=== PATIENT | male | born 1940 | race Caucasian/White ===

== ENCOUNTER → 2017-03-15 | Day surgery (SDC) | payer OTHER ==
[2017-02-13 13:40] VITALS: Ht 170.2 cm; Wt 95.5 kg
[~2017-03-15] VITALS: Ht 170.2 cm; Wt 95.5 kg
[~2017-03-15] MED LIST: 500ML BSS 0.3ML EPI 1:1000PF IRRIG ONE; ACETAMINOPHEN 325 MG TAB PO PRN; AMVISC PLUS 0.8ML SYRINGE INT OCU ONE; ASPI325T45 PO; ATEN-173 PO; ATOR-24 PO; ATROPINE SULFATE 0.1 MG/ML 5ML SYR IV PRN; BSS FLUSH ONE; CHOL20009 PO; CITA20TA4 PO; EpHEDrine SULFATE INJ 50 MG/ML AMP IV PRN; EpINEphrine INJ 1MG/ML AMP 1 MG/ML AMP ONE; FELO5TAB PO; HYDR25TA4 PO; INSDGI SC; INSU100I SC; LACTATED RINGER'S 1000ML 500 ML IV SCH; LIDOCAINE 3.5% OPH GEL PER APPLICATION CHARGE ONE; LIDOCAINE HCL 1% MPF 2 ML VIAL ONE; LISI1TAB3 PO; MELO15TA10 PO; MIDAZOLAM HCL 1 MG/ML 2ML VIAL ONE; MULT-506 PO; OCUCOAT 1 ML SOLN IO ONE; OMEG10007 PO; ONDANSETRON INJ 2 MG/ML 2 ML VIAL IV PRN; POTA550T4 PO; POVIDONE-IODINE OP SOLN 30 ML BTL ONE; PRLSR20 PO; PROPARACAINE 0.5% OP SOLN PER DROP CHARGE OPL SCH; TOBRAMYCIN/DEXAMETHASONE OPH OINT PER APPLN CHARGE ONE
[2017-03-15] MEDS: PHENYLEPHRINE HCL 2.5% OP SOLN PER DROP CHARGE OPL SCH ×2 (06:44→06:49)
[2017-03-15] MEDS: TROPICAMIDE 1% OP SOLN PER DROP CHARGE OPL SCH ×2 (06:45→06:50)
[2017-03-15] MEDS: CYCLOPENTOLATE HCL 1% OP SOLN PER DROP CHARGE OPL SCH ×2 (06:46→06:51)
[2017-03-15] MEDS: KETOROLAC 0.5% OP SOLN PER DROP CHARGE OPL SCH ×2 (06:47→06:52)
[2017-03-15] MEDS: GATIFLOXACIN OP SOLN PER DROP CHARGE OPL SCH ×2 (06:48→06:58)
--- NOTE | 2017-03-15 06:54 | History & Physical Bridge - [place] ---
H&P Re-Evaluation Bridge Note: I have examined the patient, reviewed the History & Physical and in the interval since the performance of the History & Physical I have noted the following changes of clinical significance: No changes noted
--- NOTE | 2017-03-15 07:19 | Discharge Instructions-SurgCtr ---
Discharge Instructions Date of Service Mar 15, 2017. Visit Reason for Visit: Cataract Left Eye Discharge Discharge Diagnosis / Problem: cataract Discharge Goals Goal(s): Improve function Medications Stopped Medications Name(s): Stopped Chandni 5 days ago - was told not to take his fast acting insulin this a.m. and only to take half of his night insulin. Activity Recommendations Activity Limitations: per Instructions/Follow-up section Anesthesia . Post Anesthesia Instructions: If you have had General Anesthesia or IV Sedation: * Do not drive today. * Resume driving when surgeon permits. * Do not make important decisions or sign legal documents today. * Call surgeon for: 1. Temperature elevations greater than 101 degrees F. 2. Uncontrollable pain. 3. Excessive bleeding. 4. Persistent nausea and vomiting. 5. Medication intolerance (nausea, vomiting or rash). * For nausea and vomiting use only clear liquids such as: tea, soda, bouillon until nausea subsides, then gradually increase diet as tolerated. * If you have any concerns or questions, call your surgeon's office. If physician is unavailable and it is an emergency, call 911 or go to the nearest emergency room. . Instructions / Follow-Up Instructions / Follow-Up ACTIVITY RECOMMENDATIONS: * No strenuous lifting, jogging or running for 4 days * No swimming or yard work for 1 week. * Limited bending is permitted, such as putting on shoes. RETURN TO SCHOOL/WORK: No work until seen by physician in office. MEDICATIONS: Resume previous medications unless instructed otherwise by your surgeon. This includes eye drops for glaucoma. Zymaxid/Gatifloxacin (browne cap) - one drop every 2 hours until bedtime Nevanac/Ilevro/Prolensa/Ketorolac (ferguson cap) - one drop every 4 hours until bedtime Prednisolone/Durezol (white/pink cap, SHAKE WELL) - one drop every 2 hours until bedtime Starting tomorrow - all 3 drops every 4 hours until seen in the office Optive drops - as needed for discomfort SPECIAL CARE INSTRUCTIONS: * Wear eyeshield when sleeping, for four nights. * You may wear your own glasses or sunglasses while awake. * You may read or watch TV * You may shower and wash your face, but be gentle around the eye and pat dry. * Blurry vision and mild irritation are normal. * Call office if pain is more severe or vision becomes dark at . FOLLOW UP VISIT: Follow-up with Dr Sanders tomorrow. Diet Recommendations Home Diet: resume previous diet Procedures Procedures Performed: Left Cataract Phacoemulsification With Intraocular Lens Implant Pending Studies Studies pending at discharge: no Medical Emergencies . Who to Call and When: Medical Emergencies: If at any time you feel your situation is an emergency, please call 911 immediately. . Non-Emergent Contact Non-Emergency issues call your: Hospice Director . . "Provider Documentation" section prepared by Landon Sanders. .
--- NOTE | 2017-03-15 07:19 | [facility] Operative Report ---
Operative Report Date of Service Mar 15, 2017. Operative Report 1. PREOPERATIVE DIAGNOSIS: Cataract of the left eye. 2. POSTOPERATIVE DIAGNOSIS: Same. 3. PROCEDURE: Phacoemulsification with intraocular lens implantation of the left eye. SURGEON: Dr. Landon Sanders. ANESTHESIA: Topical Lidocaine gel, 1% Non- Preserved intracameral Lidocaine, and monitored intravenous sedation. INDICATIONS FOR THE PROCEDURE: The patient is a 76 - year-old male with a history of cataract of the left eye causing significant visual impairment. The details of the proposed procedure were explained to the patient who asked appropriate questions and following discussion of all risks, benefits and alternatives agreed to have the procedure done. 4. OPERATION AND FINDINGS: DESCRIPTION OF PROCEDURE: After informed consent was obtained, the patient was brought to the Operating Room at the [facility]. The patient was placed in a supine position and then the left eye was prepped and draped in the usual sterile fashion for intraocular surgery. A drop of topical Lidocaine gel was placed in the operative eye. A wire lid speculum was then placed in the fornices. A corneal paracentesis was then created temporally. The Non-Preserved Lidocaine was then instilled into the anterior chamber. The anterior chamber was then pressurized with viscoelastic. A 2.0 mm clear corneal incision was then created temporally. A cystotome was inserted into the anterior chamber and used to create a tear in the anterior lens capsule. This capsular tear was then used to create a small flap and the flap was dragged in a counterclockwise direction in order to create a continuous curvilinear capsulorrhexis. Hydrodissection was accomplished with balanced salt solution. Phacoemulsification of the lens nucleus was then performed in a standard [id number] technique. The phaco time was 18 seconds with an average power of 10 %. The remaining cortical material was removed using irrigation aspiration. The capsular bag was then filled with viscoelastic. A Bausch & Lomb MI60L +18.5 diopters lens was then loaded into the injector and injected into the capsular bag. The remaining viscoelastic was removed with the irrigation aspiration handpiece. The wound was hydrated and then checked and found to be watertight. The intraocular pressure was checked and found to be adequate. The wire lid speculum was removed and the patient's face was cleaned and dried. TobraDex ointment was placed in the inferior fornix. The patient was discharged to the Recovery Room having tolerated the procedure well. There were no complications. The patient will be seen tomorrow in the office for follow-up. I attest to the content of the Intraoperative Record and any orders documented therein. Any exceptions are noted below.
[2017-03-15 07:20] VITALS: TEMP 36.9
[2017-03-15 07:46] VITALS: BP 132/67; PULSE 52; O2SAT 98
--- NOTE | 2017-03-15 07:56 | Anesthesiology Progress Note ---
Anesthesia Post Op Note Date & Time Mar 15, 2017 at 07:55 Vital Signs Pain Intensity: 0 Vital Signs Past 12 Hours Date Time Temp Pulse Resp B/P (MAP) Pulse Ox O2 Delivery O2 Flow Rate FiO2 03/15/17 07:46 52 20 132/67 (88) 98 Room Air 03/15/17 07:20 36.9 51 16 151/80 (103) 98 Room Air 03/15/17 06:30 36.6 53 16 144/79 (100) 99 Room Air Notes Mental Status: alert / awake / arousable, participated in evaluation Pt Amnestic to Procedure: Yes Nausea / Vomiting: adequately controlled Pain: adequately controlled Airway Patency, RR, SpO2: stable & adequate BP & HR: stable & adequate Hydration State: stable & adequate Anesthetic Complications: no major complications apparent
== END | disposition home or self-care (01) ==
LOC: X.SURG 06:04
PROVIDERS: ATTEND Ophthalmology
DX: H25.13 Age-related nuclear cataract, bilateral (principal); E10.9 Type 1 diabetes mellitus without complications; I10 Essential (primary) hypertension; I25.10 Atherosclerotic heart disease of native coronary artery without angina pectoris; G47.33 Obstructive sleep apnea (adult) (pediatric); E55.9 Vitamin D deficiency, unspecified; Z79.82 Long term (current) use of aspirin

== ENCOUNTER → 2017-04-10 | Day surgery (SDC) | payer OTHER ==
[2017-03-27 10:36] VITALS: Ht 170.2 cm; Wt 95.5 kg
[~2017-04-10] VITALS: Ht 170.2 cm; Wt 95.5 kg
[~2017-04-10] MED LIST changes: -ONDANSETRON INJ 2 MG/ML 2 ML VIAL IV PRN; -PROPARACAINE 0.5% OP SOLN PER DROP CHARGE OPL SCH; +PROPARACAINE 0.5% OP SOLN PER DROP CHARGE OPR SCH
[2017-04-10] MEDS: PHENYLEPHRINE HCL 2.5% OP SOLN PER DROP CHARGE OPR SCH ×2 (10:21→10:30)
[2017-04-10] MEDS: TROPICAMIDE 1% OP SOLN PER DROP CHARGE OPR SCH ×2 (10:22→10:31)
[2017-04-10] MEDS: CYCLOPENTOLATE HCL 1% OP SOLN PER DROP CHARGE OPR SCH ×2 (10:23→10:32)
[2017-04-10] MEDS: KETOROLAC 0.5% OP SOLN PER DROP CHARGE OPR SCH ×2 (10:25→10:34)
[2017-04-10] MEDS: GATIFLOXACIN OP SOLN PER DROP CHARGE OPR SCH ×2 (10:26→10:35)
--- NOTE | 2017-04-10 11:16 | Discharge Instructions-SurgCtr ---
Discharge Instructions Date of Service Apr 10, 2017. Visit Reason for Visit: Cataract Right Eye Discharge Discharge Diagnosis / Problem: cataract Discharge Goals Goal(s): Improve function Activity Recommendations Activity Limitations: per Instructions/Follow-up section Anesthesia . Post Anesthesia Instructions: If you have had General Anesthesia or IV Sedation: * Do not drive today. * Resume driving when surgeon permits. * Do not make important decisions or sign legal documents today. * Call surgeon for: 1. Temperature elevations greater than 101 degrees F. 2. Uncontrollable pain. 3. Excessive bleeding. 4. Persistent nausea and vomiting. 5. Medication intolerance (nausea, vomiting or rash). * For nausea and vomiting use only clear liquids such as: tea, soda, bouillon until nausea subsides, then gradually increase diet as tolerated. * If you have any concerns or questions, call your surgeon's office. If physician is unavailable and it is an emergency, call 911 or go to the nearest emergency room. . Instructions / Follow-Up Instructions / Follow-Up ACTIVITY RECOMMENDATIONS: * No strenuous lifting, jogging or running for 4 days * No swimming or yard work for 1 week. * Limited bending is permitted, such as putting on shoes. RETURN TO SCHOOL/WORK: No work until seen by physician in office. MEDICATIONS: Resume previous medications unless instructed otherwise by your surgeon. This includes eye drops for glaucoma. Zymaxid/Gatifloxacin (browne cap) - one drop every 2 hours until bedtime Nevanac/Ilevro/Prolensa/Ketorolac (ferguson cap) - one drop every 4 hours until bedtime Prednisolone/Durezol (white/pink cap, SHAKE WELL) - one drop every 2 hours until bedtime Starting tomorrow - all 3 drops every 4 hours until seen in the office Optive drops - as needed for discomfort SPECIAL CARE INSTRUCTIONS: * Wear eyeshield when sleeping, for four nights. * You may wear your own glasses or sunglasses while awake. * You may read or watch TV * You may shower and wash your face, but be gentle around the eye and pat dry. * Blurry vision and mild irritation are normal. * Call office if pain is more severe or vision becomes dark at . FOLLOW UP VISIT: Follow-up with Dr Sanders tomorrow. Diet Recommendations Home Diet: resume previous diet Procedures Procedures Performed: Right Cataract Phacoemulsification With Intraocular Lens Implant Pending Studies Studies pending at discharge: no Medical Emergencies . Who to Call and When: Medical Emergencies: If at any time you feel your situation is an emergency, please call 911 immediately. . Non-Emergent Contact Non-Emergency issues call your: [employer] . . "Provider Documentation" section prepared by Landon Sanders. .
--- NOTE | 2017-04-10 11:17 | [facility] Operative Report ---
Operative Report Date of Service Apr 10, 2017. Operative Report 1. PREOPERATIVE DIAGNOSIS: Cataract of the right eye. 2. POSTOPERATIVE DIAGNOSIS: Same. 3. PROCEDURE: Phacoemulsification with intraocular lens implantation of the right eye. SURGEON: Dr. Landon Sanders. ANESTHESIA: Topical Lidocaine gel, 1% Non- Preserved intracameral Lidocaine, and monitored intravenous sedation. INDICATIONS FOR THE PROCEDURE: The patient is a 76 - year-old male with a history of cataract of the right eye causing significant visual impairment. The details of the proposed procedure were explained to the patient who asked appropriate questions and following discussion of all risks, benefits and alternatives agreed to have the procedure done. 4. OPERATION AND FINDINGS: DESCRIPTION OF PROCEDURE: After informed consent was obtained, the patient was brought to the Operating Room at the [facility]. The patient was placed in a supine position and then the right eye was prepped and draped in the usual sterile fashion for intraocular surgery. A drop of topical Lidocaine gel was placed in the operative eye. A wire lid speculum was then placed in the fornices. A corneal paracentesis was then created temporally. The Non-Preserved Lidocaine was then instilled into the anterior chamber. The anterior chamber was then pressurized with viscoelastic. A 2.0 mm clear corneal incision was then created temporally. A cystotome was inserted into the anterior chamber and used to create a tear in the anterior lens capsule. This capsular tear was then used to create a small flap and the flap was dragged in a counterclockwise direction in order to create a continuous curvilinear capsulorrhexis. Hydrodissection was accomplished with balanced salt solution. Phacoemulsification of the lens nucleus was then performed in a standard [id number] technique. The phaco time was 18 seconds with an average power of 10 %. The remaining cortical material was removed using irrigation aspiration. The capsular bag was then filled with viscoelastic. A Bausch & Lomb MI60L +17.0 diopters lens was then loaded into the injector and injected into the capsular bag. The remaining viscoelastic was removed with the irrigation aspiration handpiece. The wound was hydrated and then checked and found to be watertight. The intraocular pressure was checked and found to be adequate. The wire lid speculum was removed and the patient's face was cleaned and dried. TobraDex ointment was placed in the inferior fornix. The patient was discharged to the Recovery Room having tolerated the procedure well. There were no complications. The patient will be seen tomorrow in the office for follow-up. I attest to the content of the Intraoperative Record and any orders documented therein. Any exceptions are noted below.
[2017-04-10 11:18] VITALS: TEMP 36.7
[2017-04-10 11:43] VITALS: BP 172/70; PULSE 46; O2SAT 99
--- NOTE | 2017-04-10 11:45 | Anesthesiology Progress Note ---
Anesthesia Post Op Note Date & Time Apr 10, 2017 at 11:45 Vital Signs Pain Intensity: 0 Vital Signs Past 12 Hours Date Time Temp Pulse Resp B/P (MAP) Pulse Ox O2 Delivery O2 Flow Rate FiO2 04/10/17 11:18 36.7 41 18 184/82 (116) 98 Room Air 04/10/17 09:56 36.4 52 18 168/71 (103) 98 Room Air Notes Mental Status: alert / awake / arousable, participated in evaluation Pt Amnestic to Procedure: No Nausea / Vomiting: adequately controlled Pain: adequately controlled Airway Patency, RR, SpO2: stable & adequate BP & HR: stable & adequate Hydration State: stable & adequate Anesthetic Complications: no major complications apparent 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
== END | disposition home or self-care (01) ==
LOC: X.SURG 09:46
PROVIDERS: ATTEND Ophthalmology
DX: H25.11 Age-related nuclear cataract, right eye (principal); E10.36 Type 1 diabetes mellitus with diabetic cataract; I10 Essential (primary) hypertension; G47.33 Obstructive sleep apnea (adult) (pediatric); E78.5 Hyperlipidemia, unspecified; G47.10 Hypersomnia, unspecified; E55.9 Vitamin D deficiency, unspecified; M02.30 Reiter's disease, unspecified site; Z79.4 Long term (current) use of insulin; Z79.82 Long term (current) use of aspirin; Z79.899 Other long term (current) drug therapy

== ENCOUNTER 2019-03-25 16:18 | Observation (INO) ==
--- OUTSIDE RECORDS SUMMARY | 2019-03-25 16:22 | External Medical Summary | Continuity of Care Document ---
:1940 Author Name Ruddy Quinonez Address Unavailable Unavailable , Care Team Providers Name Role Phone Unavailable Unavailable Unavailable Sameera GUERRERO Unavailable Unavailable Problems Active medical history not documented Allergies and Adverse Reactions No Known Drug Allergies (Allergy) Medications Medications not documented Procedures Procedures not documented Immunizations Immunizations not documented Plan of Treatment Planned Observations Planned Goals not documented Results No Known Results Results not documented
--- NOTE | 2019-03-25 16:46 | XRay Report ---
XR chest 1V portable HISTORY: Atypical Chest Pain COMPARISON: None. FINDINGS: The lungs are clear. Cardiac silhouette is normal in size. No pleural effusions. No pneumot horax. IMPRESSION: No acute process. Electronically signed by: Tigre Elizabeth M.D. 03/25/2019 4:45 PM
[2019-03-25 16:56] LABS: Hematocrit (blood only) 33.1 % (42-52); Mean Corpuscular Hgb Conc 36.3 g/dL (32-36); Mean Corpuscular Volume 83.8 fL (80-100); Mean Platelet Volume 9.8 fL (7.4-10.4); Platelet Count 246 K/uL (130-400); RDW Coefficient of Variation 13.2 % (11.5-14.5); RDW Standard Deviation 40.2 fL (36.4-46.3); Red Blood Count 3.95 M/uL (4.7-6.1); White Blood Count 9.79 K/uL (4.8-10.8)
[2019-03-25 17:10] LABS: INR 1.1 (0.9-1.1); Partial Thromboplastin Ratio 1.1; Partial Thromboplastin Time 28.6 Seconds (21.0-31.0); Prothrombin Time 11.4 Seconds (9.0-12.0)
[2019-03-25 17:13] LABS: Alanine Aminotransferase 53 U/L (12-78); Albumin Level 2.7 gm/dl (3.4-5.0); Aspartate Aminotransferase 61 U/L (15-37); BUN Creatinine Ratio 30.1 (10-20); Blood Urea Nitrogen 28 mg/dl (7-18); Calcium 8.2 mg/dl (8.5-10.1); Carbon Dioxide 29 mmol/L (21-32); Chloride 101 mmol/L (98-107); Creatinine Clr Calc Pharmacy 73.1 ml/min; Est GFR (Non-African American) 79.4; Glucose 188 mg/dl (70-99); Magnesium 2.1 mg/dl (1.8-2.4); Potassium 3.2 mmol/L (3.5-5.1); Sodium 136 mmol/L (136-145)
[2019-03-25 17:24] LABS: Albumin Globulin Ratio 0.7 (0.9-2); Alkaline Phosphatase 71 U/L (45-117); Bilirubin,Total 0.5 mg/dl (0.2-1); Creatine Kinase 195 U/L (39-308); Creatine Kinase MB 4.9 ng/ml (0.5-3.6); Globulin 4.1 gm/dl (2.5-4.0); Total Protein 6.8 gm/dl (6.4-8.2); Troponin I < 0.015 ng/ml (0-0.045)
[2019-03-25 18:04] LABS: Basophils # (auto) 0.05 K/uL (0-0.2); Basophils % (auto) 0.5 %; Echinocytes 1+; Eosinophils # (auto) 0.15 K/uL (0-0.5); Eosinophils % (auto) 1.5 %; Immature Granulocytes # (auto) 0.02 K/uL (0.00-0.02); Immature Granulocytes % (auto) 0.2 %; Lymphocytes # (auto) 5.72 K/uL (1.2-3.4); Lymphocytes % (auto) 58.4 %; Monocytes # (auto) 1.13 K/uL (0.11-0.59); Monocytes % (auto) 11.5 %; Neutrophils # (auto) 2.72 K/uL (1.4-6.5); Neutrophils % (auto) 27.9 %
[2019-03-25] MEDS ORDERED: SODIUM CHLORIDE 0.9% 1000ML 500 ML IV ONE (18:37)
--- NOTE | 2019-03-25 20:23 | Emergency Department Note ---
Entered by Praveena Gan acting as a scribe for Ricky Hidalgo DO History of Present Illness General Chief complaint: Cardiac Assessment Stated complaint: CHEST PRESSURE Source: patient and EMS Mode of arrival: EMS History of Present Illness Onset (ago): hour(s) 2 Location: chest Pain Consistency: + other (episode ) Quality: + other (pressure ) Relieved By: + medication (Aspirin, Nitro) Exacerbated By: + other (standing ) Associated symptoms: no chest pain and no shortness of breath Treatments prior to arrival: aspirin and other (Nitro) The patient is a 78 year old male who presents to the ED with complaints of an episode of chest pain for 2 hours now. The patient states that he had chest pressure today but he feels some relief in the ED. The patient states that the chest pain felt tense earlier but is only intermittent now. The patient states that his light-headedness gets worse with standing but not with movement. The patient states that his light-headedness comes and goes. The patient states that he went to the doctor a week ago. The patient notes that his PCP is Dr. Valero. He notes that at the doctors his Troponin levels were elevated, but the patient wasnt admitted. He reports that he does not have chest pain or shortness of breath. The patient denies blood in his urine and stool. The patient states that he had a stress test a few years ago. The EMS states that the patient had a borderline 1st degree AV block. They report that the patient was given Aspirin and Nitro in the EMS. Home Medications Home Medications Medication Instructions Recorded Confirmed Type aspirin 325 mg PO QAM 03/25/19 03/25/19 History atorvastatin 40 mg PO QAM 03/25/19 03/25/19 History cholecalciferol (vitamin D3) 2,000 unit PO QAM 03/25/19 03/25/19 History [Vitamin D3] citalopram 10 mg PO QAM 03/25/19 03/25/19 History felodipine 5 mg PO QAM 03/25/19 03/25/19 History hydrochlorothiazide 25 mg PO QAM 03/25/19 03/25/19 History insulin glargine [Lantus U-100 25 unit SUBCUT QPM 03/25/19 03/25/19 History Insulin] insulin lispro [Humalog KwikPen See Rx Instructions .ROUTE .COMPLEX 03/25/19 03/25/19 History Insulin] lisinopril 40 mg PO QAM 03/25/19 03/25/19 History meloxicam 15 mg PO DAILY PRN 03/25/19 03/25/19 History multivitamin 1 tab PO QAM 03/25/19 03/25/19 History gxlzj-[id number]-epa-fish oil [[place]-3 2 cap PO QAM 03/25/19 03/25/19 History Fish Oil] omeprazole 10 mg PO QAM 03/25/19 03/25/19 History potassium gluconate 550 mg PO 4XWK 03/25/19 03/25/19 History Allergies Allergy/AdvReac Type Severity Reaction Status Date / Time No Known Drug Allergies Allergy Unknown . Verified 03/25/19 17:17 Neoprene Allergy Unknown Itchiness Uncoded 03/25/19 17:17 Past Med/Surg History Medical History No known health problems Family History Other No significant family history Social History Preferred Language: Belarusian Communication Ability: Effective Reception Agent Required: No Beliefs That Will Affect Care: None Current Living Situation: Spouse Other Information That Helps Us Care for You: Yes (Type 1 diabetic) Feels Safe at Home: Yes Smoking Status: Never smoker Hx Alcohol Use: No Hx Substance Use: No Review of Systems See HPI for pertinent positives & negatives. and A total of 10 systems reviewed and were otherwise negative Physical Exam Vital Signs Vital Signs - 24 hr 03/25/19 16:30 03/25/19 18:37 Temperature 36.4 C L Temperature Source Oral Sepsis Recent Fever Within 48 Hours No Sepsis New/Unexplained Change in Mental Status No Sepsis Action Taken by Nursing No Action Required Pulse Rate 68 Pulse Rate [Apical] 67 Respiratory Rate 18 18 Blood Pressure 113/66 Blood Pressure [Left Arm] 104/68 Blood Pressure Mean 81 Blood Pressure Mean [Left Arm] 80 Pulse Oximetry 97 97 Oxygen Delivery Method Room Air GENERAL: Patient is awake, alert, and in no acute distress.Patient is resting comfortably and showing no signs of anxiety EYES: The conjunctivae are clear. The pupils are round and reactive. EARS, NOSE, MOUTH AND THROAT: The nose is without any evidence of any deformity. Mucous membranes are moist.Tongue is midline NECK: The neck is nontender and supple. RESPIRATORY: Normal respiratory effort is noted. There is no evidence of wheezing rhonchi or rales to auscultation. CARDIOVASCULAR: Regular rate and rhythm noted. There no murmurs rubs or gallops normal S1 normal S2 GASTROINTESTINAL: The abdomen is soft. Bowel sounds are present in all quadran ts. Abdomen is nontender. MUSCULOSKELETAL/EXTREMITIES: There is no evidence of gross deformity. Full range of motion is noted in the hips and shoulders. SKIN: There is no obvious evidence of any rash. There are no petechiae, pallor or cyanosis noted. NEUROLOGIC: Patient is awake alert and oriented x3. [Strength is symmetric. Patellar reflexes are 2+ bilaterally.] Course 162: Past medical records reviewed. The patient was evaluated in room C10. A complete history and physical exam was performed. 0: I reevaluated the patient at this time and he is resting comfortably. I discussed the test results and treatment plan with the patient at this time. 1850: I discussed the patients case with INNA Thomason. She agreed to evaluate the patient for admittance. Consultations Consultation #1: I discussed the patients case with INNA Thomason. She agreed to evaluate the patient for admittance. Time: 18:50 Administered Medications Discontinued Medications Sodium Chloride (Nss 1000ml) 500 mls @ 999 mls/hr IV .Q31M ONE Stop: 03/25/19 19:07 Last Infusion: 03/25/19 19:39 Dose: 0 mls/hr Documented by: [id number] Admin: 03/25/19 18:54 Dose: 999 mls/hr Documented by: [id number] Medical Decision Making Differential Diagnosis Differential diagnosis: Etiologies such as shingles, musculoskeletal pain, pericarditis, myocarditis, cardiac ischemia, pericardial tamponade, pneumonia, pneumothorax, pleural effusion, hemothorax, pleurisy, aortic pathology, pulmonary embolism, intra- abdominal process, as well as others were considered. Medical Records Attestation: I reviewed the patient's medical records. Home Medications Current Medication List: was personally reviewed by me Laboratory Data Attestation: I reviewed the patient's lab results. Result diagrams: 03/25/19 16:48 07/23/19 16:48 Lab Results 03/25/19 03/25/19 03/25/19 Range/Units 16:48 16:48 16:48 WBC 9.79 (4.8-10.8) K/uL RBC 3.95 L (4.7-6.1) M/uL Hgb 12.0 L (14.0-18.0) g/dL Hct 33.1 L (42-52) % MCV 83.8 (80-100) fL MCH 30.4 (25-34) pg MCHC 36.3 H (32-36) g/dL RDW Std Deviation 40.2 (36.4-46.3) fL RDW Coeff of Toby 13.2 (11.5-14.5) % Plt Count 246 (130-400) K/uL MPV 9.8 (7.4-10.4) fL Immature Gran % (Auto) 0.2 % Neut % (Auto) 27.9 % Lymph % (Auto) 58.4 % [place] % (Auto) 11.5 % Eos % (Auto) 1.5 % Baso % (Auto) 0.5 % Immature Gran # (Auto) 0.02 (0.00-0.02) K/uL Neut # (Auto) 2.72 (1.4-6.5) K/uL Lymph # (Auto) 5.72 H (1.2-3.4) K/uL [place] # (Auto) 1.13 H (0.11-0.59) K/uL Eos # (Auto) 0.15 (0-0.5) K/uL Baso # (Auto) 0.05 (0-0.2) K/uL Echinocytes 1+ PT 11.4 (9.0-12.0) Seconds INR 1.1 (0.9-1.1) APTT 28.6 (21.0-31.0) Seconds PTT Ratio 1.1 Sodium 136 (136-145) mmol/L Potassium 3.2 L (3.5-5.1) mmol/L Chloride 101 (98-107) mmol/L Carbon Dioxide 29 (21-32) mmol/L Anion Gap 7.0 (3-11) BUN 28 H (7-18) mg/dl Creatinine 0.92 (0.6-1.4) mg/dl Est Cr Clr Drug Dosing 73.1 ml/min Est GFR ( Amer) 92.0 Est GFR (Non-Af Amer) 79.4 BUN/Creatinine Ratio 30.1 H (10-20) Glucose 188 H (70-99) mg/dl Calcium 8.2 L (8.5-10.1) mg/dl Magnesium 2.1 (1.8-2.4) mg/dl Total Bilirubin 0.5 (0.2-1) mg/dl AST 61 H (15-37) U/L ALT 53 (12-78) U/L Alkaline Phosphatase 71 (45-117) U/L Total Creatine Kinase 195 (39-308) U/L CK-MB (CK-2) 4.9 H (0.5-3.6) ng/ml CK/CKMB % Calc 2.5 (0-3.0) Troponin I < 0.015 (0-0.045) ng/ml Total Protein 6.8 (6.4-8.2) gm/dl Albumin 2.7 L (3.4-5.0) gm/dl Globulin 4.1 H (2.5-4.0) gm/dl Albumin/Globulin Ratio 0.7 L (0.9-2) Lipase 102 (73-393) U/L TSH 2.980 (0.300-4.500) uIu/ml Imaging Data Radiologist's Impression: Radiology results as stated below per my review and the radiologist's interpretation: XR chest 1V portable HISTORY: Atypical Chest Pain COMPARISON: None. FINDINGS: The lungs are clear. Cardiac silhouette is normal in size. No pleural effusions. No pneumothorax. IMPRESSION: No acute process. Electronically signed by: Tigre Elizabeth M.D. 03/25/2019 4:45 PM ECG Data Attestation: I personally reviewed and interpreted this ECG as follows: Indication: chest pain Rate (beats per minute): 60 Findings: + other (diffused t-wave abnormalities noted ) and + 1st degree AV block; no PAC, no PVC and no ectopy Comparison ECG Date: no prior available Blood Pressure Blood Pressure Findings: Low blood pressure Blood Pressure Disposition: further management by hospitalist GURMEET Narrative The patient is a 78-year-old male who presented to the emergency department for an evaluation of chest discomfort. Patient describes a squeezing in his chest is been going on intermittently over the last few days. He was seen by his primary care physician recently and had laboratory studies done as an outpatient which included a hcqzv-ac-whuh troponin which was elevated. At this time the patient has a normal troponin. His EKG does show some nonspecific ST segment ab normality's. I discussed the patient's laboratory and radiographic studies with him. I also discussed the limitations of the emergency department work-up for chest pain with him. Ultimately I did discuss his case with the on-call [facility] hospitalist group. They have agreed to evaluate the patient in the emergency department for further management and disposition. Impression & Plan Chest pain, Abnormal EKG, Frequent PVCs, Dizziness Discharge Plan Visit Data *Final* Discharge Date/Time: 03/25/19 22:18 Chief Complaint: Cardiac Assessment Stated Complaint: CHEST PRESSURE ED Provider: Ricky Hidalgo Discharge Problem: Chest pain, Abnormal EKG, Frequent PVCs, Dizziness Patient Disposition: Admitted As Inpatient Discharge Instructions Interventions: ED Discharge Assessment Last Done: 03/25/19 22:18 Discharge Problem: Chest pain Qualifiers: Chest pain type: unspecified Qualified Code(s): R07.9 - Chest pain, unspecified The scribe's documentation has been prepared under my direction and personally reviewed by me in its entirety. I confirm that the note above accurately reflects all work, treatment, procedures, and medical decision making performed by me.
[2019-03-25] MEDS ORDERED: NITROGLYCERIN SL 0.4 MG/TAB TAB SL PRN (22:39)
[2019-03-25] MEDS ORDERED: ACETAMINOPHEN 325 MG TAB PO PRN (22:39)
[2019-03-25] MEDS ORDERED: POLYETHYLENE (MIRALAX) 17 GM PACK PO PRN (22:39)
[2019-03-25] MEDS ORDERED: ONDANSETRON INJ 2 MG/ML 2 ML VIAL IV PRN (22:39)
[2019-03-25] MEDS ORDERED: GLUCAGON FOR INJ 1 MG VIAL SQ PRN (23:00)
[2019-03-25] MEDS ORDERED: GLUCOSE 10 TABS/TUBE PO PRN (23:00)
[2019-03-25] MEDS ORDERED: DEXTROSE 50% 50 ML SYRINGE IV PRN (23:00)
[2019-03-25] MEDS ORDERED: GLUCOSE 40% GEL 15 GM TUBE PO PRN (23:00)
[2019-03-25] MEDS ORDERED: CARBOHYDRATES FOR HYPOGLYCEMIA PO PRN (23:00)
--- NOTE | 2019-03-25 23:30 | History and Physical Report ---
DATE OF ADMISSION: 03/25/2019 CHIEF COMPLAINT: Chest pain. HISTORY OF PRESENT ILLNESS: This is a 78-year-old male with past medical history significant for type 1 diabetes, hyperlipidemia, sleep apnea, CAD status post stent, vitamin D deficiency, [place] arthritis, hypersomnia, who presents with chest pressure like feeling. The patient states since about a week he is not feeling well. He is feeling loss of appetite, weight loss, generalized weakness. Sugars are labile, blood pressure is running low, feeling dizzy. He thought he might have had a heart attack on 03/16/2019. He went to the family doctor on 03/20/2019 and labs were done, mostly were unremarkable except for patient's high sensitivity troponin came back as 23, which normal range is 0-22, . He had some chest pressure like feeling today, so he came to the hospital. Currently resting comfortable and hemodynamically stable. Seems to be a little anxious. Had some headaches. No blurred visions, no earache, no runny nose, no sore throat, no difficulty swallowing. sleeping okay. No shortness of breath. Has some dry cough, has some sweating on and off. No nausea, no abdominal pain. He says he is drinking enough water, but he is not urinating much. No burning micturition. No diarrhea, no constipation, no blood in the stools. No swelling in the legs, no rash. Ambulating okay. No chest pain or shortness of breath while ambulating. Climbing one flight of stairs okay. ALLERGIES: No known drug allergies. PAST MEDICAL HISTORY: As mentioned above. PAST SURGICAL HISTORY: Aortic percutaneous angioplasty, colonoscopy, cystoscopy, repair of inguinal hernia, vasectomy. MEDICATIONS: The patient is on omeprazole 20 mg p.o. daily, meloxicam 50 mg p.o. daily p.r.n., Humalog sliding scale, vitamin D 2000 units daily, Celexa 10 mg p.o. daily, multivitamins 1 tablet daily, omega-3 one capsule daily, potassium gluconate 550 mg daily, Lipitor 40 mg p.o. daily, Lantus 25 units in the evening, felodipine 5 mg p.o. daily, hydrochlorothiazide 25 mg p.o. daily, lisinopril 40 mg p.o. daily, aspirin 325 mg p.o. daily. FAMILY HISTORY: Significant for brother has diabetes, daughter has diabetes. SOCIAL HISTORY: and lives with his spouse. No smoking, no alcohol, no drug use. REVIEW OF SYMPTOMS: As per HPI. Rest of review of systems negative. PHYSICAL EXAMINATION: GENERAL: The patient is of moderate build, not in acute distress. VITAL SIGNS: Temperature 36.4, pulse 67, respiratory rate 18, blood pressure 104/68, oxygen 97% on room air. HEENT: No pallor, no icterus. Pupils equal, round, and reactive to light. NECK: No JVD, no neck masses, no carotid bruit. CARDIOVASCULAR: S1, S2 heard, regular rate and rhythm, no murmur, no gallop. RESPIRATORY SYSTEM: Normal AP diameter. No accessory muscle use. No wheezing, no crackles. ABDOMEN: Soft, bowel sounds present, nontender. No distention. CENTRAL NERVOUS SYSTEM: Cranial nerves II-XII grossly intact. Nonfocal. EXTREMITIES: No edema, no erythema. LABORATORY DATA: WBC 9.7, hemoglobin 12, hematocrit 33.1, platelets 246. PT 11.4, INR 1.1, APTT 28.6. Sodium 136, potassium 3.2, chloride 101, bicarbonate 29, BUN 28, creatinine 0.9, serum glucose 188, magnesium 2.1, total bilirubin 0.5, AST 61, ALT 53, alkaline phosphatase 71, total creatinine kinase 195. Troponin I less than 0.015. Lipase 102. TSH 2.9. IMAGING DATA: Chest x-ray, no acute process seen. EKG: Normal sinus rhythm with first-degree AV block at a rate of 60, no acute ST changes seen. ASSESSMENT AND PLAN: This is a 78-year-old male who presents with generalized weakness, not feeling well with chest discomfort. 1. Chest pressure, generalized weakness, not feeling well, poor appetite since about 1 week. Outpatient labs show high sensitivity troponin is 23, normal is 0 to 22. In the ER, his troponin is less than 0.015. EKG has no acute change. Hemodynamically stable. History of coronary artery disease status post stent. We will observe the patient in the med/surg tele, do serial cardiac enzymes, echocardiogram, n.p.o. after midnight, and consult cardiology for further recommendations. 2. Hypokalemia. We will replace. 3. History of coronary artery disease status post stent. Continue his aspirin, statins, and lisinopril. 4. Diabetes. Continue his home Lantus and insulin sliding scale. Follow hemoglobin A1c levels. 5. History of hypertension, on felodipine, hydrochlorothiazide, and lisinopril. May be we need to cut the dose as the patient's blood pressure is on the lower side, probably causing the symptoms.Will Monitor. 6. Gastroesophageal reflux disease, continue omeprazole. 7. Depression. Continue citalopram. 8. Hyperlipidemia. Continue statin. Follow lipid profile. 9. Deep vein thrombosis prophylaxis, sequential compression devices for now. 10. Disposition: Observation in med/surg tele. Expect to discharge home and follow with his family doctor. Level 1 full code. MTDD
[2019-03-25] MEDS: INSULIN ASPART 100 UNITS/ML 3 ML PEN SC SCH (23:57)
[2019-03-25] MEDS: INSULIN GLARGINE SOLOSTAR 100 UNITS/ML 3 ML PEN SQ SCH (23:59)
[2019-03-26] MEDS ORDERED: POTASSIUM CHLORIDE 20 MEQ TABCR PO STA (03:18)
[2019-03-26 05:58] LABS: Hematocrit (blood only) 33.5 % (42-52); Mean Corpuscular Hgb Conc 35.8 g/dL (32-36); Mean Corpuscular Volume 84.8 fL (80-100); Mean Platelet Volume 9.7 fL (7.4-10.4); Platelet Count 258 K/uL (130-400); RDW Coefficient of Variation 13.4 % (11.5-14.5); RDW Standard Deviation 41.2 fL (36.4-46.3); Red Blood Count 3.95 M/uL (4.7-6.1); White Blood Count 8.57 K/uL (4.8-10.8)
[2019-03-26 06:20] LABS: Chol HDL Ratio 4; Cholesterol 92 mg/dl (0-200); HDL Cholesterol 21 mg/dl; LDL Cholesterol Calculated 51 mg/dl; Triglycerides 98 mg/dl (0-150); VLDL Cholesterol 20 mg/dl
[2019-03-26 06:24] LABS: Basophils # (auto) 0.04 K/uL (0-0.2); Basophils % (auto) 0.5 %; Eosinophils # (auto) 0.18 K/uL (0-0.5); Eosinophils % (auto) 2.1 %; Immature Granulocytes # (auto) 0.02 K/uL (0.00-0.02); Immature Granulocytes % (auto) 0.2 %; Lymphocytes # (auto) 4.84 K/uL (1.2-3.4); Lymphocytes % (auto) 56.5 %; Monocytes # (auto) 0.94 K/uL (0.11-0.59); Neutrophils # (auto) 2.55 K/uL (1.4-6.5); Neutrophils % (auto) 29.7 %
[2019-03-26 06:43] LABS: BUN Creatinine Ratio 27.6 (10-20); Calcium 7.9 mg/dl (8.5-10.1); Creatinine Clr Calc Pharmacy 82.5 ml/min; Est GFR (African American) 99.2; Est GFR (Non-African American) 85.6; Magnesium 2.2 mg/dl (1.8-2.4); Potassium 3.8 mmol/L (3.5-5.1)
[2019-03-26] MEDS: ASPIRIN 325 MG ECTAB PO SCH (07:45)
[2019-03-26] MEDS: FELODIPINE 5 MG TABCR PO SCH (07:46)
[2019-03-26] MEDS: MULTIVITAMIN TAB PO SCH (07:46)
[2019-03-26] MEDS: LISINOPRIL 40 MG TAB PO SCH (07:46)
[2019-03-26] MEDS: PANTOprazole 40 MG TAB PO SCH (07:46)
[2019-03-26] MEDS: CITALOPRAM 20 MG TAB PO SCH (07:46)
[2019-03-26] MEDS: CHOLECALCIFEROL 1,000 UNITS TAB PO SCH (07:46)
[2019-03-26] MEDS: ATORVASTATIN 40 MG TAB PO SCH (07:47)
[2019-03-26] MEDS: hydroCHLOROthiazide 25 MG TAB PO SCH (07:47)
[2019-03-26 08:29] LABS: Estimated Average Glucose 217 mg/dl; Hemoglobin A1C 9.2 % (4.5-5.6)
[2019-03-26] MEDS: INSULIN ASPART 100 UNITS/ML 3 ML PEN SC SCH ×4 (09:17→20:33)
--- NOTE | 2019-03-26 11:59 | Cardiology Consultation ---
Date of Consultation March 26, 2019 Assessment & Plan (1) Dizziness: Patient is a 78-year-old male with history of moderate coronary atherosclerosis nonobstructive by remote investigation. Last stress testing 2017- for ischemia. Presents now with symptoms of dizziness and lightheadedness possible dehydration. Troponins minimally elevated on outpatient lab testing but repeats during this visit demonstrates no elevation no EKG changes and normal LV systolic function no evidence of recent myocardial infarction. Recommendations: We will arrange for stress echocardiogram in a.m. Carotid duplex will be ordered. Patient to be maintained on telemetry to assess for bradycardia arrhythmias with past borderline bradycardia arrhythmias and beta tima intolerance noted (2) Coronary artery disease: (3) Elevated troponin: History of Present Illness Reason for Consultation: Fatigue, elevated troponin Requesting Physician: Dr. Tamez Attending Physician: Carlos Manuel Tamez MD History of Present Illness Patient is a 78-year-old male with past cardiac history 1. Coronary disease status post prior coronary events in with LAD stent, 2005 2. Residual coronary disease noted at time of cardiac catheterization 2005, 20% left main 30 40% narrowing right coronary artery 3. Type 1 diabetes mellitus insulin requiring 4. Hyperlipidemia 5. Obstructive sleep apnea Patient presents now with complaints of weakness fatigue and malaise for several weeks in duration. [place] weak and washed out possible near syncope/acute lightheadedness episodes in the last 1 to 2 days. Outpatient laboratory evaluation demonstrated very minimal elevation in troponin and patient was re ferred for inpatient management. Current EKGs and enzymes negative for acute ischemia patient is aware of blood pressures being significantly lower at home systolics in the 90s. Notes no fevers chills or productive cough notes he has not been urinating as much especially with heat is been attempting to drink more fluids. Blood sugars have been variable. No specific chest pain or chest pressure. No tachypalpitations. Generally active about his home without change in exercise tolerance. No bleeding difficulties Allergies Allergy/AdvReac Type Severity Reaction Status Date / Time No Known Drug Allergies Allergy Unknown . Verified 03/25/19 17:17 Neoprene Allergy Unknown Itchiness Uncoded 03/25/19 17:17 Home Medications Home Medications Medication Instructions Recorded Confirmed Type aspirin 325 mg PO QAM 03/25/19 03/25/19 History atorvastatin 40 mg PO QAM 03/25/19 03/25/19 History cholecalciferol (vitamin D3) 2,000 unit PO QAM 03/25/19 03/25/19 History [Vitamin D3] citalopram 10 mg PO QAM 03/25/19 03/25/19 History felodipine 5 mg PO QAM 03/25/19 03/25/19 History hydrochlorothiazide 25 mg PO QAM 03/25/19 03/25/19 History insulin glargine [Lantus U-100 25 unit SUBCUT QPM 03/25/19 03/25/19 History Insulin] insulin lispro [Humalog KwikPen See Rx Instructions .ROUTE .COMPLEX 03/25/19 03/25/19 History Insulin] lisinopril 40 mg PO QAM 03/25/19 03/25/19 History meloxicam 15 mg PO DAILY PRN 03/25/19 03/25/19 History multivitamin 1 tab PO QAM 03/25/19 03/25/19 History [id number] oil [Papillion-3 2 cap PO QAM 03/25/19 03/25/19 History Fish Oil] omeprazole 10 mg PO QAM 03/25/19 03/25/19 History potassium gluconate 550 mg PO [id number] 03/25/19 03/25/19 History Patient History Medical History No known health problems Family History Other No significant family history Social History Preferred Language: [place] Islander Communication Ability: Effective Bar Pilot Required: No Beliefs That Will Affect Care: None Current Living Situation: Spouse Other Information That Helps Us Care for You: Yes (Type 1 diabetic) Feels Safe at Home: Yes Smoking Status: Never smoker Hx Alcohol Use: No Hx Substance Use: No Review of Systems Review of Systems: All systems reviewed & are unremarkable except as noted in HPI & below Physical Exam Constitutional: WD/WN, vitals as above Eyes: PERRL, conjunctivae normal, anicteric sclerae ENMT: external ear and nose normal, oropharynx normal Neck: trachea midline, no thyromegaly Respiratory: normal respiratory effort, lungs clear to auscultation Cardiovascular: Rate/Rhythm: regular rate and regular rhythm Heart Sounds: normal S1 and normal S2; no gallop and no murmur Palpation: normal PMI Vessels: normal carotid upstroke and radial pulses present; no JVD and no carotid bruit Extremities: no edema Gastrointestinal (Abdomen): normal bowel sounds, soft, nontender, no hepatosplenomegaly Musculoskeletal: no cyanosis or clubbing, extremities motor strength 5/5 Skin: no rashes, warm and dry Neurologic: PERRL, EOMI, accommodation nl, no face palsy, no dysarthria Psychiatric: A+Ox3, euthymic affect Results & Data Vital Signs (Past 12 Hours) Vital Signs Temp Pulse Pulse Resp BP Pulse Ox 03/26/19 11:08 36.5 C 64 16 129/67 95 03/26/19 07:06 36.6 C 61 20 146/75 H 98 Laboratory Results Laboratory Results - last 24 hr 03/25/19 03/25/19 03/25/19 16:48 16:48 16:48 WBC 9.79 RBC 3.95 L Hgb 12.0 L Hct 33.1 L MCV 83.8 MCH 30.4 MCHC 36.3 H RDW Std Deviation 40.2 RDW Coeff of Toby 13.2 Plt Count 246 MPV 9.8 Immature Gran % (Auto) 0.2 Neut % (Auto) 27.9 Lymph % (Auto) 58.4 Mineral % (Auto) 11.5 Eos % (Auto) 1.5 Baso % (Auto) 0.5 Immature Gran # (Auto) 0.02 Neut # (Auto) 2.72 Lymph # (Auto) 5.72 H Mineral # (Auto) 1.13 H Eos # (Auto) 0.15 Baso # (Auto) 0.05 Blood Smear Review Echinocytes 1+ PT 11.4 INR 1.1 APTT 28.6 PTT Ratio 1.1 Sodium 136 Potassium 3.2 L Chloride 101 Carbon Dioxide 29 Anion Gap 7.0 BUN 28 H Creatinine 0.92 Est Cr Clr Drug Dosing 73.1 Est GFR ( Amer) 92.0 Est GFR (Non-Af Amer) 79.4 BUN/Creatinine Ratio 30.1 H Glucose 188 H POC Glucose Estimat Average Glucose Hemoglobin A1c Calcium 8.2 L Magnesium 2.1 Total Bilirubin 0.5 AST 61 H ALT 53 Alkaline Phosphatase 71 Total Creatine Kinase 195 CK-MB (CK-2) 4.9 H CK/CKMB % Calc 2.5 Troponin I < 0.015 Total Protein 6.8 Albumin 2.7 L Globulin 4.1 H Albumin/Globulin Ratio 0.7 L Triglycerides Cholesterol LDL Cholesterol, Calc VLDL Cholesterol, Calc HDL Cholesterol Cholesterol/HDL Ratio Lipase 102 TSH 2.980 03/25/19 03/25/19 03/25/19 21:22 23:16 23:54 WBC RBC Hgb Hct MCV MCH MCHC RDW Std Deviation RDW Coeff of Toby Plt Count MPV Immature Gran % (Auto) Neut % (Auto) Lymph % (Auto) Mineral % (Auto) Eos % (Auto) Baso % (Auto) Immature Gran # (Auto) Neut # (Auto) Lymph # (Auto) Mineral # (Auto) Eos # (Auto) Baso # (Auto) Blood Smear Review Echinocytes PT INR APTT PTT Ratio Sodium Potassium Chloride Carbon Dioxide Anion Gap BUN Creatinine Est Cr Clr Drug Dosing Est GFR ( Amer) Est GFR (Non-Af Amer) BUN/Creatinine Ratio Glucose POC Glucose 174 H 159 H Estimat Average Glucose Hemoglobin A1c Calcium Magnesium Total Bilirubin AST ALT Alkaline Phosphatase Total Creatine Kinase CK-MB (CK-2) CK/CKMB % Calc Troponin I < 0.015 Total Protein Albumin Globulin Albumin/Globulin Ratio Triglycerides Cholesterol LDL Cholesterol, Calc VLDL Cholesterol, Calc HDL Cholesterol Cholesterol/HDL Ratio Lipase TSH 03/26/19 03/26/19 03/26/19 05:31 05:31 05:31 WBC 8.57 RBC 3.95 L Hgb 12.0 L Hct 33.5 L MCV 84.8 MCH 30.4 MCHC 35.8 RDW Std Deviation 41.2 RDW Coeff of Toby 13.4 Plt Count 258 MPV 9.7 Immature Gran % (Auto) 0.2 Neut % (Auto) 29.7 Lymph % (Auto) 56.5 Mineral % (Auto) 11.0 Eos % (Auto) 2.1 Baso % (Auto) 0.5 Immature Gran # (Auto) 0.02 Neut # (Auto) 2.55 Lymph # (Auto) 4.84 H Mineral # (Auto) 0.94 H Eos # (Auto) 0.18 Baso # (Auto) 0.04 Blood Smear Review Echinocytes PT INR APTT PTT Ratio Sodium 141 Potassium 3.8 D Chloride 107 Carbon Dioxide 29 Anion Gap 6.0 BUN 22 H Creatinine 0.80 Est Cr Clr Drug Dosing 82.5 Est GFR ( Amer) 99.2 Est GFR (Non-Af Amer) 85.6 BUN/Creatinine Ratio 27.6 H Glucose 183 H POC Glucose Estimat Average Glucose Hemoglobin A1c Calcium 7.9 L Magnesium 2.2 Total Bilirubin AST ALT Alkaline Phosphatase Total Creatine Kinase CK-MB (CK-2) CK/CKMB % Calc Troponin I Total Protein Albumin Globulin Albumin/Globulin Ratio Triglycerides 98 Cholesterol 92 LDL Cholesterol, Calc 51 VLDL Cholesterol, Calc 20 HDL Cholesterol 21 Cholesterol/HDL Ratio 4 Lipase TSH 03/26/19 03/26/19 03/26/19 05:31 05:31 09:15 WBC RBC Hgb Hct MCV MCH MCHC RDW Std Deviation RDW Coeff of Toby Plt Count MPV Immature Gran % (Auto) Neut % (Auto) Lymph % (Auto) Mineral % (Auto) Eos % (Auto) Baso % (Auto) Immature Gran # (Auto) Neut # (Auto) Lymph # (Auto) Mineral # (Auto) Eos # (Auto) Baso # (Auto) Blood Smear Review Echinocytes PT INR APTT PTT Ratio Sodium Potassium Chloride Carbon Dioxide Anion Gap BUN Creatinine Est Cr Clr Drug Dosing Est GFR ( Amer) Est GFR (Non-Af Amer) BUN/Creatinine Ratio Glucose POC Glucose 236 H Estimat Average Glucose 217 Hemoglobin A1c 9.2 H Calcium Magnesium Total Bilirubin AST ALT Alkaline Phosphatase Total Creatine Kinase CK-MB (CK-2) CK/CKMB % Calc Troponin I < 0.015 Total Protein Albumin Globulin Albumin/Globulin Ratio Triglycerides Cholesterol LDL Cholesterol, Calc VLDL Cholesterol, Calc HDL Cholesterol Cholesterol/HDL Ratio Lipase TSH 03/26/19 11:23 WBC RBC Hgb Hct MCV MCH MCHC RDW Std Deviation RDW Coeff of Toby Plt Count MPV Immature Gran % (Auto) Neut % (Auto) Lymph % (Auto) Mineral % (Auto) Eos % (Auto) Baso % (Auto) Immature Gran # (Auto) Neut # (Auto) Lymph # (Auto) Mineral # (Auto) Eos # (Auto) Baso # (Auto) Blood Smear Review Echinocytes PT INR APTT PTT Ratio Sodium Potassium Chloride Carbon Dioxide Anion Gap BUN Creatinine Est Cr Clr Drug Dosing Est GFR ( Amer) Est GFR (Non-Af Amer) BUN/Creatinine Ratio Glucose POC Glucose 240 H Estimat Average Glucose Hemoglobin A1c Calcium Magnesium Total Bilirubin AST ALT Alkaline Phosphatase Total Creatine Kinase CK-MB (CK-2) CK/CKMB % Calc Troponin I Total Protein Albumin Globulin Albumin/Globulin Ratio Triglycerides Cholesterol LDL Cholesterol, Calc VLDL Cholesterol, Calc HDL Cholesterol Cholesterol/HDL Ratio Lipase TSH Diagnostic Findings Echocardiogram 03/26/2019 Mild left hypertrophy with normal left systolic function EF 55 to 60%, no significant valvular disease no pericardial effusion ECG Additional Comments: 26-MAR-2019 07:52:02 [facility] ROUTINE RETRIEVAL Sinus bradycardia with 1st degree A-V block Otherwise normal ECG When compared with ECG of 25-MAR-2019 16:28, (unconfirmed) Nonspecific T wave abnormality no longer evident in Lateral leads
[2019-03-26 12:38] LABS: Appearance Urine Clear (Clear); Bilirubin Urine Negative (Negative); Blood Urine Negative (Negative); Color Urine Yellow; Glucose Urine UA 2+ (Negative); Ketones Urine Negative (Negative); Leukocyte Esterase Urine Negative (Negative); Nitrite Urine Negative (Negative); Protein Urine Negative (Negative); Specific Gravity Urine 1.018 (1.000-1.030); Urobilinogen Urine Negative (Negative)
--- NOTE | 2019-03-26 14:08 | Ultrasound Report ---
US carotid doppler BI CLINICAL HISTORY: 78 years-old Male with dizziness,near syncope, visual changes. Acute dizziness wit h near syncope COMPARISON: None available TECHNIQUE: Multiple real time sonographic images of the carotid bifurcations were obtained assessing ferguson scale, color Doppler and spectral wave form appearance FINDINGS: RIGHT CAROTID: The peak systolic velocity of the right ICA [id number] cm/sec. The end diastolic jose m ocity measured 23 cm/sec. The ICA to CCA ratio measured 1.1 which correlates with a stenosis of 0-50 %. LEFT CAROTID: The peak systolic velocity the left ICA measures 82 cm/sec. The end diastolic velocit y measured 17 cm/sec. The ICA to CCA ratio measured 0.9 which correlates with a stenosis of 0-50%. There is normal antegrade vertebral flow bilaterally. Mild mixed plaque formation about the bilateral carotid bulbs. IMPRESSION: 1. Mild mixed plaque formation of the bilateral carotid bulbs without hemodynamically significant st enosis. 2. Normal antegrade vertebral flow bilaterally. The above report was generated using voice recognition software. It may contain grammatical, syntax o r spelling errors. Electronically signed by: Jeremy Patterson M.D. 03/26/2019 2:07 PM
--- NOTE | 2019-03-26 17:07 | Hospitalist Progress Note ---
Date of Service March 26, 2019 Assessment & Plan (1) Dizziness: Admitted from outpatient clinic with the exertional shortness of breath and dizziness Part of the complaints likely secondary to dehydration Has been feeling better since admission (2) Coronary artery disease: Has remote history of moderate coronary atherosclerosis without obstruction Serial cardiac enzymes and EKG have been negative for any ACS Appreciate cardiology input and recommendation We will have a stress echo tomorrow Present on Admission?: Yes (3) Elevated troponin: Noted to have high-sensitivity cardiac troponin elevation at outpatient No increasing serial troponin in the hospital Has been complaining of exertional shortness of breath with possible chest tightness Echocardiogram showed normal LV size with mild concentric LV hypertrophy. EF 55 to 60% and no wall motion abnormality We will have stress test tomorrow (4) Diabetes mellitus, insulin dependent (IDDM), uncontrolled: We will continue current dose of insulin Blood sugar has been running more than 200 SSI (5) Hypertension: Blood pressure is controlled We will continue current medications DVT prophylaxis SCDs for now Advised ambulation Subjective 03/26 The patient was seen and examined in medical telemetry unit He was admitted with increasing troponin that was noted in the clinic Complains to have some shortness of breath on exertion but no definite chest pain Has been ruled out since admission Will have stress test tomorrow Review of Systems Review of Systems: All systems reviewed and are unremarkable except as mentioned below Respiratory: + dyspnea on exertion Cardiovascular: + chest pain (/Pressure on exertion) Physical Exam Physical Exam: No apparent distress at rest Constitutional: well developed and well nourished; no acute distress and not ill appearing Eyes: PERRL, conjunctivae normal, anicteric sclerae ENMT: external ear and nose normal, oropharynx normal Neck: trachea midline, no thyromegaly Respiratory: normal respiratory effort; no respiratory distress Auscultation: lungs clear to auscultation bilaterally Cardiovascular: Rate/Rhythm: regular rate and regular rhythm Heart Sounds: no murmur Gastrointestinal (Abdomen): Inspection/Auscultation: abdomen normal to inspection Musculoskeletal: No acute arthritis in any of the joint Neurologic: moves all extremities Lymphatic: no cervical or axillary lymphadenopathy Results & Data Vital Signs (Past 12 Hours) Vital Signs Temp Pulse Pulse Resp BP Pulse Ox 03/26/19 14:47 36.8 C 59 L 20 136/81 98 03/26/19 11:08 36.5 C 64 16 129/67 95 03/26/19 07:06 36.6 C 61 20 146/75 H 98 Laboratory Results Short CBC 03/26/19 Range/Units 05:31 WBC 8.57 (4.8-10.8) K/uL Hgb 12.0 L (14.0-18.0) g/dL Hct 33.5 L (42-52) % Plt Count 258 (130-400) K/uL BMP 03/25/19 03/26/19 16:48 05:31 Sodium 136 141 Potassium 3.2 L 3.8 D Chloride 101 107 Carbon Dioxide 29 29 BUN 28 H 22 H Creatinine 0.92 0.80 Glucose 188 H 183 H Calcium 8.2 L 7.9 L Cardiac Enzymes 03/25/19 03/25/19 03/26/19 Range/Units 16:48 23:16 05:31 Total Creatine Kinase 195 (39-308) U/L CK-MB (CK-2) 4.9 H (0.5-3.6) ng/ml Troponin I < 0.015 < 0.015 < 0.015 (0-0.045) ng/ml 03/26/19 Range/Units 12:09 Total Creatine Kinase (39-308) U/L CK-MB (CK-2) (0.5-3.6) ng/ml Troponin I < 0.015 (0-0.045) ng/ml Liver Function 03/25/19 Range/Units 16:48 Total Bilirubin 0.5 (0.2-1) mg/dl AST 61 H (15-37) U/L ALT 53 (12-78) U/L Alkaline Phosphatase 71 (45-117) U/L Albumin 2.7 L (3.4-5.0) gm/dl Urine 03/26/19 Range/Units 12:20 Urine Color Yellow Urine Appearance Clear (Clear) Urine pH 8.0 H (4.5-7.5) Ur Specific [place] 1.018 (1.000-1.030) Urine Protein Negative (Negative) Urine Glucose (UA) 2+ H (Negative) Medications Administered Current Inpatient Medications Acetaminophen (Tylenol) 650 mg PO Q4H PRN PRN Reason: Pain or Fever Stop: 04/24/19 22:38 Aspirin (Ecotrin) 325 mg PO [facility] Stop: 04/25/19 08:59 Last Admin: 03/26/19 07:45 Dose: 325 mg Documented by: Atorvastatin Calcium ([facility]) [facility] Stop: 04/25/19 08:59 Last Admin: 03/26/19 07:47 Dose: 40 mg Documented by: Citalopram Hydrobromide (Celexa) 10 mg PO QAM [facility] Stop: 04/25/19 08:59 Last Admin: 03/26/19 07:46 Dose: 10 mg Documented by: Dextrose (Dextrose 50%) 25 - 50 ml IV UD PRN; Protocol PRN Reason: Hypoglycemia Protocol Stop: 04/24/19 22:59 Felodipine (Plendil) 5 mg PO [facility] Stop: 04/25/19 08:59 Last Admin: 03/26/19 07:46 Dose: 5 mg Documented by: Glucagon (Glucagen) 1 mg SQ UD PRN; Protocol PRN Reason: Hypoglycemia Protocol Stop: 04/24/19 22:59 Glucose (Glucose 40%) 15 - 30 gm PO UD PRN; Protocol PRN Reason: Hypoglycemia Protocol Stop: 04/24/19 22:59 Glucose (Dex4 Glucose) 4 - 8 tabs PO UD PRN; Protocol PRN Reason: Hypoglycemia Protocol Stop: 04/24/19 22:59 Hydrochlorothiazide (Hctz) 25 mg PO [facility] Stop: 04/25/19 08:59 Last Admin: 03/26/19 07:47 Dose: 25 mg Documented by: Insulin Aspart (Novolog Flexpen) 0 units SC ACHS [facility] Stop: 04/24/19 22:38 Last Admin: 03/26/19 13:58 Dose: 8 units Documented by: Insulin Glargine (Lantus Solostar Pen) 25 units SQ QPM [facility] Stop: 04/24/19 22:38 Last Admin: 03/25/19 23:59 Dose: 25 units Documented by: Lisinopril (Zestril) 40 mg PO [facility] Stop: 04/25/19 08:59 Last Admin: 03/26/19 07:46 Dose: 40 mg Documented by: Miscellaneous (Order Awaiting Action) 1 ea N/A QS [facility] Stop: 04/25/19 00:00 Last Admin: 03/26/19 09:19 Dose: Not Given Documented by: Miscellaneous (Carbohydrates For Hypoglycemia) 15 - 30 gm PO UD PRN PRN Reason: Hypoglycemia Treatment Stop: 04/24/19 22:59 Multivitamins (Multivitamin Tab) 1 tab PO [facility] Stop: 04/25/19 08:59 Last Admin: 03/26/19 07:46 Dose: 1 tab Documented by: Nitroglycerin (Nitrostat) 0.4 mg SL UD PRN PRN Reason: Chest Pain Stop: 04/24/19 22:38 Ondansetron HCl (Zofran) 4 mg IV Q6H PRN PRN Reason: Nausea Stop: 04/24/19 22:38 Pantoprazole Sodium (Protonix) 40 mg PO [facility] Stop: 04/25/19 08:59 Last Admin: 03/26/19 07:46 Dose: 40 mg Documented by: Polyethylene Glycol (Miralax Powder Packet) 17 gm PO DAILY PRN PRN Reason: Constipation Stop: 04/24/19 22:38 Vitamin D (Vitamin D3) 2,000 units PO [facility] Stop: 04/25/19 08:59 Last Admin: 03/26/19 07:46 Dose: 2,000 units Documented by:
[2019-03-26] MEDS: INSULIN GLARGINE SOLOSTAR 100 UNITS/ML 3 ML PEN SQ SCH (20:34)
[2019-03-27 08:20] LABS: Hematocrit (blood only) 33.6 % (42-52); Hemoglobin 11.9 g/dL (14.0-18.0); Mean Corpuscular Hgb Conc 35.4 g/dL (32-36); Mean Corpuscular Volume 84.6 fL (80-100); Mean Platelet Volume 9.6 fL (7.4-10.4); Platelet Count 277 K/uL (130-400); RDW Coefficient of Variation 13.5 % (11.5-14.5); RDW Standard Deviation 41.3 fL (36.4-46.3); Red Blood Count 3.97 M/uL (4.7-6.1); White Blood Count 6.93 K/uL (4.8-10.8)
[2019-03-27] MEDS: INSULIN ASPART 100 UNITS/ML 3 ML PEN SC SCH ×3 (08:33→17:09)
[2019-03-27 09:07] LABS: Basophils # (auto) 0.03 K/uL (0-0.2); Basophils % (auto) 0.4 %; Eosinophils # (auto) 0.13 K/uL (0-0.5); Eosinophils % (auto) 1.9 %; Immature Granulocytes # (auto) 0.02 K/uL (0.00-0.02); Immature Granulocytes % (auto) 0.3 %; Lymphocytes # (auto) 3.09 K/uL (1.2-3.4); Lymphocytes % (auto) 44.6 %; Monocytes % (auto) 11.5 %; Neutrophils # (auto) 2.86 K/uL (1.4-6.5); Neutrophils % (auto) 41.3 %
[2019-03-27 09:08] LABS: BUN Creatinine Ratio 22.2 (10-20); Calcium 8.4 mg/dl (8.5-10.1); Creatinine Clr Calc Pharmacy 75.8 ml/min; Est GFR (African American) 96.3; Est GFR (Non-African American) 83.1; Magnesium 2.1 mg/dl (1.8-2.4); Potassium 4.6 mmol/L (3.5-5.1)
[2019-03-27 09:25] LABS: Beta-Hydroxybutyrate 6.24 mg/dl (0.2-2.81)
--- NOTE | 2019-03-27 10:45 | Cardiology Progress Note ---
Date of Service March 27, 2019 Assessment & Plan (1) Dizziness: Patient is a 78-year-old male with history of moderate coronary atherosclerosis nonobstructive by remote investigation. Last stress testing 2018- for ischemia. Presents now with symptoms of dizziness and lightheadedness possible dehydration. Troponins minimally elevated on outpatient lab testing but repeats during this visit demonstrates no elevation no EKG changes and normal LV systolic function no evidence of recent myocardial infarction. Carotid duplex has been notable for no obstructive disease Stress to cardiography today without stress-induced ischemia with good exercise capacity for age and medical issues Suspect symptoms combination of diuretic, elevated glucose and heat exposure Recommendations reduce hydrochlorothiazide to 3 days/week. Follow-up with cardiology 3 to 4 weeks time post hospital discharge (2) Coronary artery disease: (3) Elevated troponin: Initial outpatient troponin very minimally elevated with repeat troponins normal no evidence of myocardial injury by EKG or echocardiogram, stress testing negative Subjective Patient seen and examined, chart medications telemetry reviewed. Examined be fore and after stress echocardiogram No further chest pains or dizziness. No tachypalpitations. No arrhythmias on telemetry. Tolerated stress testing without symptoms. Appetite's been good Physical Exam Constitutional: WD/WN, vitals as above Eyes: PERRL, conjunctivae normal, anicteric sclerae ENMT: external ear and nose normal, oropharynx normal Neck: trachea midline, no thyromegaly Respiratory: normal respiratory effort, lungs clear to auscultation Cardiovascular: Rate/Rhythm: regular rate and regular rhythm Heart Sounds: normal S1 and normal S2; no gallop and no murmur Palpation: normal PMI Vessels: normal carotid upstroke and radial pulses present; no JVD and no carotid bruit Extremities: no edema Gastrointestinal (Abdomen): normal bowel sounds, soft, nontender, no hepatosplenomegaly Musculoskeletal: no cyanosis or clubbing, extremities motor strength 5/5 Skin: no rashes, warm and dry Neurologic: PERRL, EOMI, accommodation nl, no face palsy, no dysarthria Psychiatric: A+Ox3, euthymic affect Results & Data Vital Signs (Past 12 Hours) Vital Signs Temp Pulse Pulse Resp BP BP Pulse Ox 03/27/19 07:39 63 03/27/19 07:22 36.9 C 64 18 136/69 97 03/27/19 04:37 36.8 C 67 20 113/64 98 03/26/19 23:49 60 03/26/19 23:00 36.7 C 71 20 120/62 96 Laboratory Results Laboratory Results - last 24 hr 03/26/19 03/26/19 03/26/19 11:23 12:09 12:20 WBC RBC Hgb Hct MCV MCH MCHC RDW Std Deviation RDW Coeff of Toby Plt Count MPV Immature Gran % (Auto) Neut % (Auto) Lymph % (Auto) Rock % (Auto) Eos % (Auto) Baso % (Auto) Immature Gran # (Auto) Neut # (Auto) Lymph # (Auto) [place] # (Auto) Eos # (Auto) Baso # (Auto) Sodium Potassium Chloride Carbon Dioxide Anion Gap BUN Creatinine Est Cr Clr Drug Dosing Est GFR ( Amer) Est GFR (Non-Af Amer) BUN/Creatinine Ratio Glucose POC Glucose 240 H Calcium Magnesium Troponin I < 0.015 Beta-Hydroxybutyric Acd Urine Color Yellow Urine Appearance Clear Urine pH 8.0 H Ur Specific [place] 1.018 Urine Protein Negative Urine Glucose (UA) 2+ H Urine Ketones Negative Urine Blood Negative Urine Nitrite Negative Urine Bilirubin Negative Urine Urobilinogen Negative Ur Leukocyte Esterase Negative 03/26/19 03/26/19 03/26/19 13:56 16:33 20:03 WBC RBC Hgb Hct MCV MCH MCHC RDW Std Deviation RDW Coeff of Toby Plt Count MPV Immature Gran % (Auto) Neut % (Auto) Lymph % (Auto) Rock % (Auto) Eos % (Auto) Baso % (Auto) Immature Gran # (Auto) Neut # (Auto) Lymph # (Auto) Rock # (Auto) Eos # (Auto) Baso # (Auto) Sodium Potassium Chloride Carbon Dioxide Anion Gap BUN Creatinine Est Cr Clr Drug Dosing Est GFR ( Amer) Est GFR (Non-Af Amer) BUN/Creatinine Ratio Glucose POC Glucose 268 H 272 H 194 H Calcium Magnesium Troponin I Beta-Hydroxybutyric Acd Urine Color Urine Appearance Urine pH Ur Specific [place] Urine Protein Urine Glucose (UA) Urine Ketones Urine Blood Urine Nitrite Urine Bilirubin Urine Urobilinogen Ur Leukocyte Esterase 03/27/19 03/27/19 03/27/19 07:39 07:55 07:55 WBC 6.93 RBC 3.97 L Hgb 11.9 L Hct 33.6 L MCV 84.6 MCH 30.0 MCHC 35.4 RDW Std Deviation 41.3 RDW Coeff of Toby 13.5 Plt Count 277 MPV 9.6 Immature Gran % (Auto) 0.3 Neut % (Auto) 41.3 Lymph % (Auto) 44.6 Rock % (Auto) 11.5 Eos % (Auto) 1.9 Baso % (Auto) 0.4 Immature Gran # (Auto) 0.02 Neut # (Auto) 2.86 Lymph # (Auto) 3.09 Rock # (Auto) 0.80 H Eos # (Auto) 0.13 Baso # (Auto) 0.03 Sodium 138 Potassium 4.6 D Chloride 106 Carbon Dioxide 27 Anion Gap 5.0 BUN 19 H Creatinine 0.86 Est Cr Clr Drug Dosing 75.8 Est GFR ( Amer) 96.3 Est GFR (Non-Af Amer) 83.1 BUN/Creatinine Ratio 22.2 H Glucose 302 H* POC Glucose 283 H Calcium 8.4 L Magnesium 2.1 Troponin I Beta-Hydroxybutyric Acd 6.24 H Urine Color Urine Appearance Urine pH Ur Specific [place] Urine Protein Urine Glucose (UA) Urine Ketones Urine Blood Urine Nitrite Urine Bilirubin Urine Urobilinogen Ur Leukocyte Esterase Diagnostic Findings Stress echocardiography. Patient exercised 4 minutes and 15 seconds on a standard Froy protocol stopping short of complete fatigue having reached greater than 90% age-predicted maximum heart rate. No cardiac symptoms. Heart rate and blood pressure response normal no stress-induced ischemic changes by EKG or echocardiographic criteria with normal LV systolic function at stress
[2019-03-27] MEDS ORDERED: PERFLUTREN LIPID MICROSPHERE (DEFINITY) IV ONE (11:01)
[2019-03-27] MEDS: CHOLECALCIFEROL 1,000 UNITS TAB PO SCH (11:13)
[2019-03-27] MEDS: ATORVASTATIN 40 MG TAB PO SCH (11:13)
[2019-03-27] MEDS: CITALOPRAM 20 MG TAB PO SCH (11:13)
[2019-03-27] MEDS: hydroCHLOROthiazide 25 MG TAB PO SCH (11:14)
[2019-03-27] MEDS: PANTOprazole 40 MG TAB PO SCH (11:14)
[2019-03-27] MEDS: LISINOPRIL 40 MG TAB PO SCH (11:14)
[2019-03-27] MEDS: MULTIVITAMIN TAB PO SCH (11:14)
[2019-03-27] MEDS: FELODIPINE 5 MG TABCR PO SCH (11:15)
[2019-03-27] MEDS: ASPIRIN 325 MG ECTAB PO SCH (11:15)
--- NOTE | 2019-03-27 16:10 | Hospitalist Progress Note ---
Date of Service March 27, 2019 Assessment & Plan (1) Dizziness: Admitted from outpatient clinic with the exertional shortness of breath and dizziness Part of the complaints likely secondary to dehydration Has been feeling better since admission Denies any more dizziness since admission (2) Coronary artery disease: Has remote history of moderate coronary atherosclerosis without obstruction Serial cardiac enzymes and EKG have been negative for any ACS Appreciate cardiology input and recommendation We will have a stress echo tomorrow Negative a stress echocardiogram; no stress-induced ischemia with good exercise capacity for age and medical issues (3) Elevated troponin: Noted to have high-sensitivity cardiac troponin elevation at outpatient No increasing serial troponin in the hospital Has been complaining of exertional shortness of breath with possible chest tightness Echocardiogram showed normal LV size with mild concentric LV hypertrophy. EF 55 to 60% and no wall motion abnormality We will have stress test tomorrow-as above (4) Diabetes mellitus, insulin dependent (IDDM), uncontrolled: We will continue current dose of insulin Blood sugar has been running more than 200 SSI Better control of diabetes as an outpatient (5) Hypertension: Blood pressure is controlled We will continue current medications DVT prophylaxis SCDs for now Advised ambulation Discharge home Subjective 03/26 The patient was seen and examined in medical telemetry unit He was admitted with increasing troponin that was noted in the clinic Complains to have some shortness of breath on exertion but no definite chest pain Has been ruled out since admission Will have stress test tomorrow 03/27 The patient was seen and examined in medical telemetry unit Status post negative stress echo Denies any symptoms Will be discharged this afternoon Review of Systems Review of Systems: All systems reviewed and are unremarkable except as mentioned below Respiratory: + dyspnea on exertion Cardiovascular: + chest pain (/Pressure on exertion) Physical Exam Constitutional: well developed and well nourished; no acute distress and not ill appearing Eyes: PERRL, conjunctivae normal, anicteric sclerae ENMT: external ear and nose normal, oropharynx normal Neck: trachea midline, no thyromegaly Respiratory: normal respiratory effort; no respiratory distress Auscultation: lungs clear to auscultation bilaterally Cardiovascular: Rate/Rhythm: regular rate and regular rhythm Heart Sounds: no murmur Gastrointestinal (Abdomen): Inspection/Auscultation: abdomen normal to inspection Neurologic: moves all extremities Lymphatic: no cervical or axillary lymphadenopathy Results & Data Vital Signs (Past 12 Hours) Vital Signs Temp Pulse Pulse Pulse Resp BP BP 03/27/19 15:09 36.5 C 78 16 126/69 03/27/19 11:00 36.6 C 70 16 133/70 03/27/19 07:39 63 03/27/19 07:22 36.9 C 64 18 136/69 03/27/19 04:37 36.8 C 67 20 113/64 Pulse Ox 03/27/19 15:09 98 03/27/19 11:00 98 03/27/19 07:39 03/27/19 07:22 97 03/27/19 04:37 98 Laboratory Results Short CBC 03/27/19 Range/Units 07:55 WBC 6.93 (4.8-10.8) K/uL Hgb 11.9 L (14.0-18.0) g/dL Hct 33.6 L (42-52) % Plt Count 277 (130-400) K/uL BMP 03/27/19 07:55 Sodium 138 Potassium 4.6 D Chloride 106 Carbon Dioxide 27 BUN 19 H Creatinine 0.86 Glucose 302 H* Calcium 8.4 L Medications Administered Current Inpatient Medications Acetaminophen (Tylenol) 650 mg PO Q4H PRN PRN Reason: Pain or Fever Stop: 04/24/19 22:38 Aspirin (Ecotrin) [address] [facility] Stop: 04/25/19 08:59 Last Admin: 03/27/19 11:15 Dose: 325 mg Documented by: Atorvastatin Calcium (Lipitor) [address] [facility] Stop: 04/25/19 08:59 Last Admin: 03/27/19 11:13 Dose: 40 mg Documented by: Citalopram Hydrobromide (Celexa) [address] [facility] Stop: 04/25/19 08:59 Last Admin: 03/27/19 11:13 Dose: 10 mg Documented by: Dextrose (Dextrose 50%) 25 - 50 ml IV UD PRN; Protocol PRN Reason: Hypoglycemia Protocol Stop: 04/24/19 22:59 Felodipine (Plendil) [address] [facility] Stop: 04/25/19 08:59 Last Admin: 03/27/19 11:15 Dose: 5 mg Documented by: Glucagon (Glucagen) 1 mg SQ UD PRN; Protocol PRN Reason: Hypoglycemia Protocol Stop: 04/24/19 22:59 Glucose (Glucose 40%) 15 - 30 gm PO UD PRN; Protocol PRN Reason: Hypoglycemia Protocol Stop: 04/24/19 22:59 Glucose (Dex4 Glucose) 4 - 8 tabs PO UD PRN; Protocol PRN Reason: Hypoglycemia Protocol Stop: 04/24/19 22:59 Hydrochlorothiazide (Hctz) 25 mg PO QAM [facility] Stop: 04/25/19 08:59 Last Admin: 03/27/19 11:14 Dose: 25 mg Documented by: Insulin Aspart (Novolog Flexpen) 0 units SC ACHS [facility] Stop: 04/24/19 22:38 Last Admin: 03/27/19 17:09 Dose: 8 units Documented by: Insulin Glargine (Lantus Solostar Pen) 25 units SQ QPM [facility] Stop: 04/24/19 22:38 Last Admin: 03/26/19 20:34 Dose: 25 units Documented by: [facility]est[facility]) [facility] Stop: 04/25/19 08:59 Last Admin: 03/27/19 11:14 Dose: 40 mg Documented by: Miscellaneous (Order Awaiting Action) 1 ea N/A QS [facility] Stop: 04/25/19 00:00 Last Admin: 03/27/19 17:26 Dose: Not Given Documented by: Miscellaneous (Carbohydrates For Hypoglycemia) 15 - 30 gm PO UD PRN PRN Reason: Hypoglycemia Treatment Stop: 04/24/19 22:59 Multivitamins (Multivitamin Tab) [facility] Stop: 04/25/19 08:59 Last Admin: 03/27/19 11:14 Dose: 1 tab Documented by: Nitroglycerin (Nitrostat) 0.4 mg SL UD PRN PRN Reason: Chest Pain Stop: 04/24/19 22:38 Ondansetron HCl (Zofran) 4 mg IV Q6H PRN PRN Reason: Nausea Stop: 04/24/19 22:38 Pantoprazole Sodium (Protonix) [facility] Stop: 04/25/19 08:59 Last Admin: 03/27/19 11:14 Dose: 40 mg Documented by: Polyethylene Glycol (Miralax Powder Packet) 17 gm PO DAILY PRN PRN Reason: Constipation Stop: 04/24/19 22:38 Vitamin D (Vitamin D3) 2,[address] [facility] Stop: 04/25/19 08:59 Last Admin: 03/27/19 11:13 Dose: 2,000 units Documented by:
--- NOTE | 2019-03-28 08:33 | Discharge Summary ---
Date of Service March 28, 2019 Admission HPI Per Admitting Provider DICTATED BY: Andrew Ryan MD DATE OF ADMISSION: 03/25/2019 CHIEF COMPLAINT: Chest pain. HISTORY OF PRESENT ILLNESS: This is a 78-year-old male with past medical history significant for type 1 diabetes, hyperlipidemia, sleep apnea, CAD status post stent, vitamin D deficiency, Dinora arthritis, hypersomnia, who presents with chest pressure like feeling. The patient states since about a week he is not feeling well. He is feeling loss of appetite, weight loss, generalized weakness. Sugars are labile, blood pressure is running low, feeling dizzy. He thought he might have had a heart attack on 03/16/2019. He went to the family doctor on 03/20/2019 and labs were done, mostly were unremarkable except for patient's high sensitivity troponin came back as 23, which normal range is 0-22, . He had some chest pressure like feeling today, so he came to the hospital. Currently resting comfortable and hemodynamically stable. Seems to be a little anxious. Had some headaches. No blurred visions, no earache, no runny nose, no sore throat, no difficulty swallowing. sleeping okay. No shortness of breath. Has some dry cough, has some sweating on and off. No nausea, no abdominal pain. He says he is drinking enough water, but he is not urinating much. No burning micturition. No diarrhea, no constipation, no blood in the stools. No swelling in the legs, no rash. Ambulating okay. No chest pain or shortness of breath while ambulating. Climbing one flight of stairs okay. Admission Exam Per Admitting Provider GENERAL: The patient is of moderate build, not in acute distress. VITAL SIGNS: Temperature 36.4, pulse 67, respiratory rate 18, blood pressure 104/68, oxygen 97% on room air. HEENT: No pallor, no icterus. Pupils equal, round, and reactive to light. NECK: No JVD, no neck masses, no carotid bruit. CARDIOVASCULAR: S1, S2 heard, regular rate and rhythm, no murmur, no gallop. RESPIRATORY SYSTEM: Normal AP diameter. No accessory muscle use. No wheezing, no crackles. ABDOMEN: Soft, bowel sounds present, nontender. No distention. CENTRAL NERVOUS SYSTEM: Cranial nerves II-XII grossly intact. Nonfocal. EXTREMITIES: No edema, no erythema. Principal Diagnosis Chest pain-no ACS and negative stress echocardiogram. Dehydration Discharge Exam Constitutional well developed and well nourished; no acute distress and not ill appearing Eyes PERRL, conjunctivae normal, anicteric sclerae ENMT external ear and nose normal, oropharynx normal Neck trachea midline, no thyromegaly Respiratory normal respiratory effort; no respiratory distress Auscultation: lungs clear to auscultation bilaterally Cardiovascular Rate/Rhythm: regular rate and regular rhythm Heart Sounds: no murmur Gastrointestinal (Abdomen) Inspection/Auscultation: abdomen normal to inspection Neurologic moves all extremities Lymphatic no cervical or axillary lymphadenopathy Discharge Data Allergies Allergy/AdvReac Type Severity Reaction Status Date / Time No Known Drug Allergies Allergy Unknown . Verified 03/25/19 17:17 Neoprene Allergy Unknown Itchiness Uncoded 03/25/19 17:17 Consultations 03/25/19 18:53 ED Decision to Admit Stat 03/25/19 22:39 Consult Case Management - Discharge Planning Routine 03/26/19 08:00 Consult Cardiology Routine Ordered Studies 03/26/19 12:00 US carotid doppler BI Routine Hospital Course (1) Dizziness: Admitted from outpatient clinic with the exertional shortness of breath and dizziness Part of the complaints likely secondary to dehydration Has been feeling better since admission Denies any more dizziness since admission (2) Coronary artery disease: Has remote history of moderate coronary atherosclerosis without obstruction Serial cardiac enzymes and EKG have been negative for any ACS Appreciate cardiology input and recommendation We will have a stress echo tomorrow Negative a stress echocardiogram; no stress-induced ischemia with good exercise capacity for age and medical issues (3) Elevated troponin: Noted to have high-sensitivity cardiac troponin elevation at outpatient No increasing serial troponin in the hospital Has been complaining of exertional shortness of breath with possible chest tightness Echocardiogram showed normal LV size with mild concentric LV hypertrophy. EF 55 to 60% and no wall motion abnormality We will have stress test tomorrow-as above (4) Diabetes mellitus, insulin dependent (IDDM), uncontrolled: We will continue current dose of insulin Blood sugar has been running more than 200 SSI Better control of diabetes as an outpatient (5) Hypertension: Blood pressure is controlled We will continue current medications DVT prophylaxis SCDs for now Advised ambulation Discharge home Total Time Total Time Spent Total Time Spent (In Minutes): 35 minutes Total Time Includes: Examination of the Patient, Discharge Planning, Medication Reconciliation and Communication With Other Providers Discharge Plan Discharge Items Patient Disposition: Home - Self-Care Reason For Visit: CHEST PAIN Discharge Diagnosis: Chest pain-no ACS and negative stress echocardiogram. Dehydration Condition: Good Discharge Goals: Decrease discomfort Activity: Resume your previous activity Non-emergency contact: Primary Care Provider Call non-emergency contact if: you have any medication questions and your symptoms worsen Follow-up/Referrals: Amado Reeder MD [Primary Care Provider] - 04/02/19 3:15 am (Please make an appointment with renal medicine physician in 3 to 4 weeks) Diet: Carb Consistent or DM2 and Heart Healthy Addtl Provider Instructions: Your diabetes is uncontrolled with hemoglobin A1c 9.2. Please talk to primary care physician for referral to diabetes management group Prescriptions: Continued multivitamin Tablet 1 tab PO QAM RF: 0 atorvastatin 40 mg tablet 40 mg PO QAM RF: 0 Lantus U-100 Insulin 100 unit/mL solution 25 unit subcut QPM RF: 0 aspirin 325 mg Tablet 325 mg PO QAM RF: 0 meloxicam 15 mg tablet 15 mg PO DAILY PRN (Reason: Pain) RF: 0 felodipine 5 mg tablet extended release 24 hr 5 mg PO QAM RF: 0 citalopram 20 mg tablet 10 mg PO QAM RF: 0 omeprazole 20 mg capsule,delayed release(DR/EC) 10 mg PO QAM RF: 0 lisinopril 40 mg tablet 40 mg PO QAM RF: 0 insulin lispro [Humalog KwikPen Insulin] 100 unit/mL insulin pen See Rx Instructions .ROUTE .COMPLEX RF: 0 cholecalciferol (vitamin D3) [Vitamin D3] 2,000 unit Capsule 2,000 unit PO QAM RF: 0 potassium gluconate 550 mg (90 mg) Tablet 550 mg PO 4XWK RF: 0 [place]-3 Fish Oil 300-1,000 mg Capsule 2 cap PO QAM RF: 0 Changed hydrochlorothiazide 25 mg tablet 25 mg PO UD Qty: 0 RF: 0 Stand-Alone Forms: [facility] Discharge Orders: Discharge Order (Routine); Ordered 03/27/19 Ordered By: Carlos Manuel Tamez Admission Data Admit Date/Time: 03/25/19 19:53 Attending Provider: Carlos Manuel Tamez Admit Provider: Andrew Ryan Primary Care Provider: Amado Reeder Other Providers: Andrew Ryan ; William So Service: Telemetry Other Interventions: Discharge Summary Assessment (RN) Last Done: 03/27/19 16:41 DC Date/Time DO NOT enter until pt leaves facility: 03/27/19 18:15
== END 2019-03-27 18:15 | disposition home or self-care (01) ==
LOC: 2W 16:18 → ED 16:18 → 2W 22:18

== ENCOUNTER 2023-09-01 14:57 | Inpatient (IN) ==
--- OUTSIDE RECORDS SUMMARY | 2023-09-01 15:04 | External Medical Summary | Summary of Care ---
Author Name Unknown Organization [facility] Address [address] [facility] [place] [address] Phone [phone] Care Team Providers Care Stratigraphy Teacher Name Role Phone Robina Reeder MD Primary Care Provider Reason for Visit * Reason Onset Date Comments Medication Refill 08/10/2023 Encounter Details Date Type Department Care Team (Late st Contact Info) Description 08/10/2023 Refill [facility] [address] [place] [address] Robina Reeder MD [address] [place] [address] Allergies No known active allergiesdocumented as of this encounter (statuses as of 08/21/2023) Medications Medication Sig Dispensed Refills Start Date End Date Status ONETOUCH ULTRA BLUE STRPIndications:DM type 1, goal A1c below 7 test 4-5 times a day dx code 250.03 for onetouch mini 450 Strip 1 05/21/2012 Active Cholecalciferol (VITAMIN D) 2000 units Capsule Take by mouth 2,000 Units daily . 0 Active Multiple Vitamin (MULTI VITAMIN DAILY) TABS Take by mouth. 0 Active omega-3 1000 MG CAPS Take by mouth. Takes 2 daily 0 Active Potassium Gluconate 550 MG TABSIndications:4 tables a week Take by mouth. 0 Active Pen Delphos 31G X 6 MMIndications:DM type 1, not at goal (HCC) Use 4 times a day with Novolog and Lantus insulin pens. 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 0 Active Potassium Gluconate 595 (99 K) MG Oral Tablet Take by mouth. 0 Active Felodipine ER 5 MG Oral Tablet Extended Release 24 Hour (Plendil)Indication s:HTN, goal below 140/90 Take 2 Tablets by mouth every morning. 180 Tablet 4 01/26/2023 Active Citalopram Hydrobromide 20 MG Oral Tablet (CeleXA)Indications :Current mild episode of major depressive disorder, unspecified whether recurrent (HCC) TAKE 1/2 TABLET BY MOUTH ONCE DAILY 45 Tablet 1 03/21/2023 Active Omeprazole 20 MG Oral Capsule Delayed Release (PriLOSEC) TAKE ONE CAPSULE BY MOUTH ONCE DAILY ONE HOUR BEFORE THE first meal of THE DAY 90 Capsule 3 05/02/2023 Active Lisinopril 40 MG Oral Tablet TAKE ONE TABLET BY MOUTH ONCE DAILY 90 Tablet 3 05/30/2023 Active hydroCHLOROthiazide 25 MG Oral Tablet (Hydrodiuril)Indica tions:HTN, goal below 150/90 TAKE ONE TABLET BY MOUTH ONCE DAILY 90 Tablet 1 06/26/2023 Active Insulin Glargine Solostar 100 UNIT/ML Subcutaneous Solution Pen-injector (Basaglar KwikPen)Indications :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 60 mL 4 07/12/2023 Active Atorvastatin Calcium 40 MG Oral Tablet (Lipitor) TAKE ONE TABLET BY MOUTH ONCE DAILY 90 Tablet 3 07/13/2023 Active Clopidogrel Bisulfate 75 MG Oral Tablet (pLAVix)Indications :TIA (transient ischemic attack) TAKE ONE TABLET BY MOUTH ONCE DAILY 90 Tablet 1 07/13/2023 Active Dexcom G6 Transmitter Use as directed. 1 Each 6 08/10/2023 Active Dexcom G6 Transmitter Use as directed. 0 3 Discontinue d(Refill) documented as of this encounter (statuses as of 08/21/2023) Active Problems Problem Noted Date Diagnosed Date Foot deformity, acquired, left 12/09/2021 Overview: bony protuberance plantar aspect mid foot Obstructive uropathy 10/21/2020 Type 1 diabetes mellitus with diabetic dermatiti s 10/05/2020 HTN, goal below 150/90 10/03/2019 Current mild episode of abdirahman r depressive disorder without prior episode 10/03/2019 Current use of insulin 10/03/2019 Gastroesophageal reflux disease without esophagi tis 10/03/2019 Atherosclerosis of [place] co ronary artery of [place] heart without angina pectoris 10/03/2019 Type 1 diabetes mellitus with polyneuropathy Vitamin D deficiency 07/23/2014 Obstructive sleep apnea syndrome 03/21/2011 Hypersomnia 03/14/2010 DYSLIPIDEMIA, GOAL LDL BELOW 70 08/19/2009 Overview: Per Lipid Taxonomy. ADVANCE DIRECTIVE INFORMATION 07/03/2005 Overview: Yes, Patient instructed to provide copy of advance directive for provider to review and to be scanned into Electronic Medical Record documented as of this encounter (statuses as of 08/21/2023) Resolved Problems Problem Noted Date Diagnosed Date Resolved Date HTN, goal below 150/90 05/09/201711/15 Age-related nuclear cataract of both eyes 03/12/2017 11/15/2017 Bronchopneumonia 05/19/2016 02/05/2017 Viral URI with cough 05/19/2016 017 Chronic rhinitis 05/19/2016 02/05/2017 Type 1 diabetes mellitus wit h hemoglobin A1c goal of less than 8.0% 09/30/2013 08/05/2021 Overview: ICD-10 update of inactive term Patient has combo code in use. HTN, goal below 140/80 04/22/201205/09 Overview: Per HTN Protocol #27. Acute bronchitis, complicated 07/17/2010 03/16/2017 HTN, GOAL BELOW 130/80 09/30/200904/25 Overview: Per HTN Taxonomy. Abnormality of gait 10/22/2007 02/06/20 Dyslipidemia, goal to be determined 05/23/2006 08/19/2009 Overview: Per Lipid Taxonomy. EXAMINATION OF PARTICIPANT IN CLINICAL TRIAL 6 12/17/2009 Overview: Renamed Per Clinical Trials Billing Project. COSTAR II: COBALT CHROMIUM STENT WITH ANTIPROLIFERATIVE FOR RESTENOSIS II TRIAL OMI # [id number] PI: Jc Fermin MD SC: Hellen Morfin RN, BSN Costar II Clinical Trial*[id number] 09/06/2005 01/25/2011 Overview: Renamed Per Clinical Trials Billing Project. COSTAR II: COBALT CHROMIUM STENT WITH ANTIPROLIFERATIVE FOR RESTENOSIS II TRIAL OMI # [id number] PI: Jc Fermin MD SC: Hellen Morfin RN, BSN Edema 2004 02/05/2017 Type 1 diabetes mellitus wit h hemoglobin A1c goal of less than 7.0% 01/27/2016 Overview: ICD-10 update of inactive term HTN, goal below 140/90 09/30 Overview: Per HTN Taxonomy. 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, ORGANIC ORIGN DIVERTICULOSIS OF COLON 11/01 LIPOMA INTRA-ABDOMINAL 11/15 Overview: intragastric wall documented as of this encounter (statuses as of 08/21/2023) Immunizations Name Administration Dates Next Due COVID-19 mRNA, LNP-s, No Pre serve, 2-Dose Series (Moderna) 03/11/2021,02/08/2021 PPD 05/25/2015 Pneumococcal Conjugate Vacc, 13 Valent (Prevnar) 01/22/2015 Pneumococcal Polysaccharide PPV23 (Pneumovax) 06/27/2007,09/26/2000 Season Influenza, Quad, PF, Adjuvanted, 65+ Yrs, IM (FLUAD) 08/25/2020 Seasonal Influenza, PF, 6 M & above, IM , (FluLaval or Fluzone) 05/21/2018,05/29/2017 Seasonal Influenza, Quadriva lent Hd (Fluzone Hd) 07/11/2023,08/04/2022,07/15/2021 Seasonal Influenza, Quadriva lent, No Preserve, IM 06/16/2016 Seasonal Influenza, Split, I IV3, With Preserve, Inj 05/25/2015,07/14/2014,06/24/2013,07/09,06/02/2011,07/04/2010,06/11/2009 ,06/07/2009,07/17/2008,06/27/2007,06/03,07/03/2005,2004, 2,08/23/2001,09/26/2000,08/08/1999 Seasonal Influenza, Trivalen t, Adjuvanted, 65+ yrs 06/30/2019 TD - Tetanus/Diptheria (ADULT) 04/14/2003 TDAP (age 10 and older)(Boostrix) 05/10/2023, documented as of this encounter Social History Tobacco Use Types Packs/Day Years Used Date Smoking Tobacco: Never Smokeless Tobacco: Never Comments:not a smoker Alcohol Use Standard Drinks/Week Comments No 0 (1 standard drink = 0.6 oz pur e alcohol) PHQ-2 Answer Date Recorded PHQ-2 Score 0 03/31/2020 Hunger Vital Sign Answer Date Recorded Worried About Running Out of Food in the Last Ye ar Never true 04/28/2019 Ran Out of Food in the Last Year Never true 04/28/2019 Sex and Gender Information Value Date Recorded Sex Assigned at Male 12/24/2018 1:19 PM EDT Gender Identity Male 12/24/2018 1:19 PM EDT Sexual Orientation Not on file Job Start Date Occupation Industry Not on file Not on file Not on file documented as of this encounter Miscellaneous Notes * Telephone Encounter - Chrystal Milligan, java project manager - 08/21/2023 10:41 AM EST Pt is calling and saying felicita did not get orders for his dexacon transmitter and sensors. Pleaseresend order cristiana as pt has nothing to test sugar . Please advise Thank you for your assistance Chrystal Milligan Escalator Installer II [facility] 08/21/2023,10:42 AM * Telephone Encounter - Robina Reeder MD - 08/10/2023 2:54 PM ESTSigned Prescriptions: Disp Refills Dexcom G6 Transmitter 1 Each 6 Sig: Use as directed. Authorizing Provider: ROBINA REEDER * Telephone Encounter - Concha Porter LPN - 08/10/2023 9:33 AM EST [facility] [employer] [place] is requesting new order for Dexcom G6 reader sensors and transmitter. Do not see current order for sensors documented in this encounter Plan of Treatment Upcoming Encounters Date Type Department Care Team (Late st Contact Info) Description 10/09/2023 2:40 PM EST Pharmacy Pharmacy, [place] [address] [place] [address] [facility] [address] [place] [address] Health Maintenance Due Date Last Done Comments Zoster Vaccines (1 of 2) 1990 Depression Screening 03/31/2021 03/31/2020 COVID-19 Vaccine (2022-2 4 season) 2023 03/11/2021, 02/08/2021 Influenza Vaccine (FLU shot) Completed 04/2023, 08/04/2022, 07/15/2021, Additional history exists documented as of this encounter Medical Devices Not on filedocumented as of this encounter Care Teams Stratigraphy Teacher Relationship Specialty Start Date End Date Robina Reeder MD [address] [place] [address] PCP - General 12/08/99 documented as of this encounter
--- OUTSIDE RECORDS SUMMARY | 2023-09-01 15:04 | External Medical Summary | Summary of Care ---
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 0 Active Pen Moore 31G X 6 MMIndications:DM type 1, not at goal (HCC) Use 4 times a day with Novolog and Lantus insulin pens. 400 Each 3 02/17/2021 Active Easy Touch Safety Pen Moore 29G X 8MM (Insulin Pen Needle)Indications:Ty pe 1 diabetes mellitus with polyneuropathy (HCC) 4 times daily with Insulin 360 Each 3 01/18/2022 Active Vitamin D 125 MCG (5000 UT) Oral Capsule Take by mouth. 0 Active Potassium Gluconate 595 (99 K) MG Oral Tablet Take by mouth. 0 Active Felodipine ER 5 MG Oral Tablet Extended Release 24 Hour (Plendil)Indications: HTN, goal below 140/90 Take 2 Tablets by mouth every morning. 180 Tablet 4 01/26/2023 Active Citalopram Hydrobromide 20 MG Oral Tablet (CeleXA)Indications:C urrent mild episode of major depressive disorder, unspecified whether recurrent (HCC) TAKE 1/2 TABLET BY MOUTH ONCE DAILY 45 Tablet 1 03/21/2023 Active Omeprazole 20 MG Oral Capsule Delayed Release (PriLOSEC) TAKE ONE CAPSULE BY MOUTH ONCE DAILY ONE HOUR BEFORE THE first meal of THE DAY 90 Capsule 3 05/02/2023 Active Dexcom G6 Transmitter Use as directed. 0 Active Lisinopril 40 MG Oral Tablet TAKE ONE TABLET BY MOUTH ONCE DAILY 90 Tablet 3 05/30/2023 Active hydroCHLOROthiazide 25 MG Oral Tablet (Hydrodiuril)Indicati ons:HTN, goal below 150/90 TAKE ONE TABLET BY MOUTH ONCE DAILY 90 Tablet 1 06/26/2023 Active Insulin Glargine Solostar 100 UNIT/ML Subcutaneous Solution Pen-injector (Basaglar KwikPen)Indications:T ype 1 diabetes mellitus with polyneuropathy (HCC) Inject 24 Units under the skin daily. 30 mL 4 07/12/2023 Active Insulin Lispro (1 Unit Dial) 100 UNIT/ML Subcutaneous Solution Pen-injector (HumaLOG KwikPen)Indications:T ype 1 diabetes mellitus with polyneuropathy (HCC) Inject up to 60 units a day following correction factor 1:25 over 140. 60 mL 4 07/12/2023 Active Atorvastatin Calcium 40 MG Oral Tablet (Lipitor) TAKE ONE TABLET BY MOUTH ONCE DAILY 90 Tablet 3 07/13/2023 Active Clopidogrel Bisulfate 75 MG Oral Tablet (pLAVix)Indications:T IA (transient ischemic attack) TAKE ONE TABLET BY MOUTH ONCE DAILY 90 Tablet 1 07/13/2023 Active documented as of this encounter (statuses as of 08/07/2023) Active Problems Problem Noted Date Diagnosed Date Foot deformity, acquired, left 12/09/2021 Overview: bony protuberance plantar aspect mid foot Obstructive uropathy 10/21/2020 Type 1 diabetes mellitus with diabetic dermatiti s 10/05/2020 HTN, goal below 150/90 10/03/2019 Current mild episode of abdirahman r depressive disorder without prior episode 10/03/2019 Current use of insulin 10/03/2019 Gastroesophageal reflux disease without esophagi tis 10/03/2019 Atherosclerosis of [place] ronary artery of [place] heart without angina pectoris 10/03/2019 Type 1 [...] as of this encounter (statuses as of 08/07/2023) Resolved Problems Problem Noted Date Diagnosed Date [...] HTN Taxonomy. Abnormality of gait 10/22/2007 02/06/20 17 Dyslipidemia, goal to be determined 05/23/2006 08/19/2009 Overview: Per Lipid Taxonomy. EXAMINATION OF PARTICIPANT IN CLINICAL TRIAL 12/17/2009 Overview: Renamed Per Clinical Trials Billing Project. COSTAR II: COBALT CHROMIUM STENT WITH ANTIPROLIFERATIVE FOR RESTENOSIS II TRIAL OMI # [id number] PI: Jc Fermin MD SC: Hellen Morfin RN, BSN Costar II Clinical Trial*[id number] 09/06/2005 01/25/2011 Overview: Renamed Per Clinical Trials Billing Project. COSTAR II: COBALT CHROMIUM STENT WITH ANTIPROLIFERATIVE FOR RESTENOSIS II TRIAL OMI # [id number] PI: Jc Fermin MD SC: Hellen Morfin [...] as of this encounter (statuses as of 08/07/2023) Immunizations Name Administration Dates Next Due COVID-19 mRNA, LNP-s, No Pre serve, 2-Dose Series (Moderna) 03/11/2021,02/08/2021 PPD 05/25/2015 Pneumococcal Conjugate Vacc, 13 Valent (Prevnar) 01/22/2015 Pneumococcal Polysaccharide PPV23 (Pneumovax) 06/27/2007 SEASONAL INFLUENZA, PF, 6 M & Above, IM , (FLULAVAL or FLUZONE) 05/21/2018,05/29/2017 Season Influenza, Quad, PF, Adjuvanted, 65+ Yrs, IM (FLUAD) 08/25/2020 Seasonal Influenza, Quadriva lent Hd (Fluzone Hd) 07/11/2023,08/04/2022,07/15/2021 Seasonal Influenza, Quadriva lent, No Preserve, IM 06/16/2016 Seasonal Influenza, Split, I IV3, With Preserve, Inj 05/25/2015,07/14/2014,06/24/2013,07/09,06/02/2011,07/04/2010,06/11/2009 ,06/07/2009,07/17/2008,06/27/2007,06/03 Seasonal Influenza, Trivalen t, Adjuvanted, 65+ yrs 06/30/2019 TDAP (age 10 and older)(Boostrix) 05/10/2023, documented [...] encounter Miscellaneous Notes * Telephone Encounter - Mary Genao [facility] - 08/07/2023 12:47 PM EST Refused Prescriptions: Disp Refills Lantus SoloStar 100 UNIT/ML Subcutaneous S*15 mL 3 Sig: inject 20 units UNDER THE SKIN ONCE DAILY IN THE EVENINGRefused By: MARY GENAOReason for Refusal: Too soon documented in this encounter Plan of Treatment Upcoming Encounters Date Type Department Care Team (Late st Contact Info) Description 08/20/2023 2:30 PM EST [facility] [address] [facility] [address] [facility] [address] [facility] [address] 11/07/2023 1:30 PM EST Office Visit Cardiology, [facility] [address] [place] [address] Jane Paris CRNP [address] [place] [address] Health Maintenance Due Date Last Done Comments Zoster Vaccines (1 of 2) 1990 Depression Screening 03/31/2021 03/31/2020 COVID-19 Vaccine (2022-2 4 season) 2023 03/11/2021, 02/08/2021 Influenza Vaccine (FLU shot) Completed 04/2023, 08/04/2022, 07/15/2021, Additional history exists documented as of this encounter Medical Devices Not on filedocumented as of this encounter Visit Diagnoses Diagnosis 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
--- OUTSIDE RECORDS SUMMARY | 2023-09-01 15:04 | External Medical Summary | Summary of Care ---
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 0 Active Multiple Vitamin (MULTI VITAMIN DAILY) TABS Take by mouth. 0 Active omega-3 1000 MG CAPS Take by mouth. Takes 2 daily 0 Active Potassium Gluconate 550 MG TABSIndications:4 tables a week Take by mouth. 0 Active Pen Golden 31G X 6 MMIndications:DM type 1, not at goal (HCC) Use 4 times a day with Novolog and Lantus insulin pens. 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 0 Active Potassium Gluconate 595 (99 K) MG Oral Tablet Take by mouth. 0 Active hydroCHLOROthiazide 25 MG Oral Tablet (Hydrodiuril)Indica tions:HTN, goal below 150/90 TAKE ONE TABLET BY MOUTH ONCE DAILY 90 Tablet 1 3 Active Felodipine ER 5 MG Oral Tablet Extended Release 24 Hour (Plendil)Indication s:HTN, goal below 140/90 Take 2 Tablets by mouth every morning. 180 Tablet 4 3 Active Citalopram Hydrobromide 20 MG Oral Tablet (CeleXA)Indications :Current mild episode of major depressive disorder, unspecified whether recurrent (HCC) TAKE 1/2 TABLET BY MOUTH ONCE DAILY 45 Tablet 1 3 Active NovoLOG FlexPen 100 UNIT/ML Subcutaneous Solution Pen-injector (insulin aspart)Indications: Type 1 diabetes mellitus with hemoglobin A1c goal of less than 8.0% (HCC) INJECT 14 UNITS UNDER THE SKIN WITH BREAKFAST, 10 UNITS WITH LUNCH, AND 12 UNITS WITH SUPPER Plus sliding scale. 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 60 mL 4 3 Active Dexcom G6 Transmitter Use as directed. 0 Active Lisinopril 40 MG Oral Tablet TAKE ONE TABLET BY MOUTH ONCE DAILY 90 Tablet 3 3 Active Insulin Glargine Solostar 100 UNIT/ML Subcutaneous Solution Pen-injector (Lantus SoloStar) INJECT 20 UNITS UNDER THE SKIN ONCE DAILY IN THE EVENING 15 mL 3 3 06/15/20 23 Discontinued documented as of this encounter (statuses as of 06/18/2023) Active Problems Problem Noted Date Foot deformity, acquired, left 2 Overview: bony protuberance plantar aspect mid foot Obstructive uropathy 10/21/2020 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 10/05/2020 HTN, goal below 150/90 10/03/2019 Current mild episode of major depressive disorder without prior episode 10/03/2019 Current use of insulin 10/03/2019 Gastroesophageal reflux disease without esophagitis 10/03/2019 Atherosclerosis of [place] ronary artery of [place] heart without angina pectoris 10/03/2019 Type 1 diabetes mellitus with polyneurop athy 04/28/2019 Vitamin D deficiency 07/23/2014 Obstructive sleep apnea syndrome 011 Hypersomnia 03/14/2010 DYSLIPIDEMIA, GOAL LDL BELOW 70 08/19/20 09 Overview: Per Lipid Taxonomy. ADVANCE DIRECTIVE INFORMATION 07/03/2005 Overview: Yes, Patient instructed to provide copy of advance directive for provider to review and to be scanned into Electronic Medical Record documented as of this encounter (statuses as of 06/18/2023) Resolved Problems Problem Noted Date Resolved Date HTN, goal below 150/90 05/09/2017 8 Age-related nuclear cataract of both eyes 201611/15/2017 Bronchopneumonia 05/19/2016 02/05/2017 Viral URI with cough 05/19/2016 02/05/2017 Chronic rhinitis 05/19/2016 02/05/2017 Type 1 diabetes mellitus wit h hemoglobin A1c goal of less than 8.0% 09/30/2013 08/05/2021 Overview: ICD-10 update of inactive term Patient has combo code in use. HTN, goal below 140/80 04/22/2012 7 Overview: Per HTN Protocol #27. Acute bronchitis, complicated 07/17/2010 HTN, GOAL BELOW 130/80 09/30/2009 2 Overview: Per HTN Taxonomy. Abnormality of gait 10/22/2007 02/05/2017 Dyslipidemia, goal to be determined 05/23/2006 08/19/2009 Overview: Per Lipid Taxonomy. EXAMINATION OF PARTICIPANT IN CLINICAL TRIAL 12/200512/17/2009 Overview: Renamed Per Clinical Trials Billing Project. COSTAR II: COBALT CHROMIUM STENT WITH ANTIPROLIFERATIVE FOR RESTENOSIS II TRIAL OMI # [id number] PI: Jc Fermin MD SC: Hellen Morfin RN, BSN Costar II Clinical Trial*[id number] 09/06/2005 01/25/2011 Overview: Renamed Per Clinical Trials Billing Project. COSTAR II: COBALT CHROMIUM STENT WITH ANTIPROLIFERATIVE FOR RESTENOSIS II TRIAL OMI # [id number] PI: Jc Fermin MD SC: Hellen Morfin RN, BSN Edema 2004 02/05/2017 Type 1 diabetes mellitus wit h hemoglobin A1c goal of less than 7.0% 01/27/2016 Overview: ICD-10 update of inactive term HTN, goal below 140/90 0 Overview: Per HTN Taxonomy. 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 DIVERTICULOSIS OF COLON 03/15/20 18 LIPOMA INTRA-ABDOMINAL 8 Overview: intragastric wall documented as of this encounter (statuses as of 06/18/2023) Immunizations Name Administration Dates Next Due COVID-19 mRNA, LNP-s, No Pre serve, 2-Dose Series (Moderna) 03/11/2021,02/08/2021 PPD 05/25/2015 Pneumococcal Conjugate Vacc, 13 Valent (Prevnar) 01/22/2015 Pneumococcal Polysaccharide PPV23 (Pneumovax) 06/27/2007 SEASONAL INFLUENZA, PF, 6 M & Above, IM , (FLULAVAL or FLUZONE) 05/21/2018,05/29/2017 Season Influenza, Quad, PF, Adjuvanted, 65+ Yrs, IM (FLUAD) 08/25/2020 Seasonal Influenza, Quadriva lent Hd (Fluzone Hd) 08/04/2022,07/15/2021 Seasonal Influenza, Quadriva lent, No Preserve, IM [...] drink = 0.6 oz pur e alcohol) Food Insecurity Answer Date Recorded Within the past 12 months, y ou worried that your food would run out before you got money to buy more. Never true 04/28/2019 Within the past 12 months, t he food you bought just didn't last and you didn't have money to get more. Never true 04/28/2019 Sex Assigned at Date Recorded Male 12/24/2018 1:19 PM E DT Job Start Date Occupation Industry Not on file Not on file Not on file documented as of this encounter Progress Notes * Louise Doherty, [facility] - 06/15/2023 11:02 AM EDT Images from the original note were not included. Medication Therapy [facility] - Diabetes Management Progress Note Alexys Osorio, identified by name and date of , is a 82 year old male being seen for diabetes management/education. Patient presents for return diabetic visit. DIABETES: Current diabetic medications: ADJ Novolog following CF chart at bottom of note 05/02/23 [1:25 over 150, base doses judged on mealsize and activity after meal] ADJ Lantus - 22 - 24 units daily in the evening eGFR 89 as of 10/09/22 Medication Injection Site: Abdomen Lifestyle: Diet: unchanged Glucose Review/SMBG: Readings obtained from patient device Hypoglycemia: Does your blood sugar go below 70 mg/dL? Yes, see above Hyperglycemia symptoms present: None reported Recent Labs Units 05/10/23 0950 02/06/23 1454 10/09/22 1502 HEMOGLOBIN A1C - [facility] % 8.3* 7.9* 8.1* Recent Labs Units 05/10/23 0950 10/09/22 1502 08/22/21 1309 ESTIMATED GLOMERULAR FILTRATION RATE - [facility] mL/min 89 89 79 CREATININE - [facility] mg/dL 0.8 0.8 0.9 HYPERTENSION: Patient on ACEi/ARB: yes BP Readings from Last 3 Encounters: 05/09/23 120/72 04/12/23 121/48 03/02/23 110/62 Blood pressure at goal: yes HYPERLIPIDEMIA: Patient is taking moderate or high intensity statin: yes HEALTH MAINTENANCE REVIEW: Health Maintenance Due Topic Date Due Zoster Vaccines (1 of 2) Never done Depression Screening 03/31/2021 Influenza Vaccine (FLU shot) (1) 05/04/2023 COVID-19 Vaccine ( season) 2023 ASSESSMENT & PLAN: ICD-10-CM 1. 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 Diagnosed at age of 50 per chart review - Dexcom supplied by [facility] - metformin caused low blood sugars, patient discontinued and not interested in retrial - obtaining Basaglar and Humalog from [facility] --> eligibility ends 09/02/2023, will need to re-apply BG Readings - Blood sugars uncontrolled. Highly variable. Numerous lows. Highs continue as well. Goal continues to be to reduce variability and better stabilize blood sugars overall. Medications - Reviewed current regimen, patient is not adherent to regimen. It was discovered in today's visit that patient has been giving himself Lantus 24 units in the evening, and then was using Basaglar to follow his sliding scale. Excessive counseling provided to patient to correct this mistake. Wrote "nighttime insulin" on basaglar box, and "meals" with novolog box. Patient endorses that he has not yet received humalog insulin yet, only basaglar. Called [facility] after the visit today and spoke with Elli at [facility] who confirmed that patient was enrolled for both Basaglar and Humalog to be obtained for free through [facility], but she notes that only basaglar was sent out to patient and delivered May 09. She was able to process a fill for both basaglar and humalog for next delivery. Counseled patient to not start using humalog until next mtm visit, and to bring to next visit once he receives it. Confirmed that patient has enough novolog to last until next visit. He notes that even if he gives 8 units before a meal and then is active after the meal, he will drop and have a low blood sugar. Will update his chart to better target and reduce these lows. Diet, Exercise, Lifestyle - patient remains active . Patient is agreeable to SMBG with Dexcom G6 daily. Patient aware to contact clinic if any hypoglycemia before next visit. MEDICATION CHANGES: Obtaining insulins from [facility] Diabetic Medications: ADJ Novolog following CF chart at bottom of note 06/18/23 [1:30 over 150, base doses judged on mealsize and activity after meal] Basaglar - 22 - 24 units daily in the evening eGFR 89 as of 10/09/22 HEALTH MAINTENANCE INTERVENTIONS: Labs: Up to Date Immunizations: prefers influenza vaccine at next visit Foot Exam: Up to Date Eye Exam: Up to Date Annual Wellness Visit: FOLLOW UP: Return to clinic in 5 weeks 07/11/2023 Louise Doherty [facility] Clinical Pharmacist - [employer] Operator Medication Therapy Management Clinic 06/15/2023, 11:02 AM 10/13/23 Fast Acting Insulin : Novolog To find insulin dose: 1) Find the ROW in which pre-meal blood sugar is in (on LEFT of chart) 2) Find COLUMN which represents which meal you are eating 3) Go across row from step 1 and go down column from step 2 4) Where the row and column cross - that is the dose of fast acting insulin Blood Sugar levels Smaller Normal/Large Meal Planned Activity After Meal No Food, but high sugar 70 to 89 13 16 4 0 90 to 119 14 17 5 0 120 to 149 15 18 6 1 150 to 179 15 18 6 1 180 to 209 16 19 7 2 210 to 239 17 20 8 3 240 to 269 18 21 9 4 270 to 299 19 22 10 5 300 to 329 20 23 11 6 330 to 359 21 24 12 7 360 to 389 22 25 13 8 390 to 419 23 26 14 9 420 to 449 24 27 15 10 Parameters fixed 15 18 6 1 cassidy 30 over 150 Basaglar 22 units the night before you are active (mowing grass) Basaglar 24 units the night before you are active (mowing grass) documented in this encounter Plan of Treatment Upcoming Encounters Date Type Specialty Care Team Description 07/11/2023 Office Visit [facility] [address] [facility] [place] [address] 11/07/2023 Office Visit Cardiology Jane Paris CRNP [address] [place] [address] Health Maintenance Due Date Last Done Comments Zoster Vaccines (1 of 2) 1990 Depression Screening 03/31/2021 03/31/2020 COVID-19 Vaccine (2022-2 4 season) 2023 03/11/2021, 02/08/2021 Influenza Vaccine (FLU shot) (#1) 2023 08/04/2022, 07/15/2021, 08/25/2020, Additional history exists documented as of this encounter Medical Devices Not on filedocumented as of this encounter Visit Diagnoses Diagnosis 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
--- OUTSIDE RECORDS SUMMARY | 2023-09-01 15:04 | External Medical Summary | Summary of Care ---
Author Name Unknown Organization [facility] Address [address] [facility] [place] [address] Phone [phone] Care Team Providers Care Executive Receptionist Name Role Phone Robina Reeder MD Primary Care Provider Reason for Visit * Reason Comments eRx-Medication Refill Encounter Details Date Type Department Care Team Description 05/29/[address] [facility] [address] [place] [address] Robina Reeder MD [address] [place] [address] Allergies No known active allergiesdocumented as of this encounter (statuses as of 05/30/2023) Medications Medication Sig Dispensed Refills Start Date [...] week Take by mouth. 0 Active Pen Martha 31G X 6 MMIndications:DM type 1, not at goal (HCC) Use 4 times a day with Novolog and Lantus insulin pens. 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) 4 times daily with Insulin 360 Each 3 2 Active Atorvastatin Calcium 40 MG Oral Tablet (Lipitor) TAKE ONE TABLET BY MOUTH ONCE DAILY 90 Tablet 3 2 Active Insulin Glargine Solostar 100 UNIT/ML Subcutaneous Solution Pen-injector (Lantus SoloStar) INJECT 20 UNITS UNDER THE SKIN ONCE DAILY IN THE EVENING 15 mL 3 3 Active Additional Information Patient taking differently: 22 Units, INJECT 20 UNITS UNDER THE SKIN ONCE DAILY IN THE EVENING, Reported on 03/28/2023 Vitamin D 125 MCG (5000 UT) Oral [...] hemoglobin A1c goal of less than 8.0% ([facility]) INJECT 14 UNITS UNDER THE SKIN WITH [...] ONCE DAILY 90 Tablet 3 3 Active Lisinopril 40 MG Oral Tablet TAKE ONE TABLET BY MOUTH ONCE DAILY 90 Tablet 0 3 05/30/20 23 Discontinued documented as of this encounter (statuses as of 05/30/2023) Active Problems Problem Noted Date Foot deformity, acquired, left 2 Overview: bony protuberance plantar aspect mid foot Obstructive uropathy 10/21/2020 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 10/05/2020 HTN, goal below 150/90 10/03/2019 Current mild episode of major depressive disorder without prior episode 10/03/2019 Current use of insulin 10/03/2019 Gastroesophageal reflux disease without esophagitis 10/03/2019 Atherosclerosis of [place] ronary artery of [place] heart without angina pectoris 10/03/2019 Type 1 [...] as of this encounter (statuses as of 05/30/2023) Resolved Problems Problem Noted Date Resolved Date [...] ANTIPROLIFERATIVE FOR RESTENOSIS II TRIAL OMI # [id number] PI: Jc Fermin MD SC: Hellen Morfin RN, BSN Costar II Clinical Trial*[id number] 09/06/2005 01/25/2011 Overview: Renamed Per Clinical Trials Billing Project. COSTAR II: COBALT CHROMIUM STENT WITH ANTIPROLIFERATIVE FOR RESTENOSIS II TRIAL OMI # [id number] PI: Jc Fermin MD SC: Hellen Morfin RN, BSN Edema 2004 02/05/2017 Type 1 diabetes mellitus wit h hemoglobin A1c goal of less than 7.0% 01/27/2016 Overview: ICD-10 update of inactive term HTN, goal below 140/90 0 Overview: Per HTN Taxonomy. 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 DIVERTICULOSIS OF COLON 11/16/19 18 LIPOMA INTRA-ABDOMINAL 8 Overview: intragastric wall documented as of this encounter (statuses as of 05/30/2023) Immunizations Name Administration Dates Next Due COVID-19 mRNA, LNP-s, No Pre serve, 2-Dose Series (Moderna) 03/11/2021,02/08/2021 PPD 05/25/2015 Pneumococcal Conjugate Vacc, 13 Valent (Prevnar) 01/22/2015 Pneumococcal Polysaccharide PPV23 (Pneumovax) 06/27/2007 Season Influenza, Quad, PF, Adjuvanted, 65+ Yrs, IM (FLUAD) 08/25/2020 Seasonal Influenza, PF, 6 mo ns & Above, IM , (Flulaval) 05/21/2018,05/29/2017 Seasonal Influenza, Quadriva lent Hd (Fluzone [...] encounter Miscellaneous Notes * Telephone Encounter - Augustin Bernal [facility] - 05/30/2023 8:10 AM EDTSigned Prescriptions: Disp Refills Lisinopril 40 MG Oral Tablet 90 Tab*3 Sig: TAKE ONE TABLET BY MOUTH ONCE DAILYAuthorizing Provider: ROBINA REEDER User: AUGUSTIN BERNAL documented in this encounter Plan of Treatment Upcoming Encounters Date Type Specialty Care Team Description 06/15/2023 [facility] [address] [place] [address] 11/07/2023 Office Visit Cardiology Jane Paris CRNP [address] [place] [phone] Health Maintenance Due Date Last Done Comments Zoster Vaccines (1 of 2) 1990 Depression Screening 03/31/2021 03/31/2020 COVID-19 Vaccine (3 - Modern a series) 05/06/2021 03/11/2021, 02/08/2021 Influenza Vaccine (FLU shot) (#1) 2023 08/04/2022, 07/15/2021, 08/25/2020, Additional history exists documented as of this encounter Medical Devices Not on filedocumented as of this encounter Care Teams Executive Receptionist Relationship Specialty Start Date End Date Robina Reeder MD [address] [place] [address] PCP - General 12/08/99 documented as of this encounter
--- OUTSIDE RECORDS SUMMARY | 2023-09-01 15:04 | External Medical Summary ---
Author Name Unknown Address Unknown Organization [id number]:[facility] [place] [address] [place] [address] Laboratory Report Ordering Provider Test Date Status CESAR QUARLES 05/10/2023 09:50:01 Final Observation Date Value Abnormality Reference (Units ) Status Triglyceride 05/10/2023 09:50:01 61 <=174 ( mg/dL) Final Triglyceride Reference Range s (mg/dL):
<150 Acceptable
150-174 Borderline high
175-499 High
>=500 Very high Cholesterol 05/10/2023 09:50:01 120 <200 (mg /dL) Final Total Cholesterol Reference Ranges (mg/dL):
<200 Desirable
200-239 Borderline high
>=240 High HDL 05/10/2023 09:50:01 41 >39 (mg/dL ) Final HDL Cholesterol Reference Ra nges (mg/dL):
>=60 High (Desirable)
<50 Low (Undesirable) For Females
<40 Low (Undesirable) For Males NON-HDL CHOLESTEROL 05/10/2023 09:50:01 79 <=159 (mg/dL) Final Non-HDL Cholesterol Referenc e Range (mg/dL):
<100 Target level for high risk ASCVD patient
<130 Optimal for general population
130-159 Near optimal for general population
160-189 Borderline High
190-219 High
>=220 Very High LDL, (calculated) 05/10/2023 09:50:01 67 <= 129 (mg/dL) Final LDL Cholesterol Reference Ra nges (mg/dL):
<70 Target level for high risk ASCVD patient
<100 Optimal for general population
100-129 Near optimal for general population
130-159 Borderline high
160-189 High
>=190 Very high Performing Location [facility] [place] [address] [facility] [address]
--- OUTSIDE RECORDS SUMMARY | 2023-09-01 15:04 | External Medical Summary | Summary of Care ---
Author Name Unknown Organization [facility] Address [address] [facility] [place] [address] Phone [phone] Care Team Providers Care Freight Agent Name Role Phone Amado Reeder MD Primary Care Provider Reason for Visit * Reason Comments Immunizations Encounter Details Date Type Department Care Team Description 05/10/2023 Immunization/In jection Ancillary Department, [facility] [address] [place] [address] [facility], Nurse [address] [place] [address] Need for smuiiuzfuu-smcqabj-jt rtussis (Tdap) vaccine* Allergies No known active allergiesdocumented as of this encounter (statuses as of 05/10/2023) Medications Medication Sig Dispensed Refills Start Date [...] week Take by mouth. 0 Active Pen [place] 31G X 6 MMIndications:DM type 1, not at goal (HCC) Use 4 times a day with Novolog and Lantus insulin pens. 400 Each 3 02/17/2021 Active Easy Touch Safety Pen [place] 29G X 8MM (Insulin Pen Needle)Indications:T ype 1 diabetes mellitus with polyneuropathy (HCC) 4 times daily with Insulin 360 Each 3 01/18/2022 Active Atorvastatin Calcium 40 MG Oral Tablet (Lipitor) TAKE ONE TABLET BY MOUTH ONCE DAILY 90 Tablet 3 06/22/2022 Active Insulin Glargine Solostar 100 UNIT/ML Subcutaneous Solution Pen-injector (Lantus SoloStar) INJECT 20 UNITS UNDER THE SKIN ONCE DAILY IN THE EVENING 15 mL 3 11/06/2022 Active Additional Information Patient taking differently: 22 Units, INJECT 20 UNITS UNDER THE SKIN ONCE DAILY IN THE EVENING, Reported on 03/28/2023 Vitamin D 125 MCG (5000 UT) Oral Capsule Take by mouth. 0 Active Potassium Gluconate 595 (99 K) MG Oral Tablet Take by mouth. 0 Active hydroCHLOROthiazide 25 MG Oral Tablet (Hydrodiuril)Indicat ions:HTN, goal below 150/90 TAKE ONE TABLET BY MOUTH ONCE DAILY 90 Tablet 1 12/20/2022 Active Felodipine ER 5 MG Oral Tablet Extended Release 24 Hour (Plendil)Indications :HTN, goal below 140/90 Take 2 Tablets by mouth every morning. 180 Tablet 4 01/26/2023 Active Lisinopril 40 MG Oral Tablet TAKE ONE TABLET BY MOUTH ONCE DAILY 90 Tablet 0 02/10/2023 Active Citalopram Hydrobromide 20 MG Oral Tablet (CeleXA)Indications: Current mild episode of major depressive disorder, unspecified whether recurrent ([facility]) TAKE 1/2 TABLET BY MOUTH ONCE DAILY 45 Tablet 1 03/21/2023 Active NovoLOG FlexPen 100 UNIT/ML Subcutaneous Solution Pen-injector (insulin aspart)Indications:T ype 1 diabetes mellitus with hemoglobin A1c goal of less than 8.0% ([facility]) INJECT 14 UNITS UNDER THE SKIN WITH BREAKFAST, 10 UNITS WITH LUNCH, AND 12 UNITS WITH SUPPER Plus sliding scale. 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 60 mL 4 05/02/2023 Active Dexcom G6 Transmitter Use as directed. 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 10/05/2020 HTN, goal below 150/90 10/03/2019 Current mild episode of major depressive disorder without prior episode 10/03/2019 Current use of insulin 10/03/2019 Gastroesophageal reflux disease without esophagitis 10/03/2019 Atherosclerosis of [place]onary artery of [place] heart without angina pectoris 10/03/2019 Type 1 [...] as of this encounter (statuses as of 05/10/2023) Resolved Problems Problem Noted Date Resolved Date [...] ANTIPROLIFERATIVE FOR RESTENOSIS II TRIAL OMI # [id number] PI: Jc Fermin MD SC: Hellen Morfin RN, BSN Costar II Clinical Trial*[id number] 09/06/2005 01/25/2011 Overview: Renamed Per Clinical Trials Billing Project. COSTAR II: COBALT CHROMIUM STENT WITH ANTIPROLIFERATIVE FOR RESTENOSIS II TRIAL OMI # [id number] PI: Jc Fermin MD SC: Hellen Morfin [...] as of this encounter (statuses as of 05/10/2023) Immunizations Name Administration Dates Next Due COVID-19 [...] on file documented as of this encounter Nursing Notes * Concha Porter LPN - 05/10/2023 10:04 AM EDT Pre-Administration Time Out Procedure Performed: Yes Patient Identified (Ask Name/Date of ): Yes Does the patient have a fever greater than 101 degrees today? No Patient allergic to latex? No Has the patient ever fainted after receiving an injection? No VFC Stock: No Immunization(s) verified: Yes, Immunization Name: Tdap (Boostrix), VIS Sheet(s) given: Yes Verified Side and Site: Yes Verified Shot(s) with Parent(s)/Patient: Yes documented in this encounter Plan of Treatment Upcoming Encounters Date Type Specialty Care Team Description 06/15/2023 Office Visit Pharmacy [facility] [address], [place] [id number] 11/07/2023 Office Visit Cardiology Jane Paris CRNP [address] [place] [address] Health Maintenance Due Date Last Done Comments Zoster Vaccines (1 of 2) 1990 Depression Screening, Annual for Pts 12 and Over 03/31/2021 03/31/2020 COVID-19 Vaccine (3 - Modern a series) 05/06/2021 03/11/2021, 02/08/2021 Influenza Vaccine (FLU shot) (#1) 2023 08/04/2022, 07/15/2021, 08/25/2020, Additional history exists documented as of this encounter Medical Devices Not on filedocumented as of this encounter Visit Diagnoses Diagnosis Need for lsegvmsseo-gqqfpvc-zcbmzswlj (Tdap) vaccine- Primary Need for prophylactic vaccination with combined elcprcaarg-sygscgc-mgiikyvqc (DTP) vaccine documented in this encounter Care Teams Freight Agent Relationship Specialty Start Date End Date Amado Reeder MD [address] [place] [address] PCP - General 12/08/99 documented as of this encounter
--- OUTSIDE RECORDS SUMMARY | 2023-09-01 15:04 | External Medical Summary ---
Author Name Unknown Address Unknown Organization [id number]:LAB[facility]ATORY [facility] - [address] [place] [id number] Laboratory Report Ordering Provider Test Date Status MISBAHZEUSTAN 07/04/2023 15:11:00 Final Normal: <30 mg/g creatinine< br/>High: 30-300 mg/g creatinine
Very High: >300 mg/g creatinine
Nephrotic: >2200 mg/g creatinine Observation Date Value Abnormality Reference (Units ) Status Albumin, Urine 07/04/2023 15:11:00 1.90 (mg/d L) Final This testing was performed a s part of a [facility] [employer] fulfillment initiative Creatinine, Urine 07/04/2023 15:11:00 96 (m g/dL) Final Albumin/Creatinine [Mass Rat io] in Urine 07/04/2023 15:11:00 20 <30 (mg/g Creat) Kae ware Performing Location [facility]ORY [facility] - [address] [facility] [address]
--- OUTSIDE RECORDS SUMMARY | 2023-09-01 15:04 | External Medical Summary ---
Author Name Unknown Address Unknown Organization K01:[facility] [place] - [address] [facility] [address] Laboratory Report Ordering Provider Test Date Status JOHN HANDYSameera 05/10/2023 09:50:01 Final Observation Date Value Abnormality Reference (Units ) Status HbA1C 05/10/2023 09:50:01 8.3 Above high normal 4. 0-5.6 (%) Final The use of HbA1c to monitor glycemic status is based on normal hemoglobin and HbA composition. This test should not be used in patients with abnormal hemoglobin that affects the half life of the red blood cell or the in vivo glycation rates. Glucose, estimated average 05/10/2023 09:50:01 192 Above high normal <126 (mg/dL) Fin al Performing Location [facility] [place] - [address] [facility] [address]
--- OUTSIDE RECORDS SUMMARY | 2023-09-01 15:04 | External Medical Summary ---
Author Name Unknown Address Unknown Organization K01:[facility]ATORY [facility] - [address] [place] [address] Laboratory Report Ordering Provider Test Date Status CESAR QUARLES 05/10/2023 09:50:01 Final Observation Date Value Abnormality Reference (Units ) Status Magnesium 05/10/2023 09:50:01 2.0 1.5-2.6 (m g/dL) Final Performing Location [facility]ORATORY [facility] - [address] [place] [address]
--- OUTSIDE RECORDS SUMMARY | 2023-09-01 15:04 | External Medical Summary | Summary of Care ---
Author Name Unknown Organization [facility] Address [address] [facility] [place] [address] Phone [phone] Care Team Providers Care Candy Roller Name Role Phone Amado Reeder MD Primary Care Provider [phone] Reason for Visit * Reason Onset Date Comments Dosage Adjustment In Person ([facility]ticoag Clinic) Diabetes Follow-Up Medication Administration 07/11/2023 Flu an d/or Pneumo Inj Encounter Details Date Type Department Care Team (Latest Contact Info) Description 07/11/2023 3:40 PM EST Office Visit Pharmacy, [address] [address] [facility] [place] [address] 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 0 Active Pen [place] 31G X 6 MMIndications:DM type 1, not at goal (HCC) Use 4 times a day with Novolog and Lantus insulin pens. 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 30 mL 05/02/2023 Active Insulin Lispro (1 Unit Dial) [...] ONCE DAILY 90 Tablet 1 06/26/2023 Active NovoLOG FlexPen 100 UNIT/ML Subcutaneous Solution Pen-injector (insulin aspart)Indications: Type 1 diabetes mellitus with hemoglobin A1c goal of less than 8.0% ([facility]) INJECT 14 UNITS UNDER THE SKIN WITH BREAKFAST, 10 UNITS WITH LUNCH, AND 12 UNITS WITH SUPPER Plus sliding scale. Maximum dose per day 80 24 mL 11 04/12/2023 3 Discontinue d(End of Procedure) documented as of this encounter (statuses as of 07/11/2023) Active Problems Problem Noted Date Diagnosed Date Foot deformity, acquired, left 12/09/2021 Overview: bony protuberance plantar aspect mid foot Obstructive uropathy 10/21/2020 Type 1 diabetes mellitus with diabetic dermatiti s 10/05/2020 HTN, goal below 150/90 10/03/2019 Current mild episode of abdirahman r depressive disorder without prior episode 10/03/2019 Current use of insulin 10/03/2019 Gastroesophageal reflux disease without esophagi tis 10/03/2019 Atherosclerosis of [place] co ronary artery of [place] heart without angina pectoris 10/03/2019 Type 1 [...] as of this encounter (statuses as of 07/11/2023) Resolved Problems Problem Noted Date Diagnosed Date [...] ANTIPROLIFERATIVE FOR RESTENOSIS II TRIAL OMI # [id number] PI: Jc Fermin MD SC: Hellen Morfin RN, BSN Costar II Clinical Trial*[id number] 09/06/2005 01/25/2011 Overview: Renamed Per Clinical Trials Billing Project. COSTAR II: COBALT CHROMIUM STENT WITH ANTIPROLIFERATIVE FOR RESTENOSIS II TRIAL OMI # [id number] PI: Jc Fermin MD SC: Hellen Morfin [...] as of this encounter (statuses as of 07/11/2023) Immunizations Name Administration Dates Next Due COVID-19 [...] on file documented as of this encounter Patient Instructions * Patient Instructions* Louise Doherty RPh - 07/11/2023 4:17 PM EST ~~PATIENT INSTRUCTIONS FOR FLU SHOT~~ Possible side effects of influenza vaccine, (flu shot), are usually mild and include: 1. Soreness or redness at injection site 2. Low grade fever 3. Body aches You may use Tylenol/Acetaminophen as needed for these symptoms. LET YOUR DOCTOR KNOW IMMEDIATELY IF YOU HAVE DIFFICULTY BREATHING OR SWALLOWING, EXPERIENCE ITCHINGOF FEET OR HANDS, HAVE SWELLING OF EYES, FACE OR INSIDE OF NOSE. documented in this encounter Progress Notes * Louise Doherty RPh - 07/11/2023 3:34 PM EST Medication Therapy Disease Management Clinic - Diabetes Management Progress Note Alexys Osorio, identified by name and date of , is a 82 year old male being seen for diabetes management/education. Patient presents for return diabetic visit. DIABETES: Current diabetic medications: ADJ Humalog following CF chart at bottom of note 06/18/23 [1:30 over 150, base doses judged on mealsize and activity after meal] 2 days ago decided to start taking 10 units with meals and only usingfar right side of chart for corrections Basaglar - 22 - 24 units daily in the evening eGFR 89 as of 10/09/22 Medication Injection Site: Abdomen Lifestyle: Diet: has decided to only eat 30 g of carbs per meal- states this is sustainable Glucose Review/SMBG: patient forgot dexcom reader/it was Fingersticks range from 80-497 Hypoglycemia: Does your blood sugar go below 70 mg/dL? None in the last few days Hyperglycemia symptoms present: none Recent Labs Units 05/10/23 0950 02/06/23 1454 [...] Vaccine (FLU shot) (1) 05/04/2023 COVID-19 Vaccine (3 - 2022- season) 2023 ASSESSMENT & PLAN: ICD-10-CM 1. 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 Need for prophylactic vaccination and inoculation against influenza Z23 Considerations: - FRANCISCO? Diagnosed at age of 50 per chart review - Dexcom supplied by [employer] - metformin caused low blood sugars, patient discontinued and not interested in retrial - obtaining Basaglar and Humalog from [facility] --> reapplied 07/11/23 - memory issues; PCP okay with conservative management BG Readings - Blood sugars not available. Patient did not bring dexcom reader to visit today. States he needed to get a replacement one and has been using fingersticks. Ranging 80s-400s, which is typical for patient. No low blood sugars lately. Medications - Reviewed current regimen, patient is not adherent to regimen. Patient has changed hisapproach to his blood sugars and started this earlier this week. He reports to [facility] that he will only be taking 10 units of bolus insulin at any meal, and then using the "correction" column on his chart, but reports that the correction doses do not quite bring his sugars down to goal. Will keep basal insulin the same, adjust correction chart. Diet, Exercise, Lifestyle - has decided to only eat 30 g of carbs per meal- states this is sustainable . Patient is agreeable to SMBG with Dexcom daily. Patient aware to contact clinic if any hypoglycemia before next visit. MEDICATION CHANGES: Diabetic Medications: Humalog 10 units with meals + CF 1:25 over 140 [see chart at bottom of clinic note 07/11/23] Basaglar - 22 - 24 units daily in the evening eGFR 89 as of 10/09/22 HEALTH MAINTENANCE INTERVENTIONS: Labs: Up to Date Immunizations: Facilitated Administration Of: Influenza Foot Exam: Up to Date Eye Exam: Up to Date Annual Wellness Visit: N/A FOLLOW UP: Return to clinic in 6 weeks 08/20/2023 Louise Doherty RPh Clinical Pharmacist - Biology Internship Medication Therapy Management [facility] 07/11/2023, 3:34 PM 07/11/23 Blood Sugar levels No Food, but high sugar 70 to 89 0 90 to 114 0 115 to 139 1 140 to 164 1 165 to 189 2 190 to 214 3 215 to 239 4 240 to 264 5 265 to 289 6 290 to 314 7 315 to 339 8 340 to 364 9 365 to 389 10 390 to 414 11 415 to 439 12 440 to 464 13 Parameters fixed 1 cassidy 25 over 140 PRE - ADMINISTRATION DOCUMENTATION Are you experiencing any cold symptoms or fever? No Have you had Guillain-Moberly Syndrome (an illness that causes paralysis) within the last 6 weeks? No Have you had the flu shot in the past? YES Have you ever had a reaction to the flu shot? No Louise Doherty RPh, 07/11/2023 4:17 PM Immunization Administration Documentation Time Out Procedure Performed: Yes Patient Identified (Ask Name/Date of ): Yes Does the patient have a fever greater than 101 degrees today? No Patient allergic to latex? No VFC Stock: No Immunization(s) verified: Yes, Immunization Name: Flu, VIS Sheet(s) given: Yes Verified Side and Site: Yes Verified Shot(s) with Parent(s)/Patient: Yes documented in this encounter Plan of Treatment Upcoming Encounters Date Type Department Care Team (Late st Contact Info) Description 08/20/2023 2:30 PM EST Office Visit Pharmacy, [place] [place] [address] [facility] [address] [place] [address] 11/07/2023 1:30 PM EST Office Visit Cardiology, [address] [place] [address] Jane Paris CRNP [address] [place] [address] Health Maintenance Due Date Last Done Comments Zoster Vaccines (1 of 2) 1990 Depression Screening 03/31/2021 03/31/2020 COVID-19 Vaccine (3 2022-2 4 season) 2023 03/11/2021, 02/08/2021 Influenza Vaccine [...] other specified manifestations, not stated as uncontrolled Need for prophylactic vaccination and inoculation against influenza documented in this encounter Care Teams Candy Roller Relationship Specialty Start Date End Date [facility]ado Reeder [facility] [address] [facility] [address] PCP - General 12/08/99 documented as of this encounter
--- OUTSIDE RECORDS SUMMARY | 2023-09-01 15:04 | External Medical Summary | Summary of Care ---
Author Name Unknown Organization [facility] Address [address] [facility] [place] [address] Phone [phone] Care Team Providers Care Machine Cloth Measurer Name Role Phone Robina Reeder MD Primary Care Provider Reason for Visit * Reason Comments eRx-Medication Refill Encounter Details Date Type Department Care Team (Late st Contact Info) Description 07/13/2023 Refill [facility] [address] [place] [address] Robina Reeder MD [address] [place] [address] TIA (transient ischemic attack) Allergies No known active allergiesdocumented as of this encounter (statuses as of 07/13/2023) Medications Medication Sig Dispensed Refills Start Date [...] week Take by mouth. 0 Active Pen [place] 31G X 6 MMIndications:DM type 1, not at goal (HCC) Use 4 times a day with Novolog and Lantus insulin pens. 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 0 Active Lisinopril 40 MG Oral Tablet TAKE ONE TABLET BY MOUTH ONCE DAILY 90 Tablet 3 3 Active hydroCHLOROthiazide 25 MG Oral Tablet (Hydrodiuril)Indica tions:HTN, goal below 150/90 TAKE ONE TABLET BY MOUTH ONCE DAILY 90 Tablet 1 3 Active Insulin Glargine Solostar 100 UNIT/ML [...] factor 1:25 over 140. 60 mL 4 3 Active Atorvastatin Calcium 40 MG Oral Tablet (Lipitor) TAKE ONE TABLET BY MOUTH ONCE DAILY 90 Tablet 3 3 Active Clopidogrel Bisulfate 75 MG Oral Tablet (pLAVix)Indications :TIA (transient ischemic attack) TAKE ONE TABLET BY MOUTH ONCE DAILY 90 Tablet 1 3 Active Atorvastatin Calcium 40 MG Oral Tablet (Lipitor) TAKE ONE TABLET BY MOUTH ONCE DAILY 90 Tablet 3 2 07/13/20 23 Discontinued Clopidogrel Bisulfate 75 MG Oral Tablet (pLAVix)Indications :TIA (transient ischemic attack) TAKE ONE TABLET BY MOUTH ONCE DAILY 90 Tablet 0 3 07/13/20 23 Discontinued documented as of this encounter (statuses as of 07/13/2023) Active Problems Problem Noted Date Diagnosed Date Foot deformity, acquired, left 12/09/2021 Overview: bony protuberance plantar aspect mid foot Obstructive uropathy 10/21/2020 Type 1 diabetes mellitus with diabetic dermatiti s 10/05/2020 HTN, goal below 150/90 10/03/2019 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 COSTAR II: COBALT CHROMIUM STENT WITH ANTIPROLIFERATIVE FOR RESTENOSIS II TRIAL OMI # [id number] PI: Jc Fermin MD SC: Hellen Morfin [...] as of this encounter (statuses as of 07/13/2023) Immunizations Name Administration Dates Next Due COVID-19 [...] encounter Miscellaneous Notes * Telephone Encounter - Oneil Bowens, [facility] - 07/13/2023 4:22 PM ESTSigned Prescriptions: Disp Refills Atorvastatin Calcium 40 MG Oral Tablet (Li*90 Tab*3 Sig: TAKE ONE TABLET BY MOUTH ONCE DAILYAuthorizing Provider: ROBINA REEDER User: ONEIL BOWENS Clopidogrel Bisulfate 75 MG Oral Tablet (p*90 Tab*1 Sig: TAKE ONE TABLET BY MOUTH ONCE DAILYAuthorizing Provider: ROBINA REEDER User: ONEIL BOWENS documented in this encounter Plan of Treatment Upcoming Encounters Date Type Department Care Team (Late st Contact Info) Description 08/20/2023 2:30 PM EST Office Visit Pharmacy[address] [address] [facility] [address] [place] [address] 11/07/2023 1:30 PM EST [facility] [place] [address] Jane Paris CR[facility] [address] [facility] [place] [address] Health Maintenance Due Date Last Done Comments Zoster Vaccines (1 of 2) 1990 Depression Screening 03/31/2021 03/31/2020 COVID-19 Vaccine (3 2022-2 4 season) 2023 03/11/2021, 02/08/2021 Influenza Vaccine (FLU shot) Completed 04/2023, 08/04/2022, 07/15/2021, Additional history exists documented as of this encounter Medical Devices Not on filedocumented as of this encounter Visit Diagnoses Diagnosis TIA (transient ischemic attack) Unspecified transient cerebral ischemia documented in this encounter Care Teams Machine Cloth Measurer Relationship Specialty Start Date End Date Robina Reeder MD [address] [place] [facility] [place] [address] PCP - General 12/08/99 documented as of this encounter
--- OUTSIDE RECORDS SUMMARY | 2023-09-01 15:04 | External Medical Summary | Summary of Care ---
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 0 Active Pen [place] 31G X 6 MMIndications:DM type 1, not at goal (HCC) Use 4 times a day with Novolog and Lantus insulin pens. 400 Each 3 02/17/2021 Active Easy Touch Safety Pen [place] 29G X 8MM (Insulin Pen Needle)Indications:T ype [...] hemoglobin A1c goal of less than 8.0% ([facility]) INJECT 14 UNITS UNDER THE SKIN WITH BREAKFAST, 10 UNITS WITH LUNCH, AND 12 UNITS WITH SUPPER Plus sliding scale. Maximum dose per day 80 24 mL 11 04/12/2023 Active Clopidogrel Bisulfate 75 MG Oral Tablet (pLAVix)Indications: TIA (transient ischemic attack) TAKE ONE TABLET BY MOUTH ONCE DAILY 90 Tablet 0 04/18/2023 3 Active Omeprazole 20 MG Oral Capsule [...] reflux disease without esophagitis 10/03/2019 Atherosclerosis of [place] co ronary artery of [place] heart without angina pectoris 10/03/2019 Type 1 [...] ANTIPROLIFERATIVE FOR RESTENOSIS II TRIAL OMI # [id number] PI: Jc Fermin MD SC: Hellen Morfin RN, BSN Costar II Clinical Trial*[id number] 09/06/2005 01/25/2011 Overview: Renamed Per Clinical Trials Billing Project. COSTAR II: COBALT CHROMIUM STENT WITH ANTIPROLIFERATIVE FOR RESTENOSIS II TRIAL OMI # [id number] PI: Jc Fermin MD SC: Hellen Morfin [...] on file documented as of this encounter Plan of Treatment Upcoming Encounters Date Type Specialty Care Team Description 06/15/2023 Office Visit Pharmacy [facility] [address] [facility] [place] [address] 11/07/2023 Office Visit Cardiology Jane Paris CRNP [address] [place] [address] Pending Results Name Type Priority Associated Diagnoses Date /Time LIPID PANEL WITH DIRECT LDL IF TG IS HIGH Lab Routine Dyslipidemia, goal LDL below 70 05/10/2023 9:50 AM EDT MAGNESIUM Lab Routine Encounter for long-term (current) use of medications 05/10/2023 9:50 AM EDT VITAMIN B12 Lab Routine Encounter for long-term (current) use of medications 05/10/2023 9:50 AM EDT COMPREHENSIVE METABOLIC PANEL Lab Routine HTN, goal below 150/90 05/10/2023 9:50 AM EDT HEMOGLOBIN A1C Lab Routine 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) 05/10/2023 9:50 AM EDT Health Maintenance Due Date Last Done Comments Zoster Vaccines (1 of 2) 1990 Depression Screening, Annual for Pts 12 and Over 03/31/2021 03/31/2020 COVID-19 Vaccine (3 - Modern a series) 05/06/2021 03/11/2021, 02/08/2021 Influenza Vaccine (FLU shot) (#1) 2023 08/04/2022, 07/15/2021, 08/25/2020, Additional history exists documented as of this encounter Medical Devices Not on filedocumented as of this encounter Visit Diagnoses Diagnosis Dyslipidemia, goal LDL below 70 Other and unspecified hyperlipidemia Encounter for long-term (current) use of medications Encounter for long-term (current) use of other medications HTN, goal below 150/90 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
--- OUTSIDE RECORDS SUMMARY | 2023-09-01 15:04 | External Medical Summary ---
Author Name Unknown Address Unknown Organization K01:[facility] - [address] [place] [address] Laboratory Report Ordering Provider Test Date Status CESAR QUARLES 05/10/2023 09:50:01 Final Observation Date Value Abnormality Reference (Units ) Status Vitamin B12 05/10/2023 09:50:01 [phone] (pg/mL) Final Performing Location [facility] - [address] [place] [address]
--- OUTSIDE RECORDS SUMMARY | 2023-09-01 15:04 | External Medical Summary | Summary of Care ---
Author Name Unknown Organization [facility] Address [address] [place] [address] Phone [phone] Care Team Providers Care Care Rep Name Role Phone Amado Reeder MD Primary Care Provider [phone] Reason for Visit * Reason Onset Date Comments Patient Assistance Program 07/12/2023 Pam angel and sandy Encounter Details Date Type Department Care Team ([facility] st Contact Info) Description 07/12/2023 Telephone Pharmacy, [address] [address] Louise Doherty, [facility] [address] [place] [address] Patient Assistance Program (Yuriyar and h... Allergies No known active allergiesdocumented as of this encounter (statuses as of 07/12/2023) Medications Medication Sig Dispensed Refills Start Date [...] week Take by mouth. 0 Active Pen [place] 31G X 6 MMIndications:DM type 1, not at goal (HCC) Use 4 times a day with Novolog and Lantus insulin pens. 400 Each 3 02/17/2021 Active Easy Touch Safety Pen [place] 29G X 8MM (Insulin Pen Needle)Indications: Type [...] over 140. 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 COSTAR II: COBALT CHROMIUM STENT WITH ANTIPROLIFERATIVE FOR RESTENOSIS II TRIAL OMI # [id number] PI: Jc Fermin MD SC: Hellen Morfin [...] as of this encounter (statuses as of 07/12/2023) Immunizations Name Administration Dates Next Due COVID-19 [...] encounter Miscellaneous Notes * Telephone Encounter - Louise Doherty RPh - 07/12/2023 10:00 AM EST Filled out and faxed re-enrollment forms for patient to continue to get Basaglar and humalog from [employer] [facility] for 2023 year. [employer]scripts sent to [facility]. Received successful confirmation of fax. Forms scanned into chart. Louise Doherty, PharmD Clinical Pharmacist Medication Therapy Disease Management 07/12/2023, 10:01 AM documented in this encounter Plan of Treatment Upcoming Encounters Date Type Department Care Team (Late st Contact Info) Description 08/20/2023 2:30 PM EST Office Visit Pharmacy, [address] [address] [facility] [address] [place] [address] 11/07/2023 1:30 PM EST Office Visit Cardiology, [facility] [address] [facility] [place] [address] Jane Paris [facility] [address] [facility] [place] [address] Health Maintenance Due Date Last Done Comments [...] uncontrolled documented in this encounter Care Teams Care Rep Relationship Specialty Start Date End Date Amado Reeder MD [address] [place] [address] PCP - General 12/08/99 documented as of this encounter
--- OUTSIDE RECORDS SUMMARY | 2023-09-01 15:04 | External Medical Summary | Summary of Care ---
Author Name Unknown Organization [facility] Address [address] [facility] [place] [address] Phone [phone] Care Team Providers Care Deputy Juvenile Officer Name Role Phone Robina Reeder MD Primary Care Provider Reason for Visit * Reason Comments eRx-Medication Refill Encounter Details Date Type Department Care Team (Late st Contact Info) Description 06/26/2023 Refill [facility] [address] [place] [address] Robina Reeder MD [address] [place] [address] HTN, goal below 150/90 Allergies No known active allergiesdocumented as of this encounter (statuses as of 06/26/2023) Medications Medication Sig Dispensed Refills Start Date [...] week Take by mouth. 0 Active Pen [place] 31G X 6 MMIndications:DM type 1, not at goal (HCC) Use 4 times a day with Novolog and Lantus insulin pens. 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 s 10/05/2020 HTN, goal below 150/90 10/03/2019 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 COSTAR II: COBALT CHROMIUM STENT WITH ANTIPROLIFERATIVE FOR RESTENOSIS II TRIAL OMI # [id number] PI: Jc Fermin MD SC: Hellen Morfin [...] as of this encounter (statuses as of 06/26/2023) Immunizations Name Administration Dates Next Due COVID-19 [...] drink = 0.6 oz pur e alcohol) Sex and Gender Information Value Date Recorded Sex Assigned at Male 12/24/2018 1:19 PM EDT Gender Identity Male 12/24/2018 1:19 PM EDT Sexual Orientation Not on file Job Start Date Occupation Industry Not on file Not on file Not on file documented as of this encounter Miscellaneous Notes * Telephone Encounter - Isidro Matos, [facility] - 06/26/2023 8:57 PM EDT Signed Prescriptions: Disp Refills hydroCHLOROthiazide 25 MG Oral Tablet (Hyd*90 Tab*1 Sig: TAKE ONE TABLET BY MOUTH ONCE DAILYAuthorizing Provider: ROBINA REEDER User: ISIDRO MATOS ERT documented in this encounter Plan of Treatment Upcoming Encounters Date Type Department Care Team (Late st Contact Info) Description 07/11/2023 3:40 PM EST Office Visit Pharmacy, [place] [address] [place] [address] [place] [facility] [address] [place] [address] 11/07/2023 1:30 PM EST Office Visit Cardiology, [facility] [address] [facility] [place] [address] Jane Paris CRNP [address] [facility] [place] [address] Health Maintenance Due Date Last Done Comments Zoster Vaccines (1 of 2) 1990 Depression Screening 03/31/2021 03/31/2020 COVID-19 Vaccine (3 - 2022-2 4 season) 2023 03/11/2021, 02/08/2021 Influenza Vaccine (FLU shot) (#1) 2023 08/04/2022, 07/15/2021, 08/25/2020, Additional history exists documented as of this encounter Medical Devices Not on filedocumented as of this encounter Visit Diagnoses Diagnosis HTN, goal below 150/90 documented in this encounter Care Teams Deputy Juvenile Officer Relationship Specialty Start Date End Date Robina Reeder MD [address] [facility] [address] PCP - General 12/08/99 documented as of this encounter
--- OUTSIDE RECORDS SUMMARY | 2023-09-01 15:04 | External Medical Summary | Summary of Care ---
Author Name Unknown Organization [facility] Address [address] [facility] [place] [address] Phone [phone] Care Team Providers Care Assistive Technology Trainer Name Role Phone Amado Reeder MD Primary Care Provider Encounter Details Date Type Department Care Team (Late st Contact Info) Description 07/13/2023 Orders Only [place] [id number] [place] [address] Amado Reeder MD [address] [place] [address] Allergies No known active allergiesdocumented [...] week Take by mouth. 0 Active Pen [place] 31G X 6 MMIndications:DM type 1, not at goal (HCC) Use 4 times a day with Novolog and Lantus insulin pens. 400 Each 3 02/17/2021 Active Easy Touch Safety Pen [place] 29G X 8MM (Insulin Pen Needle)Indications:T ype [...] MOUTH ONCE DAILY 90 Tablet 0 04/18/2023 07/17/2023 Active Omeprazole 20 MG Oral Capsule Delayed Release (PriLOSEC) TAKE ONE CAPSULE BY MOUTH ONCE DAILY ONE HOUR BEFORE THE first meal of THE DAY 90 Capsule 3 05/02/2023 Active Dexcom G6 Transmitter Use as directed. 0 Active Lisinopril 40 MG Oral Tablet TAKE ONE TABLET BY MOUTH ONCE DAILY 90 Tablet 3 05/30/2023 Active hydroCHLOROthiazide 25 MG Oral Tablet (Hydrodiuril)Indicat [...] over 140. 60 mL 4 07/12/2023 Active documented as of this encounter (statuses [...] disease without esophagi tis 10/03/2019 Atherosclerosis of [place] co ronary artery of [place] heart without angina pectoris 10/03/2019 Type 1 [...] ANTIPROLIFERATIVE FOR RESTENOSIS II TRIAL OMI # [id number] PI: Jc Fermin MD SC: Hellen Morfin RN, BSN Costar II Clinical Trial*[id number] 09/06/2005 01/25/2011 Overview: Renamed Per Clinical Trials Billing Project. COSTAR II: COBALT CHROMIUM STENT WITH ANTIPROLIFERATIVE FOR RESTENOSIS II TRIAL OMI # [id number] PI: Jc Fermin MD SC: Hellen Morfin [...] 08/20/2023 2:30 PM EST Office Visit Pharmacy, [place] [address] [place] [address] [facility] [address] [facility] [place] [address] 11/07/2023 1:30 PM EST Office Visit Cardiology, [facility] [address] [facility] [place] [address] Jane Paris CRNP [address] [place] [address] Health Maintenance Due Date Last Done Comments Zoster Vaccines (1 of 2) 1990 Depression Screening 03/31/2021 03/31/2020 COVID-19 Vaccine (3 - 2022-2 4 season) 2023 03/11/2021, 02/08/2021 Influenza Vaccine (FLU shot) Completed 04/2023, 08/04/2022, 07/15/2021, Additional history exists documented as of this encounter Medical Devices Not on filedocumented as of this encounter Procedures Procedure Name Priority Date/Time Associated Diagnosis Comments DIABETIC EYE EXAM Routine 07/11/2023 documented in this encounter Results * DIABETIC EYE EXAM (07/11/2023) 07/11/2023 History Per Patient OTHER OUTSIDE LAB (SEE SCANNED REPORT) documented in this encounter Care Teams Assistive Technology Trainer Relationship Specialty Start Date End Date Amado Reeder MD [address] [place] [address] PCP - General 12/08/99 documented as of this encounter
--- OUTSIDE RECORDS SUMMARY | 2023-09-01 15:04 | External Medical Summary | Summary of Care ---
Author Name Unknown Organization [facility] Address [address] [facility] [place] [address] Phone [phone] Care Team Providers Care Caponizer Name Role Phone Robina Reeder MD Primary Care Provider Reason for Visit * Reason Onset Date Comments Medication Refill 08/10/2023 Encounter Details Date Type Department Care Team (Late st Contact Info) Description 08/10/2023 Refill [facility] [address] [place] [address] Robina Reeder MD [address] [place] [address] Allergies No known active allergiesdocumented as of this encounter (statuses as of 08/10/2023) Medications Medication Sig Dispensed Refills Start Date [...] week Take by mouth. 0 Active Pen [place] 31G X 6 MMIndications:DM type 1, not at goal (HCC) Use 4 times a day with Novolog and Lantus insulin pens. 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 COSTAR II: COBALT CHROMIUM STENT WITH ANTIPROLIFERATIVE FOR RESTENOSIS II TRIAL OMI # [id number] PI: Jc Fermin MD SC: Hellen Morfin [...] as of this encounter (statuses as of 08/10/2023) Immunizations Name Administration Dates Next Due COVID-19 [...] encounter Miscellaneous Notes * Telephone Encounter - Robina Reeder MD - 08/10/2023 2:54 PM ESTSigned Prescriptions: Disp Refills Dexcom G6 Transmitter 1 Each 6 Sig: Use as directed. Authorizing Provider: ROBINA REEDER * Telephone Encounter - Concha Porter LPN - 08/10/2023 9:33 AM EST [place] [employer] is requesting new order for Dexcom G6 reader sensors and transmitter. Do not see current order for sensors documented in this encounter Plan of Treatment Upcoming Encounters Date Type Department Care Team (Late st Contact Info) Description 08/20/2023 2:30 PM EST Office Visit Pharmacy, [place] [address] [place] [address] [facility] [address] [place] [address] Health Maintenance Due Date Last Done Comments Zoster Vaccines (1 of 2) 1990 Depression Screening 03/31/2021 03/31/2020 COVID-19 Vaccine (2022-2 4 season) 2023 03/11/2021, 02/08/2021 Influenza Vaccine (FLU shot) Completed 04/2023, 08/04/2022, 07/15/2021, Additional history exists documented as of this encounter Medical Devices Not on filedocumented as of this encounter Care Teams Caponizer Relationship Specialty Start Date End Date Robina Reeder MD [address] [place] [address] PCP - General 12/08/99 documented as of this encounter
--- OUTSIDE RECORDS SUMMARY | 2023-09-01 15:04 | External Medical Summary | Summary of Care ---
Author Name Unknown Organization [facility] Address [address] [facility] [place] [address] Phone [phone] Care Team Providers Care Sr. Unix System Administrator Name Role Phone Amado Reeder MD Primary Care Provider [phone] Reason for Visit * Reason Onset Date Comments Medication Refill 08/21/2023 Encounter Created in Error 08/21/2023 Encounter Details Date Type Department Care Team (Late st Contact Info) Description 08/21/2023 Refill [facility] [address] [place] [address] Amado Reeder MD [address] [place] [address] Allergies No known active allergiesdocumented [...] week Take by mouth. 0 Active Pen [place] 31G X 6 MMIndications:DM type 1, not at goal (HCC) Use 4 times a day with Novolog and Lantus insulin pens. 400 Each 3 02/17/2021 Active Easy Touch Safety Pen [place] 29G X 8MM (Insulin Pen Needle)Indications:Ty pe [...] as directed. 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 COSTAR II: COBALT CHROMIUM STENT WITH ANTIPROLIFERATIVE FOR RESTENOSIS II TRIAL OMI # [id number] PI: Jc Fermin MD SC: Hellen Morfin [...] Description 10/09/2023 2:40 PM EST Pharmacy Pharmacy, [place] [address] [place] [address] [place] [address] [place] [address] Health Maintenance Due Date Last Done Comments Zoster Vaccines (1 of 2) 1990 Depression Screening 03/31/2021 03/31/2020 COVID-19 Vaccine (3 - 2022-2 4 season) 2023 03/11/2021, 02/08/2021 Influenza Vaccine (FLU shot) Completed 04/2023, 08/04/2022, 07/15/2021, Additional history exists documented as of this encounter Medical Devices Not on filedocumented as of this encounter Care Teams Sr. Unix System Administrator Relationship Specialty Start Date End Date Amado Reeder MD [address] [place] [address] PCP - General 12/08/99 documented as of this encounter
--- OUTSIDE RECORDS SUMMARY | 2023-09-01 15:05 | External Medical Summary ---
Author Name Unknown Address Unknown Organization K01:[facility] [place] - [address] [facility] [place] [address] Laboratory Report Ordering Provider Test Date Status CESAR QUARLES 05/10/2023 09:50:01 Final Observation Date Value Abnormality Reference (Units ) Status BUN 05/10/2023 09:50:01 23 Above high normal 6-20 (mg/dL) Final Creatinine 05/10/2023 09:50:01 0.8 0.6-1.2 (mg/dL) Final Glomerular filtration rate/1.73 sq M.predicted [Volume Rate/Area] in Serum, Plasma or Blood by Creatinine-based formula (CKD-EPI) 05/10/2023 09:50:01 89 >=60 (mL/min) Final eGFR is calculated based on the CKD-EPI 2020 equation SODIUM 05/10/2023 09:50:01 141 135-146 (m mol/L) Final Potassium 05/10/2023 09:50:01 4.1 3.5-5.1 (m mol/L) Final Cl 05/10/2023 09:50:01 104 98-107 (mm ol/L) Final CO2 05/10/2023 09:50:01 28 22-32 (mmo l/L) Final Anion gap 05/10/2023 09:50:01 9 7-15 (mmol /L) Final Glucose 05/10/2023 09:50:01 249 Above high normal 70 -120 (mg/dL) Final Albumin 05/10/2023 09:50:01 3.7 Below low normal 3.8 -5.0 (g/dL) Final AST (Aspartate aminotransferase) 05/10/2023 09:50:01 26 10-50 (U/L) Fin al Alk Phos 05/10/2023 09:50:01 82 35-130 (U/ L) Final Bilirubin, Total 05/10/2023 09:50:01 0.6 <=1 .2 (mg/dL) Final Calcium 05/10/2023 09:50:01 9.1 8.4-10.2 ( mg/dL) Final Protein 05/10/2023 09:50:01 6.6 6.0-8.3 (g /dL) Final ALT (Alanine aminotransferase) 05/10/2023 09:50:01 22 10-50 (U/L) Bartolo jensen Performing Location [facility] [place] - [address] [facility] [place] [address]
--- OUTSIDE RECORDS SUMMARY | 2023-09-01 15:05 | External Medical Summary | Summary of Care ---
Author Name Unknown Organization [facility] Address [address] [facility] [address] Phone [phone] Care Team Providers Care Bus Or Truck Garage Mechanic Name Role Phone Amado Reeder MD Primary Care Provider [phone] Reason for Visit * Reason Onset Date Comments Blood Sugar Problem 04/20/2023 Encounter Details Date Type Department Care Team Description 04/20/2023 Telephone Pharmacy Call Center [address] [facility] [place] [address] [facility] [address] [place] [address] Blood Sugar Problem Allergies No known active allergiesdocumented as of this encounter (statuses as of 04/20/2023) Medications Medication Sig Dispensed Refills Start Date [...] a week Take by mouth. 0 Active zoster vac recomb adjuvanted (SHINGRIX) 50 MCG/0.5ML injection Inject 0.5 mL into a large muscle now and repeat dose in 60 to 180 days 1 Each 1 10/03/2019 Active Additional Information Patient not taking.Reported on 10/10/2022 Pen [place] 31G X 6 MMIndications:DM type 1, not at goal (HCC) Use 4 times a day with Novolog and Lantus insulin pens. 400 Each 3 02/17/2021 Active Easy Touch Safety Pen [place] 29G X 8MM (Insulin Pen Needle)Indications:T ype [...] every morning. 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 10/05/2020 HTN, goal below 150/90 10/03/2019 Current mild episode of major depressive disorder without prior episode 10/03/2019 Current use of insulin 10/03/2019 Gastroesophageal reflux disease without esophagitis 10/03/2019 Atherosclerosis of [place] co ronary artery of [place] heart without angina pectoris 10/03/2019 Type 1 [...] as of this encounter (statuses as of 04/20/2023) Resolved Problems Problem Noted Date Resolved Date [...] ANTIPROLIFERATIVE FOR RESTENOSIS II TRIAL OMI # [id number] PI: Jc Fermin MD SC: Hellen Morfin RN, BSN Costar II Clinical Trial*[id number] 09/06/2005 01/25/2011 Overview: Renamed Per Clinical Trials Billing Project. COSTAR II: COBALT CHROMIUM STENT WITH ANTIPROLIFERATIVE FOR RESTENOSIS II TRIAL OMI # [id number] PI: Jc Fermin MD SC: Hellen Morfin [...] as of this encounter (statuses as of 04/20/2023) Immunizations Name Administration Dates Next Due COVID-19 [...] (ADULT) 04/14/2003 TDAP (age 10 and older)(Boostrix) 06/24/2013 documented as of this encounter Social History [...] Miscellaneous Notes * Telephone Encounter - Louise Doherty, [facility] - 04/20/2023 12:01 PM EDT Patient Phone Numbers Spoke to patient. States he might have missed his dose of Lantus last night, but not able to remember. Blood sugar now at 390. Patient gave himself 9 or 11 units- unable to remember which dose. Dexcom showing down trend. Patient notes that his sugars are higher lately. I advised that he add 2 units to each suggested dose on his chart until our next visit. See [facility] note 03/28 at the bottom for the chart for reference. Also suggested to patient that he write a table for himself and check off when he gives an insulin dose for better record taking. Louise Doherty PharmD Clinical Pharmacist Medication Therapy Disease Management 04/20/2023, 12:32 PM * Telephone Encounter - LORRAINE Chan - 04/20/2023 11:37 AM EDT Caller's name: Alexys Preferred call back number(OFFICE NUMBER FOR ): [phone] Reason for call: High blood sugar - Pt states he's having an issue with his BG level being over 500currently and has an eye appt at 1pm today. Pt would like to know if he should keep that appt. Pt reports his BG levels being in the 300's daily. Thank you, Ambar Aggarwal Manager [employer] [facility] ([facility]) (formerly Telepharmacy) 04/20/2023,11:38 AM documented in this encounter Plan of Treatment Upcoming Encounters Date Type Specialty Care Team Description 05/02/2023 Office Visit Pharmacy [facility] [address] [place] [address] [place] [address] 05/09/2023 Office Visit Cardiology William So MD [address] [place] [address] 05/10/2023 Laboratory Laboratory [facility] [address] [place] [address] 05/10/2023 Immunization/Injection Ancillary Roni, Nurse [address] [place] [address] Health Maintenance Due Date Last Done Comments [...] uncontrolled documented in this encounter Care Teams Bus Or Truck Garage Mechanic Relationship Specialty Start Date End Date Amado Reeder MD [address] [place] [address] PCP - General 12/08/99 documented as of this encounter
--- OUTSIDE RECORDS SUMMARY | 2023-09-01 15:05 | External Medical Summary | Summary of Care ---
Author Name Unknown Organization [facility] Address [address] [facility] [address] Phone [phone] Care Team Providers Care Curtain Roller Assembler Name Role Phone Amado Reeder MD Primary Care Provider [phone] Reason for Visit * Reason Onset Date Comments Blood Sugar Problem 04/20/2023 Encounter Details Date Type Department Care Team Description 04/20/2023 Telephone Pharmacy Call Center [address] [facility] [place] [address] [facility] [address] [place] [address] Blood Sugar Problem Allergies No known active [...] Information Patient not taking.Reported on 10/10/2022 Pen [place] 31G X 6 MMIndications:DM type 1, not at goal (HCC) Use 4 times a day with Novolog and Lantus insulin pens. 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 COSTAR II: COBALT CHROMIUM STENT WITH ANTIPROLIFERATIVE FOR RESTENOSIS II TRIAL OMI # [id number] PI: Jc Fermin MD SC: Hellen Morfin [...] Notes * Telephone Encounter - Louise Doherty, [facility] - 04/20/2023 12:01 PM EDT Patient Phone [...] his chart until our next visit. See [facility] note 03/28 at the bottom for the [...] Preferred call back number(OFFICE NUMBER FOR ): [phone] Reason for call: High blood sugar - Pt states he's having an issue with his BG level being over 500currently and has an eye appt at 1pm today. Pt would like to know if he should keep that appt. Pt reports his BG levels being in the 300's daily. Thank you, Ambar Aggarwal Lifestyle Director Centralized Clinical Pharmacy Services ([facility]PS) (formerly Telepharmacy) 04/20/2023,11:38 AM documented in this encounter Plan of Treatment Upcoming Encounters Date Type Specialty Care Team Description 05/02/2023 Office Visit Pharmacy [facility] [address] [place] [address] [place] [address] 05/09/2023 Office Visit Cardiology William So MD [address] [place] [address] 05/10/2023 Laboratory Laboratory [facility] [address] [place] [address] 05/10/2023 Immunization/Injection Ancillary Roni, Nurse [address] [place] [address] Health Maintenance Due Date Last Done Comments [...] uncontrolled documented in this encounter Care Teams Curtain Roller Assembler Relationship Specialty Start Date End Date Amado Reeder MD [address] [place] [address] PCP - General 12/08/99 documented as of this encounter
--- OUTSIDE RECORDS SUMMARY | 2023-09-01 15:05 | External Medical Summary | Summary of Care ---
Author Name Unknown Organization [facility] Address [address] [facility] [place] [address] Phone [phone] Care Team Providers Care Elevator Installer Name Role Phone Robina Reeder MD Primary Care Provider [phone] Reason for Visit * Reason Comments Follow Up Encounter Details Date Type Department Care Team Description 05/09/2023 Office Visit Cardiology, [facility] [address] [place] [address] William So MD [address] [place] [address] HTN, goal below 150/90*; Bradycardia, sinus Allergies No known active allergiesdocumented as of this encounter (statuses as of 05/09/2023) Medications Medication Sig Dispensed Refills Start Date [...] week Take by mouth. 0 Active Pen [place] 31G X 6 MMIndications:DM type 1, not at goal (HCC) Use 4 times a day with Novolog and Lantus insulin pens. 400 Each 3 1 Active Easy Touch Safety Pen [place] 29G X 8MM (Insulin Pen Needle)Indications: Type [...] every morning. 180 Tablet 4 3 Active Lisinopril 40 MG Oral Tablet TAKE ONE TABLET BY MOUTH ONCE DAILY 90 Tablet 0 3 Active Citalopram Hydrobromide 20 MG Oral [...] G6 Transmitter Use as directed. 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 10/05/2020 HTN, goal below 150/90 10/03/2019 Current mild episode of major depressive disorder without prior episode 10/03/2019 Current use of insulin 10/03/2019 Gastroesophageal reflux disease without esophagitis 10/03/2019 Atherosclerosis of [place] co ronary artery of [place] heart without angina pectoris 10/03/2019 Type 1 [...] as of this encounter (statuses as of 05/09/2023) Resolved Problems Problem Noted Date Resolved Date [...] ANTIPROLIFERATIVE FOR RESTENOSIS II TRIAL OMI # [id number] PI: Jc Fermin MD SC: Hellen Morfin RN, BSN Costar II Clinical Trial*[id number] 09/06/2005 01/25/2011 Overview: Renamed Per Clinical Trials Billing Project. COSTAR II: COBALT CHROMIUM STENT WITH ANTIPROLIFERATIVE FOR RESTENOSIS II TRIAL OMI # [id number] PI: Jc Fermin MD SC: Hellen Morfin RN, BSN Edema 2004 02/05/2017 Type 1 diabetes mellitus wit h hemoglobin A1c goal of less than 7.0% 01/27/2016 Overview: ICD-10 update of inactive term HTN, goal below 140/90 0 Overview: Per HTN Taxonomy. 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 DIVERTICULOSIS OF COLON 11/16/19 18 LIPOMA INTRA-ABDOMINAL 8 Overview: intragastric wall documented as of this encounter (statuses as of 05/09/2023) Immunizations Name Administration Dates Next Due COVID-19 [...] yrs 06/30/2019 TDAP (age 10 and older)(Boostrix) 06/24/2013 documented as of this encounter Social History Tobacco Use Types Packs/Day Years Used Date Smoking Tobacco: Never Smokeless Tobacco: Never Tobacco Cessation:Counseling Given: Not Answered Comments:not a smoker Alcohol Use Standard Drinks/Week [...] on file documented as of this encounter Last Filed Vital Signs Vital Sign Reading Time Taken Comments Blood Pressure 120/72 05/09/2023 12:57 PM EDT Pulse 64 05/09/2023 12:57 PM EDT Temperature - - Respiratory Rate - - Oxygen Saturation - - Inhaled Oxygen Concentration - - Weight 87.1 kg (192 lb) 05/09/2023 12:57 PM EDT Height - - Body Mass Index 30.07 04/12/2023 8:06 AM EDT documented in this encounter Progress Notes * William So MD - 05/09/2023 1:00 PM EDT May 09, 2023 Cardiology Follow Up Referring Provider: PCP: ROBINA REEDER [place], [place] [id number] Chief Complaint: Follow-up coronary artery disease, fatigue SUBJECTIVE: Alexys Osorio is a 82 year old year old male with cardiac issues 1. Coronary disease status post prior coronary events in with LAD stent, 2005 2. Residual coronary disease noted at time of cardiac catheterization 2005, 20% left main 30 40% narrowing right coronary artery 3. Type 1 diabetes mellitus 4. Hyperlipidemia 5. Obstructive sleep apnea Patient presents today noting no acute cardiac complaints. Feels he has no recent cardiac issues specifically notes no chest pains, shortness of breath, tachy palpitations. Does admit to occasional gait instability in rare lightheadedness. No significant falls or injuries. No orthopnea worsening peripheral edema. Blood sugars remain variable A Complete Review of Systems is as stated above or negative. 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) E10.42 HTN, goal below 150/90 I10 Current mild episode of major depressive disorder without prior episode ([facility]) F32.0 Current use of insulin ([facility]) Z79.4 Gastroesophageal reflux disease without esophagitis K21.9 Atherosclerosis of [place] coronary artery of [place] heart without angina pectoris I25.10 Type 1 diabetes mellitus with diabetic dermatitis (HCC) E10.620 Obstructive uropathy N13.9 Foot deformity, acquired, left M21.962 Review of patient's allergies indicates: No Known Allergies Current Outpatient Medications Medication Sig Dispense Refill [employer]TOUCH ULTRA BLUE STRP test 4-5 times a day dx code 250.03 for onetouch mini 450 Strip 1 Cholecalciferol (VITAMIN D) 2000 units Capsule Take by mouth 2,000 Units daily . Multiple Vitamin (MULTI VITAMIN DAILY) TABS Take by mouth. omega-3 1000 MG CAPS Take by mouth. Takes 2 daily Potassium Gluconate 550 MG TABS Take by mouth. Pen [place] 31G X 6 MM Use 4 times a day with Novolog and Lantus insulin pens. 400 Each 3 Easy Touch Safety Pen [place] 29G X 8MM (Insulin Pen Needle) 4 times daily with Insulin 360 Each 3 Atorvastatin Calcium 40 MG Oral Tablet (Lipitor) TAKE ONE TABLET BY MOUTH ONCE DAILY 90 Tablet 3 Insulin Glargine Solostar 100 UNIT/ML Subcutaneous Solution Pen-injector (Lantus SoloStar) INJECT 20 UNITS UNDER THE SKIN ONCE DAILY IN THE EVENING (Patient taking differently: 22 Units. INJECT 20 UNITS UNDER THE SKIN ONCE DAILY IN THE EVENING) 15 mL 3 Vitamin D 125 MCG (5000 UT) Oral Capsule Take by mouth. Potassium Gluconate 595 (99 K) MG Oral Tablet Take by mouth. hydroCHLOROthiazide 25 MG Oral Tablet (Hydrodiuril) TAKE ONE TABLET BY MOUTH ONCE DAILY 90 Tablet 1 Felodipine ER 5 MG Oral Tablet Extended Release 24 Hour (Plendil) Take 2 Tablets by mouth every morning. 180 Tablet 4 Lisinopril 40 MG Oral Tablet TAKE ONE TABLET BY MOUTH ONCE DAILY 90 Tablet 0 Citalopram Hydrobromide 20 MG Oral Tablet (CeleXA) TAKE 1/2 TABLET BY MOUTH ONCE DAILY 45 Tablet 1 NovoLOG FlexPen 100 UNIT/ML Subcutaneous Solution Pen-injector (insulin aspart) INJECT 14 UNITS UNDER THE SKIN WITH BREAKFAST, 10 UNITS WITH LUNCH, AND 12 UNITS WITH SUPPER Plus sliding scale. Maximum dose per day 80 24 mL 11 Clopidogrel Bisulfate 75 MG Oral Tablet (pLAVix) TAKE ONE TABLET BY MOUTH ONCE DAILY 90 Tablet 0 Omeprazole 20 MG Oral Capsule Delayed Release (PriLOSEC) TAKE ONE CAPSULE BY MOUTH ONCE DAILY ONE HOUR BEFORE THE first meal of THE DAY 90 Capsule 3 Insulin Glargine Solostar 100 UNIT/ML Subcutaneous Solution Pen-injector (Basaglar KwikPen) Inject 24 Units under the skin daily. 30 mL 4 Insulin Lispro (1 Unit Dial) 100 UNIT/ML Subcutaneous Solution Pen-injector (HumaLOG KwikPen) Inject up to 60 units a day following correction factor 1:25 over 155 + base doses. 60 mL 4 Dexcom G6 Transmitter Use as directed. No current facility-administered medications for this visit. 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, other specified site Benign neoplasm of colon 06/08/2010 polyps, path shows hyperplastic tissue ,diverticulosis, internal hemorroids, repeat in 10 ye Coronary atherosclerosis 07/08/2004 Diverticulosis of colon DM type 1, goal A1c below 8.0 GERD (gastroesophageal reflux disease) HTN, goal below 140/90 Past Surgical History: Procedure Laterality Date ANGIOPLASTY AORTIC,PERCUT 09/03/2005 COLONOSCOPY W/ LESION REMOVAL, SNARE 06/08/2010 polyps, path shows hyperplastic tissue ,diverticulosis, internal hemorroids, repeat in 10 years COLONOSCOPY, DIAGNOSTIC (RECTUM) 01/18/2022 normal bx, diverticulosis / COLONOSCOPY FLEXIBLE PROXIMAL DIAGNOSTIC performed by Alexys Petty MD at ENDOSCOPY [facility] COLORECTAL CANCER SCREEN; COLON 10/04/1999 Dr Choudhary/ diverticuli. repeat 2009 CYSTOSCOPY 2012 REPAIR INITIAL INGUINAL HERNIA REDUCIBLE AGE 5 OR MORE VASECTOMY OBJECTIVE/PHYSICAL EXAMINATION: BP 120/72 | Pulse 64 | Wt 87.1 kg (192 lb) | BMI 30.07 kg/m | BSA 2.03 m General: no acute distress and stated age Head: normocephalic, no masses, lesions, tenderness or abnormalities Eyes: conjunctiva are pink and non-injected, sclera clear Throat: clear Nares: without discharge Neck: supple, no adenopathy, no bruits, normal jugular venous pulse, no hepatojugular reflux, no carotid bruits Chest: normal shape and normal respiratory effort Lungs: clear to auscultation and percussion Cardiac Exam: - regular rate & rhythm, heart rate 50-60 no murmurs gallops or rubs - normal S-1, normal S-2 Pulses: 2(+) throughout Abdomen: abdomen soft, non-tender, no abnormal masses, no hepatosplenomegaly, no abdominal bruit, no femoral bruit Musculoskeletal: no gait disturbance, no joint inflammation, no deforming arthritis Extremities: no edema, no cyanosis, pulses intact 2+/4 Neuro: grossly normal exam with mild resting tremor Data: Lipid Panel Results: Results for orders placed or performed in visit on 12/22/16 LIPID PANEL Result Value Ref Range HOURS FASTING 12 hours Triglycerides 66 <200 mg/dL Cholesterol 137 <200 mg/dL HDL Cholesterol 58 >39 mg/dL Cholesterol-HDL Ratio 2.4 LDL Cholesterol 66 0 - 129 mg/dL Results for orders placed or performed in visit on 12/09/21 LIPID PANEL WITH DIRECT LDL IF TG IS HIGH Result Value Ref Range Triglycerides 79 <=174 mg/dL Cholesterol 130 <200 mg/dL HDL Cholesterol 63 >39 mg/dL Non-HDL Cholesterol 67 <=159 mg/dL LDL Cholesterol 51 <=129 mg/dL EKG performed , J May 09, 2023 , and reviewed personally : Sinus bradycardia with 1st degree AV block at 59 beats per minute Poor R-wave progression anteroseptal leads similar to prior study of March 22, 2020 Nuclear stress imaging March 22, 2018 Interpretation Summary Gated SPECT imaging reveals normal myocardial thickening and wall motion. The left ventricular ejection fraction was calculated to be 68%. Lexiscan nuclear cardiac stress test negative for ischemia. Stress echocardiogram March 27, 2019 Study negative for ischemia at moderate level workload and adequate heart rate Normal systolic function Carotid ultrasound November 08, 2020 Impression: Right carotid artery duplex examination indicates evidence of less than 50% stenosis of the internal carotid artery. Left carotid artery duplex examination indicates evidence of less than 50% stenosis of the internalcarotid artery. Echocardiogram March 14, 2021 The examination is adequate to evaluate the referral indication. There was sinus bradycardia during the examination. The left ventricular cavity size is normal. The LV wall thickness is mildly increased (concentric). The left ventricular wall motion is normal. The qualitative LV ejection fraction is 60-64% (normal). Moderate aortic valve sclerosis is present. There is a trivial degree of aortic insufficiency The interatrial septum is intact without interatrial shunt, atrial septal defect, or patent foramenovale. High quality agitated saline contrast injection was performed with and without Valsalva without evidence of shunt Seven day ZIO patch April 13, 2022 Patient had a min HR of 39 bpm, max HR of 162 bpm, and avg HR of 62 bpm. Predominant underlying rhythm was Sinus Rhythm. First Degree AV Block was present. 1 run of Ventricular Tachycardia occurred lasting 9 beats with a max rate of 162 bpm (avg 125 bpm). 1 run of Supraventricular Tachycardia occurred lasting 4 beats with a max rate of 114 bpm (avg 110 bpm). Isolated SVEs were rare (<1.0%), SVE Couplets were rare (<1.0%), and SVE Triplets were rare (<1.0%). Isolated VEs were rare (<1.0%, 6272), VE Couplets were rare (<1.0%, 7), and VE Triplets were rare (<1.0%, 1). Ventricular Bigeminy and Trigeminy were present. Agree with above. No sustained arrhythmias or significant ectopic burden ASSESSMENT: 83 year old year old male with 1. Chronic stable ischemic heart disease with class 1 2 functional capacity patient on appropriate medical therapies except beta-tima given resting bradycardia. 2. Obstructive sleep apnea with daytime somnolence 3. Sinus bradycardia. Rare lightheadedness and gait instability likely secondary to polyneuropathy however repeat ZIO patch monitor ordered at 1 year interval from last examination will continue to avoid AV node blocking medications PLAN: As above\\ DISPOSITION: Follow-up 6 months time William So MD [facility] Cardiology, [place] [address] I spent a total of 30-39 minutes (exact time 30 mins) on the date of service in preparation, delivery, and documentation of the care provided to Alexys Osorio excluding any time spent in the performance of separately billed services. documented in this encounter Nursing Notes * Hanny Villa CMA - 05/09/2023 12:58 PM EDT Examination Room: 13 Name: Alexys Osorio Date of : (1940) Reason for Visit: 6m Interim Hospitalization(s): none Problems/Concerns: denied Chest Pain/SOB: denied My [facility] is a way you can talk to your provider online through e-mail. Would you like to sign up? I can activate it for you? ALREADY ACTIVE Patient was instructed to not get up on the exam table until directed and assisted by their provider; patient is to remain seated in the chair/ wheelchair/ exam table for fall prevention and safety reasons. Patient is aware to have assistance to step down off exam table with personnel. Patient voiced full comprehension of instructions. documented in this encounter Plan of Treatment Upcoming Encounters Date Type Specialty Care Team Description 05/09/2023 Cardiac Studies Cardiac Studies Kemal ycardia, sinus*; HTN, goal below 150/90 05/10/2023 Laboratory Laboratory [facility] [address] [place] [address] 05/10/2023 Immunization/Injecti on Ancillary [place], Nurse [address] [place] [address] 06/15/2023 Office Visit Pharmacy [facility] [address] [place] [address] 11/07/2023 Office Visit Cardiology Jane Paris CRNP [address] [facility] [place] [address] Scheduled Orders Name Type Priority Associated Diagnoses Orde r Schedule EKG EKG Routine HTN, goal below 150/90 Ordered: 05/09/2023 EXTERNAL EKG 2 TO 7 DAYS Holter Routine HTN, goal below 150/90 Bradycardia, sinus Expected: 05/09/2023 (Approximate), Expires: 05/09/2024 Health Maintenance Due Date Last Done Comments [...] encounter Visit Diagnoses Diagnosis HTN, goal below 150/90- Primary Bradycardia, sinus Other specified cardiac dysrhythmias Bradycardia, sinus- Primary Other specified cardiac dysrhythmias HTN, goal below 150/90 documented in this encounter Care Teams Elevator Installer Relationship Specialty Start Date End Date Robina Reeder MD [address] [place] [address] PCP - General 12/08/99 documented as of this encounter"
--- OUTSIDE RECORDS SUMMARY | 2023-09-01 15:05 | External Medical Summary | Summary of Care ---
Author Name Unknown Organization [facility] Address [address] [facility] [place] [address] Phone [phone] Care Team Providers Care Automotive Repair Technician Name Role Phone Robina Reeder MD Primary Care Provider [phone] Reason for Visit * Reason Comments eRx-Medication Refill Encounter Details Date Type Department Care Team Description 04/17/2023 Refill Neurology [facility] [place] [address] [facility] [address] Kendy Rees MD [address] [facility] [address] TIA (transient ischemic attack) Allergies No known active allergiesdocumented as of this encounter (statuses as of 04/18/2023) Medications Medication Sig Dispensed Refills Start Date [...] to 180 days 1 Each 1 0 Active Additional Information Patient not taking.Reported on 10/10/2022 Pen [place] 31G X 6 MMIndications:DM type 1, not at goal (HCC) Use 4 times a day with Novolog and Lantus insulin pens. 400 Each 3 1 Active Easy Touch Safety Pen [place] 29G X 8MM (Insulin Pen Needle)Indications: Type [...] every morning. 180 Tablet 4 3 Active Omeprazole 20 MG Oral Capsule Delayed Release (PriLOSEC) TAKE ONE CAPSULE BY MOUTH ONCE DAILY ONE HOUR BEFORE THE first meal of THE DAY 90 Capsule 0 3 Active Lisinopril 40 MG Oral Tablet [...] 90 Tablet 0 3 07/17/20 23 Active Clopidogrel Bisulfate 75 MG Oral Tablet (pLAVix)Indications :TIA (transient ischemic attack) TAKE ONE TABLET BY MOUTH ONCE DAILY 90 Tablet 0 3 04/18/20 23 Discontinued documented as of this encounter (statuses as of 04/18/2023) Active Problems Problem Noted Date Foot deformity, acquired, left 2 Overview: bony protuberance plantar aspect mid foot Obstructive uropathy 10/21/2020 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 10/05/2020 HTN, goal below 150/90 10/03/2019 Current mild episode of major depressive disorder without prior episode 10/03/2019 Current use of insulin 10/03/2019 Gastroesophageal reflux disease without esophagitis 10/03/2019 Atherosclerosis of [place] co ronary artery of [place] heart without angina pectoris 10/03/2019 Type 1 [...] as of this encounter (statuses as of 04/18/2023) Resolved Problems Problem Noted Date Resolved Date [...] ANTIPROLIFERATIVE FOR RESTENOSIS II TRIAL OMI # [id number] PI: Jc Fermin MD SC: Hellen Morfin RN, BSN Costar II Clinical Trial*[id number] 09/06/2005 01/25/2011 Overview: Renamed Per Clinical Trials Billing Project. COSTAR II: COBALT CHROMIUM STENT WITH ANTIPROLIFERATIVE FOR RESTENOSIS II TRIAL OMI # [id number] PI: Jc Fermin MD SC: Hellen Morfin [...] as of this encounter (statuses as of 04/18/2023) Immunizations Name Administration Dates Next Due COVID-19 mRNA, LNP-s, No Pre serve, 2-Dose Series (Moderna) 03/11/2021,02/08/2021 PPD 05/25/2015 Pneumococcal Conjugate Vacc, 13 Valent (Prevnar) 01/22/2015 Pneumococcal Polysaccharide PPV23 (Pneumovax) 06/27/2007 Seasonal Influenza, Quadriva lent Hd (Fluzone Hd) 08/04/2022,07/15/2021 Seasonal Influenza, Quadriva lent, No Preserve, 6 Mons & Above, IM 05/21/2018,05/29/2017 Seasonal Influenza, Quadriva lent, No Preserve, Adjuvanted, 65+ Yrs, IM 08/25/2020 Seasonal Influenza, Quadriva lent, No Preserve, IM [...] Telephone Encounter - Robina Reeder MD - 04/18/2023 8:04 PM EDTSigned Prescriptions: Disp Refills Clopidogrel Bisulfate 75 MG Oral Tablet (p*90 Tab*0 Sig: TAKE ONE TABLET BY MOUTH ONCE DAILYAuthorizing Provider: ROBINA REEDER * Telephone Encounter - Aura Yun LPN - 04/18/2023 3:25 PM EDTPending Prescriptions: Disp Refills Clopidogrel Bisulfate 75 MG Oral Tablet [P*90 Tab*0 Sig: TAKE ONE TABLET BY MOUTH ONCE DAILY * Telephone Encounter - Katiana Patrick, Stream5 - 04/18/2023 3:24 PM EDT Pending Prescriptions: Disp Refills Clopidogrel Bisulfate 75 MG Oral Tablet [P*90 Tab*0 Sig: TAKE ONE TABLET BY MOUTH ONCE DAILY * Telephone Encounter - Kendy Rees MD - 04/18/2023 2:51 PM EDTPending Prescriptions: Disp Refills Clopidogrel Bisulfate 75 MG Oral Tablet [P*90 Tab*0 Sig: TAKE ONE TABLET BY MOUTH ONCE DAILY * Telephone Encounter - Kendy Rees MD - 04/18/2023 2:51 PM EDT Seeing me as needed should get from primary care * Telephone Encounter - Katiana Patrick, Stream[employer] - 04/18/2023 1:49 PM EDT Pending Prescriptions: Disp Refills Clopidogrel Bisulfate 75 MG Oral Tablet [P*90 Tab*0 Sig: TAKE ONE TABLET BY MOUTH ONCE DAILY * Telephone Encounter - Nathalia Landers CPhT - 04/18/2023 10:51 AM EDTPending Prescriptions: Disp Refills Clopidogrel Bisulfate 75 MG Oral Tablet [P*90 Tab*0 Sig: TAKE ONE TABLET BY MOUTH ONCE DAILY * Telephone Encounter - Nathalia Landers CPhT - 04/18/2023 10:47 AM EDT Did you pend patient's preferred pharmacy and medication before forwarding?yes Pharmacy: [facility] Pending Prescriptions: Disp Refills Clopidogrel Bisulfate 75 MG Oral Tablet (*90 Tab*0 Sig: TAKE ONE TABLET BY MOUTH ONCE DAILY Last Visit: 05/05/2022 (in office), Visit date not found (telemedicine) Next Visit: Visit date not found If no future appointments scheduled, and last appointment is greater than a year ago, please schedule patient for a follow-up appointment Last date the medication was ordered: 12.28.22 Is this request for a controlled substance?No Urine Drug Screen:No results found. However, due to the size of the patient record, not all encounters were searched. Please check Results Review for a complete set of results. Patient Phone Numbers Labs: Lab Results Component Value Date/Time CREAT 0.8 10/09/2022 03:02 PM CREAT 0.9 03/22/2020 04:38 PM POTASSIUM 4.1 10/09/2022 03:02 PM POTASSIUM 4.4 03/22/2020 04:38 PM TSH 1.87 10/09/2022 03:02 PM TSH 1.97 03/22/2020 04:28 PM LDLCALC 51 12/09/2021 09:58 AM LDLCALC 62 03/22/2020 04:38 PM LDLDIRECT NOT APPLICABLE 03/22/2020 04:38 PM LDLDIRECT 59 08/05/2012 08:04 AM ALT 23 08/22/2021 01:09 PM ALT 31 03/22/2020 04:38 PM HGBA1C 7.9 (H) 02/06/2023 02:54 PM HGBA1C 8.1 (H) 09/09/2020 11:37 AM documented in this encounter Plan of Treatment Upcoming Encounters Date Type Specialty Care Team Description 05/02/2023 Office Visit Pharmacy [facility] [address] [place] [address] 05/09/2023 Office Visit Cardiology William So MD [address] [place] [address] 05/10/2023 [facility] [place] [address] 05/10/2023 Immunization/Injection Ancillary Roni Nurse [address] [place] [address] Health Maintenance Due Date Last Done Comments [...] ischemia documented in this encounter Care Teams Automotive Repair Technician Relationship Specialty Start Date End Date Robina Reeder [facility] [address] [facility] [place] [address] PCP - General 12/08/99 documented as of this encounter
--- OUTSIDE RECORDS SUMMARY | 2023-09-01 15:05 | External Medical Summary | Summary of Care ---
Author Name Unknown Organization [facility] Address [address] [facility] [place] [address] Phone [phone] Care Team Providers Care Preparation Department Supervisor Name Role Phone Robina Reeder MD Primary Care Provider Reason for Visit * Reason Comments eRx-Medication Refill Encounter Details Date Type Department Care Team Description 05/01/2023 Refill [facility] [address] [place] [address] Robina Reeder MD [address] [place] [address] Allergies No known active allergiesdocumented as of this encounter (statuses as of 05/02/2023) Medications Medication Sig Dispensed Refills Start Date [...] Information Patient not taking.Reported on 10/10/2022 Pen [place] 31G X 6 MMIndications:DM type 1, not at goal (HCC) Use 4 times a day with Novolog and Lantus insulin pens. 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 10/05/2020 HTN, goal below 150/90 10/03/2019 Current mild episode of major depressive disorder without prior episode 10/03/2019 Current use of insulin 10/03/2019 Gastroesophageal reflux disease without esophagitis 10/03/2019 Atherosclerosis of [place] ronary artery of [place] heart without angina pectoris 10/03/2019 Type 1 [...] as of this encounter (statuses as of 05/02/2023) Resolved Problems Problem Noted Date Resolved Date [...] ANTIPROLIFERATIVE FOR RESTENOSIS II TRIAL OMI # [id number] PI: Jc Fermin MD SC: Hellen Morfin RN, BSN Costar II Clinical Trial*[id number] 09/06/2005 01/25/2011 Overview: Renamed Per Clinical Trials Billing Project. COSTAR II: COBALT CHROMIUM STENT WITH ANTIPROLIFERATIVE FOR RESTENOSIS II TRIAL OMI # [id number] PI: Jc Fermin MD SC: Hellen Morfin [...] as of this encounter (statuses as of 05/02/2023) Immunizations Name Administration Dates Next Due COVID-19 [...] encounter Miscellaneous Notes * Telephone Encounter - Caitie Becerra, [facility] - 05/02/2023 9:37 AM EDTSigned Prescriptions: Disp Refills Omeprazole 20 MG Oral Capsule Delayed Rele*90 Cap*3 Sig: TAKE ONE CAPSULE BY MOUTH ONCE DAILY ONE HOUR BEFORE THE first meal of THE DAYAuthorizing Provider: ROBINA REEDER User: CAITIE BECERRA documented in this encounter Plan of Treatment Upcoming Encounters Date Type Specialty Care Team Description 05/02/2023 Office Visit Pharmacy [place], [facility] [address], [place] [id number] 05/09/2023 Office Visit Cardiology William So MD [address] [place] [address] 05/10/2023 Laboratory Laboratory [facility] [address] [place] [address] 05/10/2023 Immunization/Injection Ancillary [place], Nurse [address] [place] [address] Health Maintenance Due Date Last Done Comments Zoster Vaccines (1 of 2) 1990 Depression Screening, Annual for Pts 12 and Over 03/31/2021 03/31/2020 COVID-19 Vaccine (3 - Modern a series) 05/06/2021 03/11/2021, 02/08/2021 Influenza Vaccine (FLU shot) (#1) 2023 08/04/2022, 07/15/2021, 08/25/2020, Additional history exists documented as of this encounter Medical Devices Not on filedocumented as of this encounter Care Teams Preparation Department Supervisor Relationship Specialty Start Date End Date Robina Reeder MD [address] [place] [address] PCP - General 12/08/99 documented as of this encounter
--- OUTSIDE RECORDS SUMMARY | 2023-09-01 15:05 | External Medical Summary | Summary of Care ---
Author Name Unknown Organization [facility] Address [address] [facility] [place] [address] Phone [phone] Care Team Providers Care Consumer Lender Name Role Phone Amado Reeder MD Primary Care Provider [phone] Reason for Visit * Reason Comments Dosage Adjustment In Person (Anticoag Cl inic) Diabetes Follow-Up Encounter Details Date Type Department Care Team Description 05/02/2023 Office Visit Pharmacy, [address] 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 400 Each 3 02/17/2021 Active Easy Touch Safety Pen [place] 29G X 8MM (Insulin Pen Needle)Indications:T ype [...] THE DAY 90 Capsule 3 05/02/2023 Active documented as of this encounter (statuses [...] reflux disease without esophagitis 10/03/2019 Atherosclerosis of [place] co ronary artery of [place] heart without angina pectoris 10/03/2019 Type 1 [...] ANTIPROLIFERATIVE FOR RESTENOSIS II TRIAL OMI # [id number] PI: Jc Fermin MD SC: Hellen Morfin RN, BSN Costar II Clinical Trial*[id number] 09/06/2005 01/25/2011 Overview: Renamed Per Clinical Trials Billing Project. COSTAR II: [place] CHROMIUM STENT WITH ANTIPROLIFERATIVE FOR RESTENOSIS II TRIAL OMI # [id number] PI: Jc Fermin MD SC: Hellen Morfin [...] this encounter Progress Notes * Louise Doherty, [facility] - 05/02/2023 11:17 AM EDT Images from the original note were not included. Medication Therapy [facility] - Diabetes Management Progress Note Alexys Osorio, identified by name and date of , is a 82 year old male being seen for diabetes management/education. Patient presents for return diabetic visit. DIABETES: Current diabetic medications: ADJ Novolog following CF chart at bottom of note 03/28/23 [1:30 over 160, base doses judged on mealsize and activity after meal] Lantus - 22 units daily in the evening STOP Metformin ER 500 mg once daily eGFR 89 as of 10/09/22 Medication Injection Site: Abdomen Lifestyle: Diet: unchanged Glucose Review/SMBG: Readings obtained from patient device Hypoglycemia: Does your blood sugar go below 70 mg/dL? No Hyperglycemia symptoms present: none Recent Labs Units 02/06/23 1454 10/09/22 1502 12/09/21 0958 HEMOGLOBIN A1C - [facility] % 7.9* 8.1* 8.5* Recent Labs Units 10/09/22 1502 08/22/21 1309 ESTIMATED GLOMERULAR FILTRATION RATE - [facility] mL/min 89 79 CREATININE - [facility] mg/dL 0.8 0.9 HYPERTENSION: Patient on ACEi/ARB: yes BP Readings from Last 3 Encounters: 04/12/23 121/48 03/02/23 110/62 10/11/22 128/58 Blood pressure at goal: yes HYPERLIPIDEMIA: Patient is taking moderate or high intensity statin: yes HEALTH MAINTENANCE REVIEW: Health Maintenance Due Topic Date Due Zoster Vaccines (1 of 2) Never done Depression Screening, Annual for Pts 12 and Over 03/31/2021 COVID-19 Vaccine (3 - Moderna series) 05/06/2021 ASSESSMENT & PLAN: ICD-10-CM 1. 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 Diagnosed at age of 50 per chart review - Dexcom supplied by [employer] - metformin caused low blood sugars, patient discontinued and not interested in retrial BG Readings - Blood sugars uncontrolled. Highly variable. Goal continues to be to reduce variability, limit low blood sugars, and better stabilize sugars overall. Most prominent concern today was patient's high morning readings. Medications - Reviewed current regimen, patient is adherent to regimen. Notes that the chart is seeming to help him a lot. Will adjust a little bit. As well as have patient take an increased lantus dose on days that he is more sedentary. Additionally, patient and are eligible for Benares PAP for insulin- would be basaglar and humalog. Applications provided and patient signed. Diet, Exercise, Lifestyle - Remains active . Patient is agreeable to SMBG dexcom G6 daily. Patient aware to contact clinic if any hypoglycemia before next visit. MEDICATION CHANGES: Diabetic Medications: ADJ Novolog following CF chart at bottom of note 05/02/23 [1:25 over 150, base doses judged on mealsize and activity after meal] ADJ Lantus - 22 - 24 units daily in the evening eGFR 89 as of 10/09/22 HEALTH MAINTENANCE INTERVENTIONS: Labs: Up to Date Immunizations: Up to Date Foot Exam: Up to Date Eye Exam: Up to Date Annual Wellness Visit: N/A FOLLOW UP: Return to clinic in 6 weeks 06/15/2023 Louise Doherty RPh Clinical Pharmacist - Manager [facility] 05/02/2023, 11:17 AM 05/02/23 Fast Acting Insulin: Novolog To find insulin dose: 1) Find [...] No Food, but high sugar 70 to 74 12 15 13 0 75 to 99 13 16 14 0 100 to 124 14 17 15 0 125 to 149 15 18 16 1 150 to 174 15 18 16 1 175 to 199 16 19 17 2 200 to 224 17 20 18 3 225 to 249 18 21 19 4 250 to 274 19 22 20 5 275 to 299 20 23 21 6 300 to 324 21 24 22 7 325 to 349 22 25 23 8 350 to 374 23 26 24 9 375 to 399 24 27 25 10 400 to 424 25 28 26 11 425 to 449 26 29 27 12 450 to 474 27 30 28 13 475 to 499 28 31 29 14 500 and higher 29 32 30 15 fixed 15 18 16 1 cassidy 25 over 150 Lantus 22 units on days that you are active (mowing grass) Lantus 24 units on days that you are less active (more sitting) documented in this encounter Plan of Treatment Upcoming Encounters Date Type Specialty Care Team Description 05/09/2023 Office Visit Cardiology William So MD [address] [place] [address] 05/10/2023 Laboratory Laboratory [facility] [address] [place] [address] 05/10/2023 Immunization/Injection Ancillary [place], Nurse [address] [place] [address] 06/15/2023 Office Visit Pharmacy [facility] [address], [place] [id number] Scheduled Orders Name Type Priority Associated Diagnoses Orde r Schedule HEMOGLOBIN A1C Lab Routine 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
--- OUTSIDE RECORDS SUMMARY | 2023-09-01 15:05 | External Medical Summary | Summary of Care ---
Author Name Unknown Organization [facility] Address [address] [facility] [place] [address] Phone [phone] Care Team Providers Care Apparel Machinery Instructor Name Role Phone Amado Reeder MD Primary Care Provider Reason for Visit * Reason Comments Re-Check Yearly visit, pt sta fela that at night his BG goes up. Need advise about hearing aides Encounter Details Date Type Department Care Team Description 04/12/2023 Office Visit [facility] [address] [place] [address] Amado Reeder MD [address] [place] [address] Laceration of right hand without foreign body, initial encounter*; Type 1 diabetes mellitus with hemoglobin A1c goal of less than 8.0% ([facility]); HTN, goal below 150/90; Dyslipidemia, goal LDL below 70; Gastroesophageal reflux disease without esophagitis; Encounter for long-term (current) use of medications Allergies No known active allergiesdocumented as of this encounter (statuses as of 04/12/2023) Medications Medication Sig Dispensed Refills Start Date [...] Information Patient not taking.Reported on 10/10/2022 Pen [place] 31G X 6 MMIndications:DM type 1, not at goal (HCC) Use 4 times a day with Novolog and Lantus insulin pens. 400 Each 3 02/17/2021 Active Easy Touch Safety Pen [place] 29G X 8MM (Insulin Pen Needle)Indications: Type [...] ONCE DAILY 90 Tablet 1 12/20/2022 Active Clopidogrel Bisulfate 75 MG Oral Tablet (pLAVix)Indications :TIA (transient ischemic attack) TAKE ONE TABLET BY MOUTH ONCE DAILY 90 Tablet 0 12/28/2022 Active Felodipine ER 5 MG Oral Tablet [...] day 80 24 mL 11 04/12/2023 Active NovoLOG FlexPen 100 UNIT/ML Subcutaneous Solution Pen-injector (insulin aspart)Indications: Type 1 diabetes mellitus with hemoglobin A1c goal of less than 8.0% (HCC) INJECT 14 UNITS UNDER THE SKIN WITH BREAKFAST, 10 UNITS WITH LUNCH, AND 12 UNITS WITH SUPPER Plus sliding scale. 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 10/05/2020 HTN, goal below 150/90 10/03/2019 Current mild episode of major depressive disorder without prior episode 10/03/2019 Current use of insulin 10/03/2019 Gastroesophageal reflux disease without esophagitis 10/03/2019 Atherosclerosis of [place] co ronary artery of [place] heart without angina pectoris 10/03/2019 Type 1 [...] as of this encounter (statuses as of 04/12/2023) Resolved Problems Problem Noted Date Resolved Date [...] ANTIPROLIFERATIVE FOR RESTENOSIS II TRIAL OMI # [id number] PI: Jc Fermin MD SC: Hellen Morfin RN, BSN Costar II Clinical Trial*[id number] 09/06/2005 01/25/2011 Overview: Renamed Per Clinical Trials Billing Project. COSTAR II: [place] CHROMIUM STENT WITH ANTIPROLIFERATIVE FOR RESTENOSIS II TRIAL OMI # [id number] PI: Jc Fermin MD SC: Hellen Morfin [...] as of this encounter (statuses as of 04/12/2023) Immunizations Name Administration Dates Next Due COVID-19 [...] Sign Reading Time Taken Comments Blood Pressure 121/48 04/12/2023 8:06 AM EDT Pulse 69 04/12/2023 8:06 AM EDT Temperature 36 C (96.8 F) 04/12/2023 8:06 AM EDT Respiratory Rate 16 04/12/2023 8:06 AM EDT Oxygen Saturation 96% 04/12/2023 8:06 AM EDT Inhaled Oxygen Concentration - - Weight 87.5 kg (192 lb 12.8 oz) 04/12/2023 8:06 AM EDT Height 170.2 cm (5' 7") 04/12/2023 8:06 AM EDT Body Mass Index 30.2 04/12/2023 8:06 AM EDT documented in this encounter Progress Notes * Amado Reeder MD - 04/12/2023 8:25 AM EDT Subjective: Alexys Osorio is a 82 year old male. Chief Complaint Patient presents with Re-Check Yearly visit, pt states that at night his BG goes up. Need advise about hearing aides HPI: 82-year-old is seen today for routine recheck. He also follows closely with [facility] in regards hisdiabetes. He has a history of type 1 diabetes. He has a DEXA [employer] continuous glucose monitor. [facility] has renewed and reviewed NovoLog sliding scale which he tells me he follows although historically Um he is not been consistent in using a sliding scale. Also is on 22 units of glargine/Lantus daily. He notes high blood sugars especially through the night. Typically his fasting blood sugars at least 150 Um mg higher than bedtime. He has had some Um low blood sugars but not as low as historically where often times it would drop below 50. I think this is in large part because he has the DEXA com and the warning system. He does admit that he ignores lot of the warning sounds from the DEXA com. Reflux symptoms are under control. He continues on omeprazole. New line not interested in any additional COVID vaccines. Patient Active Problem List Diagnosis Code ADVANCE DIRECTIVE INFORMATION DYSLIPIDEMIA, GOAL LDL BELOW 70 E78.5 Hypersomnia G47.10 Obstructive sleep apnea syndrome G47.33 Vitamin D deficiency E55.9 Type 1 diabetes mellitus with polyneuropathy ([facility]) E10.42 HTN, goal below 150/90 I10 Current mild episode of major depressive disorder without prior episode ([facility]) F32.0 Current use of insulin ([facility]) Z79.4 Gastroesophageal reflux disease without esophagitis K21.9 Atherosclerosis of [place] coronary artery of [place] heart without angina pectoris I25.10 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 Multiple Vitamin (MULTI VITAMIN DAILY) TABS Take by mouth. omega-3 1000 MG CAPS Take by mouth. Takes 2 daily Potassium Gluconate 550 MG TABS Take by mouth. Pen [place] 31G X 6 MM Use 4 times a day with Novolog and Lantus insulin pens. 400 Each 3 Easy Touch Safety Pen [place] 29G X 8MM (Insulin Pen Needle) 4 times daily with Insulin 360 Each 3 Atorvastatin Calcium 40 MG Oral Tablet (Lipitor) TAKE ONE TABLET BY MOUTH ONCE DAILY 90 Tablet 3 NovoLOG FlexPen 100 UNIT/ML Subcutaneous Solution Pen-injector (insulin aspart) INJECT 14 UNITSUNDER THE SKIN WITH BREAKFAST, 10 UNITS WITH LUNCH, AND 12 UNITS WITH SUPPER Plus sliding scale. Maximum dose per day 80 (Patient taking differently: 12 units with each meal (3x daily)) 24 mL 11 Insulin Glargine Solostar 100 UNIT/ML Subcutaneous Solution [...] BY MOUTH ONCE DAILY 90 Tablet 1 Clopidogrel Bisulfate 75 MG Oral Tablet (pLAVix) TAKE ONE TABLET BY MOUTH ONCE DAILY 90 Tablet 0 Felodipine ER 5 MG Oral Tablet Extended Release 24 Hour (Plendil) Take 2 Tablets by mouth everymorning. 180 Tablet 4 Omeprazole 20 MG Oral Capsule Delayed Release (PriLOSEC) TAKE ONE CAPSULE BY MOUTH ONCE DAILY ONE HOUR BEFORE THE first meal of THE DAY 90 Capsule 0 Lisinopril 40 MG Oral Tablet TAKE ONE TABLET BY MOUTH ONCE DAILY 90 Tablet 0 Citalopram Hydrobromide 20 MG Oral Tablet (CeleXA) TAKE 1/2 TABLET BY MOUTH ONCE DAILY 45 Tablet 1 zoster vac recomb adjuvanted (SHINGRIX) 50 MCG/0.5ML injection Inject 0.5 mL into a large muscle now and repeat dose in 60 to 180 days (Patient not taking: Reported on 10/10/2022) 1 Each 1 No current facility-administered medications for this visit. Review of patient's allergies indicates: No Known Allergies Objective: BP 121/48 (BP Site: Right Arm, BP Position: Sitting, BP Cuff Size: Regular) | Pulse 69 | Temp 36 C (96.8 F) (Temporal Artery) | Resp 16 | Ht 1.702 m (5' 7") | Wt 87.5 kg (192 lb 12.8 oz) | SpO2 96% | BMI 30.20 kg/m | BSA 2.03 m Physical Exam: CONST: alert, pleasant, no acute distress HEAD: normocephalic, atraumatic NECK: supple, soft, no adenopathy EARS: canals normal, TMs normal Eyes - PERRLA, EOM'I OROPHARYNX: clear, no swelling or erythema, moist CV: regular rate and rhythm, no murmur CHEST: clear to auscultation bilaterally, no rales or wheezing ABD: soft, non tender, non distended, no masses or hepatosplenomegaly EXT: no edema, no joint swelling or deformities, Skin: 1 cm shallow laceration over the right dorsal hand. No signs of infection. ASSESSMENT/PLAN: Type 1 diabetes-difficult control because of markedly labile blood sugars. I did discuss with [facility] pharmacist. Will continue with present NovoLog sliding scale plus the Lantus 22 units daily. I originally thought we could increase his Lantus to try to control the high nighttime blood sugars but his DEXA com readout shows the marked lability of blood sugars with significantly high levels but also agood bit of low levels. His last hemoglobin A1c 2 months ago was at 7.9 which is reasonable for him. Bottom line were going to continue the same regimen. Long-term use of omeprazole-check B12 and magnesium Um hyperlipidemia-check lipid profile laceration hand-provide Boostrix vaccine. Patient was unable to wait to get the vaccine so he will be scheduled to come back with nurse visit Amado Reeder MD documented in this encounter Plan of Treatment Upcoming Encounters Date Type Specialty Care Team Description 05/02/2023 Office Visit Pharmacy [facility] [address] [facility] [place] [address] 05/09/2023 Office Visit Cardiology William So MD [address] [place] [address] Scheduled Orders Name Type Priority Associated Diagnoses Orde r Schedule LIPID PANEL WITH DIRECT LDL IF TG IS HIGH Lab Routine Dyslipidemia, goal LDL below 70 Expected: 04/12/2023, Expires: 04/12/2024 MAGNESIUM Lab Routine Encounter for long-term (current) use of medications Expected: 04/12/2023 (Approximate), Expires: 04/11/2024 VITAMIN B12 Lab Routine Encounter for long-term (current) use of medications Expected: 04/12/2023 (Approximate), Expires: 04/11/2024 COMPREHENSIVE METABOLIC PANEL Lab Routine HTN, goal below 150/90 Expected: 04/12/2023 (Approximate), Expires: 04/11/2024 Health Maintenance Due Date Last Done Comments Zoster Vaccines (1 of 2) 1990 Depression Screening, Annual for Pts 12 and Over 03/31/2021 03/31/2020 COVID-19 Vaccine (3 - Modern a series) 05/06/2021 03/11/2021, 02/08/2021 Influenza Vaccine (FLU shot) (#1) 2023 08/04/2022, 07/15/2021, 08/25/2020, Additional history exists documented as of this encounter Medical Devices Not on filedocumented as of this encounter Visit Diagnoses Diagnosis Laceration of right hand without foreign body, initial encounter- Primary Type 1 diabetes mellitus with hemoglobin A1c goal of less than 8.0% ([facility]) HTN, goal below 150/90 Dyslipidemia, goal LDL below 70 Other and unspecified hyperlipidemia Gastroesophageal reflux disease without esophagitis Esophageal reflux Encounter for long-term (current) use of medications Encounter for long-term (current) use of other medications documented in this encounter Care Teams Apparel Machinery Instructor Relationship Specialty Start Date End Date Amado Reeder MD [address] [place] [place], [place] [id number] PCP - General 12/08/99 documented as of this encounter
--- OUTSIDE RECORDS SUMMARY | 2023-09-01 15:05 | External Medical Summary | Summary of Care ---
Author Name Unknown Organization [facility] Address [address] [place] [address] Phone [phone] Care Team Providers Care Acetylene Torch Operator Name Role Phone Amado Reeder MD Primary Care Provider Reason for Visit * Reason Onset Date Comments Patient Assistance Program 05/02/2023 Encounter Details Date Type Department Care Team Description 05/02/[address] [address] Louise Doherty, [facility] [address] [place] [address] Patient Assistance Program Allergies No known active allergiesdocumented as of [...] Information Patient not taking.Reported on 10/10/2022 Pen [place] 31G X 6 MMIndications:DM type 1, not at goal (HCC) Use 4 times a day with Novolog and Lantus insulin pens. 400 Each 3 02/17/2021 Active Easy Touch Safety Pen [place] 29G X 8MM (Insulin Pen Needle)Indications:T ype [...] base doses. 60 mL 4 05/02/2023 Active documented as of this encounter [...] reflux disease without esophagitis 10/03/2019 Atherosclerosis of [place] ronary artery of [place] heart without angina pectoris 10/03/2019 Type 1 [...] ANTIPROLIFERATIVE FOR RESTENOSIS II TRIAL OMI # [id number] PI: Jc Fermin MD SC: Hellen Morfin RN, BSN Costar II Clinical Trial*[id number] 09/06/2005 01/25/2011 Overview: Renamed Per Clinical Trials Billing Project. COSTAR II: [place]BALT CHROMIUM STENT WITH ANTIPROLIFERATIVE FOR RESTENOSIS II TRIAL OMI # [id number] PI: Jc Fermin MD SC: Hellen Morfin [...] Telephone Encounter - Louise Doherty RPh - 05/02/2023 4:27 PM EDT Filled out and faxed application to [employer] for Basaglar 24 units daily and Humalog up to 60 units daily. Received confirmation of fax. E-script sent to [facility]. Louise Doherty, PharmD Clinical Pharmacist Medication Therapy Disease Management 05/02/2023, 4:28 PM documented in this encounter Plan of Treatment Upcoming Encounters Date Type Specialty Care Team Description 05/09/2023 Office Visit Cardiology William So MD [address] [place] [address] 05/10/2023 Laboratory Laboratory [facility] [address] [place] [address] 05/10/2023 Immunization/Injection Ancillary [place], Nurse [address] [place] [address] 06/15/2023 Office Visit Pharmacy [place], [facility] [address] [place] [address] Health Maintenance Due Date Last Done Comments [...] uncontrolled documented in this encounter Care Teams Acetylene Torch Operator Relationship Specialty Start Date End Date Amado Reeder MD [address] [place], [place] [id number] PCP - General 12/08/99 documented as of this encounter
--- OUTSIDE RECORDS SUMMARY | 2023-09-01 15:05 | External Medical Summary | Summary of Care ---
Author Name Unknown Organization [facility] Address [address] [facility] [place] [address] Phone [phone] Care Team Providers Care Aerodynamic Consultant Name Role Phone Robina Reeder MD Primary Care Provider [phone] Reason for Visit * Reason Comments eRx-Medication Refill Encounter Details Date Type Department Care Team Description 03/20/2023 Refill [facility] [address] [place] [address] Robina Reeder MD [address] [place] [address] Current mild episode of major depressive disorder, unspecified whether recurrent (HCC) Allergies No known active allergiesdocumented as of this encounter (statuses as of 03/21/2023) Medications Medication Sig Dispensed Refills Start Date [...] Information Patient not taking.Reported on 10/10/2022 Pen [place] 31G X 6 MMIndications:DM type 1, not at goal (HCC) Use 4 times a day with Novolog and Lantus insulin pens. 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 Maximum dose per day 80 24 mL 11 3 Active Additional Information Patient taking differently: 12 units with each meal (3x daily), Reported on 12/26/2022 Insulin Glargine Solostar 100 UNIT/ML Subcutaneous Solution Pen-injector (Lantus SoloStar) INJECT 20 UNITS UNDER THE SKIN ONCE DAILY IN THE EVENING 15 mL 3 3 Active Additional Information Patient taking differently: 23 Units, INJECT 20 UNITS UNDER THE SKIN ONCE DAILY IN THE EVENING, Reported on 12/26/2022 Vitamin D 125 MCG (5000 UT) Oral Capsule Take by mouth. 0 Active Potassium Gluconate 595 (99 K) MG Oral Tablet Take by mouth. 0 Active hydroCHLOROthiazide 25 MG Oral Tablet (Hydrodiuril)Indica tions:HTN, goal below 150/90 TAKE ONE TABLET BY MOUTH ONCE DAILY 90 Tablet 1 3 Active Clopidogrel Bisulfate 75 MG Oral Tablet (pLAVix)Indications :TIA (transient ischemic attack) TAKE ONE TABLET BY MOUTH ONCE DAILY 90 Tablet 0 3 Active Felodipine ER 5 MG Oral Tablet Extended Release 24 Hour (Plendil)Indication s:HTN, goal below 140/90 Take 2 Tablets by mouth every morning. 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 With largest meal of the day 90 Tablet 1 3 Active Lisinopril 40 MG Oral Tablet TAKE ONE TABLET BY MOUTH ONCE DAILY 90 Tablet 0 3 Active Citalopram Hydrobromide 20 MG Oral Tablet (CeleXA)Indications :Current mild episode of major depressive disorder, unspecified whether recurrent (HCC) TAKE 1/2 TABLET BY MOUTH ONCE DAILY 45 Tablet 1 3 Active Citalopram Hydrobromide 20 MG Oral Tablet (CeleXA)Indications :Current mild episode of major depressive disorder, unspecified whether recurrent (HCC) TAKE 1/2 TABLET BY MOUTH ONCE DAILY 45 Tablet 1 2 03/21/20 23 Discontinued documented as of this encounter (statuses as of 03/21/2023) Active Problems Problem Noted Date Foot deformity, acquired, left 2 Overview: bony protuberance plantar aspect mid foot Obstructive uropathy 10/21/2020 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 10/05/2020 HTN, goal below 150/90 10/03/2019 Current mild episode of major depressive disorder without prior episode 10/03/2019 Current use of insulin 10/03/2019 Gastroesophageal reflux disease without esophagitis 10/03/2019 Atherosclerosis of [place] co ronary artery of [place] heart without angina pectoris 10/03/2019 Type 1 [...] as of this encounter (statuses as of 03/21/2023) Resolved Problems Problem Noted Date Resolved Date [...] ANTIPROLIFERATIVE FOR RESTENOSIS II TRIAL OMI # [id number] PI: Jc Fermin MD SC: Hellen Morfin RN, BSN Costar II Clinical Trial*[id number] 09/06/2005 01/25/2011 Overview: Renamed Per Clinical Trials Billing Project. COSTAR II: COBALT CHROMIUM STENT WITH ANTIPROLIFERATIVE FOR RESTENOSIS II TRIAL OMI # [id number] PI: Jc Fermin MD SC: Hellen Morfin [...] as of this encounter (statuses as of 03/21/2023) Immunizations Name Administration Dates Next Due COVID-19 [...] encounter Miscellaneous Notes * Telephone Encounter - [facility] - 03/21/2023 6:50 AM EDTSigned Prescriptions: Disp Refills Citalopram Hydrobromide 20 MG Oral Tablet *45 Tab*1 Sig: TAKE 1/2 TABLET BY MOUTH ONCE DAILYAuthorizing Provider: ROBINA REEDER User: LAYO LYNN-- documented in this encounter Plan of Treatment Upcoming Encounters Date Type Specialty Care Team Description 03/28/2023 Office Visit Pharmacy [facility] [address] [place] [address] 04/12/2023 Office Visit Family Medicine Robina Reeder MD [address] [place] [address] 05/09/2023 Office Visit Cardiology William So MD [address] [place] [address] Health Maintenance Due Date Last Done Comments Zoster Vaccines (1 of 2) 1990 Depression Screening, Annual for Pts 12 and Over 03/31/2021 03/31/2020 COVID-19 Vaccine (3 - Modern a series) 05/06/2021 03/11/2021, 02/08/2021 Influenza Vaccine (FLU shot) (#1) 2023 08/04/2022, 07/15/2021, 08/25/2020, Additional history exists documented as of this encounter Medical Devices Not on filedocumented as of this encounter Visit Diagnoses Diagnosis Current mild episode of major depressive disorder, unspecified whether recurrent (HCC) documented in this encounter Care Teams Aerodynamic Consultant Relationship Specialty Start Date End Date Robina Reeder MD [address] [place] [address] PCP - General 12/08/99 documented as of this encounter
--- OUTSIDE RECORDS SUMMARY | 2023-09-01 15:05 | External Medical Summary | Summary of Care ---
Author Name Unknown Organization [facility] Address [address] [facility] [address] Phone [phone] Care Team Providers Care Arts And Crafts Instructor Name Role Phone Amado Reeder MD Primary Care Provider [phone] Reason for Visit * Reason Onset Date Comments Blood Sugar Problem 04/20/2023 Encounter Details Date Type Department Care Team Description 04/20/2023 Telephone Pharmacy Call Center [address] [facility] [place] [address] [facility] [address] [place] [address] Blood Sugar Problem Allergies No known active [...] Information Patient not taking.Reported on 10/10/2022 Pen [place] 31G X 6 MMIndications:DM type 1, not at goal (HCC) Use 4 times a day with Novolog and Lantus insulin pens. 400 Each 3 02/17/2021 Active Easy Touch Safety Pen [place] 29G X 8MM (Insulin Pen Needle)Indications:T ype [...] reflux disease without esophagitis 10/03/2019 Atherosclerosis of [place] co ronary artery of [place] heart without angina pectoris 10/03/2019 Type 1 [...] ANTIPROLIFERATIVE FOR RESTENOSIS II TRIAL OMI # [id number] PI: Jc Fermin MD SC: Hellen Morfin RN, BSN Costar II Clinical Trial*[id number] 09/06/2005 01/25/2011 Overview: Renamed Per Clinical Trials Billing Project. COSTAR II: COBALT CHROMIUM STENT WITH ANTIPROLIFERATIVE FOR RESTENOSIS II TRIAL OMI # [id number] PI: Jc Fermin MD SC: Hellen Morfin [...] Miscellaneous Notes * Telephone Encounter - Louise Doheryt, [facility] ED - 04/20/2023 12:01 PM EDT Patient Phone [...] his chart until our next visit. See [facility] note 03/28 at the bottom for the [...] Preferred call back number(OFFICE NUMBER FOR ): [phone] Reason for call: High blood sugar - Pt states he's having an issue with his BG level being over 500currently and has an eye appt at 1pm today. Pt would like to know if he should keep that appt. Pt reports his BG levels being in the 300's daily. Thank you, Ambar Aggarwla [facility] ([facility]) 04/20/2023,11:38 AM documented in this encounter Plan of Treatment Upcoming Encounters Date Type Specialty Care Team Description 05/02/2023 Office Visit Pharmacy [facility] [address] [place] [address] [place] [address] 05/09/2023 Office Visit Cardiology William So MD [address] [place] [address] 05/10/2023 Laboratory Laboratory [facility] [address] [place] [address] 05/10/2023 Immunization/Injection Ancillary [place], Nurse [address] [place] [address] Health Maintenance Due Date Last Done Comments [...] uncontrolled documented in this encounter Care Teams Arts And Crafts Instructor Relationship Specialty Start Date End Date Amado Reeder MD [address] [place] [address] PCP - General 12/08/99 documented as of this encounter
--- OUTSIDE RECORDS SUMMARY | 2023-09-01 15:05 | External Medical Summary | Summary of Care ---
Author Name Unknown Organization [facility] Address [address] [facility] [place] [address] Phone [phone] Care Team Providers Care Chicken Sexer Name Role Phone Amado Reeder MD Primary Care Provider [phone] Encounter Details Date Type Department Care Team Description 05/08/2023 Result Scan Unspecified Department <No scans attached> Allergies No known active allergiesdocumented as of [...] Information Patient not taking.Reported on 10/10/2022 Pen [place] 31G X 6 MMIndications:DM type 1, not at goal (HCC) Use 4 times a day with Novolog and Lantus insulin pens. 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 COSTAR II: COBALT CHROMIUM STENT WITH ANTIPROLIFERATIVE FOR RESTENOSIS II TRIAL OMI # [id number] PI: Jc Fermin MD SC: Hellen Morfin [...] So MD [address] [place] [address] 05/10/2023 Laboratory Laboratory [facility] [address] [place] [address] 05/10/2023 Immunization/Injection Ancillary [place], Nurse [address] [place] [address] 06/15/2023 Office Visit Pharmacy [place], [facility] [address] [place] [address] Health Maintenance Due Date Last Done Comments [...] Procedure Name Priority Date/Time Associated Diagnosis Comments PROCEDURE SCANNED RESULT 05/08/2023 documented in this encounter Results * PROCEDURE SCANNED RESULT (05/08/2023) 05/08/2023 No Physician Data Unknown SURGERY documented in this encounter Care Teams Chicken Sexer Relationship Specialty Start Date End Date Amado Reeder MD [address] [place] [address] PCP - General 12/08/99 documented as of this encounter
--- OUTSIDE RECORDS SUMMARY | 2023-09-01 15:05 | External Medical Summary | Summary of Care ---
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 10/05/2020 HTN, goal below 150/90 10/03/2019 Current mild episode of major depressive disorder without prior episode 10/03/2019 Current use of insulin 10/03/2019 Gastroesophageal reflux disease without esophagitis 10/03/2019 Atherosclerosis of [place] co ronary artery of [place] heart without angina pectoris 10/03/2019 Type 1 [...] as of this encounter (statuses as of 03/28/2023) Resolved Problems Problem Noted Date Resolved Date [...] ANTIPROLIFERATIVE FOR RESTENOSIS II TRIAL OMI # [id number] PI: Jc Fermin MD SC: Hellen Morfin RN, BSN Costar II Clinical Trial*[id number] 09/06/2005 01/25/2011 Overview: Renamed Per Clinical Trials Billing Project. COSTAR II: COBALT CHROMIUM STENT WITH ANTIPROLIFERATIVE FOR RESTENOSIS II TRIAL OMI # [id number] PI: Jc Fermin MD SC: Hellen Morfin [...] as of this encounter (statuses as of 03/28/2023) Immunizations Name Administration Dates Next Due COVID-19 [...] of this encounter Progress Notes * Louise Ellaaaron Doherty, [facility] - 03/28/2023 1:05 PM EDT Images from the original note were not included. Medication Therapy Disease Management Clinic - Diabetes Management Progress Note Alexys Osorio, identified by name and date of , is a 82 year old male being seen for diabetes management/education. Patient presents for return diabetic visit. DIABETES: Current diabetic medications: [id number] unitswith each meal (3x a day) [12 units DECLantus - 20units dailyin the evening [22 units daily] START Metformin ER 500 mg once daily [stopped due to low blood sugars] eGFR 89as of 10/09/22 Medication Injection Site: Abdomen Lifestyle: Diet: unchanged Glucose Review/SMBG: Readings obtained from patient device Hypoglycemia: Does your blood sugar go below 70 mg/dL? Yes, per patient Hyperglycemia symptoms present: fatigue Recent Labs Units 02/06/23 1454 10/09/22 1502 12/09/21 0958 HEMOGLOBIN A1C - [facility] % 7.9* 8.1* 8.5* Recent Labs Units 10/09/22 1502 08/22/21 1309 04/11/21 0849 ESTIMATED GLOMERULAR FILTRATION RATE - [facility] mL/min 89 79 88.1 CREATININE - [facility] mg/dL 0.8 0.9 0.7 HYPERTENSION: Patient on ACEi/ARB: yes BP Readings from Last 3 Encounters: 03/02/23 110/62 10/11/22 128/58 10/10/22 128/66 Blood pressure at goal: yes HYPERLIPIDEMIA: Patient [...] Considerations: - FRANCISCO? Diagnosed at age of 50per chart review - Dexcom supplied by [employer] - metformin caused low blood sugars, patient discontinued and not interested in retrial BG Readings - Blood sugars highly variable. Reviewed dexcom download with patient. Reviewed the large range of BGs with patient, and reviewed that goal for MTM is to help reduce that variability and better stabilize sugars. Medications - Reviewed current regimen, patient is not adherent to regimen. Patient had stopped themetformin due to low blood sugars. No changes made on his own to insulin doses to reduce the low blood sugar occurrence. He states that he has been giving 22 units of lantus. He states that he takes 12-15 units of novolog before meals depending on the size of the meal, as well as if he anticipates activity soon after the meal. Will provide patient with CF chart to see if this can help with the variability, and also provide better guidance for dosing so that patient and MTM can be on the same page. It does appear that patient gets a little overwhelmed in the visit when asked about different sce narios related to his sugars, so this chart is an effort to take some of the guess work out of his insulin dosing. He does not want to revisit metformin due to it causing low blood sugars. I did explain to him that it likely improved his sensitivity to the insulin, and we likely just did not dose reduce enough on his insulin doses. Diet, Exercise, Lifestyle - Remains active. Patient is agreeable to SMBG with dexcom G6 daily. Patient aware to contact clinic if any hypoglycemia before next visit. MEDICATION CHANGES: yes, see below; preferred pharmacy: [facility] Diabetic Medications: ADJNovologfollowing CF chart at bottom of note 03/28/23 [1:30 over 160, base doses judged on meal size and activity after meal] Lantus - 22units dailyin the evening STOP Metformin ER 500 mg once daily eGFR 89as of 10/09/22 HEALTH MAINTENANCE INTERVENTIONS: Labs: Up to Date Immunizations: eligible for shingrix Foot Exam: Up to Date Eye Exam: Up to Date Annual Wellness Visit: N/A FOLLOW UP: Return to clinic in 5 weeks 05/02/2023 Louise Doherty [facility] Clinical Pharmacist - Physician Assistant Certified Medication Therapy Management Clinic 03/28/2023, 1:05 PM 03/28/23 Fast Acting Insulin : Novolog To find [...] fast acting insulin Blood Sugar levels Smaller Normal/ Large Meal Planned Activity after meal No Food 70 to 99 10 13 11 0 100 to 129 11 14 12 0 130 to 159 12 15 13 0 160 to 189 12 15 13 0 190 to 219 13 16 14 1 220 to 249 14 17 15 2 250 to 279 15 18 16 3 280 to 309 16 19 17 4 310 to 339 17 20 18 5 340 to 369 18 21 19 6 370 to 399 19 22 20 7 400 to 429 20 23 21 8 430 to 459 21 24 22 9 460 to 489 22 25 23 10 490 to 519 23 26 24 11 Parameters fixed 12 15 13 cassidy 30 over 160 documented in this encounter Plan of Treatment Upcoming Encounters Date Type Specialty Care Team Description 04/12/2023 Office Visit Family Medicine Amado Reeder MD [address] [place] [address] 05/02/2023 Office Visit Pharmacy [facility] [address] [place] [address] 05/09/2023 Office Visit Cardiology William So MD [address] [place] [address] Health Maintenance Due Date Last Done Comments [...] uncontrolled documented in this encounter Care Teams Returner Relationship Specialty Start Date End Date Amado Reeder MD [address] [place] [address] PCP - General 12/08/99 documented as of this encounter
--- NOTE | 2023-09-01 15:43 | XRay Report ---
XR chest 1V portable HISTORY: 82 years-old Male stroke alert acute stroke like symptoms COMPARISON: Chest radiograph 03/25/2019 TECHNIQUE: PA view of the chest FINDINGS: Cardiomediastinal and hilar silhouettes are within normal limits. No pneumothorax, pleural effusion o r airspace consolidation. The bones appear intact. IMPRESSION: No acute process. ACT 112: Negative or not required by law. The above report was generated using voice recognition software. It may contain grammatical, syntax o r spelling errors. Electronically signed by: Miguelito Patterson M.D. 09/01/2023 3:41 PM
[2023-09-01 16:45] LABS: Hematocrit (blood only) 34.5 % (42.0-52.0); Hemoglobin 12.1 g/dl (14.0-18.0); Mean Corpuscular Hemoglobin 29.5 pg (25.0-34.0); Mean Corpuscular Hgb Conc 35.1 g/dL (32.0-36.0); Mean Corpuscular Volume 84.1 fL (80.0-100.0); Mean Platelet Volume 9.4 fL (9.4-12.4); Platelet Count 238 K/uL (130-400); RDW Coefficient of Variation 13.3 % (11.5-14.5); RDW Standard Deviation 40.8 fL (36.4-46.3); White Blood Count 7.93 K/ul (4.8-10.8)
[2023-09-01 17:03] LABS: Troponin I High Sensitivity 4.7 pg/ml (0-20)
[2023-09-01 17:08] LABS: Partial Thromboplastin Ratio 0.9; Partial Thromboplastin Time 26 Seconds (21-31); Prothrombin Time 11.1 Seconds (9.0-12.0)
[2023-09-01 17:12] LABS: Thyroid Stimulating Hormone 2.076 uIu/ml (0.300-4.500)
--- NOTE | 2023-09-01 17:15 | CT Scan Report ---
CT head/brain wo con CLINICAL HISTORY: 82 years-old Male with Neuro deficit, acute, stroke suspected. Acute strokelike sy mptoms TECHNIQUE: Multiple axial CT images of the head were obtained without contrast. A dose lowering tech nique was utilized adhering to the principles of ALARA. CT DOSE: 625.8 mGy.cm COMPARISON: 10/29/2020 FINDINGS: No acute intracranial hemorrhage, midline shift, intracranial mass, hydrocephalus, territorial ischem ia or abnormal extra-axial collection. Involutional changes with chronic microvascular ischemic disea se. The calvarium is intact. Bilateral lens repair. Polypoid mucosal thickening of the right maxillary s inus. IMPRESSION: No acute intracranial abnormality. ACT 112: Negative or not required by law. The above report was generated using voice recognition software. It may contain grammatical, syntax o r spelling errors. Electronically signed by: Miguelito Patterson M.D. 09/01/2023 5:13 PM
[2023-09-01 18:28] LABS: Albumin Globulin Ratio 1.2 (0.9-2); Albumin Level 3.7 gm/dl (3.4-5.0); BUN Creatinine Ratio 27.4 (10-20); Bilirubin,Total 0.3 mg/dl (0.2-1.0); Calcium 9.4 mg/dl (8.6-10.3); Creatinine Clr Calc Pharmacy 73.1 ml/min; Est GFR (African American) 94.5 ml/min; Est GFR (Non-African American) 81.5 ml/min; Globulin 3.2 gm/dl (2.5-4.0); Magnesium 1.9 mg/dl (1.7-2.4); Total Protein 6.9 gm/dl (6.0-8.3)
--- NOTE | 2023-09-01 18:44 | Emergency Department Note ---
Impression & Plan Transient cerebral ischemia, Cerebrovascular disease ED Provider Note NAME: BRAULIO MARTIN AGE: 82 SEX: M : 1940 ARRIVES VIA: Walk-In INFORMANT: Patient, ED PROVIDER(S): Ricky Hidalgo DO CHIEF COMPLAINT: Mini stroke HPI: The patient is an 82-year-old male who presented to the emergency department for an evaluation of strokelike symptoms. The patient states that he had symptoms yesterday. He states that he started having visual difficulty. He also felt dizzy and lightheaded. The patient has a history of carotid artery disease and takes Plavix. He states that he called his family doctor and was referred to the emergency department for further workup. He states he has no symptoms at this time. He denies having any chest pain or headache. He denies having any nausea or vomiting ROS: See above HPI for pertinent positives & negatives. A total of 10 systems reviewed and were otherwise negative. PAST MEDICAL HISTORY: See Below PAST SURGICAL HISTORY: See Below FAMILY HISTORY: See Below SOCIAL HISTORY: See Below HOME MEDICATIONS: See Below ALLERGIES: See Below VITALS: See Below PHYSICAL EXAMINATION: GENERAL: Patient is awake alert in no acute distress patient is resting comfortably and showing no signs of anxiety EYES: The conjunctivae are clear. The pupils are round and reactive. EARS, NOSE, MOUTH AND THROAT: The nose is without any evidence of any deformity. NECK: The neck is nontender and supple. RESPIRATORY: Normal respiratory effort is noted there is no evidence of wheezing rhonchi or rales CARDIOVASCULAR: Regular rate and rhythm noted there no murmurs rubs or gallops normal S1 normal S2. GASTROINTESTINAL: The abdomen is soft. Abdomen is nontender. MUSCULOSKELETAL/EXTREMITIES: There is no evidence of gross deformity full range of motion is noted in the hips and shoulders. SKIN: There is no obvious evidence of any rash. There are no petechiae, pallor or cyanosis noted. NEUROLOGIC: Patient is awake alert and oriented x3. Strength was symmetric. There is no facial droop. Speech was clear MEDICAL DECISION MAKING: The patient is an 82-year-old male who presented to the emergency department for an evaluation of strokelike symptoms. The patient had resolution of his symptoms yesterday but presented today at the request of his primary care physician. The patient had no focal neurologic deficits on physical exam. I discussed the patient's laboratory and radiographic studies with him which did include angiography of the head and neck. Given the patient's angiography of the brain I do feel the patient is at higher risk and this may represent a TIA which the patient has never had a formal stroke workup for according to his knowledge. The patient does not have carotid artery disease based on a Doppler he had in 2019. This was also shown on angiography of the neck today. The patient was agreeable to inpatient workup. For this reason I discussed his condition with the on-call [facility]. Triage Nursing notes reviewed. Prior medical records reviewed Vital Signs: reviewed and remarkable for elevated blood pressure. Differential diagnosis: Infection, dehydration, metabolic abnormality, hypo/hyperglycemia, electrolyte disturbance, anemia, hypoxia, cardiac sources, intracerebral event, toxicologic, neurologic, as well as other pathologies. ER treatment provided: See below Diagnostics interpreted by me: ECG: EKG was obtained in the emergency department. My interpretation is sinus bradycardia at 55 bpm. There is no ectopy. There is no acute ST segment abnormalities noted. This was compared to a tracing from March 27, 2019. No changes were noted. Cardiac Monitoring: An order was placed for continuous cardiac monitoring. The monitor shows a rate of 56 bpm with sinus bradycardia. Laboratory studies: As stated above and show below. Imaging studies: See below. Radiographic imaging was reviewed by myself Consultation(s): I discussed this case with Dr. Ryan who is on-call for the [facility] group. He is agreed to evaluate the patient in the emergency department. 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 Verified 03/25/19 17:17 Neoprene Allergy Unknown Itchiness Uncoded 03/25/19 17:17 Home Meds Home Medications Medication Instructions Recorded Confirmed atorvastatin 40 mg tablet 40 mg PO QAM 03/25/19 09/01/23 cholecalciferol (vitamin D3) 50 2,000 unit PO QAM 03/25/19 09/01/23 mcg (2,000 unit) capsule (Vitamin D3) citalopram 20 mg tablet 10 mg PO QAM 03/25/19 09/01/23 felodipine 5 mg tablet,extended 10 mg PO QAM 03/25/19 09/01/23 release 24 hr insulin lispro 100 unit/mL See Rx Instructions .Route .COMPLEX 03/25/19 09/01/23 subcutaneous pen (Humalog KwikPen (U-100) Insulin) lisinopril 40 mg tablet 40 mg PO QAM 03/25/19 09/01/23 multivitamin 1 tab PO QAM 03/25/19 09/01/23 omega-3s 300 [id number]-other 2 cap PO QAM 03/25/19 09/01/23 [id number] oil 1,000 mg capsule ([place]-3 Fish Oil) omeprazole 20 mg capsule,delayed 20 mg PO DAILYBB 03/25/19 09/01/23 release potassium gluconate 550 mg (90 mg) 550 mg PO UD 03/25/19 09/01/23 tablet clopidogrel 75 mg tablet 75 mg PO DAILY 09/01/23 09/01/23 hydrochlorothiazide 25 mg tablet 25 mg PO DAILY 09/01/23 09/01/23 insulin aspart U-100 100 unit/mL See Rx Instructions .Route .COMPLEX 09/01/23 09/01/23 (3 mL) subcutaneous pen (Novolog FlexPen U-100 Insulin aspart) insulin glargine 100 unit/mL (3 20 unit subcut QPM 09/01/23 09/01/23 mL) subcutaneous pen (Lantus Solostar U-100 Insulin) Results & Data (ED) Vital Signs Vital Signs - 24 hr 09/01/23 15:11 09/01/23 18:24 09/01/23 18:24 Temperature 37 C Temperature Source Temporal Artery Scan Pulse Rate 63 Pulse Rate [Finger] 56 L Respiratory Rate 20 16 Respiratory Effort / Characteristics Non-Labored Spontaneous Non-Labored Spontaneous Respiratory Depth Normal Normal Respiratory Pattern Regular Regular Blood Pressure 143/75 H Blood Pressure [Right Arm] 187/82 H Blood Pressure Mean 97 Blood Pressure Mean [Right Arm] 117 Pulse Oximetry 99 100 100 Oxygen Delivery Method Room Air Room Air Room Air Sepsis Recent Fever Within 48 Hours No Sepsis New/Unexplained Change in Mental Status No Sepsis Action Taken by Nursing No Action Required Home Medications Current Medication List: was personally reviewed by me Laboratory Data Attestation: I reviewed the patient's lab results. 09/01/23 16:20 09/01/23 17:44 Lab Results 09/01/23 09/01/23 Range/Units 16:20 17:44 WBC 7.93 (4.8-10.8) K/ul RBC 4.10 L (4.70-6.10) M/uL Hgb 12.1 L (14.0-18.0) g/dl Hct 34.5 L (42.0-52.0) % MCV 84.1 (80.0-100.0) fL MCH 29.5 (25.0-34.0) pg MCHC 35.1 (32.0-36.0) g/dL RDW Std Deviation 40.8 (36.4-46.3) fL RDW Coeff of Toby 13.3 (11.5-14.5) % Plt Count 238 (130-400) K/uL MPV 9.4 (9.4-12.4) fL PT 11.1 (9.0-12.0) Seconds INR 1.0 (0.9-1.1) APTT 26 (21-31) Seconds PTT Ratio 0.9 Sodium Cancelled 141 Potassium Cancelled 4.0 Chloride Cancelled 107 Carbon Dioxide Cancelled 30 Anion Gap Cancelled 4 BUN Cancelled 23 Creatinine Cancelled 0.84 Est Cr Clr Drug Dosing Cancelled 73.1 Est GFR ( Amer) Cancelled 94.5 Est GFR (Non-Af Amer) Cancelled 81.5 BUN/Creatinine Ratio Cancelled 27.4 H Glucose Cancelled 153 H Calcium Cancelled 9.4 Magnesium Cancelled 1.9 Total Bilirubin Cancelled 0.3 AST Cancelled 21 ALT Cancelled 17 Alkaline Phosphatase Cancelled 63 Troponin I High Sens 4.7 (0-20) pg/ml Total Protein Cancelled 6.9 Albumin Cancelled 3.7 Globulin Cancelled 3.2 Albumin/Globulin Ratio Cancelled 1.2 TSH 2.076 (0.300-4.500) uIu/ml Administered Medications Discontinued Medications Ioversol (Optiray 320 125ml) 115 ml IV ONCE ONE Stop: 09/01/23 19:00 Last Admin: 09/01/23 18:59 Dose: 115 ml Documented By: MADDY Imaging Data Attestation: I personally reviewed and interpreted this imaging study as follows: My Impression: 1 view chest x-ray was obtained in the emergency department. My interpretation is no free air or definite infiltrate, final report below. CT of the brain was obtained in the emergency department. My interpretation is no intracranial hemorrhage or mass effect, final report below Radiologist's Impression: Chest X-Ray 09/01/23 15:17 XR chest 1V portable HISTORY: 82 years-old Male stroke alert acute stroke like symptoms COMPARISON: Chest radiograph 03/25/2019 TECHNIQUE: PA view of the chest FINDINGS: Cardiomediastinal and hilar silhouettes are within normal limits. No pneumothorax, pleural effusion or airspace consolidation. The bones appear intact. IMPRESSION: No acute process. ACT 112: Negative or not required by law. The above report was generated using voice recognition software. It may contain grammatical, syntax or spelling errors. Electronically signed by: Miguelito Patterson M.D. 09/01/2023 3:[address] 09/01/23 15:17 CT head/brain wo con CLINICAL HISTORY: 82 years-old Male with Neuro deficit, acute, stroke suspected. Acute strokelike symptoms TECHNIQUE: Multiple axial CT images of the head were obtained without contrast. A dose lowering technique was utilized adhering to the principles of ALARA. CT DOSE: 625.8 mGy.cm COMPARISON: 10/29/2020 FINDINGS: No acute intracranial hemorrhage, midline shift, intracranial mass, hydrocephalus, territorial ischemia or abnormal extra-axial collection. Involutional changes with chronic microvascular ischemic disease. The calvarium is intact. Bilateral lens repair. Polypoid mucosal thickening of the right maxillary sinus. IMPRESSION: No acute intracranial abnormality. ACT 112: Negative or not required by law. The above report was generated using voice recognition software. It may contain grammatical, syntax or spelling errors. Electronically signed by: Miguelito Patterson M.D. 09/01/2023 5:13 PM Head CTA 09/01/23 18:26 CT angio head w con, CT angio neck with con CLINICAL HISTORY: 82 years-old Male with TIA. Acute stroke like symptoms COMPARISON STUDY: Head CT of same day TECHNIQUE: Following the IV administration of 115 cc of Optiray, CT angiogram of the head and neck was performed from the aortic arch to the skull apex. Images are reviewed in the axial, sagittal, and coronal planes. 3-D MIPS images are created and assessed. IV contrast was administered without complication. All measurements were obtained according to NASCET criteria. A dose lowering technique was utilized adhering to the principles of ALARA. CT DOSE: 469.25 mGy.cm FINDINGS: CT ANGIOGRAM OF THE HEAD AND NECK: For vessel morphology of the thoracic aortic arch. The common and internal carotid arteries appear patent. On atherosclerosis of the carotid bulbs without significant stenosis. The bilateral anterior and middle cerebral arteries are also patent. Dominant left vertebral artery. The right vertebral artery terminates into the right plica. origin of the left posterior cerebral artery with a 4 mm focus of high-grade narrowing involving the P1 segment on image 98 series 3. There is a 1 mm focus of high grade stenosis involving the right posterior cerebral artery on image 106 series 3. There is no aneurysm, high-grade stenosis, or proximal branch occlusion identified. Dural sinuses appear patent. Lung apices appear clear. Unremarkable soft tissues. Moderate polypoid mucosal thickening of the maxillary sinuses, right greater left. Degenerative changes of the cervical spine. IMPRESSION: 1. Areas of high-grade stenosis are present within the bilateral posterior cerebral arteries. 2. Otherwise unremarkable CTA of the head and neck. ACT 112: Negative or not required by law. The above report was generated using voice recognition software. It may contain grammatical, syntax or spelling errors. Electronically signed by: Miguelito Patterson M.D. 09/01/2023 7:21 PM Neck CTA 09/01/23 18:26 CT angio head w con, CT angio neck with con CLINICAL HISTORY: 82 years-old Male with TIA. Acute stroke like symptoms COMPARISON STUDY: Head CT of same day TECHNIQUE: Following the IV administration of 115 cc of Optiray, CT angiogram of the head and neck was performed from the aortic arch to the skull apex. Images are reviewed in the axial, sagittal, and coronal planes. 3-D MIPS images are created and assessed. IV contrast was administered without complication. All measurements were obtained according to NASCET criteria. A dose lowering technique was utilized adhering to the principles of ALARA. CT DOSE: 469.25 mGy.cm FINDINGS: CT ANGIOGRAM OF THE HEAD AND NECK: For vessel morphology of the thoracic aortic arch. The common and internal carotid arteries appear patent. On atherosclerosis of the carotid bulbs without significant stenosis. The bilateral anterior and middle cerebral arteries are also patent. Dominant left vertebral artery. The right vertebral artery terminates into the right plica. origin of the left posterior cerebral artery with a 4 mm focus of high-grade narrowing involving the P1 segment on image 98 series 3. There is a 1 mm focus of high grade stenosis involving the right posterior cerebral artery on image 106 series 3. There is no aneurysm, high-grade stenosis, or proximal branch occlusion identified. Dural sinuses appear patent. Lung apices appear clear. Unremarkable soft tissues. Moderate polypoid mucosal thickening of the maxillary sinuses, right greater left. Degenerative changes of the cervical spine. IMPRESSION: 1. Areas of high-grade stenosis are present within the bilateral posterior cerebral arteries. 2. Otherwise unremarkable CTA of the head and neck. ACT 112: Negative or not required by law. The above report was generated using voice recognition software. It may contain grammatical, syntax or spelling errors. Electronically signed by: Miguelito Patterson M.D. 09/01/2023 7:21 PM Discharge Plan Visit Data Chief Complaint: TIA Symptoms Stated Complaint: SYNCOPE, CONFUSION, VISUAL DISTURBANCE YESTERDAY ED Provider: Ricky Hidalgo Discharge Problem: Transient cerebral ischemia, Cerebrovascular disease Patient Disposition: Being Evaluated by Hospitalist Forms Stand Alone Forms: My [facility] Prescriptions Prescriptions: No Action multivitamin Tablet 1 tab PO QAM atorvastatin 40 mg tablet 40 mg PO QAM felodipine 5 mg tablet extended release 24 hr 10 mg PO QAM citalopram 20 mg tablet 10 mg PO QAM omeprazole 20 mg capsule,delayed release(DR/EC) 20 mg PO DAILYBB Rx Instructions: TAKE THIS MEDICATION ONCE DAILY ONE HOUR BEFORE FIRST MEAL OF THE DAY lisinopril 40 mg tablet 40 mg PO QAM insulin lispro [Humalog KwikPen Insulin] 100 unit/mL insulin pen See Rx Instructions .ROUTE .COMPLEX Rx Instructions: inject up to 60 units a day following correction factor 1:25 OVER 140 cholecalciferol (vitamin D3) [Vitamin D3] 2,000 unit Capsule 2,000 unit PO QAM potassium gluconate 550 mg (90 mg) Tablet 550 mg PO UD [place]-3 Fish Oil 300-1,000 mg Capsule 2 cap PO QAM clopidogrel 75 mg tablet 75 mg PO DAILY hydrochlorothiazide 25 mg tablet 25 mg PO DAILY insulin glargine [Lantus Solostar U-100 Insulin] 100 unit/mL (3 mL) insulin pen 20 unit SUBCUT QPM insulin aspart U-100 [Novolog FlexPen U-100 Insulin] 100 unit/mL (3 mL) insulin pen See Rx Instructions .ROUTE .COMPLEX Rx Instructions: INJECT 14 UNITS subcutaneously WITH BREAKFAST, 10 UNITS WITH LUNCH, 12 UNITS WITH SUPPER. PLUS A SLIDING SCALE. MAX DOSE 80 UNITS PER DAY Referrals Referrals: Amado Reeder MD [Primary Care Provider] - Discharge Problem: Transient cerebral ischemia Qualifiers: Transient cerebral ischemia type: unspecified Qualified Code(s): G45.9 - Transient cerebral ischemic attack, unspecified
[2023-09-01] MEDS ORDERED: OPTIRAY 320 125ml IV ONE (18:59)
--- NOTE | 2023-09-01 19:24 | CT Scan Report ---
CT angio head w con, CT angio neck with con CLINICAL HISTORY: 82 years-old Male with TIA. Acute stroke like symptoms COMPARISON STUDY: Head CT of same day TECHNIQUE: Following the IV administration of 115 cc of Optiray, CT angiogram of the head and neck wa s performed from the aortic arch to the skull apex. Images are reviewed in the axial, sagittal, and c oronal planes. 3-D MIPS images are created and assessed. IV contrast was administered without complic ation. All measurements were obtained according to NASCET criteria. A dose lowering technique was uti lized adhering to the principles of ALARA. CT DOSE: 469.25 mGy.cm FINDINGS: CT ANGIOGRAM OF THE HEAD AND NECK: For vessel morphology of the thoracic aortic arch. The common and internal carotid arteries appear pa tent. On atherosclerosis of the carotid bulbs without significant stenosis. The bilateral anterior an d middle cerebral arteries are also patent. Dominant left vertebral artery. The right vertebral arter y terminates into the right plica. origin of the left posterior cerebral artery with a 4 mm foc us of high-grade narrowing involving the P1 segment on image 98 series 3. There is a 1 mm focus of hi gh grade stenosis involving the right posterior cerebral artery on image 106 series 3. There is no an eurysm, high-grade stenosis, or proximal branch occlusion identified. Dural sinuses appear patent. Lung apices appear clear. Unremarkable soft tissues. Moderate polypoid mucosal thickening of the maxi llary sinuses, right greater left. Degenerative changes of the cervical spine. IMPRESSION: 1. Areas of high-grade stenosis are present within the bilateral posterior cerebral arteries. 2. Otherwise unremarkable CTA of the head and neck. ACT 112: Negative or not required by law. The above report was generated using voice recognition software. It may contain grammatical, syntax o r spelling errors. Electronically signed by: Miguelito Patterson M.D. 09/01/2023 7:21 PM
--- NOTE | 2023-09-01 22:34 | History & Physical Report ---
Date of Service September 01, 2023 Assessment & Plan (1) TIA (transient ischemic attack): Plan: 82-year-old male with past med history significant for type 1 diabetes, hyperlipidemia, obstructive sleep apnea, hypertension, CAD, GERD, obstructive uropathy, depression, presents with TIA-like symptoms. TIA-like symptoms Patient for few seconds had blurred vision was seeing colors for few seconds yesterday around 10am. Since then he is doing fine CT head is okay CTA head and neck shows high-grade stenosis within the bilateral posterior cerebral arteries Will do full stroke workup with MRI scan, echo Continues home statin and Plavix Close monitoring the telemetry floor Neurology consult in a.m. for further recommendations Diabetes Continue home long-acting insulin Sliding scale Follow blood sugars and HbA1c levels History of CAD On statin, Plavix History of sinus bradycardia No AV kirill agents as per cardiology Hypertension On lisinopril hydrochlorothiazide and on felodipine Will monitor Hyperlipidemia On statin Depression On citalopram GERD On omeprazole Obstructive sleep apnea DVT prophylaxis SCDs Disposition Telemetry floor Full code History of Present Illness Chief Complaint: TIA-like symptoms Primary Care Provider: Amado Reeder MD 82-year-old male with past med history significant for type 1 diabetes, hyperlipidemia, obstructive sleep apnea, hypertension, CAD, GERD, obstructive uropathy, depression, presents with TIA-like symptoms. Patient states yesterday around 10 AM he was sitting in a chair when he suddenly for a brief second seem to passed out and hit his left brow on his laptop. Then after that for next few seconds he saw colors from his eyes on and off and blurred visions on and off, he says for 6 seconds and it got resolved. He called his PCP and was advised to come to the ER. Currently sitting in the bed comfortably. Denies any headache. No runny nose or sore throat or cough. No chest pain or shortness of breath. No nausea. No abdominal pain. Appetite is okay. No difficulty swallowing. No fevers. Normal bowel and bladder movements. Ambulating okay. Uses walking stick for ambulation. Lives with his . Past medical history. As mentioned above. Past surgical history. Angioplasty aortic percutaneous, colonoscopy, c ystoscopy, inguinal hernia repair, vasectomy Social history. . No smoking. No alcohol use. No drug use. Family history. Brother has diabetes. Daughter has diabetes. Allergies Allergy/AdvReac Type Severity Reaction Status Date / Time No Known Drug Allergies Allergy Unknown . Verified 03/25/19 17:17 Neoprene Allergy Unknown Itchiness Uncoded 03/25/19 17:17 Home Medications Medication Instructions Recorded Confirmed Type atorvastatin 40 mg tablet 40 mg PO QAM 03/25/19 09/01/23 History cholecalciferol (vitamin D3) 50 2,000 unit PO QAM 03/25/19 09/01/23 History mcg (2,000 unit) capsule (Vitamin D3) citalopram 20 mg tablet 10 mg PO QAM 03/25/19 09/01/23 History felodipine 5 mg tablet,extended 10 mg PO QAM 03/25/19 09/01/23 History release 24 hr insulin lispro 100 unit/mL See Rx Instructions .Route .COMPLEX 03/25/19 09/01/23 History subcutaneous pen (Humalog KwikPen (U-100) Insulin) lisinopril 40 mg tablet 40 mg PO QAM 03/25/19 09/01/23 History multivitamin 1 tab PO QAM 03/25/19 09/01/23 History omega-3s 300 [id number]-[id number]-other 2 cap PO QAM 03/25/19 09/01/23 History [id number] oil 1,000 mg capsule (Whigham-3 Fish Oil) omeprazole 20 mg capsule,delayed 20 mg PO DAILYBB 03/25/19 09/01/23 History release potassium gluconate 550 mg (90 mg) 550 mg PO UD 03/25/19 09/01/23 History tablet clopidogrel 75 mg tablet 75 mg PO DAILY 09/01/23 09/01/23 History hydrochlorothiazide 25 mg tablet 25 mg PO DAILY 09/01/23 09/01/23 History insulin aspart U-100 100 unit/mL See Rx Instructions .Route .COMPLEX 09/01/23 09/01/23 History (3 mL) subcutaneous pen (Novolog FlexPen U-100 Insulin aspart) insulin glargine 100 unit/mL (3 20 unit subcut QPM 09/01/23 09/01/23 History mL) subcutaneous pen (Lantus Solostar U-100 Insulin) Past Med/Surg History Medical History Hypertension Diabetes mellitus, insulin dependent (IDDM), uncontrolled Coronary artery disease Dizziness Frequent PVCs Abnormal EKG No known health problems Family History Other No significant family history Social History Smoking Status: Never smoker Hx Alcohol Use: No Hx Substance Use: No Preferred Language: Sami Communication Ability: Effective Psychiatric Rn Required: No Beliefs That Will Affect Care: None marital status: Current Living Situation: Spouse Other Information That Helps Us Care for You: No Feels Safe at Home: Yes Safety Concerns: Feels Safe At This Time Assistive Devices: Glasses Review of Systems Review of Systems: All systems reviewed & are unremarkable except as noted in HPI & below Physical Exam Physical Exam: General- Not in distress Head- atraumatic Eyes- PERRL. ENT- oropharynx clear Neck- supple, no JVD. Lungs- clear to auscultation no wheezing or crackles. Heart- regular rhythm; no murmur, no gallop. Abdomen- normal bowel sounds, soft, nontender, no distension. Extremities- no pretibial edema, no erythema seen. Neuro- alert, oriented x 3; PERRL,EOMI no facial palsy; no dysarthria; motor 5/5 bilaterally; coordination of movements normal, no pronator drift, sensations intact. Skin- warm & dry Results & Data Results & Data Vital Signs (Past 12 Hours) Vital Signs Temp Pulse Pulse Resp BP BP Pulse Ox 09/01/23 18:24 100 09/01/23 18:24 56 L 16 187/82 H 100 09/01/23 15:11 37 C 63 20 143/75 H 99 O2 Del Method 09/01/23 18:24 Room Air 09/01/23 18:24 Room Air 09/01/23 15:11 Room Air Diagnostic Findings Laboratory Results WBC 7.93 K/ul (4.8-10.8) 09/01/23 16:20 RBC 4.10 M/uL (4.70-6.10) L 09/01/23 16:20 Hgb 12.1 g/dl (14.0-18.0) L 09/01/23 16:20 Hct 34.5 % (42.0-52.0) L 09/01/23 16:20 MCV 84.1 fL (80.0-100.0) 09/01/23 16:20 MCH 29.5 pg (25.0-34.0) 09/01/23 16:20 MCHC 35.1 g/dL (32.0-36.0) 09/01/23 16:20 RDW Std Deviation 40.8 fL (36.4-46.3) 09/01/23 16:20 RDW Coeff of Toby 13.3 % (11.5-14.5) 09/01/23 16:20 Plt Count 238 K/uL (130-400) 09/01/23 16:20 MPV 9.4 fL (9.4-12.4) 09/01/23 16:20 PT 11.1 Seconds (9.0-12.0) 09/01/23 16:20 INR 1.0 (0.9-1.1) 09/01/23 16:20 APTT 26 Seconds (21-31) 09/01/23 16:20 PTT Ratio 0.9 09/01/23 16:20 Sodium 141 mmol/L (136-145) 09/01/23 17:44 Potassium 4.0 mmol/L (3.5-5.1) 09/01/23 17:44 Chloride 107 mmol/L (98-107) 09/01/23 17:44 Carbon Dioxide 30 mmol/L (21-32) 09/01/23 17:44 Anion Gap 4 (3-11) 09/01/23 17:44 BUN 23 mg/dl (6-23) 09/01/23 17:44 Creatinine 0.84 mg/dl (0.6-1.4) 09/01/23 17:44 Est Cr Clr Drug Dosing 73.1 ml/min 09/01/23 17:44 Est GFR ( Amer) 94.5 ml/min 09/01/23 17:44 Est GFR (Non-Af Amer) 81.5 ml/min 09/01/23 17:44 BUN/Creatinine Ratio 27.4 (10-20) H 09/01/23 17:44 Glucose 153 mg/dl (70-99(Fasting)) H 09/01/23 17:44 Calcium 9.4 mg/dl (8.6-10.3) 09/01/23 17:44 Magnesium 1.9 mg/dl (1.7-2.4) 09/01/23 17:44 Total Bilirubin 0.3 mg/dl (0.2-1.0) 09/01/23 17:44 AST 21 U/L (13-39) 09/01/23 17:44 ALT 17 U/L (7-52) 09/01/23 17:44 Alkaline Phosphatase 63 U/L (34-104) 09/01/23 17:44 Troponin I High Sens 4.7 pg/ml (0-20) 09/01/23 16:20 Total Protein 6.9 gm/dl (6.0-8.3) 09/01/23 17:44 Albumin 3.7 gm/dl (3.4-5.0) 09/01/23 17:44 Globulin 3.2 gm/dl (2.5-4.0) 09/01/23 17:44 Albumin/Globulin Ratio 1.2 (0.9-2) 09/01/23 17:44 TSH 2.076 uIu/ml (0.300-4.500) 09/01/23 16:20 Impressions Chest X-Ray 09/01/23 15:17 XR chest 1V portable HISTORY: 82 years-old Male stroke alert acute stroke like symptoms COMPARISON: Chest radiograph 03/25/2019 TECHNIQUE: PA view of the chest FINDINGS: Cardiomediastinal and hilar silhouettes are within normal limits. No pneumothorax, pleural effusion or airspace consolidation. The bones appear intact. IMPRESSION: No acute process. ACT 112: Negative or not required by law. The above report was generated using voice recognition software. It may contain grammatical, syntax or spelling errors. Electronically signed by: Miguelito Patterson M.D. 09/01/2023 3:[address] 09/01/23 15:17 CT head/brain wo con CLINICAL HISTORY: 82 years-old Male with Neuro deficit, acute, stroke suspected. Acute strokelike symptoms TECHNIQUE: Multiple axial CT images of the head were obtained without contrast. A dose lowering technique was utilized adhering to the principles of ALARA. CT DOSE: 625.8 mGy.cm COMPARISON: 10/29/2020 FINDINGS: No acute intracranial hemorrhage, midline shift, intracranial mass, hydrocephalus, territorial ischemia or abnormal extra-axial collection. Involutional changes with chronic microvascular ischemic disease. The calvarium is intact. Bilateral lens repair. Polypoid mucosal thickening of the right maxillary sinus. IMPRESSION: No acute intracranial abnormality. ACT 112: Negative or not required by law. The above report was generated using voice recognition software. It may contain grammatical, syntax or spelling errors. Electronically signed by: Miguelito Patterson M.D. 09/01/2023 5:13 PM Head CTA 09/01/23 18:26 CT angio head w con, CT angio neck with con CLINICAL HISTORY: 82 years-old Male with TIA. Acute stroke like symptoms COMPARISON STUDY: Head CT of same day TECHNIQUE: Following the IV administration of 115 cc of Optiray, CT angiogram of the head and neck was performed from the aortic arch to the skull apex. Images are reviewed in the axial, sagittal, and coronal planes. 3-D MIPS images are created and assessed. IV contrast was administered without complication. All measurements were obtained according to NASCET criteria. A dose lowering technique was utilized adhering to the principles of ALARA. CT DOSE: 469.25 mGy.cm FINDINGS: CT ANGIOGRAM OF THE HEAD AND NECK: For vessel morphology of the thoracic aortic arch. The common and internal carotid arteries appear patent. On atherosclerosis of the carotid bulbs without significant stenosis. The bilateral anterior and middle cerebral arteries are also patent. Dominant left vertebral artery. The right vertebral artery terminates into the right plica. origin of the left posterior cerebral artery with a 4 mm focus of high-grade narrowing involving the P1 segment on image 98 series 3. There is a 1 mm focus of high grade stenosis involving the right posterior cerebral artery on image 106 series 3. There is no aneurysm, high-grade stenosis, or proximal branch occlusion identified. Dural sinuses appear patent. Lung apices appear clear. Unremarkable soft tissues. Moderate polypoid mucosal thickening of the maxillary sinuses, right greater left. Degenerative changes of the cervical spine. IMPRESSION: 1. Areas of high-grade stenosis are present within the bilateral posterior cerebral arteries. 2. Otherwise unremarkable CTA of the head and neck. ACT 112: Negative or not required by law. The above report was generated using voice recognition software. It may contain grammatical, syntax or spelling errors. Electronically signed by: Miguelito Patterson M.D. 09/01/2023 7:21 PM Neck CTA 09/01/23 18:26 CT angio head w con, CT angio neck with con CLINICAL HISTORY: 82 years-old Male with TIA. Acute stroke like symptoms COMPARISON STUDY: Head CT of same day TECHNIQUE: Following the IV administration of 115 cc of Optiray, CT angiogram of the head and neck was performed from the aortic arch to the skull apex. Images are reviewed in the axial, sagittal, and coronal planes. 3-D MIPS images are created and assessed. IV contrast was administered without complication. All measurements were obtained according to NASCET criteria. A dose lowering technique was utilized adhering to the principles of ALARA. CT DOSE: 469.25 mGy.cm FINDINGS: CT ANGIOGRAM OF THE HEAD AND NECK: For vessel morphology of the thoracic aortic arch. The common and internal carotid arteries appear patent. On atherosclerosis of the carotid bulbs without significant stenosis. The bilateral anterior and middle cerebral arteries are also patent. Dominant left vertebral artery. The right vertebral artery terminates into the right plica. origin of the left posterior cerebral artery with a 4 mm focus of high-grade narrowing involving the P1 segment on image 98 series 3. There is a 1 mm focus of high grade stenosis involving the right posterior cerebral artery on image 106 series 3. There is no aneurysm, high-grade stenosis, or proximal branch occlusion identified. Dural sinuses appear patent. Lung apices appear clear. Unremarkable soft tissues. Moderate polypoid mucosal thickening of the maxillary sinuses, right greater left. Degenerative changes of the cervical spine. IMPRESSION: 1. Areas of high-grade stenosis are present within the bilateral posterior cerebral arteries. 2. Otherwise unremarkable CTA of the head and neck. ACT 112: Negative or not required by law. The above report was generated using voice recognition software. It may contain grammatical, syntax or spelling errors. Electronically signed by: Miguelito Patterson M.D. 09/01/2023 7:21 PM ECG Additional Comments: EEG. Sinus bradycardia with 1st degree AV block with rate of 55. Code Status & VTE Plan VTE Prophylaxis Plan VTE Prophylaxis will be ordered: Yes
[2023-09-02] MEDS ORDERED: POLYETHYLENE (MIRALAX) 17 GM PACK PO PRN (00:17)
[2023-09-02] MEDS ORDERED: DEXTROSE 50% 50 ML SYRINGE IV PRN (00:17)
[2023-09-02] MEDS ORDERED: ACETAMINOPHEN 325 MG TAB PO PRN (00:17)
[2023-09-02] MEDS ORDERED: GLUCOSE 10 TAB/TUBE PO PRN (00:17)
[2023-09-02] MEDS ORDERED: CARBOHYDRATES FOR HYPOGLYCEMIA PO PRN (00:17)
[2023-09-02] MEDS ORDERED: GLUCAGON FOR INJ 1 MG VIAL SQ PRN (00:17)
[2023-09-02] MEDS ORDERED: NON-FORMULARY MEDICATION (Potassium Gluconate 550 mg (90 mg) Tablet) PO SCH (00:17)
[2023-09-02] MEDS ORDERED: GLUCOSE 40% GEL 15 GM TUBE PO PRN (00:17)
[2023-09-02] MEDS ORDERED: NITROGLYCERIN SL 0.4 MG/TAB TAB SL PRN (00:17)
[2023-09-02] MEDS ORDERED: PHARMACIST DISCHARGE MED REC CONSULT PRN (00:17)
[2023-09-02] MEDS ORDERED: SODIUM CHLORIDE 0.9% 1,000 ML IV SCH (00:17)
[2023-09-02 04:13] LABS: Basophils # (auto) 0.04 K/uL (0.00-0.20); Basophils % (auto) 0.5 %; Eosinophils % (auto) 5.3 %; Hematocrit (blood only) 34.5 % (42.0-52.0); Hemoglobin 11.7 g/dl (14.0-18.0); Immature Granulocytes # (auto) 0.02 K/uL (0.01-0.20); Immature Granulocytes % (auto) 0.3 %; Lymphocytes # (auto) 2.19 K/uL (1.20-3.40); Lymphocytes % (auto) 28.9 %; Mean Corpuscular Hemoglobin 28.8 pg (25.0-34.0); Mean Corpuscular Hgb Conc 33.9 g/dL (32.0-36.0); Mean Platelet Volume 9.4 fL (9.4-12.4); Monocytes # (auto) 0.69 K/uL (0.11-0.59); Monocytes % (auto) 9.1 %; Neutrophils # (auto) 4.24 K/uL (1.40-6.50); Neutrophils % (auto) 55.9 %; Platelet Count 228 K/uL (130-400); RDW Coefficient of Variation 13.2 % (11.5-14.5); RDW Standard Deviation 41.1 fL (36.4-46.3); Red Blood Count 4.06 M/uL (4.70-6.10); White Blood Count 7.58 K/ul (4.8-10.8)
[2023-09-02 04:22] LABS: Calcium 8.5 mg/dl (8.6-10.3); Chol HDL Ratio 2.7 (0-5); Creatinine Clr Calc Pharmacy 79.8 ml/min; Est GFR (African American) 97.9 ml/min; Est GFR (Non-African American) 84.5 ml/min; Potassium 3.9 mmol/L (3.5-5.1)
[2023-09-02] MEDS: PANTOprazole 40 MG TAB PO SCH (06:58)
[2023-09-02 07:20] LABS: Estimated Average Glucose 194 mg/dl; Hemoglobin A1C 8.4 % (4.5-5.6)
[2023-09-02] MEDS: ATORVASTATIN 40 MG TAB PO SCH (08:35)
[2023-09-02] MEDS: CLOPIDOGREL BISULFATE 75 MG TAB PO SCH (08:35)
[2023-09-02] MEDS: FELODIPINE 5 MG TABCR PO SCH (08:35)
[2023-09-02] MEDS: CHOLECALCIFEROL 1,000 UNITS 25 MCG TAB PO SCH (08:36)
[2023-09-02] MEDS: CITALOPRAM 20 MG TAB PO SCH (08:36)
[2023-09-02] MEDS: MULTIVITAMIN TAB PO SCH (08:36)
[2023-09-02] MEDS: lisinopril 40 MG TAB PO SCH (08:36)
[2023-09-02] MEDS ORDERED: hydroCHLOROthiazide 25 MG TAB PO SCH (09:00)
--- NOTE | 2023-09-02 09:12 | Electrocardiogram Report ---
Test Reason : Blood Pressure : / mmHG Vent. Rate : 055 BPM Atrial Rate : 055 BPM P-R Int : 252 ms QRS Dur : 080 ms QT Int : 434 ms P-R-T Axes : -24 081 -01 degrees QTc Int : 415 ms Sinus bradycardia with 1st degree A-V block Anteroseptal infarct , age undetermined Nonspecific T wave abnormality Inferior leads Abnormal ECG When compared with ECG of 27-MAR-2019 08:11, Criteria for Anteroseptal infarct is now Present T wave inversion now evident in Inferior leads Confirmed by Scott Rosario ([id number]) on 09/02/2023 9:12:04 AM Referred By: REFERRED SELF Confirmed By:Scott Rosario
[2023-09-02] MEDS: INSULIN ASPART PER UNIT CHARGE SC SCH ×4 (09:20→20:30)
--- NOTE | 2023-09-02 10:29 | Magnetic Resonance Report ---
MRI OF THE BRAIN WITHOUT IV CONTRAST CLINICAL HISTORY: Visual changes. COMPARISON STUDY: CT of the brain dated 09/01/2023. TECHNIQUE: MRI of the brain was performed utilizing various T1 and T2-weighted sequences in the axial , sagittal, and coronal planes. IV contrast was not administered for this examination. FINDINGS: Brain parenchyma: There is age-related involutional change noting moderate subcortical and periventri cular microangiopathic disease. There is no hemorrhage or mass effect. There is no restricted diffusi on to suggest acute ischemia. Browne-white matter differentiation is preserved. No extra-axial fluid co llection is seen. The cerebellar tonsils are normal in configuration. Ventricles, sulci, and cisterns: Prominent secondary to involutional change. Pituitary and sella: Unremarkable. Intracranial vasculature: Normal flow voids are maintained at the skull base. Orbits: The bony orbits are grossly intact. Orbital contents are normal in appearance noting bilatera l ocular lens implants. Sinuses and mastoids: There is mild mucosal thickening within the maxillary antra. A 2.4 cm retention cyst is noted on the right. Mild to moderate mucosal thickening is also seen in the ethmoid sinuses. The mastoid air cells are clear. Calvarium: Unremarkable. Cervical cord: Partially visualized cervical spinal cord is normal in morphology and signal intensity . IMPRESSION: No acute intracranial abnormality. ACT 112: Negative or not required by law. Electronically signed by: Yobani Harvey M.D. 09/02/2023 10:27 AM
--- NOTE | 2023-09-02 12:52 | Neurology Consultation ---
Date of Consultation September 02, 2023 Assessment & Plan (1) Syncope: No driving per [place] State law due to syncopal episode- discussed directly with Dr. Read Patient made aware of state law as well as precautions/risk/benefits and is agreeable to not drive Recommend continue to monitor telemetry closely Echocardiogram pending Recommend cardiology consult for possible implanted jail school lunch monitor- Loop recorder or repeat Ziopatch Recommend improved sleep hygiene Recommend address need for polysomnography vs. wearing positive airway pressure mask at times of sleep Obtain EEG Provide seizure precautions Utilize benzodiazepines emergently for any breakthrough clinical seizure like activity Follow up outpatient with adult Neurology (2) Cerebrovascular disease: Recommend platelet reactivity testing if not already done to confirm response to ongoing clopidogrel treatment Recommend DAPT = add daily 81mg EC aspirin and continue clopidogrel if he is adequately responding to this medication Recommend continue atorvastatin and increase dose to goal of 80mg PO daily Telehealth Consultation Telehealth Information Telehealth Information: I performed this visit using a real-time telehealth connection between my location and the patients location ([facility]). After connecting through interactive tele-video, patient was identified by name and date of and/or wristband check.Patient (or authorized healthcare housing management representative) was informed that this was a telemedicine visit and it was being conducted confidentially over secure lines. My office door was closed and no one else was present in the room with me.Patient (or authorized healthcare housing management representative) provided consent to proceed with the visit, expressed an understanding of privacy and security of the telemedicine visit, and gave permission to have a hospital housing management representative in the room in order to assist with the visit and to conduct portions of the visit, as needed. I informed the patient (or authorized healthcare housing management representative) that I reviewed their record and presented the opportunity for them to ask any questions regarding the visit today. The patient agreed to participate. History of Present Illness Reason for Consultation: Syncope Requesting Physician: Dr. Read Attending Physician: Bhargav Read MD History of Present Illness 82yo male presented with self report of an episode of short lasting loss of consciousness followed by approx six seconds of waving pattern of colors and blurred vision which then resolved. He reports that on 08/31/23 at 11am he was sitting at his desk at home in front of laptop and suddenly lost consciousness striking his head/periorbital region on corner of lap top followed by the vision changes. He denies visual auditory olfactory gustatory or gastrointestinal sensation prior to this event. He reports no SOB or palpitations at time of the event. He denies something like this ever happening before. He notes after this event his chronic feelings of dizziness/lightheadedness have slightly worsened "they have ticked up a notch". Currently denies chest pain/palpitations or shortness of breath. Denies recent fevers chills nausea vomiting changes in bowels or bladder. Denies recent medication changes, recent illness or sick contacts, no reported recent travel. He reports consistent disrupted sleep. Describes sleeping 3-4 hours at night then he will walk his dog and try to sleep more after He has undergone emergent stroke imaging including CT brain without contrast personally reviewed revealing no overt evidence of hemorrhage. CT angiographic studies of head and neck reveal no overt evidence of large vessel occlusion. 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 He has undergone an MRI brain without contrast fortunately revealing no evidence of restricted diffusion He has a hx of DM, PAMELA, HTN CAD, GERD and reported hx of bradycardia. Reports he has seen cardiology and recently underwent monitoring with a ZioPatch. I have explained my recommendation for another Ziopatch or possible implanted loop recorder. I have explained my concern as well as [place] State law depicting no driving after an event with loss of consciousness. At this time have low suspicion for seizure but recommend EEG to assess for epileptiform discharges and/or epileptogenic focus. Allergies Allergy/AdvReac Type Severity Reaction Status Date / Time No Known Drug Allergies Allergy Unknown . Verified 03/25/19 17:17 Neoprene Allergy Unknown Itchiness Uncoded 03/25/19 17:17 Home Medications Medication Instructions Recorded Confirmed Type atorvastatin 40 mg tablet 40 mg PO QAM 03/25/19 09/01/23 History cholecalciferol (vitamin D3) 50 2,000 unit PO QAM 03/25/19 09/01/23 History mcg (2,000 unit) capsule (Vitamin D3) citalopram 20 mg tablet 10 mg PO QAM 03/25/19 09/01/23 History felodipine 5 mg tablet,extended 10 mg PO QAM 03/25/19 09/01/23 History release 24 hr insulin lispro 100 unit/mL See Rx Instructions .Route .COMPLEX 03/25/19 09/01/23 History subcutaneous pen (Humalog KwikPen (U-100) Insulin) lisinopril 40 mg tablet 40 mg PO QAM 03/25/19 09/01/23 History multivitamin 1 tab PO QAM 03/25/19 09/01/23 History omega-3s 300 gq-fmt-qut-other 2 cap PO QAM 03/25/19 09/01/23 History [id number] oil 1,000 mg capsule (Dalzell-3 Fish Oil) omeprazole 20 mg capsule,delayed 20 mg PO DAILYBB 03/25/19 09/01/23 History release potassium gluconate 550 mg (90 mg) 550 mg PO UD 03/25/19 09/01/23 History tablet clopidogrel 75 mg tablet 75 mg PO DAILY 09/01/23 09/01/23 History hydrochlorothiazide 25 mg tablet 25 mg PO DAILY 09/01/23 09/01/23 History insulin aspart U-100 100 unit/mL See Rx Instructions .Route .COMPLEX 09/01/23 09/01/23 History (3 mL) subcutaneous pen (Novolog FlexPen U-100 Insulin aspart) insulin glargine 100 unit/mL (3 20 unit subcut QPM 09/01/23 09/01/23 History mL) subcutaneous pen (Lantus Solostar U-100 Insulin) Patient History Medical History Hypertension Diabetes mellitus, insulin dependent (IDDM), uncontrolled Coronary artery disease Dizziness Frequent PVCs Abnormal EKG No known health problems Family History Other No significant family history Social History Smoking Status: Never smoker Hx Alcohol Use: No Hx Substance Use: No Preferred Language: Azeri Communication Ability: Effective Geophysical Prospector Required: No Beliefs That Will Affect Care: None marital status: Current Living Situation: Spouse Other Information That Helps Us Care for You: No Feels Safe at Home: Yes Safety Concerns: Feels Safe At This Time Assistive Devices: Glasses Physical Exam Neurological Examination: Mental Status: Awake and alert. Oriented to person, place, and time. Fluency naming repetition and comprehension appear grossly intact. Affect remains appropriate. CN testing: I: Denies changes in ability to smell II:Reports no changes in visual acuity III/IV/: No evidence of gaze preference, hippus, nystagmus or roving eye movements V: Facial sensation reportedly grossly intact to light touch bilaterally VII: Facial movements appear without evidence of asymmetry VIII: Hearing appears grossly intact to loud voice bilaterally IX/X: Palate appears to elevate symmetrically XI: Shoulder shrug appears symmetric/ grossly intact bilaterally XII: Tongue protrudes midline without evidence of biting Motor exam: Strength appears grossly intact/symmetric in all extremities Sensory: Sensation is reportedly grossly intact throughout Coordination: Finger to nose and heel to carranza were intact. No apparent evidence of dysmetria or dysdiadochokinesia Reflexes: Deferred Gait: Deferred Results & Data Vital Signs (Past 12 Hours) Vital Signs Temp Pulse Pulse Pulse Resp BP Pulse Ox 09/02/23 08:41 54 L 56 L 20 172/76 H 99 09/02/23 07:23 59 L 09/02/23 07:00 56 L 18 153/72 H 97 09/02/23 02:37 36.6 C 54 L 19 154/78 H 97 09/02/23 02:36 58 L O2 Del Method 09/02/23 08:41 Room Air 09/02/23 07:23 09/02/23 07:00 Room Air 09/02/23 02:37 Room Air 09/02/23 02:36 Laboratory Results Abnormal lab results 09/01/23 09/01/23 09/02/23 Range/Units 16:20 17:44 03:42 RBC 4.10 L 4.06 L (4.70-6.10) M/uL Hgb 12.1 L 11.7 L (14.0-18.0) g/dl Hct 34.5 L 34.5 L (42.0-52.0) % [place] # (Auto) 0.69 H (0.11-0.59) K/uL BUN/Creatinine Ratio 27.4 H 26.0 H (10-20) Glucose 153 H 221 H (70-99(Fasting)) mg/dl POC Glucose (70-99) mg/dl Hemoglobin A1c 8.4 H (4.5-5.6) % Calcium 8.5 L (8.6-10.3) mg/dl 09/02/23 09/02/23 Range/Units 08:39 12:04 RBC (4.70-6.10) M/uL Hgb (14.0-18.0) g/dl Hct (42.0-52.0) % [place] # (Auto) (0.11-0.59) K/uL BUN/Creatinine Ratio (10-20) Glucose (70-99(Fasting)) mg/dl POC Glucose 257 H 316 H* (70-99) mg/dl Hemoglobin A1c (4.5-5.6) % Calcium (8.6-10.3) mg/dl Diagnostic Findings Chest X-Ray 09/01/23 15:17 XR chest 1V portable HISTORY: 82 years-old Male stroke alert acute stroke like symptoms COMPARISON: Chest radiograph 03/25/2019 TECHNIQUE: PA view of the chest FINDINGS: Cardiomediastinal and hilar silhouettes are within normal limits. No pneumothorax, pleural effusion or airspace consolidation. The bones appear intact. IMPRESSION: No acute process. ACT 112: Negative or not required by law. The above report was generated using voice recognition software. It may contain grammatical, syntax or spelling errors. Electronically signed by: Miguelito Patterson M.D. 09/01/2023 3:[address] 09/01/23 15:17 CT head/brain wo con CLINICAL HISTORY: 82 years-old Male with Neuro deficit, acute, stroke suspected. Acute strokelike symptoms TECHNIQUE: Multiple axial CT images of the head were obtained without contrast. A dose lowering technique was utilized adhering to the principles of ALARA. CT DOSE: 625.8 mGy.cm COMPARISON: 10/29/2020 FINDINGS: No acute intracranial hemorrhage, midline shift, intracranial mass, hydrocephalus, territorial ischemia or abnormal extra-axial collection. Involutional changes with chronic microvascular ischemic disease. The calvarium is intact. Bilateral lens repair. Polypoid mucosal thickening of the right maxillary sinus. IMPRESSION: No acute intracranial abnormality. ACT 112: Negative or not required by law. The above report was generated using voice recognition software. It may contain grammatical, syntax or spelling errors. Electronically signed by: Miguelito Patterson M.D. 09/01/2023 5:13 PM Head CTA 09/01/23 18:26 CT angio head w con, CT angio neck with con CLINICAL HISTORY: 82 years-old Male with TIA. Acute stroke like symptoms COMPARISON STUDY: Head CT of same day TECHNIQUE: Following the IV administration of 115 cc of Optiray, CT angiogram of the head and neck was performed from the aortic arch to the skull apex. Images are reviewed in the axial, sagittal, and coronal planes. 3-D MIPS images are created and assessed. IV contrast was administered without complication. All measurements were obtained according to NASCET criteria. A dose lowering technique was utilized adhering to the principles of ALARA. CT DOSE: 469.25 mGy.cm FINDINGS: CT ANGIOGRAM OF THE HEAD AND NECK: For vessel morphology of the thoracic aortic arch. The common and internal carotid arteries appear patent. On atherosclerosis of the carotid bulbs without significant stenosis. The bilateral anterior and middle cerebral arteries are also patent. Dominant left vertebral artery. The right vertebral artery terminates into the right plica. origin of the left posterior cerebral artery with a 4 mm focus of high-grade narrowing involving the P1 segment on image 98 series 3. There is a 1 mm focus of high grade stenosis involving the right posterior cerebral artery on image 106 series 3. There is no aneurysm, high-grade stenosis, or proximal branch occlusion identified. Dural sinuses appear patent. Lung apices appear clear. Unremarkable soft tissues. Moderate polypoid mucosal thickening of the maxillary sinuses, right greater left. Degenerative changes of the cervical spine. IMPRESSION: 1. Areas of high-grade stenosis are present within the bilateral posterior cerebral arteries. 2. Otherwise unremarkable CTA of the head and neck. ACT 112: Negative or not required by law. The above report was generated using voice recognition software. It may contain grammatical, syntax or spelling errors. Electronically signed by: Miguelito Patterson M.D. 09/01/2023 7:21 PM Neck CTA 09/01/23 18:26 CT angio head w con, CT angio neck with con CLINICAL HISTORY: 82 years-old Male with TIA. Acute stroke like symptoms COMPARISON STUDY: Head CT of same day TECHNIQUE: Following the IV administration of 115 cc of Optiray, CT angiogram of the head and neck was performed from the aortic arch to the skull apex. Images are reviewed in the axial, sagittal, and coronal planes. 3-D MIPS images are created and assessed. IV contrast was administered without complication. All measurements were obtained according to NASCET criteria. A dose lowering technique was utilized adhering to the principles of ALARA. CT DOSE: 469.25 mGy.cm FINDINGS: CT ANGIOGRAM OF THE HEAD AND NECK: For vessel morphology of the thoracic aortic arch. The common and internal carotid arteries appear patent. On atherosclerosis of the carotid bulbs without significant stenosis. The bilateral anterior and middle cerebral arteries are also patent. Dominant left vertebral artery. The right vertebral artery terminates into the right plica. origin of the left posterior cerebral artery with a 4 mm focus of high-grade narrowing involving the P1 segment on image 98 series 3. There is a 1 mm focus of high grade stenosis involving the right posterior cerebral artery on image 106 series 3. There is no aneurysm, high-grade stenosis, or proximal branch occlusion identified. Dural sinuses appe ar patent. Lung apices appear clear. Unremarkable soft tissues. Moderate polypoid mucosal thickening of the maxillary sinuses, right greater left. Degenerative changes of the cervical spine. IMPRESSION: 1. Areas of high-grade stenosis are present within the bilateral posterior cerebral arteries. 2. Otherwise unremarkable CTA of the head and neck. ACT 112: Negative or not required by law. The above report was generated using voice recognition software. It may contain grammatical, syntax or spelling errors. Electronically signed by: Miguelito Patterson M.D. 09/01/2023 7:21 PM Brain MRI 09/02/23 08:03 MRI OF THE BRAIN WITHOUT IV CONTRAST CLINICAL HISTORY: Visual changes. COMPARISON STUDY: CT of the brain dated 09/01/2023. TECHNIQUE: MRI of the brain was performed utilizing various T1 and T2-weighted sequences in the axial, sagittal, and coronal planes. IV contrast was not administered for this examination. FINDINGS: Brain parenchyma: There is age-related involutional change noting moderate subcortical and periventricular microangiopathic disease. There is no hemorrhage or mass effect. There is no restricted diffusion to suggest acute ischemia. Browne-white matter differentiation is preserved. No extra-axial fluid collection is seen. The cerebellar tonsils are normal in configuration. Ventricles, sulci, and cisterns: Prominent secondary to involutional change. Pituitary and sella: Unremarkable. Intracranial vasculature: Normal flow voids are maintained at the skull base. Orbits: The bony orbits are grossly intact. Orbital contents are normal in appearance noting bilateral ocular lens implants. Sinuses and mastoids: There is mild mucosal thickening within the maxillary antra. A 2.4 cm retention cyst is noted on the right. Mild to moderate mucosal thickening is also seen in the ethmoid sinuses. The mastoid air cells are clear. Calvarium: Unremarkable. Cervical cord: Partially visualized cervical spinal cord is normal in morphology and signal intensity. IMPRESSION: No acute intracranial abnormality. ACT 112: Negative or not required by law. Electronically signed by: Yobani Harvey M.D. 09/02/2023 10:27 AM Medications Administered Home Medications Medication Instructions Recorded Confirmed Last Taken atorvastatin 40 mg tablet 40 mg PO QAM 03/25/19 09/01/23 03/25/19 cholecalciferol (vitamin D3) 50 2,000 unit PO QAM 03/25/19 09/01/23 03/25/19 mcg (2,000 unit) capsule (Vitamin D3) citalopram 20 mg tablet 10 mg PO QAM 03/25/19 09/01/23 03/25/19 10 MG felodipine 5 mg tablet,extended 10 mg PO QAM 03/25/19 09/01/23 03/25/19 release 24 hr insulin lispro 100 unit/mL See Rx Instructions .Route .COMPLEX 03/25/19 09/01/23 03/25/19 12:00 subcutaneous pen (Humalog KwikPen 22 UNITS (U-100) Insulin) lisinopril 40 mg tablet 40 mg PO QAM 03/25/19 09/01/23 03/25/19 multivitamin 1 tab PO QAM 03/25/19 09/01/23 03/25/19 omega-3s 300 gy-rqq-zlg-other 2 cap PO QAM 03/25/19 09/01/23 03/25/19 [id number] oil 1,000 mg capsule (Dalzell-3 Fish Oil) omeprazole 20 mg capsule,delayed 20 mg PO DAILYBB 03/25/19 09/01/23 03/25/19 release 10 MG potassium gluconate 550 mg (90 mg) 550 mg PO UD 03/25/19 09/01/23 03/25/19 tablet clopidogrel 75 mg tablet 75 mg PO DAILY 09/01/23 09/01/23 Unknown hydrochlorothiazide 25 mg tablet 25 mg PO DAILY 09/01/23 09/01/23 Unknown insulin aspart U-100 100 unit/mL See Rx Instructions .Route .COMPLEX 09/01/23 09/01/23 Unknown (3 mL) subcutaneous pen (Novolog FlexPen U-100 Insulin aspart) insulin glargine 100 unit/mL (3 20 unit subcut QPM 09/01/23 09/01/23 Unknown mL) subcutaneous pen (Lantus Solostar U-100 Insulin) Active Medications Generic Name Dose Route Start Last Admin Trade Name Freq PRN Reason Stop Dose Admin Atorvastatin Calcium 40 mg 09/02/23 09:00 09/02/23 08:35 Atorvastatin 40 Mg Tab PO 10/02/23 08:59 40 mg QAM JOE Administration Citalopram Hydrobromide 10 mg 09/02/23 09:00 09/02/23 08:36 Citalopram 20 Mg Tab PO 10/02/23 08:59 Not Given QAM JOE Clopidogrel Bisulfate 75 mg 09/02/23 09:00 09/02/23 08:35 Clopidogrel Bisulfate 75 Mg Tab PO 10/02/23 08:59 75 mg DAILY JOE Administration Felodipine 10 mg 09/02/23 09:00 09/02/23 08:35 Felodipine 5 Mg Tabcr PO 10/02/23 08:59 10 mg QAM [facility] Administration Insulin Aspart 0 units 09/02/23 07:30 09/02/23 09:20 Insulin Aspart Per Unit Charge SC 10/02/23 07:29 Not Given ACHS JOE Lisinopril 40 mg 09/02/23 09:00 09/02/23 08:36 Lisinopril 40 Mg Tab PO 10/02/23 08:59 40 mg QAM JOE Administration Multivitamins 1 tab 09/02/23 09:00 09/02/23 08:36 Multivitamin Tab PO 10/02/23 08:59 1 [facility] Pantoprazole Sodium 40 mg 09/02/23 06:30 09/02/23 06:58 Pantoprazole 40 Mg Tab PO 10/02/23 06:29 40 mg DAILYBB JOE Administration Vitamin D 2,000 units 09/02/23 09:00 09/02/23 08:36 Cholecalciferol 1,000 Units 25 Mcg Tab PO 10/02/23 08:59 2,000 units QAM JOE Administration
[2023-09-02] MEDS ORDERED: hydrALAZINE HCL 20 MG/ML VIAL IV PRN (18:21)
--- NOTE | 2023-09-02 19:32 | Hospitalist Progress Note ---
Date of Service September 02, 2023 Assessment & Plan (1) TIA (transient ischemic attack): Plan: 82-year-old male with past med history significant for type 1 diabetes, hyperlipidemia, obstructive sleep apnea, hypertension, CAD, GERD, obstructive uropathy, depression, presents with TIA-like symptoms. TIA-like symptoms Patient for few seconds had blurred vision was seeing colors for few seconds yesterday around 10am. Since then he is doing fine CT head is okay CTA head and neck shows high-grade stenosis within the bilateral posterior cerebral arteries Will do full stroke workup with MRI scan, echo Continues home statin and Plavix Close monitoring the telemetry floor Neurology consult in a.m. for further recommendations September 03, 2023 Brain MRI: No acute CVA Evaluated by neurologist Dr. Scott Barragan Recommend addition of aspirin 81 mg p.o. daily to his usual Plavix Increase Lipitor from 40 to 80 mg daily EEG study to rule out underlying seizure Loop recorder to rule out underlying arrhythmias Pulmonary function test to rule out obstructive sleep apnea Follow-up with neurology in 2 weeks No driving until cleared by neurologist Diabetes A1c 8.4 Maintain A1c at goal for stroke prevention History of CAD On statin, Plavix History of sinus bradycardia No AV kirill agents as per cardiology Hypertension Continue usual regimen Hyperlipidemia On statin Depression On citalopram GERD On omeprazole Obstructive sleep apnea DVT prophylaxis SCDs Disposition Discharge to home PCP in 1 week plan of care discussed with patient in detail and at length all questions answered he is understanding, agreeable, comfortable with the plan of care Admission and Anticipated Discharge Date Admission Date: September 01, 2023 Subjective Follow-up for possible TIA, etc. Seen resting in bed, sitting up, in good spirits manage States he feels better overall No recurrence of visual symptoms, no new neurologic symptoms No chest pain, palpitations, dizziness No arrhythmia on telemetry No other new symptoms States he is ready for discharge today Review of Systems Review of Systems: all noted and negative except for above Physical Exam Physical Exam: General- oriented x 3, not in distress, speaks in sentences with no effort or accessory muscle use Eyes- anicteric Neck- no JVD Lungs- clear breath sounds bilaterally, no rales/wheezes Heart- normal rate, regular rhythm; no murmurs Abdomen- normal bowel sounds, nondistended, soft, nontender Extremities- no pretibial edema, no calf tenderness Neuro- alert, oriented x 3; no gross focal neurologic deficits Skin- warm & dry Results & Data Results & Data Vital Signs (Past 12 Hours) Vital Signs Temp Pulse Pulse Resp BP Pulse Ox O2 Del Method 09/02/23 18:53 36.5 C 53 L 18 168/67 H 99 Room Air 09/02/23 18:03 55 L 18 164/78 H 98 Room Air 09/02/23 08:41 54 L 56 L 20 172/76 H 99 Room Air all noted and reviewed including below
[2023-09-02] MEDS: ASPIRIN 81 MG ECTAB PO SCH (19:51)
[2023-09-02] MEDS ORDERED: LANTUS PER UNIT CHARGE SQ SCH (21:00)
[2023-09-03] MEDS: PANTOprazole 40 MG TAB PO SCH (06:14)
[2023-09-03 07:19] LABS: Basophils # (auto) 0.03 K/uL (0.00-0.20); Basophils % (auto) 0.4 %; Eosinophils # (auto) 0.37 K/uL (0.00-0.50); Eosinophils % (auto) 4.6 %; Hematocrit (blood only) 36.7 % (42.0-52.0); Hemoglobin 12.5 g/dl (14.0-18.0); Immature Granulocytes # (auto) 0.02 K/uL (0.01-0.20); Immature Granulocytes % (auto) 0.3 %; Lymphocytes # (auto) 1.88 K/uL (1.20-3.40); Lymphocytes % (auto) 23.6 %; Mean Corpuscular Hemoglobin 29.1 pg (25.0-34.0); Mean Corpuscular Hgb Conc 34.1 g/dL (32.0-36.0); Mean Corpuscular Volume 85.5 fL (80.0-100.0); Mean Platelet Volume 9.6 fL (9.4-12.4); Monocytes # (auto) 0.77 K/uL (0.11-0.59); Monocytes % (auto) 9.7 %; Neutrophils % (auto) 61.4 %; Platelet Count 255 K/uL (130-400); RDW Coefficient of Variation 13.2 % (11.5-14.5); RDW Standard Deviation 40.7 fL (36.4-46.3); Red Blood Count 4.29 M/uL (4.70-6.10); White Blood Count 7.97 K/ul (4.8-10.8)
[2023-09-03 07:48] LABS: Calcium 8.6 mg/dl (8.6-10.3); Creatinine Clr Calc Pharmacy 61.4 ml/min; Est GFR (African American) 80.9 ml/min; Est GFR (Non-African American) 69.8 ml/min; Potassium 4.1 mmol/L (3.5-5.1)
[2023-09-03] MEDS: CITALOPRAM 20 MG TAB PO SCH (08:36)
[2023-09-03] MEDS: ASPIRIN 81 MG ECTAB PO SCH (08:36)
[2023-09-03] MEDS: FELODIPINE 5 MG TABCR PO SCH (08:37)
[2023-09-03] MEDS: lisinopril 40 MG TAB PO SCH (08:37)
[2023-09-03] MEDS: CLOPIDOGREL BISULFATE 75 MG TAB PO SCH (08:37)
[2023-09-03] MEDS: ATORVASTATIN 40 MG TAB PO SCH (08:38)
[2023-09-03] MEDS: MULTIVITAMIN TAB PO SCH (08:38)
[2023-09-03] MEDS: CHOLECALCIFEROL 1,000 UNITS 25 MCG TAB PO SCH (08:38)
[2023-09-03] MEDS: INSULIN ASPART PER UNIT CHARGE SC SCH ×2 (08:43→11:45)
[2023-09-03] MEDS ORDERED: STROKE PATIENT DISCHARGE STA (10:59)
--- NOTE | 2023-09-03 10:59 | Discharge Summary ---
Discharge Summary Date of Service September 03, 2023 Notes For Next Care Provider Medication Changes From Visit Aspirin 81 mg p.o. daily Increase Lipitor from 40 mg to 80 mg daily Admission HPI Per Admitting Provider 82-year-old male with past med history significant for type 1 diabetes, hyperlipidemia, obstructive sleep apnea, hypertension, CAD, GERD, obstructive uropathy, depression, presents with TIA-like symptoms. Patient states yesterday around 10 AM he was sitting in a chair when he suddenly for a brief second seem to passed out and hit his left brow on his laptop. Then after that for next few seconds he saw colors from his eyes on and off and blurred visions on and off, he says for 6 seconds and it got resolved. He called his PCP and was advised to come to the ER. Currently sitting in the bed comfortably. Denies any headache. No runny nose or sore throat or cough. No chest pain or shortness of breath. No nausea. No abdominal pain. Appetite is okay. No difficulty swallowing. No fevers. Normal bowel and bladder movements. Ambulating okay. Uses walking stick for ambulation. Lives with his . Past medical history. As mentioned above. Past surgical history. Angioplasty aortic percutaneous, colonoscopy, cystoscopy, inguinal hernia repair, vasectomy Social history. . No smoking. No alcohol use. No drug use. Family history. Brother has diabetes. Daughter has diabetes. Admission Exam Per Admitting Provider General- Not in distress Head- atraumatic Eyes- PERRL. ENT- oropharynx clear Neck- supple, no JVD. Lungs- clear to auscultation no wheezing or crackles. Heart- regular rhythm; no murmur, no gallop. Abdomen- normal bowel sounds, soft, nontender, no distension. Extremities- no pretibial edema, no erythema seen. Neuro- alert, oriented x 3; PERRL,EOMI no facial palsy; no dysarthria; motor 5/5 bilaterally; coordination of movements normal, no pronator drift, sensations intact. Skin- warm & dry Principal Dx & Hospital Course #1 = Principal Diagnosis (1) TIA (transient ischemic attack): 82-year-old male with past med history significant for type 1 diabetes, hyperlipidemia, obstructive sleep apnea, hypertension, CAD, GERD, obstructive uropathy, depression, presents with TIA-like symptoms. POSSIBLE TRANSIENT ISCHEMIC ATTACK Patient for few seconds had blurred vision was seeing colors for few seconds yesterday around 10am. Since then he is doing fine CT head no acute process CTA head and neck shows high-grade stenosis within the bilateral posterior cerebral arteries September 03, 2023 Brain MRI: No acute CVA Evaluated by neurologist Dr. Scott Barragan Recommend addition of aspirin 81 mg p.o. daily to his usual Plavix Increase Lipitor from 40 to 80 mg daily EEG study to rule out underlying seizure Loop recorder to rule out underlying arrhythmias Pulmonary function test to rule out obstructive sleep apnea Outpatient physical therapy to improve gait Follow-up with neurology in 2 weeks No driving until cleared by neurologist, will need to be reported to [facility], explained to patient, he is understanding and agreeable Diabetes A1c 8.4 Maintain A1c at goal for stroke prevention History of CAD On statin, Plavix History of sinus bradycardia No AV kirill agents as per cardiology Hypertension Continue usual regimen Hyperlipidemia Increase Lipitor to 80 mg daily Depression On citalopram GERD On omeprazole Obstructive sleep apnea DVT prophylaxis SCDs Disposition Discharge to home PCP in 1 week plan of care discussed with patient in detail and at length all questions answered he is understanding, agreeable, comfortable with the plan of care Discharge Exam General- oriented x 3, not in distress, speaks in sentences with no effort or accessory muscle use Eyes- anicteric Neck- no JVD Lungs- clear breath sounds bilaterally, no rales/wheezes Heart- normal rate, regular rhythm; no murmurs Abdomen- normal bowel sounds, nondistended, soft, nontender Extremities- no pretibial edema, no calf tenderness Neuro- alert, oriented x 3; no gross focal neurologic deficits Skin- warm & dry Updated Medication List Medication Instructions Recorded Confirmed Type cholecalciferol (vitamin D3) 50 2,000 unit PO QAM 03/25/19 09/01/23 History mcg (2,000 unit) capsule (Vitamin D3) citalopram 20 mg tablet 10 mg PO QAM 03/25/19 09/01/23 History felodipine 5 mg tablet,extended 10 mg PO QAM 03/25/19 09/01/23 History release 24 hr insulin lispro 100 unit/mL See Rx Instructions .Route .COMPLEX 03/25/19 09/01/23 History subcutaneous pen (Humalog KwikPen (U-100) Insulin) lisinopril 40 mg tablet 40 mg PO QAM 03/25/19 09/01/23 History multivitamin 1 tab PO QAM 03/25/19 09/01/23 History omega-3s 300 hl-sud-paz-other 2 cap PO QAM 03/25/19 09/01/23 History [id number] oil 1,000 mg capsule ([place]-3 Fish Oil) omeprazole 20 mg capsule,delayed 20 mg PO DAILYBB 03/25/19 09/01/23 History release potassium gluconate 550 mg (90 mg) 550 mg PO UD 03/25/19 09/01/23 History tablet clopidogrel 75 mg tablet 75 mg PO DAILY 09/01/23 09/01/23 History hydrochlorothiazide 25 mg tablet 25 mg PO DAILY 09/01/23 09/01/23 History insulin aspart U-100 100 unit/mL See Rx Instructions .Route .COMPLEX 09/01/23 09/01/23 History (3 mL) subcutaneous pen (Novolog FlexPen U-100 Insulin aspart) insulin glargine 100 unit/mL (3 20 unit subcut QPM 09/01/23 09/01/23 History mL) subcutaneous pen (Lantus Solostar U-100 Insulin) aspirin 81 mg tablet,delayed 81 mg PO QAM 30 days #30 tabs 09/03/23 Rx release atorvastatin 40 mg tablet 80 mg (2 x 40 mg) PO QAM 30 days 09/03/23 Rx #60 tabs Hospital Stay Data Consultations 09/01/23 20:05 ED Decision to Admit Stat 09/02/23 08:00 Consult Neurology Routine Diagnostic Imagining Performed Laboratory Results WBC 7.97 K/ul (4.8-10.8) 09/03/23 06:30 RBC 4.29 M/uL (4.70-6.10) L 09/03/23 06:30 Hgb 12.5 g/dl (14.0-18.0) L 09/03/23 06:30 Hct 36.7 % (42.0-52.0) L 09/03/23 06:30 MCV 85.5 fL (80.0-100.0) 09/03/23 06:30 MCH 29.1 pg (25.0-34.0) 09/03/23 06:30 MCHC 34.1 g/dL (32.0-36.0) 09/03/23 06:30 RDW Std Deviation 40.7 fL (36.4-46.3) 09/03/23 06:30 RDW Coeff of Toby 13.2 % (11.5-14.5) 09/03/23 06:30 Plt Count 255 K/uL (130-400) 09/03/23 06:30 MPV 9.6 fL (9.4-12.4) 09/03/23 06:30 Immature Gran % (Auto) 0.3 % 09/03/23 06:30 Neut % (Auto) 61.4 % 09/03/23 06:30 Lymph % (Auto) 23.6 % 09/03/23 06:30 Terrell % (Auto) 9.7 % 09/03/23 06:30 Eos % (Auto) 4.6 % 09/03/23 06:30 Baso % (Auto) 0.4 % 09/03/23 06:30 Neut # (Auto) 4.90 K/uL (1.40-6.50) 09/03/23 06:30 Lymph # (Auto) 1.88 K/uL (1.20-3.40) 09/03/23 06:30 Terrell # (Auto) 0.77 K/uL (0.11-0.59) H 09/03/23 06:30 Eos # (Auto) 0.37 K/uL (0.00-0.50) 09/03/23 06:30 Baso # (Auto) 0.03 K/uL (0.00-0.20) 09/03/23 06:30 Immature Gran # (Auto) 0.02 K/uL (0.01-0.20) 09/03/23 06:30 PT 11.1 Seconds (9.0-12.0) 09/01/23 16:20 INR 1.0 (0.9-1.1) 09/01/23 16:20 APTT 26 Seconds (21-31) 09/01/23 16:20 PTT Ratio 0.9 09/01/23 16:20 Sodium 139 mmol/L (136-145) 09/03/23 06:30 Potassium 4.1 mmol/L (3.5-5.1) 09/03/23 06:30 Chloride 105 mmol/L (98-107) 09/03/23 06:30 Carbon Dioxide 27 mmol/L (21-32) 09/03/23 06:30 Anion Gap 7 (3-11) 09/03/23 06:30 BUN 25 mg/dl (6-23) H 09/03/23 06:30 Creatinine 1.00 mg/dl (0.6-1.4) 09/03/23 06:30 Est Cr Clr Drug Dosing 61.4 ml/min 09/03/23 06:30 Est GFR ( Amer) 80.9 ml/min 09/03/23 06:30 Est GFR (Non-Af Amer) 69.8 ml/min 09/03/23 06:30 BUN/Creatinine Ratio 25.0 (10-20) H 09/03/23 06:30 Glucose 261 mg/dl (70-99(Fasting)) H 09/03/23 06:30 POC Glucose 257 mg/dl (70-99) H 09/03/23 11:30 Estimat Average Glucose 194 mg/dl 09/02/23 03:42 Hemoglobin A1c 8.4 % (4.5-5.6) H 09/02/23 03:42 Calcium 8.6 mg/dl (8.6-10.3) 09/03/23 06:30 Magnesium 1.9 mg/dl (1.7-2.4) 09/01/23 17:44 Total Bilirubin 0.3 mg/dl (0.2-1.0) 09/01/23 17:44 AST 21 U/L (13-39) 09/01/23 17:44 ALT 17 U/L (7-52) 09/01/23 17:44 Alkaline Phosphatase 63 U/L (34-104) 09/01/23 17:44 Troponin I High Sens 4.7 pg/ml (0-20) 09/01/23 16:20 Total Protein 6.9 gm/dl (6.0-8.3) 09/01/23 17:44 Albumin 3.7 gm/dl (3.4-5.0) 09/01/23 17:44 Globulin 3.2 gm/dl (2.5-4.0) 09/01/23 17:44 Albumin/Globulin Ratio 1.2 (0.9-2) 09/01/23 17:44 Triglycerides 85 mg/dl (0-150) 09/02/23 03:42 Cholesterol 117 mg/dl (0-200) 09/02/23 03:42 LDL Cholesterol, Calc 57 mg/dl 09/02/23 03:42 VLDL Cholesterol, Calc 17 mg/dl (0-30) 09/02/23 03:42 HDL Cholesterol 43 mg/dl 09/02/23 03:42 Cholesterol/HDL Ratio 2.7 (0-5) 09/02/23 03:42 TSH 2.076 uIu/ml (0.300-4.500) 09/01/23 16:20 Impressions Chest X-Ray 09/01/23 15:17 XR chest 1V portable HISTORY: 82 years-old Male stroke alert acute stroke like symptoms COMPARISON: Chest radiograph 03/25/2019 TECHNIQUE: PA view of the chest FINDINGS: Cardiomediastinal and hilar silhouettes are within normal limits. No pneumothorax, pleural effusion or airspace consolidation. The bones appear intact. IMPRESSION: No acute process. ACT 112: Negative or not required by law. The above report was generated using voice recognition software. It may contain grammatical, syntax or spelling errors. Electronically signed by: Miguelito Patterson M.D. 09/01/2023 3:[address] 09/01/23 15:17 CT head/brain wo con CLINICAL HISTORY: 82 years-old Male with Neuro deficit, acute, stroke suspected. Acute strokelike symptoms TECHNIQUE: Multiple axial CT images of the head were obtained without contrast. A dose lowering technique was utilized adhering to the principles of ALARA. CT DOSE: 625.8 mGy.cm COMPARISON: 10/29/2020 FINDINGS: No acute intracranial hemorrhage, midline shift, intracranial mass, hydrocephalus, territorial ischemia or abnormal extra-axial collection. Involutional changes with chronic microvascular ischemic disease. The calvarium is intact. Bilateral lens repair. Polypoid mucosal thickening of the right maxillary sinus. IMPRESSION: No acute intracranial abnormality. ACT 112: Negative or not required by law. The above report was generated using voice recognition software. It may contain grammatical, syntax or spelling errors. Electronically signed by: Miguelito Patterson M.D. 09/01/2023 5:13 PM Head CTA 09/01/23 18:26 CT angio head w con, CT angio neck with con CLINICAL HISTORY: 82 years-old Male with TIA. Acute stroke like symptoms COMPARISON STUDY: Head CT of same day TECHNIQUE: Following the IV administration of 115 cc of Optiray, CT angiogram of the head and neck was performed from the aortic arch to the skull apex. Images are reviewed in the axial, sagittal, and coronal planes. 3-D MIPS images are created and assessed. IV contrast was administered without complication. All measurements were obtained according to NASCET criteria. A dose lowering technique was utilized adhering to the principles of ALARA. CT DOSE: 469.25 mGy.cm FINDINGS: CT ANGIOGRAM OF THE HEAD AND NECK: For vessel morphology of the thoracic aortic arch. The common and internal carotid arteries appear patent. On atherosclerosis of the carotid bulbs without significant stenosis. The bilateral anterior and middle cerebral arteries are also patent. Dominant left vertebral artery. The right vertebral artery terminates into the right plica. origin of the left posterior cerebral artery with a 4 mm focus of high-grade narrowing involving the P1 segment on image 98 series 3. There is a 1 mm focus of high grade stenosis involving the right posterior cerebral artery on image 106 series 3. There is no aneurysm, high-grade stenosis, or proximal branch occlusion identified. Dural sinuses appear patent. Lung apices appear clear. Unremarkable soft tissues. Moderate polypoid mucosal thickening of the maxillary sinuses, right greater left. Degenerative changes of the cervical spine. IMPRESSION: 1. Areas of high-grade stenosis are present within the bilateral posterior cerebral arteries. 2. Otherwise unremarkable CTA of the head and neck. ACT 112: Negative or not required by law. The above report was generated using voice recognition software. It may contain grammatical, syntax or spelling errors. Electronically signed by: Miguelito Patterson M.D. 09/01/2023 7:21 PM Neck CTA 09/01/23 18:26 CT angio head w con, CT angio neck with con CLINICAL HISTORY: 82 years-old Male with TIA. Acute stroke like symptoms COMPARISON STUDY: Head CT of same day TECHNIQUE: Following the IV administration of 115 cc of Optiray, CT angiogram of the head and neck was performed from the aortic arch to the skull apex. Images are reviewed in the axial, sagittal, and coronal planes. 3-D MIPS images are created and assessed. IV contrast was administered without complication. All measurements were obtained according to NASCET criteria. A dose lowering technique was utilized adhering to the principles of ALARA. CT DOSE: 469.25 mGy.cm FINDINGS: CT ANGIOGRAM OF THE HEAD AND NECK: For vessel morphology of the thoracic aortic arch. The common and internal carotid arteries appear patent. On atherosclerosis of the carotid bulbs without significant stenosis. The bilateral anterior and middle cerebral arteries are also patent. Dominant left vertebral artery. The right vertebral artery terminates into the right plica. origin of the left posterior cerebral artery with a 4 mm focus of high-grade narrowing involving the P1 segment on image 98 series 3. There is a 1 mm focus of high grade stenosis involving the right posterior cerebral artery on image 106 series 3. There is no aneurysm, high-grade stenosis, or proximal branch occlusion identified. Dural sinuses appear patent. Lung apices appear clear. Unremarkable soft tissues. Moderate polypoid mucosal thickening of the maxillary sinuses, right greater left. Degenerative changes of the cervical spine. IMPRESSION: 1. Areas of high-grade stenosis are present within the bilateral posterior cerebral arteries. 2. Otherwise unremarkable CTA of the head and neck. ACT 112: Negative or not required by law. The above report was generated using voice recognition software. It may contain grammatical, syntax or spelling errors. Electronically signed by: Miguelito Patterson M.D. 09/01/2023 7:21 PM Brain MRI 09/02/23 08:03 MRI OF THE BRAIN WITHOUT IV CONTRAST CLINICAL HISTORY: Visual changes. COMPARISON STUDY: CT of the brain dated 09/01/2023. TECHNIQUE: MRI of the brain was performed utilizing various T1 and T2-weighted sequences in the axial, sagittal, and coronal planes. IV contrast was not administered for this examination. FINDINGS: Brain parenchyma: There is age-related involutional change noting moderate subcortical and periventricular microangiopathic disease. There is no hemorrhage or mass effect. There is no restricted diffusion to suggest acute ischemia. Browne-white matter differentiation is preserved. No extra-axial fluid collection is seen. The cerebellar tonsils are normal in configuration. Ventricles, sulci, and cisterns: Prominent secondary to involutional change. Pituitary and sella: Unremarkable. Intracranial vasculature: Normal flow voids are maintained at the skull base. Orbits: The bony orbits are grossly intact. Orbital contents are normal in appearance noting bilateral ocular lens implants. Sinuses and mastoids: There is mild mucosal thickening within the maxillary antra. A 2.4 cm retention cyst is noted on the right. Mild to moderate mucosal thickening is also seen in the ethmoid sinuses. The mastoid air cells are clear. Calvarium: Unremarkable. Cervical cord: Partially visualized cervical spinal cord is normal in morphology and signal intensity. IMPRESSION: No acute intracranial abnormality. ACT 112: Negative or not required by law. Electronically signed by: Yobani Harvey M.D. 09/02/2023 10:27 AM Pending Results Patient Have Any Pending Studies at Discharge: Yes Discharge Instructions Given to Patient (Per Discharging Provider) PLEASE REFER TO YOUR NEW MEDICATION LIST AND FOLLOW INSTRUCTIONS CAREFULLY. YOUR NEW MEDICATIONS INCLUDE: Aspirin-for prevention of TIA and stroke, always take with a full stomach to prevent gastritis or ulcer Increase Lipitor from 40 to 80 mg daily You need to have the following studies performed as an outpatient. Your primary care physician can facilitate scheduling the studies. EEG-to rule out underlying seizure Loop recorder-heart monitor to rule out abnormal heart rhythms Outpatient physical therapy Sleep study-to rule out sleep apnea PLEASE CALL YOUR PRIMARY CARE PHYSICIAN OR RETURN TO THE ER IF WITH WORSENING OF SYMPTOMS, INCLUDING Chest pain, shortness of breath, palpitations, dizziness, etc. FOLLOW UP WITH PRIMARY CARE PHYSICIAN IN 1 WEEK. FOLLOW-UP WITH NEUROLOGIST IN 2 WEEKS. [facility] WILL BE CALLING YOU SOON FOR THE APPOINTMENT. TAKE CARE. Who to Call and When: Medical Emergencies: Call 911 immediately if you experience any of the following warning signs and symptoms of Stroke: Sudden numbness or weakness of the face, arm or leg, especially on one side of the body Sudden confusion, trouble speaking or understanding Sudden trouble seeing in one or both eyes Sudden trouble walking, dizziness, loss of balance or coordination Sudden severe headache with no cause Do not delay calling 911 if you experience any warning signs or symptoms of a stroke. Delay in seeking medical attention may affect what treatments can be given to you. Risk Factors for Stroke: You can reduce your chances of stroke by working with your medical provider to adopt a healthy lifestyle. Some specific ways to lower your chance of stroke are: If you are a smoker, now is the time to stop smoking cigarettes If you are diabetic, improve the control of your blood sugars Avoid excessive amounts of alcohol Control high blood pressure Lose weight if you are overweight Be sure to lead an active lifestyle Eat a healthy diet low in salt, cholesterol and fat You should know about other risk factors for stroke that you are unable to control. These include: Age 55 years or older Male gender Certain racial groups: , or / Family History of Stroke, Mini stroke or Heart Attack Sickle Cell Disease Follow Up: It is important for you to keep your follow up appointments with your medical provider. . . Total Time Total Time Spent Total Time Spent (In Minutes): >30 minutes
--- NOTE | 2023-09-04 14:58 | Pharmacy Report ---
Pharmacist Stroke Counseling - Date of Service September 04, 2023 - Scope: Pharmacy has been consulted to provide medication discharge counseling for this patient admitted with transient ischemic attack as per the Pharmacist Discharge Counseling for Stroke Patients Protocol. - Medications on Discharge: Home Medications Medication Instructions Recorded Confirmed cholecalciferol (vitamin D3) 50 2,000 unit PO QAM 03/25/19 09/01/23 mcg (2,000 unit) capsule (Vitamin D3) citalopram 20 mg tablet 10 mg PO QAM 03/25/19 09/01/23 felodipine 5 mg tablet,extended 10 mg PO QAM 03/25/19 09/01/23 release 24 hr insulin lispro 100 unit/mL See Rx Instructions .Route .COMPLEX 03/25/19 09/01/23 subcutaneous pen (Humalog KwikPen (U-100) Insulin) lisinopril 40 mg tablet 40 mg PO QAM 03/25/19 09/01/23 multivitamin 1 tab PO QAM 03/25/19 09/01/23 omega-3s 300 rh-ntm-wvv-other 2 cap PO QAM 03/25/19 09/01/23 [id number] oil 1,000 mg capsule ([place]-3 Fish Oil) potassium gluconate 550 mg (90 mg) 550 mg PO UD 03/25/19 09/01/23 tablet clopidogrel 75 mg tablet 75 mg PO DAILY 09/01/23 09/01/23 hydrochlorothiazide 25 mg tablet 25 mg PO DAILY 09/01/23 09/01/23 insulin aspart U-100 100 unit/mL See Rx Instructions .Route .COMPLEX 09/01/23 09/01/23 (3 mL) subcutaneous pen (Novolog FlexPen U-100 Insulin aspart) insulin glargine 100 unit/mL (3 20 unit subcut QPM 09/01/23 09/01/23 mL) subcutaneous pen (Lantus Solostar U-100 Insulin) New Rx's Medication Instructions Recorded aspirin 81 mg tablet,delayed 81 mg PO QAM 30 days #30 tabs 09/03/23 release atorvastatin 40 mg tablet 80 mg (2 x 40 mg) PO QAM 30 days 09/03/23 #60 tabs pantoprazole 40 mg tablet,delayed 40 mg PO DAILY #30 tabs 09/04/23 release (Protonix) - Action: The above medications, specifically ones for stroke treatment/prophylaxis, have been reviewed in detail with the patient. This includes indication, common adverse reactions, drug interactions, and medication administration. Medication counseling has been employed using the teach-back method to ensure understanding. - Outcome: The patient demonstrated understanding of the medications. Additional comments: Spoke to Dr. Read today due to drug interaction noted between Plavix and Prilosec which were both patient's home meds. These were both continued on discharge yesterday. The doctor sent over the new Rx for Pantoprazole. Spoke over the phone with patient this afternoon- he was very pleasant and receptive to counseling. He said the doctor did call him this morning to tell him to stop the Omeprazole and start with the new Rx for Pantoprazole for stomach acid control. Reviewed new medications to prevent stroke including Aspirin, Plavix, & stopping prilosec for protonix. Discussed why they are being used and common side effects in great detail. Reviewed how to use the medications, what to do if doses are missed, common drug interactions, common side effects, what to watch out for while using the medications. Pt verbalized understanding and restated the bernardo points of each medication. Thank you for allowing pharmacy to be involved in the care of this patient. Please call [phone] with any additional questions
== END 2023-09-03 12:05 | disposition home or self-care (01) | DRG 69 ==
LOC: ED 14:57 → EDINP 22:10 → SUATTDRO 22:10 → 2S 09-02 18:38

== ENCOUNTER 2023-11-10 16:41 | Inpatient (IN) ==
--- OUTSIDE RECORDS SUMMARY | 2023-11-10 16:45 | External Medical Summary | Summary of Care ---
Author Name Unknown Organization [facility] Address [address] [facility] [place] [address] Phone [phone] Care Team Providers Care Superintendent Radio Communications Name Role Phone Amado Reeder MD Primary Care Provider [phone] Encounter Details Date Type Department Care Team (Late st Contact Info) Description 10/23/2023 Population Health External Data Unspecified Department Allergies No known active allergiesdocumented as of this encounter (statuses as of 10/24/2023) Medications Medication Sig Dispensed Refills Start Date [...] week Take by mouth. 0 Active Pen [place] 31G X 6 MMIndications:DM type 1, not at goal (HCC) Use 4 times a day with Novolog and Lantus insulin pens. 400 Each 3 02/17/2021 Active Easy Touch Safety Pen [place] 29G X 8MM (Insulin Pen Needle)Indications:Ty pe [...] ONCE DAILY 90 Tablet 1 06/26/2023 Active Clopidogrel Bisulfate 75 MG Oral Tablet (pLAVix)Indications:T IA (transient ischemic attack) TAKE ONE TABLET BY MOUTH ONCE DAILY 90 Tablet 1 07/13/2023 Active Dexcom G6 Transmitter Use as directed. 1 Each 6 08/10/2023 Active Aspirin 81 MG Oral Tablet Delayed Release Take 1 Tablet by mouth in the morning. 0 Active NovoLOG FlexPen 100 UNIT/ML Subcutaneous Solution Pen-injector (insulin aspart)Indications:Ty pe 1 diabetes mellitus with polyneuropathy (HCC) Inject up to 60 units a day following correction factor 1:25 over 140. 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 30 mL 3 09/14/2023 Active Atorvastatin Calcium 80 MG Oral Tablet (Lipitor) Take 1 Tablet by mouth in the morning. 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 COSTAR II: COBALT CHROMIUM STENT WITH ANTIPROLIFERATIVE FOR RESTENOSIS II TRIAL OMI # [id number] PI: Jc Fermin MD SC: Hellen Morfin [...] as of this encounter (statuses as of 10/24/2023) Immunizations Name Administration Dates Next Due COVID-19 [...] pur e alcohol) PHQ-2 Answer Date Recorded PHQ Adult Total Score 0 09/05/2023 Hunger Vital Sign Answer Date Recorded Within the past 12 months, y ou worried that your food would run out before you got the money to buy more. Never true 09/05/19 24 Within the past 12 months, t he food you bought just didn't last and you didn't have money to get more. Never true 09/05/2023 Sex and Gender Information Value Date Recorded Sex Assigned at Male 12/24/2018 1:19 PM EDT Gender Identity Male 12/24/2018 1:19 PM EDT Sexual Orientation Not on file Job Start Date Occupation Industry Not on file Not on file Not on file documented as of this encounter Plan of Treatment Upcoming Encounters Date Type Department Care Team (Late st Contact Info) Description 11/19/2023 9:30 AM EDT Office Visit Pharmacy, [place] [address] [place] [address] [place] [address] [place] [address] 12/07/2023 2:00 PM EDT Office Visit Family Practice, [place] [address] [place] [facility] [place] [address] Amado Reeder MD [address] [place] [facility] [place] [address] 12/19/2023 11:40 AM EDT Office Visit Sleep Disorders Ctr [facility] [address] [address] Sapphire Perkins, [address] [place] [address] Health Maintenance Due Date Last Done Comments Zoster Vaccines (1 of 2) 1990 COVID-19 Vaccine (2022-2 4 season) 2023 03/11/2021, 02/08/2021 Depression Screening 09/05/2024 09/05/2023 Influenza Vaccine (FLU shot) Completed 04/2023, 08/04/2022, 07/15/2021, Additional history exists documented as of this encounter Medical Devices Not on filedocumented as of this encounter Care Teams Superintendent Radio Communications Relationship Specialty Start Date End Date Amado Reeder MD [address] [facility] [address] PCP - General 12/08/99 documented as of this encounter
--- OUTSIDE RECORDS SUMMARY | 2023-11-10 16:45 | External Medical Summary | Summary of Care ---
Author Name Unknown Organization [facility] Address [address] [facility] [place] [address] Phone [phone] Care Team Providers Care Kiln Car Unloader Name Role Phone Amado Reeder MD Primary Care Provider [phone] Reason for Visit * Reason Onset Date Comments Med Request 11/08/2023 Encounter Details Date Type Department Care Team (Late st Contact Info) Description 11/08/2023 Telephone [facility] [address] [place] [address] Amado Reeder MD [address] [place] [address] Med Request Allergies No known active allergiesdocumented as of this encounter (statuses as of 11/09/2023) Medications Medication Sig Dispensed Refills Start Date [...] week Take by mouth. 0 Active Pen [place] 31G X 6 MMIndications:DM type 1, not at goal (HCC) Use 4 times a day with Novolog and Lantus insulin pens. 400 Each 3 02/17/2021 Active Easy Touch Safety Pen [place] 29G X 8MM (Insulin Pen Needle)Indications:Ty pe [...] the morning. 90 Tablet 1 09/25/2023 Active Citalopram Hydrobromide 20 MG Oral Tablet (CeleXA)Indications:C urrent mild episode of major depressive disorder, unspecified whether recurrent (HCC) Take 0.5 Tablets by mouth in the morning. 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 COSTAR II: COBALT CHROMIUM STENT WITH ANTIPROLIFERATIVE FOR RESTENOSIS II TRIAL OMI # [id number] PI: Jc Fermin MD SC: Hellen Morfin [...] as of this encounter (statuses as of 11/09/2023) Immunizations Name Administration Dates Next Due COVID-19 [...] encounter Miscellaneous Notes * Telephone Encounter - Kaylan Henderson LPN - 11/08/2023 2:43 PM EST I called and spoke with patient and he stated that he had stopped taking the medication altogether and had disposed of the medication due to it causing him to be emotionless. Patient states that he is finding without the medication he is having extreme anger and wants back on it. Asked patient if he wanted to discuss a possible different medication and he said no he knew this medication worked sohe will go back on it. * Telephone Encounter - Amado Reeder MD - 11/08/2023 2:22 PM EST Not sure what status is with Citalopram. I have renewed the med but could we contact Pt and find out idf he is using the med and is he taking 1/2 tab daily or 1 tab daily? * Telephone Encounter - Marissa Shields CPhT - 11/08/2023 8:09 AM EST Patient requesting refills for Citalopram Hydrobromide 20 MG Oral Tablet (CeleXA) . Upon chart review, medication is listed as discontinued, with discontinuation reason as "Patient preference/discontinuation". Please advise if you wish to continue this therapy for the patient. Thank you, Marissa Shields Supervisor [employer]aning [employer] [facility] ([facility] (Formerly [facility]) 11/08/2023,8:11 AM documented in this encounter Plan of Treatment Upcoming Encounters Date Type Department Care Team (Late st Contact Info) Description 11/15/2023 10:30 AM EDT Office Visit Cardiology, [facility] [address] [place] [address] Jane Paris CRNP [address] [address] 11/19/2023 9:30 AM EDT [address] [address] [place] [address] [facility] [address] 12/07/2023 2:00 PM EDT Office Visit [facility] [place] [address] [facility] [phone] Amado Reeder MD [address] [facility] [place] [address] 12/19/2023 11:40 AM EDT Office Visit Sleep Disorders Ctr [facility] [address] [place] [phone] Sapphire Perkins DO [address] [place] [address] Health Maintenance Due Date Last Done Comments [...] (HCC) documented in this encounter Care Teams Kiln Car Unloader Relationship Specialty Start Date End Date Amado Reeder MD [address] [facility] [address] PCP - General 12/08/99 documented as of this encounter
--- NOTE | 2023-11-10 16:46 | ED Triage Note ---
Date of Service November 10, 2023 Provider in Triage Author: Manny Barrios History of Present Illness This patient was briefly evaluated while in triage. An abbreviated physical exam was performed. This patient is a 83-year-old Male who presents to the ED for evaluation of a loss of consciousness this morning around 11:15 AM when he was typing on the computer, and felt a pressure over his face. The patient thinks that he was out for approximately 5-minutes. The patient reports that he was able to get up on his own, and did not have any pain or other significant symptoms. The patient was recently admitted for TIA. Patient has a past medial history significant for type 1 diabetes, hyperlipidemia, obstructive sleep apnea, hypertension, CAD, GERD, obstructive uropathy, depression. Physical Exam CONSTITUTIONAL: Healthy and well nourished. Alert and oriented X 3. GCS 15. Patient does not appear in any acute distress. HEENT: Normocephalic, atraumatic. Pupils equal, round and reactive. NECK: Full active range of motion without discomfort. RESPIRATORY: Clear to auscultation bilaterally with no wheezing, crackles, rhonchi or stridor. CARDIOVASCULAR: Regular rate and rhythm with no murmurs, rubs or gallops. MUSCULOSKELETAL: Full range of motion of all joints without discomfort. INTEGUMENTARY: No rash or other significant dermatologic conditions noted. HEMATOLOGIC: No ecchymosis or petechiae. PSYCHIATRIC: Positive affect. NEUROLOGIC: Cranial nerves II-XII grossly intact. No focal neurologic deficits noted. Initial orders for labs and / or imaging were placed and patient was placed in the waiting area until a bed is available. Please see further documentation for the full ED course.
--- OUTSIDE RECORDS SUMMARY | 2023-11-10 16:46 | External Medical Summary | Summary of Care ---
Author Name Unknown Organization [facility] Address [address] [facility] [place] [address] Phone [phone] Care Team Providers Care Mobile Heavy Equipment Operator Name Role Phone Amado Reeder MD Primary Care Provider Reason for Visit * Reason Onset Date Comments Other 09/25/2023 Atorvastatin Pankaj cium 40 MG Oral Tablet (Lipitor), dose change Encounter Details Date Type Department Care Team (Late st Contact Info) Description 09/25/2023 Telephone [facility] [address] [place] [address] Amado Reeder MD [address] [place] [address] Other (Atorvastatin Calcium 40 MG Oral Tab... Allergies No known active allergiesdocumented as of this encounter (statuses as of 09/25/2023) Medications Medication Sig Dispensed Refills Start Date [...] week Take by mouth. 0 Active Pen [place] 31G X 6 MMIndications:DM type 1, not at goal (HCC) Use 4 times a day with Novolog and Lantus insulin pens. 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 30 mL 3 09/14/2023 Active Atorvastatin Calcium 80 MG Oral Tablet (Lipitor) Take 1 Tablet by mouth in the morning. 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 COSTAR II: COBALT CHROMIUM STENT WITH ANTIPROLIFERATIVE FOR RESTENOSIS II TRIAL OMI # [id number] PI: Jc Fermin MD SC: Hellen Morfin [...] as of this encounter (statuses as of 09/25/2023) Immunizations Name Administration Dates Next Due COVID-19 [...] encounter Miscellaneous Notes * Telephone Encounter - Miguelito Hastings, [facility] - 09/25/2023 1:51 PM EST Patient has been taking 2 40mg tablets per day and was told refill too soon by pharmacy. Per 09/07 OV: He has increased his Lipitor from 40-80 mg daily which he should continue. Pending 80mg dose. Please approve if appropriate and route back to me to inform patient. Pending Prescriptions: Disp Refills Atorvastatin Calcium 80 MG Oral Tablet (L*90 Tab*1 Sig: Take 1 Tablet by mouth in the morning. Thank you, Miguelito Hastings, PharmD Clinical Pharmacist [facility] ([facility]) 09/25/23 1:54 PM [phone] * Telephone Encounter - Lynne Fuentes CPhT - 09/25/2023 1:45 PM EST Pt calling in to request a dose change on their Atorvastatin Calcium Oral Tablet (Lipitor) . Current dose: 40 MG Requested dose: 80mg Reason for request: pt stated Rx was supposed to be doubled Preferred pharmacy: [facility] [address] Warm-transferred pt to pharmacist for consultation. Thank you, Lynne Fuentes Quality Assurance Intern [facility] 09/25/2023, 1:45 PM documented in this encounter Plan of Treatment Upcoming Encounters Date Type Department Care Team (Late st Contact Info) Description 10/02/2023 1:30 PM EST Office Visit Neurology [facility] [address] [place] [address] Ellie Feldman PA-C [address] [place] [place] [address] 10/09/2023 2:40 PM EST Pharmacy Pharm[address] [address] [place], [facility] [address] [place] [address] 12/07/2023 2:00 PM EDT Office Visit Family [facility], [address] [facility] [address] Amado Reeder MD [address] [facility] [place] [address] 12/19/2023 11:40 AM EDT Office Visit Sleep Disorders Ctr [facility] [address] [place] [phone] [place] Perkins, [address] [place] [address] Health Maintenance Due Date Last Done Comments Zoster Vaccines (1 of 2) 1990 COVID-19 Vaccine (2022-2 4 season) 2023 03/11/2021, 02/08/2021 Depression Screening 09/05/2024 09/05/2023 Influenza Vaccine (FLU shot) Completed 04/2023, 08/04/2022, 07/15/2021, Additional history exists documented as of this encounter Medical Devices Not on filedocumented as of this encounter Care Teams Mobile Heavy Equipment Operator Relationship Specialty Start Date End Date Amado Reeder MD [address] [facility] [place] [address] PCP - General 12/08/99 documented as of this encounter
--- OUTSIDE RECORDS SUMMARY | 2023-11-10 16:46 | External Medical Summary | Summary of Care ---
Author Name Unknown Organization [facility] Address [address] [place] [address] Phone [phone] Care Team Providers Care Meteorological Technician Name Role Phone Amado Reeder MD Primary Care Provider Reason for Visit * Reason Comments Return Neuro * Evaluate & Treat - Unlimited Visits (Within 30 days (routine)) - Authorized Specialty Diagnoses / Procedures Referred By Contac t Referred To Contact Neurology Diagnoses History of TIA (transient ischemic attack) Amado Reeder MD [address] [place] [address] Referral ID Status Reason Start Date Expiration Date Visits Requested Visits Authorized [id number] Authorized Specialty Services Required 09/07/2023 [id number] Encounter Details Date Type Department Care Team (Late st Contact Info) Description 10/02/2023 1:30 PM EST [facility] [address] [place] [address] Ellie Feldman PA-C [address] [facility] [place] [address] Syncope, unspecified syncope type*; Asymptomatic stenosis of posterior cerebral artery; Diabetic peripheral neuropathy (HCC) Allergies No known active allergiesdocumented as of this encounter (statuses as of 10/02/2023) Medications Medication Sig Dispensed Refills Start Date [...] week Take by mouth. 0 Active Pen [place] 31G X 6 MMIndications:DM type 1, not at goal (HCC) Use 4 times a day with Novolog and Lantus insulin pens. 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 COSTAR II: COBALT CHROMIUM STENT WITH ANTIPROLIFERATIVE FOR RESTENOSIS II TRIAL OMI # [id number] PI: Jc Fermin MD SC: Hellen Morfin [...] as of this encounter (statuses as of 10/02/2023) Immunizations Name Administration Dates Next Due COVID-19 [...] Sign Reading Time Taken Comments Blood Pressure 130/70 10/02/2023 1:17 PM EST Pulse 66 10/02/2023 1:17 PM EST Temperature 36.8 C (98.3 F) 10/02/2023 1:17 PM ES T Respiratory Rate - - Oxygen Saturation 98% 10/02/2023 1:17 PM EST Inhaled Oxygen Concentration - - Weight 91.5 kg (201 lb 11.2 oz) 10/02/2023 1:17 PM EST Height - - Body Mass Index 31.59 09/07/2023 7:50 AM EST documented in this encounter Nursing Notes * Yelena Lui LPN - 10/02/2023 1:17 PM EST Return patient- TIA, pt had episode of LOC on 09/02/23. he stated it lasted about 6 seconds. documented in this encounter Plan of Treatment Upcoming Encounters Date Type Department Care Team (Late st Contact Info) Description 10/09/2023 2:40 PM EST Pharmacy Pharmacy, [place] [address] [place] [address] [facility] [address] [place] [address] 12/07/2023 2:00 PM EDT Office [facility] [place] [address] [facility] [phone] Amado Reeder MD [address] [facility] [place] [address] 12/19/2023 11:40 AM EDT Office Visit [facility] Disorders Ctr [facility] [address] [facility] [place] [phone] Sapphire Perkins DO [address] [place] [address] Scheduled Referrals Name Type Priority Associated Diagnoses Orde r Schedule NEUROLOGY REFERRAL OP Referral Within 30 days (routine) History of TIA (transient ischemic attack) Ordered: 09/07/2023 Health Maintenance Due Date Last Done Comments Zoster Vaccines (1 of 2) 1990 COVID-19 Vaccine (3 - 2022-2 4 season) 2023 03/11/2021, 02/08/2021 Depression Screening 09/05/2024 09/05/2023 Influenza Vaccine (FLU shot) Completed 04/2023, 08/04/2022, 07/15/2021, Additional history exists documented as of this encounter Medical Devices Not on filedocumented as of this encounter Visit Diagnoses Diagnosis Syncope, unspecified syncope type- Primary Asymptomatic stenosis of posterior cerebral artery Diabetic peripheral neuropathy (HCC) Type II or unspecified type diabetes mellitus with neurological manifestations, not stated as uncontrolled documented in this encounter Care Teams Meteorological Technician Relationship Specialty Start Date End Date Amado Reeder MD [address] [place] [address] PCP - General 12/08/99 documented as of this encounter
--- OUTSIDE RECORDS SUMMARY | 2023-11-10 16:46 | External Medical Summary | Summary of Care ---
Author Name Unknown Organization [facility] Address [address] [facility] [place] [address] Phone [phone] Care Team Providers Care Guide Rail Cleaner Name Role Phone Amado Reeder MD Primary Care Provider [phone] Encounter Details Date Type Department Care Team (Late st Contact Info) Description 09/17/2023 Telephone [facility] [address] [place] [address] Amado Reeder MD [address] [place] [address] Allergies No known active allergiesdocumented as of this encounter (statuses as of 09/17/2023) Medications Medication Sig Dispensed Refills Start Date [...] week Take by mouth. 0 Active Pen Coward 31G X 6 MMIndications:DM type 1, not at goal (HCC) Use 4 times a day with Novolog and Lantus insulin pens. 400 Each 3 02/17/2021 Active Easy Touch Safety Pen [place] 29G X 8MM (Insulin Pen Needle)Indications:T ype [...] ONCE DAILY 90 Tablet 1 06/26/2023 Active Atorvastatin Calcium 40 MG Oral Tablet (Lipitor) TAKE ONE TABLET BY MOUTH ONCE DAILY 90 Tablet 3 07/13/2023 Active Additional Information Patient taking differently: 40 mg Oral BID (.AM/PM), Reported on 09/07/2023 Clopidogrel Bisulfate 75 MG Oral Tablet (pLAVix)Indications: [...] (insulin aspart)Indications:T ype 1 diabetes mellitus with polyneuropathy (HCC) Inject up to 60 units a day following correction factor 1:25 over 140. 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 COSTAR II: COBALT CHROMIUM STENT WITH ANTIPROLIFERATIVE FOR RESTENOSIS II TRIAL OMI # [id number] PI: Jc Fermin MD SC: Hellen Morfin [...] as of this encounter (statuses as of 09/17/2023) Immunizations Name Administration Dates Next Due COVID-19 [...] encounter Miscellaneous Notes * Telephone Encounter - Lisa Waldron OSA - 09/17/2023 3:11 PM EST Patient was not scheduled for sleep study patient read the appointment reminder that he got in the mail incorrectly bc the EEG appointment information talks about how much sleep to get the night before. Patient is scheduled for EEG and will wait for his Sleep Medicine with Sapphire Perkins to see what the next steps are. 09/17/2023 * Telephone Encounter - Amado Reeder MD - 09/17/2023 2:48 PM EST I suspect one of the hospitalists ordered the sleep study. I did not order sleep study. He could goahead and get the sleep study as scheduled 09/19/23 at [place] or he could cancel the sleep study until he sees sleep medicine doc, Dr Perkins 12/19/23. * Telephone Encounter - Lisa Waldron OSA - 09/17/2023 11:22 AM EST Spoke to patient and he taped a note on the front door asking about his EEG that was cancelled. Patient states that he accidentally canceled the appt via text. Got him rescheduled for the same date and time for his EEG * Telephone Encounter - Amado Reeder MD - 09/17/2023 7:34 AM EST Notify: The apt scheduled for 09/19/23 was likely for EEG. That has been cancelled. Not sure why. Hes sleep med apt 12/19/23 ([facility]) and neurology apt 10/02/23([facility]). He needs scheduledfor EEG. Not sure where we cloth cutting machine operator that regard. * Telephone Encounter - Leonila Douglass OSA - 09/17/2023 7:22 AM EST 09/17/23 Paperwork was stuck in the front door this morning. Note from pt regarding orders from appt on September 07. Pt is confused? Pt states he was scheduled for an Eeg, but now he is scheduled for a Sleep Study onSeptember 19. Please call and advise pt regarding this order. Paperwork placed in provider's mail bin. documented in this encounter Plan of Treatment Upcoming Encounters Date Type Department Care Team (Late st Contact Info) Description 09/19/2023 9:45 AM EST NeuroDiagnostic Study Neurophysiology, [facility] [address] [place] [facility] [place] [address] [place], Neurophys Tech [address] [place] [address] 10/02/2023 1:30 PM EST Office Visit Neu[facility] [address] [facility] [address] Ellie Feldman [facility]C [facility] [place] [address] 10/09/2023 2:40 PM EST Pharmacy Pharmacy, [place] [address] [facility] [address] [facility] [address] [place] [address] 12/07/2023 2:00 PM EDT Office Visit [facility] [address] [facility] [phone] Amado Reeder MD [address] [place] [address] 12/19/2023 11:40 AM EDT [facility] [address] [place] [phone] Sapphire Perkins DO [address] [place] [address] Health Maintenance Due Date Last Done Comments Zoster Vaccines (1 of 2) 1990 COVID-19 Vaccine (2022-2 4 season) 2023 03/11/2021, 02/08/2021 Depression Screening 09/05/2024 09/05/2023 Influenza Vaccine (FLU shot) Completed 04/2023, 08/04/2022, 07/15/2021, Additional history exists documented as of this encounter Medical Devices Not on filedocumented as of this encounter Care Teams Guide Rail Cleaner Relationship Specialty Start Date End Date Amado Reeder MD [address] [place] [address] PCP - General 12/08/99 documented as of this encounter
--- OUTSIDE RECORDS SUMMARY | 2023-11-10 16:46 | External Medical Summary | Summary of Care ---
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 0 Active Pen [place] 31G X 6 MMIndications:DM type 1, not at goal (HCC) Use 4 times a day with Novolog and Lantus insulin pens. 400 Each 3 02/17/2021 Active Easy Touch Safety Pen [place] 29G X 8MM (Insulin Pen Needle)Indications:Ty pe [...] as of this encounter (statuses as of 10/09/2023) Active Problems Problem Noted Date Diagnosed Date Foot deformity, acquired, left 12/09/2021 Overview: bony protuberance plantar aspect mid foot Obstructive uropathy 10/21/2020 Type 1 diabetes mellitus with diabetic dermatiti s 10/05/2020 HTN, goal below 150/90 10/03/2019 Current mild episode of abdirahmna r depressive disorder without prior episode 10/03/2019 Current use of insulin 10/03/2019 Gastroesophageal reflux disease without esophagi tis 10/03/[address] [place] co ronary artery of [place] heart without angina pectoris 10/03/2019 Type 1 [...] as of this encounter (statuses as of 10/09/2023) Resolved Problems Problem Noted Date Diagnosed Date [...] ANTIPROLIFERATIVE FOR RESTENOSIS II TRIAL OMI # [id number] PI: Jc Fermin MD SC: Hellen Morfin RN, BSN Costar II Clinical Trial*[id number] 09/06/2005 01/25/2011 Overview: Renamed Per Clinical Trials Billing Project. COSTAR II: COBALT CHROMIUM STENT WITH ANTIPROLIFERATIVE FOR RESTENOSIS II TRIAL OMI # [id number] PI: Jc Fermin MD SC: Hellen Morfin [...] as of this encounter (statuses as of 10/09/2023) Immunizations Name Administration Dates Next Due COVID-19 [...] as of this encounter Progress Notes * Ruddy Rajput, MIHIR - 10/09/2023 2:27 PM EST Medication Therapy Disease Management [facility] - Diabetes Management Progress Note Alexys Osorio, identified by name and date of , is a 83 year old male being seen for diabetes management/education. Patient presents for return diabetic visit. DIABETES: Current diabetic medications: Humalog 10 units with meals + CF 1:25 over 140 [see chart at bottom of clinic note 07/11/23] Basaglar - 22 - 24 units daily in the evening eGFR 89 as of 10/09/22 Medication Injection Site: Abdomen Lifestyle: Diet: unchanged Considerations: - FRANCISCO? Diagnosed at age of 50 per chart review - Dexcom supplied by [facility] - metformin caused low blood sugars, patient discontinued and not interested in retrial - obtaining Basaglar and Humalog from [facility] --> reapplied 07/11/23 - memory issues; PCP okay with conservative management Glucose Review/SMBG: Unable to download Dexcom reader. BG 80-400s. Hypoglycemia: Does your blood sugar go below 70 mg/dL? Yes, either due to increased activity or decreased intake after dosing meal insulin Hyperglycemia symptoms present: none Recent Labs Units 05/10/23 0950 02/06/23 1454 10/09/22 1502 HEMOGLOBIN A1C - [facility] % 8.3* 7.9* 8.1* Recent Labs Units 05/10/23 0950 10/09/22 1502 08/22/21 1309 ESTIMATED GLOMERULAR FILTRATION RATE - [facility] mL/min 89 89 79 CREATININE - [facility] mg/dL 0.8 0.8 0.9 Lab Results Component Value Date/Time CREATININE - [facility] 0.8 05/10/2023 09:50 AM CREATININE - [facility] 0.8 10/09/2022 03:02 PM CREATININE - [facility] 0.9 08/22/2021 01:09 PM CREATININE - [facility] 0.9 03/22/2020 04:38 PM CREATININE - [facility] 1.0 03/20/2019 09:31 AM CREATININE - [facility] 0.8 05/21/2018 09:17 AM CREATININE, RANDOM URINE - [facility] 96 07/04/2023 03:11 PM CREATININE, RANDOM URINE - [facility] 105 07/12/2022 09:37 AM CREATININE, RANDOM URINE - [facility] 72 09/09/2020 11:44 AM CREATININE, RANDOM URINE - [facility] 114 11/12/2017 08:21 AM CREATININE, RANDOM URINE - [facility] 174 07/03/2017 09:31 AM HYPERTENSION: Patient on ACEi/ARB: yes, Lisinopril 40mg daily BP Readings from Last 3 Encounters: 10/02/23 130/70 09/07/23 126/70 05/09/23 120/72 Blood pressure at goal: yes HYPERLIPIDEMIA: Patient is taking moderate or high intensity statin: yes, Atorvastatin 80mg daily HEALTH MAINTENANCE REVIEW: Health Maintenance Due Topic Date Due Zoster Vaccines (1 of 2) Never done COVID-19 Vaccine ( season) 2023 ASSESSMENT & PLAN: ICD-10-CM 1. 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 See above for ranges Medications - Reviewed current regimen, patient is adherent to regimen. Will continue current regimen until next visit and Dexcom sensors available and reader able to be downloaded. Diet, Exercise, Lifestyle - No significant lifestyle changes since last visit. Discussed with patient today. Patient is agreeable to wear Dexcom G6 CGM. Patient aware to contact clinic if any hypoglycemia before next visit. MEDICATION CHANGES: no change Diabetic Medications: Humalog 10 units with meals + CF 1:25 over 140 [see chart at bottom of clinic note 07/11/23] Basaglar - 22 - 24 units daily in the evening eGFR 89 as of 10/09/22 HEALTH MAINTENANCE INTERVENTIONS: Labs: Ordered & Scheduled: HgA1c Immunizations: needs shingles Foot Exam: Up to Date Eye Exam: Up to Date Annual Wellness Visit: Up to Date FOLLOW UP: Return to clinic in 6 weeks 11/19/2023 Ruddy Stewart RPh, VERONICAE Clinical Pharmacist - City Letter Carrier Medication Therapy Management Clinic 10/09/2023, 2:28 PM documented in this encounter Plan of Treatment Upcoming Encounters Date Type Department Care Team (Late st Contact Info) Description 11/19/2023 9:30 AM EDT Pharmacy Pharmacy, [facility] [place] [address] [facility] [place] [address] 12/07/2023 2:00 PM EDT Office Visit Family [facility], [facility] [place] [phone] Amado Reeder MD [address] [place] [address] 12/19/2023 11:40 AM EDT Office Visit Sleep Disorders Ctr [facility] [address] [place] [phone] Sapphire Perkins, [address] [place] [address] Health Maintenance Due Date Last Done Comments [...] uncontrolled documented in this encounter Care Teams Server Software Engineer Relationship Specialty Start Date End Date Amado Reeder MD [address] [place] [address] PCP - General 12/08/99 documented as of this encounter
--- OUTSIDE RECORDS SUMMARY | 2023-11-10 16:46 | External Medical Summary | Summary of Care ---
Author Name Unknown Organization [facility] Address [address] [facility] [place] [address] Phone [phone] Care Team Providers Care Public Health Worker Name Role Phone Amado Reeder MD Primary Care Provider [phone] Encounter Details Date Type Department Care Team (Late st Contact Info) Description 09/17/2023 Telephone [facility] [address] [place] [address] Amado Reeder MD [address] [place] [address] Allergies No known active allergiesdocumented [...] week Take by mouth. 0 Active Pen [place] 31G X 6 MMIndications:DM type 1, not at goal (HCC) Use 4 times a day with Novolog and Lantus insulin pens. 400 Each 3 02/17/2021 Active Easy Touch Safety Pen [place] 29G X 8MM (Insulin Pen Needle)Indications:T ype [...] disease without esophagi tis 10/03/2019 Atherosclerosis of [place] ronary artery of [place] heart without angina pectoris 10/03/2019 Type 1 [...] ANTIPROLIFERATIVE FOR RESTENOSIS II TRIAL OMI # [id number] PI: Jc Fermin MD SC: Hellen Morfin RN, BSN Costar II Clinical Trial*[id number] 09/06/2005 01/25/2011 Overview: Renamed Per Clinical Trials Billing Project. COSTAR II: COBALT CHROMIUM STENT WITH ANTIPROLIFERATIVE FOR RESTENOSIS II TRIAL OMI # [id number] PI: Jc Fermin MD SC: Hellen Morfin [...] encounter Miscellaneous Notes * Telephone Encounter - Amado Reeder MD - 09/17/2023 2:48 PM EST I suspect one of the hospitalists ordered the sleep study. I did not order sleep study. He could goahead and get the sleep study as scheduled 09/19/23 at [place] or he could cancel the sleep study [...] That has been cancelled. Not sure why. [facility] sleep med apt 12[facility]19[facility]23 [facility]) and neurology apt 10/02/23([facility] He needs scheduledfor EEG. 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 * Telephone Encounter - [...] 09/19/2023 9:45 AM EST NeuroDiagnostic Study Neurophysiology, [address] [address] [facility], Neurophys Tech [address] [place], [place] [address] [address] 10/02/2023 1:30 PM EST Office Visit Neurology [facility] [address] [place] [address] Ellie Feldman PA-C [facility] [place] [address] 10/09/2023 2:40 PM EST Pharmacy Pharmacy, [place] [address] [place] [address] [facility] [address] [place] [address] 12/07/2023 2:00 PM EDT Office Visit Family Practice, [place] [address] [place] [place] [phone] Amado Reeder MD [address] [place] [address] 12/19/2023 11:40 AM EDT Office Visit Sleep Disorders Ctr [facility] [place] [phone] Sapphire Perkins DO [address] [place] [address] Health Maintenance Due Date Last Done Comments Zoster Vaccines (1 of 2) 1990 COVID-19 Vaccine (2022-2 4 season) 2023 03/11/2021, 02/08/2021 Depression Screening 09/05/2024 09/05/2023 Influenza Vaccine (FLU shot) Completed 04/2023, 08/04/2022, 07/15/2021, Additional history exists documented as of this encounter Medical Devices Not on filedocumented as of this encounter Care Teams Public Health Worker Relationship Specialty Start Date End Date Amado Reeder MD [address] [place] [facility] [place] [address] PCP - General 12/08/99 documented as of this encounter
--- OUTSIDE RECORDS SUMMARY | 2023-11-10 16:46 | External Medical Summary | Summary of Care ---
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 0 Active Pen [place] 31G X 6 MMIndications:DM type 1, not at goal (HCC) Use 4 times a day with Novolog and Lantus insulin pens. 400 Each 3 02/17/2021 Active Easy Touch Safety Pen [place] 29G X 8MM (Insulin Pen Needle)Indications:Ty pe [...] disease without esophagi tis 10/03/2019 Atherosclerosis of [place] co ronary artery of [place] heart without angina pectoris 10/03/2019 Type 1 [...] ANTIPROLIFERATIVE FOR RESTENOSIS II TRIAL OMI # [id number] PI: Jc Fermin MD SC: Hellen Morfin RN, BSN Costar II Clinical Trial*[id number] 09/06/2005 01/25/2011 Overview: Renamed Per Clinical Trials Billing Project. COSTAR II: COBALT CHROMIUM STENT WITH ANTIPROLIFERATIVE FOR RESTENOSIS II TRIAL OMI # [id number] PI: Jc Fermin MD SC: Hellen Morfin [...] retrial - obtaining Basaglar and Humalog from [employer] --> reapplied 07/11/23 - memory issues; PCP [...] Ruddy Stewart RPh, VERONICAE Clinical Pharmacist - Production Foreman Medication Therapy Management Clinic 10/09/2023, 2:28 PM documented in this encounter Plan of Treatment Upcoming Encounters Date Type Department Care Team (Late st Contact Info) Description 11/19/2023 9:30 AM EDT Pharmacy Pharmacy, [place] [facility] [place] [address] [facility] [place] [address] 12/07/2023 2:00 PM EDT Office Visit Family [facility], [place] [facility] [place] [phone] Amado Reeder MD [address] [place] [address] 12/19/2023 11:40 AM EDT Office Visit Sleep Disorders Ctr [facility] [address] [place] [phone] Sapphire Pekrins, [address] [place] [address] Health Maintenance Due Date Last Done Comments [...] uncontrolled documented in this encounter Care Teams Dispatch Manager Relationship Specialty Start Date End Date Amado Reeder MD [address] [place] [address] PCP - General 12/08/99 documented as of this encounter
--- OUTSIDE RECORDS SUMMARY | 2023-11-10 16:46 | External Medical Summary | Summary of Care ---
Author Name Unknown Organization [facility] Address [address] [place] [address] Phone [phone] Care Team Providers Care Burner Machine Operator Name Role Phone Amado Reeder MD Primary Care Provider [phone] Reason for Referral * Evaluate & Treat - Unlimited Visits (Within 30 days (routine)) - Authorized Specialty Diagnoses / Procedures Referred By Jason giron Referred To Contact Neurology Diagnoses History of TIA (transient ischemic attack) Amado Reeder MD [address] [place] [id number] Referral ID Status Reason Start Date Expiration Date Visits Requested Visits Authorized [id number] Authorized Specialty Services Required 09/07/[phone] Question Answer Referral Priority Within 30 days (routine) Where should this appointment be scheduled? [facility] This patient already has care established with Neurology. Do not place this order. Please use Ask A Doc to expedite care. Acknowledge [facility] NEUROLOGY REFERRAL QUESTIONS Other Conditions Comments Possible but not definite TIA * Evaluate & Treat - Unlimited Visits (Within 10 days (routine)) - Authorized Specialty Diagnoses / Procedures Referred By Jason giron Referred To Contact Physical Therapy / Physical Medicine And Rehab Diagnoses Balance disorder Amado Reeder MD [address] [place] [address] Referral ID Status Reason Start Date Expiration Date Visits Requested Visits Authorized [id number] Authorized Specialty Services Required 09/07/[phone] Question Answer Referral Priority Within 10 days (routine) Where should this appointment be scheduled? [facility] Recent episode possible TIA.. Increasing issues with poor balance * Evaluate & Treat - Unlimited Visits (Within 30 days (routine)) - Authorized Specialty Diagnoses / Procedures Referred By Jason giron Referred To Contact Sleep Medicine / Sleep Disorders Diagnoses History of TIA (transient ischemic attack) Amado Reeder MD [address] [place] [address] Referral ID Status Reason Start Date Expiration Date Visits Requested Visits Authorized [id number] Authorized Specialty Services Required 09/07/2023 2 2 Question Answer Referral Priority Within 30 days (routine) Where should this appointment be scheduled? [facility] Sleep Apnea Testing and Management Does the patient snore and/or gasp at night or has been told they stop breathing at night? Unknown Reason for Visit * Reason Comments Hospital Follow-Up Encounter Details Date Type Department Care Team (Late st Contact Info) Description 09/07/2023 8:20 AM EST Office Visit [facility] [address] [place] [address] Amado Reeder MD [address] [place] [address] Risk and functional assessment*; History of TIA (transient ischemic attack); Balance disorder Allergies No known active allergiesdocumented as of this encounter (statuses as of 09/07/2023) Medications Medication Sig Dispensed Refills Start Date [...] week Take by mouth. 0 Active Pen Way[place] 31G X 6 MMIndications:DM type 1, not at goal (HCC) Use 4 times a day with Novolog and Lantus insulin pens. 400 Each 3 02/17/2021 Active Easy Touch Safety Pen Wayland 29G X 8MM (Insulin Pen Needle)Indications:T ype [...] by mouth in the morning. 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 10/05/2020 HTN, goal below 150/90 10/03/2019 Current mild episode of abdirahman r depressive disorder without prior episode 10/03/2019 Current use of insulin 10/03/2019 Gastroesophageal reflux disease without esophagi tis 10/03/2019 Atherosclerosis of [place] co ronary artery of [place] heart without angina pectoris 10/03/2019 Type 1 [...] as of this encounter (statuses as of 09/07/2023) Resolved Problems Problem Noted Date Diagnosed Date [...] ANTIPROLIFERATIVE FOR RESTENOSIS II TRIAL OMI # [id number] PI: Jc Fermin MD SC: Hellen Morfin RN, BSN Costar II Clinical Trial*[id number] 09/06/2005 01/25/2011 Overview: Renamed Per Clinical Trials Billing Project. COSTAR II: COBALT CHROMIUM STENT WITH ANTIPROLIFERATIVE FOR RESTENOSIS II TRIAL OMI # [id number] PI: Jc Fermin MD SC: Hellen Morfin [...] as of this encounter (statuses as of 09/07/2023) Immunizations Name Administration Dates Next Due COVID-19 [...] Sign Reading Time Taken Comments Blood Pressure 126/70 09/07/2023 7:50 AM EST Pulse 58 09/07/2023 7:50 AM EST Temperature 36.6 C (97.9 F) 09/07/2023 7:50 AM ES T Respiratory Rate 20 09/07/2023 7:50 AM EST Oxygen Saturation 97% 09/07/2023 7:50 AM EST Inhaled Oxygen Concentration - - Weight 90.7 kg (200 lb) 09/07/2023 7:50 AM EST Height 170.2 cm (5' 7") 09/07/2023 7:50 AM EST Body Mass Index 31.32 09/07/2023 7:50 AM EST documented in this encounter Patient Instructions * Patient Instructions* Concha Porter LPN - 09/07/2023 7:50 AM EST Patient Instructions - Fall Prevention (This education is for all patients over 65 regardless of symptoms) Remember to take your current medications as prescribed. In order to prevent falls, you are encouraged to: Exercise Utilize assistive/adaptive devices Avoid multifocal lenses when walking Avoid hazards in home Maintain a regular toileting schedule Any questions please contact our office. Preventing Falls in the Home (This education is for all patients over 65 regardless of symptoms) As you get older, falls are more likely. Thats because your reaction time slows. Your muscles and joints may also get stiffer, making them less flexible. Illness, medications, and vision changes can also affect your balance. A fall could leave you unable to live on your own. To make your home safer, follow these tips: Floors Put nonskid pads under area rugs Remove throw rugs Replace worn floor coverings Tack carpets firmly to each step on carpeted stairs. Put nonskid strips on the edges of uncarpeted stairs Keep floors and stairs free of clutter and cords Arrange furniture so there are clear pathways Clean up any spills right away Bathrooms Install grab bars in the tub or shower Apply nonskid strips or put a nonskid rubber mat in the tub or shower Sit on a bath chair to bathe Use bathmats with nonskid backing Lighting Keep a flashlight in each room Put a nightlight along the pathway between the bedroom and the bathroom [employer] Patient Education Copyright 2008 - 2010 Alicia except where otherwise noted Preventing Falls: Exercises to Improve Balance, Flexibility, Strength, and Staying Power (This education is for all patients over 65 regardless of symptoms) Certain types of exercises may help make you less likely to fall. Try the ones below. Or do other exercises that your healthcare provider suggests. Depending on your health, you may need to start slowly. Dont let that stop you. Even small amounts of exercise can help you. Be sure to talk to yourhealthcare provider before starting any exercise program. Improve Balance Many types of exercise can help improve balance. Franklin chi and yoga are good examples. Heres another one to try. You can do it anytime and almost anywhere. Stand next to a counter or solid support. Push yourself up onto your tiptoes. Hold for 5 seconds. If you start to lose your balance, hold on to the counter. Rest and repeat 5 times. Work up to holding for 20 to 30 seconds, if you can. Increase Flexibility Being more flexible makes it easier for you to move around safely. Try exercises like the seated hamstring stretch. Sit in a chair and put one foot on a stool. Straighten your leg and reach with both hands down either side of your leg. Reach as far down your leg as you can. Hold for about 20 seconds. Go back to the starting position. Then repeat 5 times. Switch legs. Build Strength Resistance exercises help build strength. You can do them without equipment. Or you can use weights, elastic bands, or special machines. One such exercise is called the biceps curl. You can hold a 1 pound weight or even a can of soup. Do this exercise at least 3 times a week. Strive for everyday. Sit up straight in a chair. Keep your elbow close to your body and your wrist straight. Bend your arm, moving your hand up to your shoulder. Then slowly lower your arm. Repeat 5 times. Switch to the other arm. Build Your Staying Power Aerobic exercises make your heart and lungs stronger so you can keep moving longer. Walking and swimming are two of the best types of exercises you can do. Using a stationary bike is great, too. Find an aerobic exercise that you enjoy. Start slowly and build up. Even 5 minutes is helpful. Aimfor a goal of 30 minutes, at least 3 times a week. You dont have to do 30 minutes in one session. Break it up and walk a little throughout the day. More Helpful Tips Start easy. Slowly work up to doing more. Talk with your healthcare provider about the best exercises for you. Call senior centers or health clubs about exercise programs. If needed, have a family member watch you walk every so often to check your stability. Exercise with a friend. Choose an activity you both enjoy. Try exercises that you can do anytime, anywhere. Here are two examples. Have someone with you when you first try these: Practice walking by placing one foot right in front of the other. Stand up and sit down 10 times. Repeat this throughout the day. [employer] Patient Education Copyright 2008 [employer] except where otherwise noted. Preventing Falls: Moving Safely Using a Cane or Walker (This education is for all patients over 65 regardless of symptoms) Keep the cane away from your feet so you dont trip. A walking aid, such as a cane or walker, can help you stay more independent and avoid falls. Remember to keep your walking aid within easy reach when youre in a chair or in bed. And learn how to use it safely so you dont injure yourself. Using a Cane If you have a stronger side, hold the cane on that side. Get your balance. Move the cane and your weaker leg forward. Support your weight on both the cane and your weaker side. Step with your stronger leg. Start again from step 1. If youre using a folding walker, be sure you know how to lock it open. Check that its locked open before each use. Using a Walker Roll the walker (or lift it, if youre using one without wheels) forward about 12 inches. Step forward with your weaker leg first. Use the walker to help keep your balance. Bring your other foot forward to the center of the walker. Start again from step 1. Helpful Tips Check with your healthcare provider about the right walking aid to use. Ask about a walker with a seat attached. Check the tips of your cane or walker to make sure they have nonskid covers. Move slowly from room to room. Dont levy. Sit down to get dressed. Use a sweetie pack or backpack to keep your hands free. Get help for jobs that mean climbing, even on a stepstool. [employer] Patient Education Copyright 2008 [employer] except where otherwise noted. Treating Urinary Incontinence in Men (This education is for all patients over 65 regardless of symptoms) You can't always control the release of urine. You may leak urine. Or you may not be able to hold your urine until you can get to a bathroom. This is called urinary incontinence. The problem can be managed. Talk to your doctor about your treatment options. Taking Medications Prescription medications may help you. They may: Help the sphincter to work better. (This is the muscle that closes to keep urine from leaking out of the bladder.) Help stop the bladder from arsalan too often to push urine out. Help the bladder muscles contract with more force. Help relax the sphincter muscle and allow urine to flow more freely. Making Changes to Your Routine Certain changes in your daily routine may help. These include: Avoiding caffeine and alcohol. Using timed voiding. This is following a schedule for drinking fluids and urinating. Doing Kegel exercises daily. These exercises involve tightening the muscles in your sphincter and around your bladder to help strengthen them. Your doctor can explain how to do them. Using a Catheter A catheter is a narrow tube that is inserted through the urethra into the bladder. It drains urine.A condom catheter covers the penis. It channels urine into a collection bag. It is worn most of thetime. Intermittent catheterization means inserting a catheter to drain the bladder, then removing it. This is done on a regular schedule. Having Surgery If other options don't work, surgery may be recommended. If surgery is an option, your healthcare provider can discuss it with you and explain its risks and benefits. Healing After Prostate Surgery Surgery on the prostate gland can cause incontinence. Most often, the incontinence is only for a short time. It clears up when healing is complete. Very rarely, prostate surgery can result in permanent incontinence. documented in this encounter Progress Notes * Amado Reeder MD - 09/07/2023 9:05 AM EST Subjective: Alexys Osorio is a 82 year old male. Chief Complaint Patient presents with Hospital Follow-Up HPI: 82-year-old seen today after recent [facility] hospitalization. He was admitted September 01 in discharge September 03, 2023. This hospitalization was necessitated due to a syncopal episode that occurred at home. He was working at a desk and apparently his head fell forward hitting his laptop. Some how he was aware of his watch and felt that this episode lasted for about 6 seconds. His evaluation included: CT scan of the head showed no significant abnormality. CT angiogram which showed Um significant stenosis of the posterior cerebral vessels bilateral. MRI of the brain which was unremarkable.Did not show any evidence of acute infarct. He was admitted with likely TIA although that was questionable at the time of discharge given his unremarkable imaging studies. No significant arrhythmia was noted during the hospitalization. He notes that his insurance account manager Dr. So had done a Zio monitorwithin the last several months which was unremarkable. He does tend to have relatively low heart rate and Cardiology has instructed that no Um additional medication that might further Um contribute to bradycardia be added. He did a video visit with Neurology. Neurology recommended adding baby aspirin to Plavix in increasing his Lipitor from 40-80 mg a day and getting any EEG and follow-up with Neurology locally and sleep medicine evaluation. Blood sugars were not a major issue during the hospitalization. He does have a DEXA com continuous glucose monitor but did not have a working monitor at the time of the event. He does have a working DEXA com 6 now. Even before this hospitalization he has noted increased difficulties with balance and thus with hisgait. Physical therapy was recommended by providers during hospitalization. He has not had any recurrent episode. Another discussion that occurred was whether he should be on a proton pump inhibitor. I think that was in light that he is on Plavix. He has been on omeprazole on a regular basis for decades. Interestingly, he has not used any PPI therapy since discharge so that is 3-4 days. Patient Active Problem List Diagnosis Code ADVANCE DIRECTIVE INFORMATION DYSLIPIDEMIA, GOAL LDL BELOW 70 E78.5 Hypersomnia G47.10 Obstructive sleep apnea syndrome G47.33 Vitamin D deficiency E55.9 Type 1 diabetes mellitus with polyneuropathy ([facility]) E10.42 HTN, goal below 150/90 I10 Current mild episode of major depressive disorder without prior episode ([facility]) F32.0 Current use of insulin ([facility]) Z79.4 Gastroesophageal reflux disease without esophagitis K21.9 Atherosclerosis of [place] coronary artery of [place] heart without angina pectoris I25.10 Type 1 diabetes mellitus with diabetic dermatitis ([facility]) E10.620 Obstructive uropathy N13.9 Foot deformity, acquired, left M21.962 Current Outpatient Medications Medication Sig Dispense Refill Cholecalciferol (VITAMIN D) 2000 units Capsule Take by mouth 2,000 Units daily . Multiple Vitamin (MULTI VITAMIN DAILY) TABS Take by mouth. omega-3 1000 MG CAPS Take by mouth. Takes 2 daily Potassium Gluconate 550 MG TABS Take by mouth. Easy Touch Safety Pen Wayland 29G X 8MM (Insulin Pen Needle) 4 times daily with Insulin 360 Each 3 Vitamin D 125 MCG (5000 UT) Oral Capsule Take by mouth. Potassium Gluconate 595 (99 K) MG Oral Tablet Take by mouth. Felodipine ER 5 MG Oral Tablet Extended Release 24 Hour (Plendil) Take 2 Tablets by mouth every morning. 180 Tablet 4 Lisinopril 40 MG Oral Tablet TAKE ONE TABLET BY MOUTH ONCE DAILY 90 Tablet 3 hydroCHLOROthiazide 25 MG Oral Tablet (Hydrodiuril) TAKE ONE TABLET BY MOUTH ONCE DAILY 90 Tablet 1 Insulin Glargine Solostar 100 UNIT/ML Subcutaneous Solution Pen-injector (Basaglar KwikPen) Inject 24 Units under the skin daily. 30 mL 4 Insulin Lispro (1 Unit Dial) 100 UNIT/ML Subcutaneous Solution Pen-injector (HumaLOG KwikPen) Inject up to 60 units a day following correction factor 1:25 over 140. 60 mL 4 Atorvastatin Calcium 40 MG Oral Tablet (Lipitor) TAKE ONE TABLET BY MOUTH ONCE DAILY (Patient taking differently: Take 1 Tablet by mouth in the morning and 1 Tablet before bedtime.) 90 Tablet 3 Clopidogrel Bisulfate 75 MG Oral Tablet (pLAVix) TAKE ONE TABLET BY MOUTH ONCE DAILY 90 Tablet 1 [employer] G6 Transmitter Use as directed. 1 Each 6 Aspirin 81 MG Oral Tablet Delayed Release Take 1 Tablet by mouth in the morning. AmSafeUCH ULTRA BLUE STRP test 4-5 times a day dx code 250.03 for onetouch mini 450 Strip 1 Pen Wayland 31G X 6 MM Use 4 times a day with Novolog and Lantus insulin pens. 400 Each 3 Omeprazole 20 MG Oral Capsule Delayed Release (PriLOSEC) TAKE ONE CAPSULE BY MOUTH ONCE DAILY ONE HOUR BEFORE THE first meal of THE DAY (Patient not taking: Reported on 09/07/2023) 90 Capsule 3 No current facility-administered medications for this visit. Review of patient's allergies indicates: No Known Allergies Objective: BP 126/70 | Pulse 58 | Temp 36.6 C (97.9 F) (Temporal Artery) | Resp 20 | Ht 1.702 m (5' 7") | Wt 90.7 kg (200 lb) | SpO2 97% | BMI 31.32 kg/m | BSA 2.07 m Physical Exam: CONST: alert, pleasant, no acute distress HEAD: normocephalic, atraumatic Eyes - PERRLA, EOM'I OROPHARYNX: clear, no swelling or erythema, moist CV: regular rate and rhythm, no murmur EXT: no edema, no joint swelling or deformities, NEURO: AAOx3, no gross focal deficits, cerebellar signs normal, affect appropriate MENTAL STATUS: no evidence of thought disorder, no delusional thought, no evidence of paranoia, thought is non-tangential. ASSESSMENT/PLAN: Possible-history TIA History of TIA (transient ischemic attack)-this is question because of the lack of any positive imaging findings. Therefore rule out possibility of seizure. Get EEG. Get sleep medicine referral. Also refer to local Neurology. For now he will use both baby aspirin 81 mg daily and Plavix 75 mg daily. - SLEEP MEDICINE REFERRAL OP - EEG ROUTINE - NEUROLOGY REFERRAL OP He has increased his Lipitor from 40-80 mg daily which he should continue. Balance disorder - PHYSICAL THERAPY REFERRAL OP-Juan [facility]ott Long-term use PPI therapy for GERD-since he is gone 3-4 days without the omeprazole, I thought it would be reasonable to see if he can get by without it although I think that would be unlikely. If hehas recurrence of heartburn he can start back on the omeprazole daily. I did tell him how to properly wean over 2 months if he really wants to try that and after he goes back on omeprazole. DM- no change needed. Discussed his use of Dexacom. Check-out note: Refer to Maryellen. See again in about 3 months. Time: I spent a total of 40-54 minutes (exact time 45 mins) on the date of service in preparation, delivery, and documentation of the care provided to Alexys Osorio excluding any time spent in the performance of separately billed services. Amado Reeder MD documented in this encounter Nursing Notes * Concha Poretr LPN - 09/07/2023 7:50 AM EST The patient has been properly identified by confirmation of name and date of . Chief Complaint Patient presents with Hospital Follow-Up documented in this encounter Plan of Treatment Upcoming Encounters Date Type Department Care Team (Late st Contact Info) Description 09/11/2023 11:00 AM EST Office Visit Neurology [facility] [address] [address] [address] Ellie Feldman PA-C [address] [place] [address] 09/19/2023 9:45 AM EST NeuroDiagnostic Study Neurophysiology, [address] [address] Glh, Neurophys Tech [address] [place] [address] 10/09/2023 2:40 PM EST Pharmacy Pharmacy, [place] [address] [place] [address] [facility] [address] [place] [address] 12/07/2023 2:00 PM EDT Office Visit [place] [address] [place] [address] Amado Reeder MD [address] [place] [address] 12/19/2023 11:40 AM EDT Office Visit [facility] [address] [id number] Sapphire Perkins DO [address] [place] [address] Scheduled Orders Name Type Priority Associated Diagnoses Orde r Schedule EEG ROUTINE Procedures Routine History of TIA (transient ischemic attack) Ordered: 09/07/2023 Scheduled Referrals Name Type Priority Associated Diagnoses Orde r Schedule SLEEP MEDICINE REFERRAL OP Referral Within 30 days (routine) History of TIA (transient ischemic attack) Ordered: 09/07/2023 PHYSICAL THERAPY REFERRAL OP Referral Within 10 days (routine) Balance disorder Ordered: 09/07/2023 NEUROLOGY REFERRAL OP Referral Within 30 days [...] as of this encounter Visit Diagnoses Diagnosis Risk and functional assessment- Primary Screening for unspecified condition History of TIA (transient ischemic attack) Transient ischemic attack (TIA), and cerebral infarction without residual deficits Balance disorder Other symptoms involving nervous and musculoskeletal systems documented in this encounter Care Teams Burner Machine Operator Relationship Specialty Start Date End Date Amado Reeder MD [address] [place] [address] PCP - General 12/08/99 documented as of this encounter
--- OUTSIDE RECORDS SUMMARY | 2023-11-10 16:46 | External Medical Summary | Summary of Care ---
Author Name Unknown Organization [facility] Address [address] [facility] [place] [address] Phone [phone] Care Team Providers Care Story Teller Name Role Phone Amado Reeder MD Primary Care Provider Reason for Visit * Reason Onset Date Comments medication change 09/13/2023 Encounter Details Date Type Department Care Team (Late st Contact Info) Description 09/13/2023 Telephone Merged With [facility] [address] [place] [address] Amado Reeder MD [address] [place] [address] medication change Allergies No known active allergiesdocumented as of this encounter (statuses as of 09/14/2023) Medications Medication Sig Dispensed Refills Start Date [...] week Take by mouth. 0 Active Pen [place] 31G X 6 MMIndications:DM type 1, not at goal (HCC) Use 4 times a day with Novolog and Lantus insulin pens. 400 Each 3 1 Active Easy Touch Safety Pen [place] 29G X 8MM (Insulin Pen Needle)Indications: Type [...] THE DAY 90 Capsule 3 3 Active Additional Information Patient not taking.Reported on [...] ONCE DAILY 90 Tablet 3 3 Active Additional Information Patient taking differently: 40 mg Oral BID (.AM/PM), Reported on 09/07/2023 Clopidogrel Bisulfate 75 MG Oral Tablet (pLAVix)Indications :TIA (transient ischemic attack) TAKE ONE TABLET BY MOUTH ONCE DAILY 90 Tablet 1 3 Active Dexcom G6 Transmitter Use as directed. 1 Each 6 3 Active Aspirin 81 MG Oral Tablet Delayed Release Take 1 Tablet by mouth in the morning. 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 COSTAR II: COBALT CHROMIUM STENT WITH ANTIPROLIFERATIVE FOR RESTENOSIS II TRIAL OMI # [id number] PI: Jc Fermin MD SC: Hellen Morfin [...] as of this encounter (statuses as of 09/14/2023) Immunizations Name Administration Dates Next Due COVID-19 [...] Miscellaneous Notes * Telephone Encounter - Isidro Matos RP - 09/14/2023 12:47 PM EST Patient Phone Numbers Patient requesting to switch back from Basaglar and Humalog which he was on due to PAP restrictions. Patient requests to switching to lantus and novolog and would prefer them from [facility] and is aware that he would no longer be getting benefits of Assistance program. Isidro Matos, PharmD, BCACP, [facility] Clinical Pharmacist 09/14/2023, 12:54 PM Electronically signed by Isidro Matos [facility] at 09/14/2023 12:57 PM EST * Telephone Encounter - Jenifer Bruce OSA - 09/13/2023 3:31 PM EST Pt calling because he would like to speak to a nurse regarding his Insulin Glargine Solostar 100 UNIT/ML Subcutaneous Solution Pen-injector (Basaglar KwikPen) [[id number]] (Order [id number]) pt is statingthat the new medication that the doctor prescribed is not working for him and he would like to go back to the one he use to get it from ([facility]) Please call pt with any questions at above number Thanks documented in this encounter Plan of Treatment Upcoming Encounters Date Type Department Care Team (Late st Contact Info) Description 09/19/2023 9:45 AM EST NeuroDiagnostic Study Neurophysiology, [facility] [address] [place] [address] Gl, Neurophys Tech [address] [place] [address] 10/02/2023 1:30 PM EST Office Visit Neu[facility] [place] [address] [facility] [address] Ellie Feldman PA-C [address] [place] [place] [address] 10/09/2023 2:40 PM EST Pharmacy Pharmacy, [place] [address] [place] [facility] [place] [address] [facility] [address] [place] [facility] [place] [address] 12/07/2023 2:00 PM EDT Office Visit [facility], [place] [address] [facility], [place] [phone] Amado Reeder MD [address] [facility] [place] [address] 12/19/2023 11:40 AM EDT Office Visit Sleep Disorders Ctr [facility] [address] [place] [phone] Sapphire Perkins DO [address] [place] [address] Health Maintenance Due Date Last Done Comments [...] uncontrolled documented in this encounter Care Teams Story Teller Relationship Specialty Start Date End Date Amado Reeder MD [address] [facility] [place] [address] PCP - General 12/08/99 documented as of this encounter
--- OUTSIDE RECORDS SUMMARY | 2023-11-10 16:46 | External Medical Summary | Summary of Care ---
Author Name Unknown Organization [facility] Address [address] [facility] [place] [address] Phone [phone] Care Team Providers Care Mobile Sales Consultant Name Role Phone Amado Reeder MD Primary Care Provider [phone] Encounter Details Date Type Department Care Team (Late st Contact Info) Description 09/17/2023 Telephone [facility] [address] [place] [address] Amado Reeder MD [address] [place] [address] Allergies No known active allergiesdocumented [...] week Take by mouth. 0 Active Pen [place] 31G X 6 MMIndications:DM type 1, not at goal (HCC) Use 4 times a day with Novolog and Lantus insulin pens. 400 Each 3 02/17/2021 Active Easy Touch Safety Pen [place] 29G X 8MM (Insulin Pen Needle)Indications:T ype [...] disease without esophagi tis 10/03/2019 Atherosclerosis of [place] co ronary artery of [place] heart without angina pectoris 10/03/2019 Type 1 [...] ANTIPROLIFERATIVE FOR RESTENOSIS II TRIAL OMI # [id number] PI: Jc Fermin MD SC: Hellen Morfin RN, BSN Costar II Clinical Trial*[id number] 09/06/2005 01/25/2011 Overview: Renamed Per Clinical Trials Billing Project. COSTAR II: COBALT CHROMIUM STENT WITH ANTIPROLIFERATIVE FOR RESTENOSIS II TRIAL OMI # [id number] PI: Jc Fermin MD SC: Hellen Morfin [...] did not order sleep study. He could go ahead and get the sleep study as scheduled 09/19/23 at [place] or he could cancel the sleep studyuntil he sees sleep medicine doc, Dr Perkins [...] That has been cancelled. Not sure why. [facility] sleep med apt 12/19/23 ([facility]) and neurology apt 10/02/23([facility]). He needs scheduledfor EEG. Not sure where we continuous conveyor screen drier that regard. * Telephone Encounter - Leonila [...] 09/19/2023 9:45 AM EST NeuroDiagnostic Study Neurophysiology, [address] [place] [address] [facility], Neurophys Tech [address] [place], [place] [address] [address] 10/02/2023 1:30 PM EST Office Visit Neurology [facility] [address] [place] [address] Ellie Feldman PA-C [facility] [place] [address] 10/09/2023 2:40 PM EST Pharmacy Pharmacy, [place] [address] [place] [address] [facility] [address] [place] [address] 12/07/2023 2:00 PM EDT Office Visit Family Practice, [place] [address] [place] [phone] Amado Reeder MD [address] [place] [address] 12/19/2023 11:40 AM EDT Office Visit [facility] [place] [phone] Sapphire Perkins DO [address] [place] [address] Health Maintenance Due Date Last Done Comments Zoster Vaccines (1 of 2) 1990 COVID-19 Vaccine (2022-2 4 season) 2023 03/11/2021, 02/08/2021 Depression Screening 09/05/2024 09/05/2023 Influenza Vaccine (FLU shot) Completed 04/2023, 08/04/2022, 07/15/2021, Additional history exists documented as of this encounter Medical Devices Not on filedocumented as of this encounter Care Teams Mobile Sales Consultant Relationship Specialty Start Date End Date Amado Reeder MD [address] [place] [facility] [place] [address] PCP - General 12/08/99 documented as of this encounter
--- OUTSIDE RECORDS SUMMARY | 2023-11-10 16:46 | External Medical Summary | Summary of Care ---
Author Name Unknown Organization [facility] Address [address] [facility] [place] [address] Phone [phone] Care Team Providers Care Logistics Project Manager Name Role Phone Amado Reeder MD Primary Care Provider [phone] Reason for Visit * Reason Comments EEG Encounter Details Date Type Department Care Team (Late st Contact Info) Description 09/19/2023 9:45 AM EST NeuroDiagnostic Study Neurophysiology, [facility] [address] [place] [address] [facility], Neurophys Tech [address] [place] [address] Allergies No known active allergiesdocumented as of this encounter (statuses as of 09/28/2023) Medications Medication Sig Dispensed Refills Start Date [...] week Take by mouth. 0 Active Pen [place] 31G X 6 MMIndications:DM type 1, not at goal (HCC) Use 4 times a day with Novolog and Lantus insulin pens. 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 COSTAR II: COBALT CHROMIUM STENT WITH ANTIPROLIFERATIVE FOR RESTENOSIS II TRIAL OMI # [id number] PI: Jc Fermin MD SC: Hellen Morfin [...] as of this encounter (statuses as of 09/28/2023) Immunizations Name Administration Dates Next Due COVID-19 [...] as of this encounter Progress Notes * Carlos Barron, - 09/28/2023 6:25 PM EST ROUTINE EEG REPORT Name: Alexys Osorio Date of study: 09/19/2023, 10:15-10:47 Age: [age] year old Outpatient Referring Physician: Amado Reeder MD TECHNICAL REMARKS: This is a technically satisfactory eighteen channel record employing 21 disc electrodes applied according to a measured international 10-20 electrode placement system. There were no significant technical difficulties. CLINICAL INFORMATION: An 82 year old male with recent syncopal episode. EEG performed for evaluation of epileptiform activity. MEDICATIONS: Current Outpatient Medications Medication Sig Dispense Refill FabZat ULTRA BLUE STRP test 4-5 times a day dx code 250.03 for onetouch mini 450 Strip 1 Cholecalciferol (VITAMIN D) 2000 units Capsule Take by mouth 2,000 Units daily . Multiple Vitamin (MULTI VITAMIN DAILY) TABS Take by mouth. omega-3 1000 MG CAPS Take by mouth. Takes 2 daily Potassium Gluconate 550 MG TABS Take by mouth. Pen [place] 31G X 6 MM Use 4 times a day with Novolog and Lantus insulin pens. 400 Each 3 Easy Touch Safety Pen [place] 29G X 8MM (Insulin Pen Needle) 4 times daily with Insulin 360 Each 3 Vitamin D 125 MCG (5000 UT) Oral Capsule Take by mouth. Potassium Gluconate 595 (99 K) MG Oral Tablet Take by mouth. Felodipine ER 5 MG Oral Tablet Extended Release 24 Hour (Plendil) Take 2 Tablets by mouth every morning. 180 Tablet 4 Omeprazole 20 MG Oral Capsule Delayed Release (PriLOSEC) TAKE ONE CAPSULE BY MOUTH ONCE DAILY ONE HOUR BEFORE THE first meal of THE DAY (Patient not taking: Reported on 09/07/2023) 90 Capsule 3 Lisinopril 40 MG Oral Tablet TAKE ONE TABLET BY MOUTH ONCE DAILY 90 Tablet 3 hydroCHLOROthiazide 25 MG Oral Tablet (Hydrodiuril) TAKE ONE TABLET BY MOUTH ONCE DAILY 90 Tablet 1 Clopidogrel Bisulfate 75 MG Oral Tablet (pLAVix) TAKE ONE TABLET BY MOUTH ONCE DAILY 90 Tablet 1 Zhongjia MRO G6 Transmitter Use as directed. 1 Each 6 Aspirin 81 MG Oral Tablet Delayed Release Take 1 Tablet by mouth in the morning. NovoLOG FlexPen 100 UNIT/ML Subcutaneous Solution Pen-injector (insulin aspart) Inject up to 60 units a day following correction factor 1:25 over 140. 60 mL 3 Insulin Glargine Solostar 100 UNIT/ML Subcutaneous Solution Pen-injector (Lantus SoloStar) Inject 24 Units under the skin daily. 30 mL 3 Atorvastatin Calcium 80 MG Oral Tablet (Lipitor) Take 1 Tablet by mouth in the morning. 90 Tablet 1 No current facility-administered medications for this visit. REPORT: At the onset of the EEG, the patient is awake. The background activity consist of 8 Hz, persistent, posteriorly dominant, moderate amplitude, symmetric and rhythmic activity that is reactive to eye opening. Anteriorly, it consist of a mixture of low voltage indeterminate activity and 15-25 Hz, persistent, low amplitude, symmetric and rhythmic activity. Stepwise intermittent photic stimulation (1-21 Hz) does not induce any abnormalities. Drowsiness is characterized by low amplitude mixedfrequency activity, roving eye movements, and decreased eye blinking and muscle artifact. Stage II sleep is characterized by vertex waves and K complexes. IMPRESSION: This is a abnormal awake and drowsy routine EEG due to mild generalized background slowing suggestive a non specific encephalopathy. There is no evidence of focal slowing or epileptiform activity. Carlos Barron DO documented in this encounter Plan of Treatment Upcoming Encounters Date Type Department Care Team (Late st Contact Info) Description 10/02/2023 1:30 PM EST Office Visit Neurology [facility] [place] [address] [place] [address] Ellie Feldman PA-C [address] [facility] [place] [address] 10/09/2023 2:40 PM EST Pharmacy Pharmacy, [place] [address] [place] [address] [facility] [address] [place] [address] 12/07/2023 2:00 PM EDT Office Visit [place] [address] [place] [phone] Amado Reeder MD [address] [place] [address] 12/19/2023 11:40 AM EDT Office Visit Sleep Disorders Ctr [facility] [address] [place] [phone] Sapphire Perkins DO [address] [place] [address] Health Maintenance Due Date Last Done Comments Zoster Vaccines (1 of 2) 1990 COVID-19 Vaccine (2022-2 4 season) 2023 03/11/2021, 02/08/2021 Depression Screening 09/05/2024 09/05/2023 Influenza Vaccine (FLU shot) Completed 04/2023, 08/04/2022, 07/15/2021, Additional history exists documented as of this encounter Medical Devices Not on filedocumented as of this encounter Visit Diagnoses Diagnosis Syncope, unspecified syncope type [R55]- Primary documented in this encounter Care Teams Logistics Project Manager Relationship Specialty Start Date End Date Amado Reeder MD [address] [place] [address] PCP - General 12/08/99 documented as of this encounter
--- OUTSIDE RECORDS SUMMARY | 2023-11-10 16:46 | External Medical Summary | Summary of Care ---
Author Name Unknown Organization [facility] Address [address] [facility] [place] [address] Phone [phone] Care Team Providers Care Network Operations Analyst Name Role Phone Amado Reeder MD Primary Care Provider [phone] Encounter Details Date Type Department Care Team (Late st Contact Info) Description 09/13/2023 Population Health External Data Unspecified Department Allergies [...] week Take by mouth. 0 Active Pen [place] 31G X 6 MMIndications:DM type 1, not at goal (HCC) Use 4 times a day with Novolog and Lantus insulin pens. 400 Each 3 02/17/2021 Active Easy Touch Safety Pen [place] 29G X 8MM (Insulin Pen Needle)Indications:T ype [...] disease without esophagi tis 10/03/2019 Atherosclerosis of [place] co ronary artery of [place] heart without angina pectoris 10/03/2019 Type 1 [...] ANTIPROLIFERATIVE FOR RESTENOSIS II TRIAL OMI # [id number] PI: Jc Fermin MD SC: Hellen Morfin RN, BSN Costar II Clinical Trial*[id number] 09/06/2005 01/25/2011 Overview: Renamed Per Clinical Trials Billing Project. COSTAR II: COBALT CHROMIUM STENT WITH ANTIPROLIFERATIVE FOR RESTENOSIS II TRIAL OMI # [id number] PI: Jc Fermin MD SC: Hellen Morfin [...] 09/19/2023 9:45 AM EST NeuroDiagnostic [address]iology, [address] [address] Glh, Neurophys Tech [address] [place] [address] [place] [address] 10/02/2023 1:30 PM EST Office Visit Neurology [facility] [place] [address] [place] [place] [address] Ellie Feldman PA-C [address] [facility] [place] [address] 10/09/2023 2:40 PM EST [facility] Pharm[facility], [place] [address] [facility] [address] [facility] [address] [place] [facility] [place] [address] 12/07/2023 2:00 PM EDT Office Visit [facility] [place] [address] [facility] [phone] [facility]ado [facility]eder [facility] [address] [facility] [address] 12/19/2023 11:40 AM EDT Office Visit Sleep Disorders Ctr [facility] [address] [place] [phone] Sapphire Perkins DO [address] [place] [address] Health Maintenance Due Date Last Done Comments Zoster Vaccines (1 of 2) 1990 COVID-19 Vaccine (3 2022-2 4 season) 2023 03/11/2021, 02/08/2021 Depression Screening 09/05/2024 09/05/2023 Influenza Vaccine (FLU shot) Completed 04/2023, 08/04/2022, 07/15/2021, Additional history exists documented as of this encounter Medical Devices Not on filedocumented as of this encounter Care Teams Network Operations Analyst Relationship Specialty Start Date End Date Amado Reeder [facility] [address] [facility] [address] PCP - General 12/08/99 documented as of this encounter
--- OUTSIDE RECORDS SUMMARY | 2023-11-10 16:46 | External Medical Summary | Summary of Care ---
Author Name Unknown Organization [facility] Address [address] [facility] [place] [address] Phone [phone] Care Team Providers Care Film Inspector Name Role Phone Robina Reeder MD Primary Care Provider Reason for Visit * Reason Onset Date Comments Medication Refill 08/10/2023 Encounter Details Date Type Department Care Team (Late st Contact Info) Description 08/10/2023 Refill [facility] [address] [place] [address] Robina Reeder MD [address] [place] [address] Allergies No known active allergiesdocumented as of this encounter (statuses as of 10/10/2023) Medications Medication Sig Dispensed Refills Start Date [...] week Take by mouth. 0 Active Pen Hamlin 31G X 6 MMIndications:DM type 1, not at goal (HCC) Use 4 times a day with Novolog and Lantus insulin pens. 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 0 Active Potassium Gluconate 595 (99 K) MG Oral Tablet Take by mouth. 0 Act robert Felodipine ER 5 MG Oral Tablet Extended Release 24 Hour (Plendil)Indicatio ns:HTN, goal below 140/90 Take 2 Tablets by mouth every morning. 180 Tablet 4 3 Active Omeprazole 20 MG Oral Capsule Delayed Release (PriLOSEC) TAKE ONE CAPSULE BY MOUTH ONCE DAILY ONE HOUR BEFORE THE first meal of THE DAY 90 Capsule 3 3 Active Lisinopril 40 MG Oral Tablet TAKE ONE TABLET BY MOUTH ONCE DAILY 90 Tablet 3 3 Active hydroCHLOROthiazid e 25 MG Oral Tablet (Hydrodiuril)Indic ations:HTN, goal below 150/90 TAKE ONE TABLET BY MOUTH ONCE DAILY 90 Tablet 1 3 Active Clopidogrel Bisulfate 75 MG Oral Tablet (pLAVix)Indication s:TIA (transient ischemic attack) TAKE ONE TABLET BY MOUTH ONCE DAILY 90 Tablet 1 3 Active Dexcom G6 Transmitter Use as directed. 1 Each 6 3 Active Citalopram Hydrobromide 20 MG Oral Tablet (CeleXA)Indication s:Current mild episode of major depressive disorder, unspecified whether recurrent (HCC) TAKE 1/2 TABLET BY MOUTH ONCE DAILY 45 Tablet 1 3 09/05/19 24 Discontinued(Sylvain flannery preference/disc ontinuation) Dexcom G6 Transmitter Use as directed. 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 60 mL 4 3 09/14/19 24 Discontinued Atorvastatin Calcium 40 MG Oral Tablet (Lipitor) TAKE ONE TABLET BY MOUTH ONCE DAILY 90 Tablet 3 3 09/25/19 24 Discontinued(Re fill) documented as of this encounter (statuses as of 10/10/2023) Active Problems Problem Noted Date Diagnosed Date Foot deformity, acquired, left 12/09/2021 Overview: bony protuberance plantar aspect mid foot Obstructive uropathy 10/21/2020 Type 1 diabetes mellitus with diabetic dermatiti s 10/05/2020 HTN, goal below 150/90 10/03/2019 Current mild episode of abdirahman r depressive disorder without prior episode 10/03/2019 Current use of insulin 10/03/2019 Gastroesophageal reflux disease without esophagi tis 10/03/2019 Atherosclerosis of [place] co ronary artery of [place] heart without angina pectoris 10/03/2019 Type 1 [...] as of this encounter (statuses as of 10/10/2023) Resolved Problems Problem Noted Date Diagnosed Date [...] ANTIPROLIFERATIVE FOR RESTENOSIS II TRIAL OMI # [id number] PI: Jc Fermin MD SC: Hellen Morfin RN, BSN Costar II Clinical Trial*[id number] 09/06/2005 01/25/2011 Overview: Renamed Per Clinical Trials Billing Project. COSTAR II: COBALT CHROMIUM STENT WITH ANTIPROLIFERATIVE FOR RESTENOSIS II TRIAL OMI # [id number] PI: Jc Fermin MD SC: Hellen Morfin [...] as of this encounter (statuses as of 10/10/2023) Immunizations Name Administration Dates Next Due COVID-19 [...] Miscellaneous Notes * Telephone Encounter - Chrystal Milligan retail director - 08/21/2023 10:41 AM EST Pt is calling and saying felicita did not get orders for his dexacon transmitter and sensors. Pleaseresend order cristiana as pt has nothing to test sugar . Please advise Thank you for your assistance Chrystal Milligan Restaurant Assistant II [facility] ([facility]) 08/21/2023,10:42 AM * Telephone Encounter - Robina Reeder MD - 08/10/2023 2:54 PM ESTSigned Prescriptions: Disp Refills Dexcom G6 Transmitter 1 Each 6 Sig: Use as directed. Authorizing Provider: ROBINA REEDER * Telephone Encounter - Concha Porter LPN - 08/10/2023 9:33 AM EST [facility] [employer] is requesting new order for Dexcom G6 reader sensors and transmitter. Do not see current order for sensors documented in this encounter Plan of Treatment Upcoming Encounters Date Type Department Care Team (Late st Contact Info) Description 11/19/2023 9:30 AM EDT Pharmacy Pharmacy[address] [address] [place], [facility] [address] [place] [address] 12/07/2023 2:00 PM EDT [facility] [address] [facility] [phone] Robina Reeder MD [address] [facility] [place] [id number] 12/19/2023 11:40 AM EDT Office Visit Sleep Disorders Ctr [facility] [address] [place] [phone] [place], [address] [place] [address] Health Maintenance Due Date Last Done Comments Zoster Vaccines (1 of 2) 1990 COVID-19 Vaccine (2022-2 4 season) 2023 03/11/2021, 02/08/2021 Depression Screening 09/05/2024 09/05/2023 Influenza Vaccine (FLU shot) Completed 04/2023, 08/04/2022, 07/15/2021, Additional history exists documented as of this encounter Medical Devices Not on filedocumented as of this encounter Care Teams Film Inspector Relationship Specialty Start Date End Date Robina Reeder MD [address] [facility] [place] [id number] PCP - General 12/08/99 documented as of this encounter
--- OUTSIDE RECORDS SUMMARY | 2023-11-10 16:46 | External Medical Summary | Summary of Care ---
Author Name Unknown Organization [facility] Address [address] [facility] [place] [address] Phone [phone] Care Team Providers Care Web Knitter Name Role Phone Amado Reeder MD Primary Care Provider [phone] Reason for Visit * Reason Comments EEG Encounter Details Date Type Department Care Team (Late st Contact Info) Description 09/19/2023 9:45 AM EST NeuroDiagnostic Study Neurophysiology, [facility] [address] [place] [address] [facility], Neurophys Tech [address] [place] [address] Allergies No known active allergiesdocumented as of this encounter (statuses as of 09/30/2023) Medications Medication Sig Dispensed Refills Start Date [...] week Take by mouth. 0 Active Pen Cumma[place]id 31G X 6 MMIndications:DM type 1, not at goal (HCC) Use 4 times a day with Novolog and Lantus insulin pens. 400 Each 3 02/17/2021 Active Easy Touch Safety Pen Cumma[place]id 29G X 8MM (Insulin Pen Needle)Indications:T ype [...] as of this encounter (statuses as of 09/30/2023) Active Problems Problem Noted Date Diagnosed Date Foot deformity, acquired, left 12/09/2021 Overview: bony protuberance plantar aspect mid foot Obstructive uropathy 10/21/2020 Type 1 diabetes mellitus with diabetic dermatiti s 10/05/2020 HTN, goal below 150/90 10/03/2019 Current mild episode of abdirahman r depressive disorder without prior episode 10/03/2019 Current use of insulin 10/03/2019 Gastroesophageal reflux disease without esophagi tis 10/03/2019 Atherosclerosis of [place] co ronary artery of [place] heart without angina pectoris 10/03/2019 Type [...] as of this encounter (statuses as of 09/30/2023) Resolved Problems Problem Noted Date Diagnosed Date [...] ANTIPROLIFERATIVE FOR RESTENOSIS II TRIAL OMI # [id number] PI: Jc Fermin MD SC: Hellen Morfin RN, BSN Costar II Clinical Trial*[id number] 09/06/2005 01/25/2011 Overview: Renamed Per Clinical Trials Billing Project. COSTAR II: COBALT CHROMIUM STENT WITH ANTIPROLIFERATIVE FOR RESTENOSIS II TRIAL OMI # [id number] PI: Jc Fermin MD SC: Hellen Morfin [...] as of this encounter (statuses as of 09/30/2023) Immunizations Name Administration Dates Next Due COVID-19 [...] Current Outpatient Medications Medication Sig Dispense Refill Matthew Kenney Cuisine ULTRA BLUE STRP test 4-5 times a day dx code 250.03 for onetouch mini 450 Strip 1 Cholecalciferol (VITAMIN D) 2000 units Capsule Take by mouth 2,000 Units daily . Multiple Vitamin (MULTI VITAMIN DAILY) TABS Take by mouth. omega-3 1000 MG CAPS Take by mouth. Takes 2 daily Potassium Gluconate 550 MG TABS Take by mouth. Pen Cummaquid 31G X 6 MM Use 4 times a day with Novolog and Lantus insulin pens. 400 Each 3 Easy Touch Safety Pen Cum[place] 29G X 8MM (Insulin Pen Needle) 4 [...] BY MOUTH ONCE DAILY 90 Tablet 1 Gamisfaction G6 Transmitter Use as directed. 1 Each [...] 10/02/2023 1:30 PM EST Office Visit Neurology [facility] [address] [place] [address] Ellie Feldman PA-C [address] [facility] [address] 10/09/2023 2:40 PM EST Pharmacy Pharmacy, [place] [address] [place] [address] [facility] [address] [place] [address] 12/07/2023 2:00 PM EDT Office Visit [place] [address] [place] [phone] Amado Reeder MD [address] [place] [address] 12/19/2023 11:40 AM EDT Office Visit Sleep Disorders Ctr [facility] [address] [phone] [place] [place] DO [address] [place] [address] Health Maintenance Due Date Last Done Comments [...] Primary documented in this encounter Care Teams Web Knitter Relationship Specialty Start Date End Date Amado Reeder MD [address] [place] [address] PCP - General 12/08/99 documented as of this encounter
--- NOTE | 2023-11-10 17:09 | Emergency Department Note ---
Impression & Plan Syncope, Elevated CK, Hyperglycemia ED Provider Note Name: BRAULIO MARTIN Age: 83 Sex: Male Arrives Via: Walk-In Informant: Patient ED Provider: Dieudonne Altman MD Chief Complaint: Syncope Impression: As per impression above Medical Decision Making: Pleasant 83-year-old gentleman with history of type 1 diabetes, CVA, hypertension, TIA arrives for evaluation of syncopal event that occurred about 5 hours prior to arrival. No presyncopal symptoms. He awoke on the floor somewhat confused. Reportedly about 5 minutes LOC. On arrival neuro intact NIH 0. CT head is unremarkable. Laboratory workup reveals mildly elevated CK and some mild hyperglycemia. Given 1 L normal saline bolus IV. Initial EKG does show some slight lateral ST depressions which are somewhat new. His troponin though is unremarkable and seems less likely ACS given this is been several hours since event. That said in the setting of multiple risk factors and what sounds like a relatively serious syncopal event he will require further monitoring and thus hospitalist was consulted. Patient does not have any shortness of breath, palpitations, tachycardia, hypotension. I do not feel that CT angiography of the chest is necessary at this time. Triage/Nursing Notes reviewed by Me Differential:Vasovagal event, dehydration, infection, hypoglycemia, electrolyte abnormalities, cardiac sources, intracerebral event, pulmonary embolism, seizure, toxicologic, neurologic, as well as other pathologies. Vital Signs: reviewed and remarkable for no significant abnormalities Interventions: nss bolus 1 L IV Labs:ED labs Reviewed by me and remarkable for no significant abnormalities Imaging:X ray results are stated below per my interpretation: Chest: 1 view: No infiltrate, no effusion, normal cardiac border. CT of the head with out IV contrast as per my informal interpretation no intracranial hemorrhage or mass effect appreciated. Confirmed by radiologist. EKG:As per my interpretation. Indication syncope. Sinus bradycardia 59 bpm first-degree AV block. There is lateral ST depression though no reciprocal changes. QTc 417. There is no STEMI or ectopy appreciated. When compared to EKG of September 01, [address] depressions are new. Cardiac/Tele Monitoring: Cardiac Monitoring: An Order was placed for continuous cardiac monitoring. The monitor shows a rate of 60 with a normal sinus rhythm. Consults:Dr Riky Resendez Hospitalist Plan: Disposition:Hospitalization. Condition: Good History of Present Illness: 83-year-old gentleman arrives for evaluation of syncopal event. Patient was typing on his computer around 11:00 this morning when he had a syncopal event. This was about 5 minutes that he was unresponsive apparently. Someone in the house had heard him collapse and went up to check on him and noted he was just coming to about 5 minutes after initially hearing collapse and finding him on the floor. Patient states he was bit woozy for some time afterwards but within about 15 minutes was able to type on his computer again. States he was try to think about what he should do prior to coming into the hospital thus the delay in arriving. Denies any focal neurologic deficits, denies any slurred speech or visual changes. He has not been having any recent chest pain palpitations, shortness of breath, back pain, abdominal pain, leg pain, calf swelling or any other concerning signs or symptoms. He states prior to this event he had 0 symptoms and was feeling fine. He does note that he had a similar event several months ago which was felt to be due to a stroke. He has been on aspirin and Plavix since then. Denies any falls, trauma, injury other than the syncopal event this morning. Past Medical History: Cerebrovascular disease, diabetes, hypertension, TIA Home Medications:See Below Allergies:See Below Vitals:Blood Pressure: 181/75, Pulse 64, RR 20, T 36.5C, O2 98% on RA Physical Exam: GENERAL: Patient is well appearing and in no acute distress. HEAD: AT/NC NECK: No midline cervical TTP nor stepoff RESPIRATORY: No dyspnea. Clear to auscultation and equal bilaterally. CARDIOVASCULAR: Regular rate and rhythm.No murmur appreciated. GASTROINTESTINAL: Abdomen soft, non-tender, no peritonitis. EXTREMITIES: Normal motion all extremities, no cyanosis, no edema. NEUROLOGIC: Alert and oriented. No focal neurologic deficits appreciated SKIN: No rash, no jaundice, no diaphoresis. PSYCH: Appropriate GCS: 15 ED Course: Times/Reassessments: Patient been stable throughout his ED stay without arrhythmia noted. Dieudonne Altman MD Past Med/Surg History Medical History Hypertension Diabetes mellitus, insulin dependent (IDDM), uncontrolled Coronary artery disease Dizziness Frequent PVCs Abnormal EKG No known health problems Family History Other No significant family history Social History Smoking Status: Never smoker Hx Alcohol Use: No Hx Substance Use: No Preferred Language: French Communication Ability: Effective Corporate Secretary Required: No Beliefs That Will Affect Care: None marital status: Current Living Situation: Spouse Feels Safe at Home: Yes Assistive Devices: Glasses Allergies Allergies Allergy/AdvReac Type Severity Reaction Status Date / Time No Known Drug Allergies Allergy Unknown . Verified 03/25/19 17:17 Neoprene Allergy Unknown Itchiness Uncoded 03/25/19 17:17 Home Meds Home Medications Medication Instructions Recorded Confirmed cholecalciferol (vitamin D3) 50 2,000 unit PO QAM 03/25/19 09/01/23 mcg (2,000 unit) capsule (Vitamin D3) citalopram 20 mg tablet 10 mg PO QAM 03/25/19 09/01/23 felodipine 5 mg tablet,extended 10 mg PO QAM 03/25/19 09/01/23 release 24 hr insulin lispro 100 unit/mL See Rx Instructions .Route .COMPLEX 03/25/19 09/01/23 subcutaneous pen (Humalog KwikPen (U-100) Insulin) lisinopril 40 mg tablet 40 mg PO QAM 03/25/19 09/01/23 multivitamin 1 tab PO QAM 03/25/19 09/01/23 omega-3s 300 rd-cho-evw-other 2 cap PO QAM 03/25/19 09/01/23 [id number] oil 1,000 mg capsule (Rye-3 Fish Oil) potassium gluconate 550 mg (90 mg) 550 mg PO UD 03/25/19 09/01/23 tablet clopidogrel 75 mg tablet 75 mg PO DAILY 09/01/23 09/01/23 hydrochlorothiazide 25 mg tablet 25 mg PO DAILY 09/01/23 09/01/23 insulin aspart U-100 100 unit/mL See Rx Instructions .Route .COMPLEX 09/01/23 09/01/23 (3 mL) subcutaneous pen (Novolog FlexPen U-100 Insulin aspart) insulin glargine 100 unit/mL (3 20 unit subcut QPM 09/01/23 09/01/23 mL) subcutaneous pen (Lantus Solostar U-100 Insulin) Previous Rx's Medication Instructions Recorded aspirin 81 mg tablet,delayed 81 mg PO QAM 30 days #30 tabs 09/03/23 release atorvastatin 40 mg tablet 80 mg (2 x 40 mg) PO QAM 30 days 09/03/23 #60 tabs pantoprazole 40 mg tablet,delayed 40 mg PO DAILY #30 tabs 09/04/23 release (Protonix) Results & Data (ED) Vital Signs Vital Signs - 24 hr 11/10/23 16:41 11/10/23 16:42 11/10/23 16:46 Temperature 36.5 C Temperature Source Temporal Artery Scan Pulse Rate 64 57 L Pulse Rate [Right Finger] 59 L Pulse Rate from SpO2 Sensor Pulse Rhythm [Right Finger] Respiratory Rate 15 20 15 Respiratory Effort / Characteristics Non-Labored Spontaneous Non-Labored Spontaneous Respiratory Depth Normal Normal Respiratory Pattern Regular Blood Pressure 181/75 H Blood Pressure [Left Arm] 169/86 H Blood Pressure Mean 110 Blood Pressure Mean [Left Arm] 113 Blood Pressure Position [Left Arm] Semi-fowlers Pulse Oximetry 97 98 97 Oxygen Delivery Method Room Air Room Air Room Air Sepsis Recent Fever Within 48 Hours No Sepsis New/Unexplained Change in Mental Status N/A Sepsis Action Taken by Nursing No Action Required 11/10/23 17:07 11/10/23 17:10 11/10/23 17:35 Temperature Temperature Source Pulse Rate 63 61 Pulse Rate [Right Finger] 60 Pulse Rate from SpO2 Sensor Pulse Rhythm [Right Finger] Regular Respiratory Rate 19 18 Respiratory Effort / Characteristics Non-Labored Spontaneous Respiratory Depth Normal Respiratory Pattern Regular Blood Pressure 169/86 H Blood Pressure [Left Arm] 162/73 H Blood Pressure Mean 113 Blood Pressure Mean [Left Arm] 102 Blood Pressure Position [Left Arm] Sitting Pulse Oximetry 97 97 Oxygen Delivery Method Room Air Room Air Sepsis Recent Fever Within 48 Hours Sepsis New/Unexplained Change in Mental Status Sepsis Action Taken by Nursing 11/10/23 17:35 11/10/23 18:00 11/10/23 18:30 Temperature Temperature Source Pulse Rate 52 L 55 L 69 Pulse Rate [Right Finger] Pulse Rate from SpO2 Sensor Pulse Rhythm [Right Finger] Respiratory Rate 15 16 15 Respiratory Effort / Characteristics Respiratory Depth Respiratory Pattern Blood Pressure 162/73 H 148/75 H 144/75 H Blood Pressure [Left Arm] Blood Pressure Mean 102 99 98 Blood Pressure Mean [Left Arm] Blood Pressure Position [Left Arm] Pulse Oximetry 98 96 96 Oxygen Delivery Method Room Air Room Air Room Air Sepsis Recent Fever Within 48 Hours Sepsis New/Unexplained Change in Mental Status Sepsis Action Taken by Nursing 11/10/23 18:40 Temperature Temperature Source Pulse Rate 58 L Pulse Rate [Right Finger] Pulse Rate from SpO2 Sensor 58 L Pulse Rhythm [Right Finger] Respiratory Rate 17 Respiratory Effort / Characteristics Respiratory Depth Respiratory Pattern Blood Pressure Blood Pressure [Left Arm] Blood Pressure Mean Blood Pressure Mean [Left Arm] Blood Pressure Position [Left Arm] Pulse Oximetry 96 Oxygen Delivery Method Sepsis Recent Fever Within 48 Hours Sepsis New/Unexplained Change in Mental Status Sepsis Action Taken by Nursing Laboratory Data 11/10/23 17:06 11/10/23 17:06 Lab Results 11/10/23 11/10/23 Range/Units 17:06 17:31 WBC 9.78 (4.8-10.8) K/ul RBC 4.53 L (4.70-6.10) M/uL Hgb 13.3 L (14.0-18.0) g/dl Hct 38.9 L (42.0-52.0) % MCV 85.9 (80.0-100.0) fL MCH 29.4 (25.0-34.0) pg MCHC 34.2 (32.0-36.0) g/dL RDW Std Deviation 42.4 (36.4-46.3) fL RDW Coeff of Toby 13.6 (11.5-14.5) % Plt Count 272 (130-400) K/uL MPV 9.5 (9.4-12.4) fL Immature Gran % (Auto) 0.3 % Neut % (Auto) 62.5 % Lymph % (Auto) 24.3 % [place] % (Auto) 7.6 % Eos % (Auto) 5.1 % Baso % (Auto) 0.2 % Neut # (Auto) 6.11 (1.40-6.50) K/uL Lymph # (Auto) 2.38 (1.20-3.40) K/uL [place] # (Auto) 0.74 H (0.11-0.59) K/uL Eos # (Auto) 0.50 (0.00-0.50) K/uL Baso # (Auto) 0.02 (0.00-0.20) K/uL Immature Gran # (Auto) 0.03 (0.01-0.20) K/uL PT 10.8 (9.0-12.0) Seconds INR 1.0 (0.9-1.1) APTT 29 (21-31) Seconds PTT Ratio 1.0 Sodium 139 (136-145) mmol/L Potassium 3.4 L (3.5-5.1) mmol/L Chloride 104 (98-107) mmol/L Carbon Dioxide 28 (21-32) mmol/L Anion Gap 7 (3-11) BUN 22 (6-23) mg/dl Creatinine 0.82 (0.6-1.4) mg/dl Est Cr Clr Drug Dosing 70.0 ml/min Est GFR ( Amer) 94.8 ml/min Est GFR (Non-Af Amer) 81.8 ml/min BUN/Creatinine Ratio 26.8 H (10-20) Glucose 182 H (70-99(Fasting)) mg/dl Calcium 9.4 (8.6-10.3) mg/dl Magnesium 1.9 (1.7-2.4) mg/dl Total Bilirubin 0.4 (0.2-1.0) mg/dl AST 29 (13-39) U/L ALT 21 (7-52) U/L Alkaline Phosphatase 71 (34-104) U/L Total Creatine Kinase 276 H (30-223) U/L Troponin I High Sens 7.0 (0-20) pg/ml Total Protein 7.7 (6.0-8.3) gm/dl Albumin 4.3 (3.4-5.0) gm/dl Globulin 3.4 (2.5-4.0) gm/dl Albumin/Globulin Ratio 1.3 (0.9-2) TSH 1.828 (0.300-4.500) uIu/ml Urine Color Yellow Urine Appearance Clear (Clear) Urine pH 7.0 (4.5-7.5) Ur Specific [place] 1.019 (1.000-1.030) Urine Protein Negative (Negative) Urine Glucose (UA) Negative (Negative) Urine Ketones Negative (Negative) Urine Blood Trace H (Negative) Urine Nitrite Negative (Negative) Urine Bilirubin Negative (Negative) Urine Urobilinogen Negative (Negative) Ur Leukocyte Esterase Negative (Negative) Urine WBC (Auto) 0 (0-5) /hpf Urine RBC (Auto) 5-10 H (0-4) /hpf U Hyaline Cast (Auto) 0 (0-5) /lpf U Epithel Cells (Auto) 0-5 (0-5) /lpf Urine Bacteria (Auto) Negative (Negative) Administered Medications Discontinued Medications Sodium Chloride (Nss) 1,000 mls @ 999 mls/hr IV .[id number] ONE Stop: 11/10/23 18:58 Last Admin: 11/10/23 18:17 Dose: 999 mls/hr Documented By: LM Imaging Data Radiologist's Impression: Chest X-Ray 11/10/23 16:47 XR chest 1V portable CLINICAL HISTORY: Syncope TECHNIQUE: Single frontal radiograph of the chest was obtained. Comparison: Comparison is made to chest radiograph 09/01/2023 FINDINGS: No lines and tubes are seen. The cardiomediastinal silhouette is normal. The lungs are clear. No evidence of pleural effusion or pneumothorax. IMPRESSION: No acute chest disease. ACT 112: Negative or not required by law. Electronically signed by: Ac Edge M.D. 11/10/2023 6:[address] 11/10/23 16:47 CT head/brain wo con CLINICAL HISTORY: syncope Technique: Contiguous axial CT images of the head were acquired from the base of the skull to the vertex without intravenous contrast administration. Images were viewed in brain, subdural and bone windows. Automated dose lowering techniques and/or adjustment according to patient size were utilized for this exam. Comparison: Comparison is made to MRI brain 09/02/2023 and CTA head 09/01/2023 Findings: The ventricles, basal cisterns, and cerebral sulci are normal. There is no acute intracranial hemorrhage or evidence of acute territorial infarction. Neither mass effect, shift of the midline structures, nor abnormal extra-axial fluid collections are shown. Imaged portions of the paranasal sinuses and mastoid air cells are clear. The orbits appear normal. There are no acute fractures of the calvaria or scalp swelling. Impression: No acute intracranial hemorrhage, no evidence of acute territorial infarction or other acute intracranial disease process. ACT 112: Negative or not required by law. Electronically signed by: Ac Edge M.D. 11/10/2023 5:56 PM Discharge Plan Visit Data Chief Complaint: Syncope Stated Complaint: SYNCOPE ED Provider: Dieudonne Altman Discharge Problem: Syncope, Elevated CK, Hyperglycemia Forms Stand Alone Forms: My [facility] Prescriptions Prescriptions: No Action multivitamin Tablet 1 tab PO QAM felodipine 5 mg tablet extended release 24 hr 10 mg PO QAM citalopram 20 mg tablet 10 mg PO QAM lisinopril 40 mg tablet 40 mg PO QAM insulin lispro [Humalog KwikPen Insulin] 100 unit/mL insulin pen See Rx Instructions .ROUTE .COMPLEX Rx Instructions: inject up to 60 units a day following correction factor 1:25 OVER 140 cholecalciferol (vitamin D3) [Vitamin D3] 2,000 unit Capsule 2,000 unit PO QAM potassium gluconate 550 mg (90 mg) Tablet 550 mg PO UD Rye-3 Fish Oil 300-1,000 mg Capsule 2 cap PO QAM clopidogrel 75 mg tablet 75 mg PO DAILY hydrochlorothiazide 25 mg tablet 25 mg PO DAILY insulin glargine [Lantus Solostar U-100 Insulin] 100 unit/mL (3 mL) insulin pen 20 unit SUBCUT QPM insulin aspart U-100 [Novolog FlexPen U-100 Insulin] 100 unit/mL (3 mL) insulin pen See Rx Instructions .ROUTE .COMPLEX Rx Instructions: INJECT 14 UNITS subcutaneously WITH BREAKFAST, 10 UNITS WITH LUNCH, 12 UNITS WITH SUPPER. PLUS A SLIDING SCALE. MAX DOSE 80 UNITS PER DAY aspirin 81 mg Tablet,Delayed Release (Dr/Ec) 81 mg PO QAM 30 Days Qty: 30 2RF Rx Instructions: Always take with a full stomach atorvastatin 40 mg tablet 80 mg PO QAM 30 Days Qty: 60 2RF pantoprazole [Protonix] 40 mg tablet,delayed release (DR/EC) 40 mg PO DAILY Qty: 30 1RF Rx Instructions: take at least 30 minutes before first meal of the day Referrals Referrals: Amado Reeder MD [Primary Care Provider] - Discharge Problem: Syncope Qualifiers: Syncope type: unspecified Qualified Code(s): R55 - Syncope and collapse
[2023-11-10 17:28] LABS: Basophils # (auto) 0.02 K/uL (0.00-0.20); Basophils % (auto) 0.2 %; Eosinophils % (auto) 5.1 %; Hematocrit (blood only) 38.9 % (42.0-52.0); Hemoglobin 13.3 g/dl (14.0-18.0); Immature Granulocytes # (auto) 0.03 K/uL (0.01-0.20); Immature Granulocytes % (auto) 0.3 %; Lymphocytes # (auto) 2.38 K/uL (1.20-3.40); Lymphocytes % (auto) 24.3 %; Mean Corpuscular Hemoglobin 29.4 pg (25.0-34.0); Mean Corpuscular Hgb Conc 34.2 g/dL (32.0-36.0); Mean Corpuscular Volume 85.9 fL (80.0-100.0); Mean Platelet Volume 9.5 fL (9.4-12.4); Monocytes # (auto) 0.74 K/uL (0.11-0.59); Monocytes % (auto) 7.6 %; Neutrophils # (auto) 6.11 K/uL (1.40-6.50); Neutrophils % (auto) 62.5 %; Platelet Count 272 K/uL (130-400); RDW Coefficient of Variation 13.6 % (11.5-14.5); RDW Standard Deviation 42.4 fL (36.4-46.3); Red Blood Count 4.53 M/uL (4.70-6.10); White Blood Count 9.78 K/ul (4.8-10.8)
[2023-11-10 17:44] LABS: Albumin Globulin Ratio 1.3 (0.9-2); Albumin Level 4.3 gm/dl (3.4-5.0); BUN Creatinine Ratio 26.8 (10-20); Bilirubin,Total 0.4 mg/dl (0.2-1.0); Calcium 9.4 mg/dl (8.6-10.3); Est GFR (African American) 94.8 ml/min; Est GFR (Non-African American) 81.8 ml/min; Globulin 3.4 gm/dl (2.5-4.0); Magnesium 1.9 mg/dl (1.7-2.4); Potassium 3.4 mmol/L (3.5-5.1); Total Protein 7.7 gm/dl (6.0-8.3)
--- NOTE | 2023-11-10 17:57 | CT Scan Report ---
CT head/brain wo con CLINICAL HISTORY: syncope Technique: Contiguous axial CT images of the head were acquired from the base of the skull to the shivani malcolm without intravenous contrast administration. Images were viewed in brain, subdural and [facility]. Automated dose lowering techniques and/or adjustment according to patient size were utilized for this exam. Comparison: Comparison is made to MRI brain 09/02/2023 and CTA head 09/01/2023 Findings: The ventricles, basal cisterns, and cerebral sulci are normal. There is no acute intracranial hemorrh age or evidence of acute territorial infarction. Neither mass effect, shift of the midline structures , nor abnormal extra-axial fluid collections are shown. Imaged portions of the paranasal sinuses and mastoid air cells are clear. The orbits appear normal. There are no acute fractures of the calvaria or scalp swelling. Impression: No acute intracranial hemorrhage, no evidence of acute territorial infarction or other acute intracra nial disease process. ACT 112: Negative or not required by law. Electronically signed by: Ac Edge M.D. 11/10/2023 5:56 PM
[2023-11-10 18:00] LABS: Thyroid Stimulating Hormone 1.828 uIu/ml (0.300-4.500)
[2023-11-10 18:02] LABS: Appearance Urine Clear (Clear); Bacteria Urine Automated Negative (Negative); Bilirubin Urine Negative (Negative); Blood Urine Trace (Negative); Cast Urine Automated 0 /lpf (0-5); Color Urine Yellow; Epithelial Cell Urine Auto 0-5 /lpf (0-5); Glucose Urine UA Negative (Negative); Ketones Urine Negative (Negative); Leukocyte Esterase Urine Negative (Negative); Nitrite Urine Negative (Negative); Protein Urine Negative (Negative); Specific Gravity Urine 1.019 (1.000-1.030); Urobilinogen Urine Negative (Negative); WBC Urine Automated 0 /hpf (0-5)
[2023-11-10 18:06] LABS: Partial Thromboplastin Time 29 Seconds (21-31); Prothrombin Time 10.8 Seconds (9.0-12.0)
--- NOTE | 2023-11-10 18:13 | XRay Report ---
XR chest 1V portable CLINICAL HISTORY: Syncope TECHNIQUE: Single frontal radiograph of the chest was obtained. Comparison: Comparison is made to chest radiograph 09/01/2023 FINDINGS: No lines and tubes are seen. The cardiomediastinal silhouette is normal. The lungs are clear. No evid ence of pleural effusion or pneumothorax. IMPRESSION: No acute chest disease. ACT 112: Negative or not required by law. Electronically signed by: Ac Edge M.D. 11/10/2023 6:12 PM
[2023-11-10] MEDS: SODIUM CHLORIDE 0.9% 1,000 ML IV ONE (18:17)
--- NOTE | 2023-11-10 20:30 | History & Physical Report ---
Date of Service November 10, 2023 Assessment & Plan (1) Syncope: Plan: Admit to telemetry Patient presenting from home after syncopal event. Patient was admitted 08/2023 for very similar episode. Had extensive workup at that time including head CT, head and neck CTA, brain MRI and is not outpatient had an EEG and Zio patch. Patient reports intermittent episodes of feeling lightheaded since that event however no additional syncopal episodes until today. In the ED, patient is hemodynamically stable, head CT unremarkable, initial HS troponin negative, EKG without acute ST changes Will continue to observe on telemetry, check orthostatic vitals Continue to trend troponin Will hold on additional imaging at this time Cardiology consult --loop recorder was being considered in the past (2) DM type 1 (diabetes mellitus, type 1): Plan: Hgb A1c 8.3 05/2023, will update with a.m. labs Continue Lantus and NovoLog Glycemic pharmacy consult (3) Coronary artery disease: Plan: Appears stable Continue ASA, Plavix, statin (4) Hypertension: Plan: Chronic, stable Continue HCTZ, lisinopril, felodipine (5) Anxiety: Plan: Chronic, stable Continue home meds DVT PROPHYLAXIS SQ heparin Patient seen in collaboration with Dr. Lan. I spent a total of 75 minutes coordinating, documenting, and providing care for this patient excluding time spent in the performance of separately billed services. This included personally reviewing all current laboratories and imaging studies, medication reconciliation, outpatient chart review, and dis cussion with specialists. History of Present Illness Chief Complaint: Passed out Primary Care Provider: Amado Reeder MD 83-year-old male with PMH DM type I, CAD, HTN, anxiety, and other problems listed below who presents to the ED after syncopal event at home. History is obtained from the patient and review of outpatient PCP, cardiology, neurology records. Patient admitted to [facility] 08/2023 for a very similar episode. Patient had an extensive workup that was all unrevealing. Patient reports he was sitting at his desk around 11:00 when he started to feel a pressure in his face. Next thing he knew, he woke up on the floor. He thinks he may have been unconscious for about 5 minutes. He has a friend living in the home with him and she stated that she heard the chair fall and then 5 minutes later she came to check on him and he was on the floor. He was mildly confused for about 1 minute following the incident. There was no loss of bowel or bladder control. Patient denies preceding chest pain or palpitations. He does report intermittent episodes of feeling lightheaded. He has difficulty providing further details of these events. Reports he otherwise has been feeling well recently. No other recent illnesses, fevers, chills. He denies abdominal pain, nausea, vomiting, diarrhea. No urinary symptoms. In the ED, patient is hemodynamically stable. Head CT is unremarkable. Initial HS troponin is negative and EKG is without acute ST changes. Patient was given IVF. Allergies Allergy/AdvReac Type Severity Reaction Status Date / Time No Known Drug Allergies Allergy Unknown . Verified 11/10/23 19:24 Neoprene Allergy Unknown Itchiness Uncoded 11/10/23 19:24 Home Medications Medication Instructions Recorded Confirmed Type cholecalciferol (vitamin D3) 50 2,000 unit PO QAM 03/25/19 11/10/23 History mcg (2,000 unit) capsule (Vitamin D3) felodipine 5 mg tablet,extended 10 mg PO QAM 03/25/19 11/10/23 History release 24 hr lisinopril 40 mg tablet 40 mg PO QAM 03/25/19 11/10/23 History multivitamin 1 tab PO QAM 03/25/19 11/10/23 History omega-3s 300 [id number]-other 2 cap PO QAM 03/25/19 11/10/23 History [id number] oil 1,000 mg capsule ([place]-3 Fish Oil) clopidogrel 75 mg tablet 75 mg PO DAILY 09/01/23 11/10/23 History hydrochlorothiazide 25 mg tablet 25 mg PO DAILY 09/01/23 11/10/23 History insulin aspart U-100 100 unit/mL 10 unit subcut TIDWMEAL 09/01/23 11/10/23 History (3 mL) subcutaneous pen (Novolog FlexPen U-100 Insulin aspart) insulin glargine 100 unit/mL (3 24 unit subcut QPM 09/01/23 11/10/23 History mL) subcutaneous pen (Lantus Solostar U-100 Insulin) aspirin 81 mg tablet,delayed 81 mg PO QAM 30 days #30 tabs 09/03/23 11/10/23 Rx release atorvastatin 80 mg tablet 80 mg PO DAILY 11/10/23 11/10/23 History citalopram 20 mg tablet 10 mg PO QAM 11/10/23 11/10/23 History omeprazole 20 mg capsule,delayed 20 mg PO QAM 11/10/23 11/10/23 History release potassium gluconate 550 mg (90 mg) 550 mg PO 4XWK 11/10/23 11/10/23 History tablet Past Med/Surg History Medical History DM type 1 (diabetes mellitus, type 1) Anxiety Hypertension Coronary artery disease 2006-LAD stent Surgical History H/O inguinal hernia repair Family History Other No significant family history Social History Smoking Status: Never smoker Hx Alcohol Use: No Hx Substance Use: No Preferred Language: [place] Communication Ability: Effective Scooper Required: No Beliefs That Will Affect Care: None marital status: Current Living Situation: Spouse Feels Safe at Home: Yes Assistive Devices: Glasses Physical Exam Constitutional: WD/WN, vitals as above no acute distress Eyes: PERRL, conjunctivae normal, anicteric sclerae ENMT: external ear and nose normal, oropharynx normal Respiratory: normal respiratory effort, lungs clear to auscultation Cardiovascular: Rate/Rhythm: regular rate and regular rhythm Vessels: normal peripheral pulses Extremities: no edema Gastrointestinal (Abdomen): normal bowel sounds, soft, nontender, no hepatosplenomegaly Musculoskeletal: no cyanosis or clubbing, extremities motor strength 5/5 Skin: no rashes, warm and dry Neurologic: PERRL, EOMI, accommodation nl, no face palsy, no dysarthria moves all extremities; no focal motor deficits Psychiatric: A+Ox3, euthymic affect Results & Data Results & Data Vital Signs (Past 12 Hours) Vital Signs Temp Pulse Pulse Resp BP BP Pulse Ox 11/10/23 20:20 56 L 13 96 11/10/23 20:00 64 21 143/75 H 97 11/10/23 19:00 63 22 156/79 H 99 11/10/23 18:40 58 L 17 96 11/10/23 18:30 69 15 144/75 H 96 11/10/23 18:00 55 L 16 148/75 H 96 11/10/23 17:35 52 L 15 162/73 H 98 11/10/23 17:35 60 18 162/73 H 97 11/10/23 17:10 61 11/10/23 17:07 63 19 169/86 H 97 11/10/23 16:46 57 L 15 97 11/10/23 16:42 36.5 C 64 20 181/75 H 98 11/10/23 16:41 59 L 15 169/86 H 97 O2 Del Method 11/10/23 20:20 11/10/23 20:00 11/10/23 19:00 11/10/23 18:40 11/10/23 18:30 Room Air 11/10/23 18:00 Room Air 11/10/23 17:35 Room Air 11/10/23 17:35 Room Air 11/10/23 17:10 11/10/23 17:07 Room Air 11/10/23 16:46 Room Air 11/10/23 16:42 Room Air 11/10/23 16:41 Room Air Laboratory Results Short CBC 11/10/23 Range/Units 17:06 WBC 9.78 (4.8-10.8) K/ul Hgb 13.3 L (14.0-18.0) g/dl Hct 38.9 L (42.0-52.0) % Plt Count 272 (130-400) K/uL BMP 11/10/23 17:06 Sodium 139 Potassium 3.4 L Chloride 104 Carbon Dioxide 28 BUN 22 Creatinine 0.82 Glucose 182 H Calcium 9.4 Cardiac Enzymes 11/10/23 Range/Units 17:06 Total Creatine Kinase 276 H (30-223) U/L Liver Function 11/10/23 Range/Units 17:06 Total Bilirubin 0.4 (0.2-1.0) mg/dl AST 29 (13-39) U/L ALT 21 (7-52) U/L Alkaline Phosphatase 71 (34-104) U/L Albumin 4.3 (3.4-5.0) gm/dl Urine 11/10/23 Range/Units 17:31 Urine Color Yellow Urine Appearance Clear (Clear) Urine pH 7.0 (4.5-7.5) Ur Specific [place] 1.019 (1.000-1.030) Urine Protein Negative (Negative) Urine Glucose (UA) Negative (Negative) Diagnostic Findings Short CBC 11/10/23 Range/Units 17:06 WBC 9.78 (4.8-10.8) K/ul Hgb 13.3 L (14.0-18.0) g/dl Hct 38.9 L (42.0-52.0) % Plt Count 272 (130-400) K/uL BMP 11/10/23 17:06 Sodium 139 Potassium 3.4 L Chloride 104 Carbon Dioxide 28 BUN 22 Creatinine 0.82 Glucose 182 H Calcium 9.4 Cardiac Enzymes 11/10/23 Range/Units 17:06 Total Creatine Kinase 276 H (30-223) U/L Liver Function 11/10/23 Range/Units 17:06 Total Bilirubin 0.4 (0.2-1.0) mg/dl AST 29 (13-39) U/L ALT 21 (7-52) U/L Alkaline Phosphatase 71 (34-104) U/L Albumin 4.3 (3.4-5.0) gm/dl Urine 11/10/23 Range/Units 17:31 Urine Color Yellow Urine Appearance Clear (Clear) Urine pH 7.0 (4.5-7.5) Ur Specific [place] 1.019 (1.000-1.030) Urine Protein Negative (Negative) Urine Glucose (UA) Negative (Negative) Code Status & VTE Plan VTE Prophylaxis Plan VTE Prophylaxis will be ordered: Yes Supervising Physician Co-Signing Physician Notes I have seen and examined the patient and have discussed the case with the provider above. I have reviewed the advanced practitioner's documentation, and I agree with, and take responsibility for that plan of care. 83-year-old man reports a syncopal event with prodromal symptoms of feeling a pressure in his face while he was sitting up at his computer and subsequently waking up on the floor. He does report persistent lightheadedness without a clear cause that has been ongoing for the past year. He does report exercising regularly including using a stationary bike and walking. Glucose appears to be under control within reason and no hypoglycemic episodes have clearly occurred. No recent infections or other triggers that can be elucidated. He had a significant workup recently including cardio and neurology involvement as noted above. Today in the ER he is feeling well vital signs are stable and initial workup is unrevealing. Agree with plan to continue monitoring overnight and discuss the possibility of a loop recorder or additional investigation with cardiology in the morning. My physical exam is unremarkable and reflects that noted above. Continue monitoring patient overnight with possible discharge in the morning. DO Riky (1) Syncope Syncope type: unspecified Qualified Code(s): R55 - Syncope and collapse
[2023-11-10] MEDS ORDERED: ACETAMINOPHEN 325 MG TAB PO PRN (21:00)
[2023-11-10] MEDS ORDERED: DEXTROSE 50% 50 ML SYRINGE IV PRN (21:00)
[2023-11-10] MEDS ORDERED: GLUCOSE 40% GEL 15 GM TUBE PO PRN (21:00)
[2023-11-10] MEDS ORDERED: GLUCAGON FOR INJ 1 MG VIAL SQ PRN (21:00)
[2023-11-10] MEDS ORDERED: PHARMACY GLYCEMIC MGMT CONSULT PRN (21:00)
[2023-11-10] MEDS ORDERED: GLUCOSE 10 TAB/TUBE PO PRN (21:00)
[2023-11-10] MEDS: POTASSIUM CHLORIDE CRTAB 20 MEQ TABCR PO STA (21:07)
[2023-11-10] MEDS ORDERED: LANTUS PER UNIT CHARGE SC SCH (21:30)
[2023-11-10] MEDS: INSULIN ASPART PER UNIT CHARGE SC SCH (22:24)
[2023-11-10] MEDS: HEPARIN SOD 5,000 UNIT/0.5 ML VIAL SQ SCH (22:25)
[2023-11-10] MEDS: LANTUS PER UNIT CHARGE SC SCH (22:27)
[2023-11-11] MEDS: INSULIN ASPART PER UNIT CHARGE SC SCH (00:47)
[2023-11-11] MEDS: CARBOHYDRATES FOR HYPOGLYCEMIA PO PRN (03:37)
[2023-11-11 05:27] LABS: Hematocrit (blood only) 32.3 % (42.0-52.0); Hemoglobin 11.3 g/dl (14.0-18.0); Mean Corpuscular Hemoglobin 29.7 pg (25.0-34.0); Mean Corpuscular Volume 84.8 fL (80.0-100.0); Mean Platelet Volume 9.4 fL (9.4-12.4); Platelet Count 226 K/uL (130-400); RDW Coefficient of Variation 13.5 % (11.5-14.5); RDW Standard Deviation 41.9 fL (36.4-46.3); Red Blood Count 3.81 M/uL (4.70-6.10); White Blood Count 7.31 K/ul (4.8-10.8)
[2023-11-11 05:44] LABS: BUN Creatinine Ratio 24.3 (10-20); Calcium 8.5 mg/dl (8.6-10.3); Creatinine Clr Calc Pharmacy 86.4 ml/min; Est GFR (African American) 101.2 ml/min; Est GFR (Non-African American) 87.3 ml/min; Potassium 3.7 mmol/L (3.5-5.1)
[2023-11-11 07:01] LABS: Estimated Average Glucose 171 mg/dl; Hemoglobin A1C 7.6 % (4.5-5.6)
--- NOTE | 2023-11-11 07:49 | Electrocardiogram Report ---
Test Reason : Blood Pressure : / mmHG Vent. 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
--- NOTE | 2023-11-11 08:04 | Electrocardiogram Report ---
Test Reason : Blood Pressure : / mmHG Vent. 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
[2023-11-11] MEDS: ASPIRIN 81 MG ECTAB PO SCH (08:11)
[2023-11-11] MEDS: hydroCHLOROthiazide 25 MG TAB PO SCH (08:11)
[2023-11-11] MEDS: FELODIPINE 5 MG TABCR PO SCH (08:11)
[2023-11-11] MEDS: ATORVASTATIN 40 MG TAB PO SCH (08:12)
[2023-11-11] MEDS: CLOPIDOGREL BISULFATE 75 MG TAB PO SCH (08:12)
[2023-11-11] MEDS: CITALOPRAM 20 MG TAB PO SCH (08:12)
[2023-11-11] MEDS: MULTIVITAMIN TAB PO SCH (08:12)
[2023-11-11] MEDS: lisinopril 40 MG TAB PO SCH (08:12)
[2023-11-11] MEDS: LANTUS PER UNIT CHARGE SC ONE (08:13)
[2023-11-11] MEDS: PANTOprazole 40 MG TAB PO SCH (08:13)
--- NOTE | 2023-11-11 11:02 | Cardiology Consultation ---
Date of Consultation November 11, 2023 Assessment & Plan (1) Syncope: 83-year-old male with longstanding history of dizziness when he gets up from a seated position presents today with recurrent syncope on 11/10/2023. Telemetry thus far has revealed sinus rhythm in the 60s with first-degree AV block with occasional PACs and blocked PACs. Also occasional premature ventricular contractions observed, no prolonged arrhythmias. The patient has been followed closely for longstanding history of sinus bradyca rdia and first-degree AV block as an outpatient and has not been on AV kirill blocking agents because of this. Per review of records, he has undergone previous Zio patch monitors in February,, March, 2021, and most recently in May,. I personally reviewed the rhythm strips from the May 2023 monitor. A single 4 beat run of nonsustained ventricular tachycardia was observed on 05/12/2023 at 11:30 AM without associated symptoms. The patient had submitted 8 patient triggered events and 8 diary events that correlated with sinus rhythm in the 70s to 80s with occasional PVCs and PACs and no arrhythmias. Since the patient's hospital stay in late August, he had had an EEG. I reviewed the EEG report dated 09/04 that described nonspecific encephalopathy without epileptiform activity. A repeat telemetry monitor had been recommended at the time of discharge in August, but is yet to have been performed. The patient is a type I diabetic and was hypoglycemic overnight last night but his glucose has rebounded to 111 mg/dL. He has a continuous glucose monitoring device and it does not appear that hypoglycemia can be implicated in yesterday's event. The patient has undergone orthostatic vital signs this morning on the telemetry unit: Supine: Heart rate 57, blood pressure 144/69 Sitting: Heart rate 52, blood pressure 148/73 Standing: Heart rate 69, blood pressure 129/76, no definite symptoms. CT angiogram of the cerebral vessels performed in August, revealed areas of high-grade stenosis within the bilateral posterior cerebral arteries without carotid stenosis. This is a chronic finding and was previously noted on CT angiogram dating back to 2020 I question if the patient has multifactorial dizziness with degree of autonomic insufficiency related to his diabetes and polyneuropathy, noted 19 mmHg decline in systolic blood pressure when changing from sitting to standing today. This is challenging because at baseline his blood pressure appears quite high and he is on 3 antihypertensive agents. 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 At present, recommend patient remains in the hospital pending discussion of his case with his primary framework developer and consideration of an implantable loop recorder. I recommend wearing knee-high compression stockings. Will continue outpatient treatment felodipine 10 mg daily and lisinopril 40 mg daily but will reduce HCTZ to 12.5 mg daily. Continue to avoid AV kirill blockers. Patient would not need to be n.p.o. if loop recorder proceed tomorrow. I spent a total of 65 minutes on the date of service in preparation, delivery, and documentation of the care provided to this patient, excluding any time spent in the performance of separately billed services. History of Present Illness Attending Physician: Bhargav Read MD History of Present Illness Mr Osorio is an 83 year old male seen in cardiology consultation per the request of INNA Thomason for the evaluation of recurrent syncope. Patient states that he was at home yesterday sitting typing on his computer when he felt sudden onset of a pressure sensation in his face. The next thing he knew a family friend was helping him up having collapsed and fallen out of his chair. He notes mild confusion immediately after the event that cleared within a minute or 2. He did not injure himself. The event was similar to that which had prompted hospitalization in August,. Review of records reveals past hospitalization in 2019 with symptoms of dizziness. Evaluation at that time included a nonischemic stress echocardiogram. At that time his dose of HCTZ was to be reduced to 3 days/week at discharge. In the meantime however this appears to have been titrated back to daily, and he is on hydrochlorothiazide 25 mg daily, felodipine 10 mg daily, and lisinopril 40 mg daily. Blood pressure on presentation yesterday 11/10/2023 was 169/86 with subsequent measurement of 181/75, and multiple systolic blood pressures overnight in the 160s. Most recent blood pressure measurement 120/53 before receiving his morning medications this morning. Patient describes chronic dizziness that he is often times feels when he stands up from seated position. History: 1. Coronary disease status post prior coronary events in with LAD stent, 2005 2. Residual coronary disease noted at time of cardiac catheterization 2005, 20% left main 30 40% narrowing right coronary artery 3. Type 1 diabetes mellitus 4. Hyperlipidemia 5. Obstructive sleep apnea Allergies Allergy/AdvReac Type Severity Reaction Status Date / Time No Known Drug Allergies Allergy Unknown . Verified 11/10/23 19:24 Neoprene Allergy Unknown Itchiness Uncoded 11/10/23 19:24 Home Medications Medication Instructions Recorded Confirmed Type cholecalciferol (vitamin D3) 50 2,000 unit PO QAM 03/25/19 11/10/23 History mcg (2,000 unit) capsule (Vitamin D3) felodipine 5 mg tablet,extended 10 mg PO QAM 03/25/19 11/10/23 History release 24 hr lisinopril 40 mg tablet 40 mg PO QAM 03/25/19 11/10/23 History multivitamin 1 tab PO QAM 03/25/19 11/10/23 History omega-3s 300 tc-wii-sjs-other 2 cap PO QAM 03/25/19 11/10/23 History [id number]-[id number] oil 1,000 mg capsule ([place]-3 Fish Oil) clopidogrel 75 mg tablet 75 mg PO DAILY 09/01/23 11/10/23 History hydrochlorothiazide 25 mg tablet 25 mg PO DAILY 09/01/23 11/10/23 History insulin aspart U-100 100 unit/mL 10 unit subcut TIDWMEAL 09/01/23 11/10/23 History (3 mL) subcutaneous pen (Novolog FlexPen U-100 Insulin aspart) insulin glargine 100 unit/mL (3 24 unit subcut QPM 09/01/23 11/10/23 History mL) subcutaneous pen (Lantus Solostar U-100 Insulin) aspirin 81 mg tablet,delayed 81 mg PO QAM 30 days #30 tabs 09/03/23 11/10/23 Rx release atorvastatin 80 mg tablet 80 mg PO DAILY 11/10/23 11/10/23 History citalopram 20 mg tablet 10 mg PO QAM 11/10/23 11/10/23 History omeprazole 20 mg capsule,delayed 20 mg PO QAM 11/10/23 11/10/23 History release potassium gluconate 550 mg (90 mg) 550 mg PO 4XWK 11/10/23 11/10/23 History tablet Patient History Medical History DM type 1 (diabetes mellitus, type 1) Anxiety Hypertension Coronary artery disease 2006-LAD stent Surgical History H/O inguinal hernia repair Family History Other No significant family history Social History Smoking Status: Never smoker Second Hand Exposure: No; Do You Dip or Chew Tobacco: No; Tobacco Cessation Education Requested by Patient: No Hx Alcohol Use: No Hx Substance Use: No Preferred Language: Congolese Communication Ability: Effective Linesperson Required: No Beliefs That Will Affect Care: None marital status: Current Living Situation: Spouse Other Information That Helps Us Care for You: No Feels Safe at Home: Yes Safety Concerns: Feels Safe At This Time Assistive Devices: Glasses and Other Assistive Devices Comment: walking stick purchaser automotive parts Review of Systems Review of Systems: All systems reviewed & are unremarkable except as noted in HPI & below Physical Exam Constitutional: WD/WN, vitals as above Eyes: PERRL, conjunctivae normal, anicteric sclerae Respiratory: normal respiratory effort, lungs clear to auscultation Cardiovascular: RRR, no murmur, no edema Gastrointestinal (Abdomen): normal bowel sounds, soft, nontender, no hepatosplenomegaly Skin: no rashes, warm and dry Neurologic: PERRL, EOMI, accommodation nl, no face palsy, no dysarthria Results & Data Vital Signs (Past 12 Hours) Vital Signs Temp Pulse Resp BP Pulse Ox O2 Del Method 11/11/23 07:05 36.3 C L 57 L 16 120/53 L 97 Room Air 11/11/23 04:00 36.4 C L 57 L 18 156/77 H 95 Room Air 11/10/23 22:59 36.8 C 55 L 20 164/72 H 97 Room Air Laboratory Results Cardiac Enzymes 11/10/23 11/10/23 11/11/23 Range/Units 17:06 22:51 05:09 AST 29 (13-39) U/L Troponin I High Sens 7.0 6.4 7.2 (0-20) pg/ml Coagulation 11/10/23 Range/Units 17:06 PT 10.8 (9.0-12.0) Seconds APTT 29 (21-31) Seconds CBC 11/10/23 11/11/23 Range/Units 17:06 05:09 WBC 9.78 7.31 (4.8-10.8) K/ul RBC 4.53 L 3.81 L (4.70-6.10) M/uL Hgb 13.3 L 11.3 L (14.0-18.0) g/dl Hct 38.9 L 32.3 L (42.0-52.0) % Plt Count 272 226 (130-400) K/uL Neut # (Auto) 6.11 (1.40-6.50) K/uL Lymph # (Auto) 2.38 (1.20-3.40) K/uL [place] # (Auto) 0.74 H (0.11-0.59) K/uL Eos # (Auto) 0.50 (0.00-0.50) K/uL Baso # (Auto) 0.02 (0.00-0.20) K/uL Comprehensive Metabolic Panel 11/10/23 11/11/23 Range/Units 17:06 05:09 Sodium 139 139 (136-145) mmol/L Potassium 3.4 L 3.7 (3.5-5.1) mmol/L Chloride 104 108 H (98-107) mmol/L Carbon Dioxide 28 25 (21-32) mmol/L BUN 22 17 (6-23) mg/dl Creatinine 0.82 0.70 (0.6-1.4) mg/dl Glucose 182 H 165 H (70-99(Fasting)) mg/dl Calcium 9.4 8.5 L (8.6-10.3) mg/dl AST 29 (13-39) U/L ALT 21 (7-52) U/L Alkaline Phosphatase 71 (34-104) U/L Total Protein 7.7 (6.0-8.3) gm/dl Albumin 4.3 (3.4-5.0) gm/dl Diagnostic Findings EKG performed 11/10/2023 at 1702 and interpreted independently: Sinus bradycardia at 59 bpm with first-degree AV block, age-indeterminate anteroseptal infarct pattern with poor R wave progression in the anterior precordial leads EKG performed 11/11/2023 at 4:13 AM: Sinus bradycardia at 57 bpm with first- degree AV block, FL interval 298 ms, age-indeterminate septal infarct pattern noted in lead V2. No significant repolarization abnormalities. Transthoracic echocardiogram performed 09/02/2023: Mild concentric left ventricular hypertrophy Normal left ventricular wall motion LVEF in the range of 60 to 65% Borderline left atrial lodgment Mild aortic valve sclerosis without stenosis The interatrial septum is intact without evidence of interatrial shunt. (1) Syncope Syncope type: unspecified Qualified Code(s): R55 - Syncope and collapse
--- NOTE | 2023-11-11 14:04 | Pharmacy Report ---
Pharmacy Glycemic Short Note 2 - Date of Service November 11, 2023 - Glycemic Short BSG Results (Last 24 hours): 11/10/23 11/10/23 11/11/23 17:06 21:08 00:10 Glucose 182 H POC Glucose 77 93 11/11/23 11/11/23 11/11/23 03:28 03:58 05:09 Glucose 165 H POC Glucose 67 L* 113 H 11/11/23 11/11/23 07:48 11:43 Glucose POC Glucose 205 H 195 H OUTPATIENT ANTIDIABETIC REGIMEN: * Lantus 24 units qPM, Novolog 10 units TID meals + ss * A1c 7.6% 11/11/23 ASSESSMENT: * Patient has history of type 1 diabetes, CAD w/ stenting, htn admitted after syncopal episode * Patient was mildly hypoglycemic last evening and received 50% of basal last night, BSG 205 mg/dL this morning- gave 15 units to make up dose, will schedule 10 units for tonight- will need to move AM basal dose toward PM to get back to once daily @ HS dosing * Continue current novolog parameters (weight based stress of 2) PLAN FOR INPATIENT GLYCEMIC CONTROL: * Hold outpatient oral diabetes medications * Basal insulin * Lantus 15 units SQ this AM, 10 units SQ this PM * Bolus insulin * NovoLog per scale ACHS or Q6hrs while NPO * Goal Range: Low 110 mg/dL - High 140 mg/dL * Correction Factor: 25 mg/dL/unit * Nutritional / Prandial insulin per carb ratio of 1 unit per 8 grams CHO consumed
--- NOTE | 2023-11-11 14:44 | Hospitalist Progress Note ---
Date of Service November 11, 2023 Assessment & Plan (1) Syncope: Plan: per admitting service notes with addendum: Patient presenting from home after syncopal event. Patient was admitted 08/2023 for very similar episode. Had extensive workup at that time including head CT, head and neck CTA, brain MRI and is not outpatient had an EEG and Zio patch. Patient reports intermittent episodes of feeling lightheaded since that event however no additional syncopal episodes until today. In the ED, patient is hemodynamically stable, head CT unremarkable, initial HS troponin negative, EKG without acute ST changes Will continue to observe on telemetry, check orthostatic vitals Continue to trend troponin Will hold on additional imaging at this time Cardiology consult --loop recorder was being considered in the past 11/10 (+) Orthostasis - HCTZ lowered to 12.5mg po daily may need implantable loop recorder (2) DM type 1 (diabetes mellitus, type 1): Plan: Hgb A1c 8.3 05/2023, will update with a.m. labs Continue Lantus and NovoLog Glycemic pharmacy consult (3) Coronary artery disease: Plan: Appears stable Continue ASA, Plavix, statin (4) Hypertension: Plan: Chronic, stable Continue HCTZ, lisinopril, felodipine (5) Anxiety: Plan: Chronic, stable Continue home meds DVT PROPHYLAXIS SQ heparin Disposition lives at home Admission and Anticipated Discharge Date Admission Date: November 10, 2023 Subjective ff up for syncope, etc seen resting in chair, comfortable feels ok overall no chest pain, dyspnea, palpitations had mild lightheadedness upon standing no other new symptoms Review of Systems Review of Systems: all noted and negative except for above Physical Exam Physical Exam: General- oriented x 3, not in distress, speaks in sentences with no effort or accessory muscle use Eyes- anicteric Neck- no JVD Lungs- clear breath sounds bilaterally, no rales/wheezes Heart- normal rate, regular rhythm; no murmurs Abdomen- normal bowel sounds, nondistended, soft, nontender Extremities- no pretibial edema, no calf tenderness Neuro- alert, oriented x 3; no gross focal neurologic deficits Skin- warm & dry Results & Data Results & Data Vital Signs (Past 12 Hours) Vital Signs Temp Pulse Resp BP Pulse Ox O2 Del Method 11/11/23 07:05 36.3 C L 57 L 16 120/53 L 97 Room Air 11/11/23 04:00 36.4 C L 57 L 18 156/77 H 95 Room Air (1) Syncope Syncope type: unspecified Qualified Code(s): R55 - Syncope and collapse
--- NOTE | 2023-11-11 16:11 | Neurology Consultation ---
Date of Consultation November 11, 2023 Assessment & Plan (1) Syncope: Recommend Keppra 500 mg p.o. twice daily Recommend EEG during this hospitalization Continue seizure precautions Utilize benzodiazepines emergently for breakthrough clinical seizure-like activity Continue neurological assessments Stat CT brain without contrast for any acute neurological decline Recommend continue to monitor telemetry closely Agree with undergoing implantation of long-term cardiac monitoring device Continue to monitor for signs and symptoms of infection Continue to monitor renal and hepatic function VTE prophylaxis during hospitalization No driving per [place] state law Needs resubmission of [employer] form to update the date of most recent event of loss of consciousness- communicated directly with primary/hospitalist team Dr. Read. Recommend continued outpatient follow up with adult neurology Telehealth Consultation Telehealth Information Telehealth Information: I performed this visit using a real-time telehealth connection between my location and the patients location ([facility]). After connecting through interactive tele-video, patient was identified by name and date of and/or wristband check.Patient (or authorized healthcare direct sales representative) was informed that this was a telemedicine visit and it was being conducted confidentially over secure lines. My office door was closed and no one else was present in the room with me.Patient (or authorized healthcare direct sales representative) provided consent to proceed with the visit, expressed an understanding of privacy and security of the telemedicine visit, and gave permission to have a hospital direct sales representative in the room in order to assist with the visit and to conduct portions of the visit, as needed. I informed the patient (or authorized healthcare direct sales representative) that I reviewed their record and presented the opportunity for them to ask any questions regarding the visit today. The patient agreed to participate. History of Present Illness Reason for Consultation: Syncope/seizure Attending Physician: Bhargav Read MD History of Present Illness 83yo male with significant past medical history most notably for suffering similar event in late August 2023. Is now hospitalized following an episode of loss of consciousness/loss of awareness. He reports sitting at his desk feeling sudden pressure in his head. He tells me there was no other notable visual auditory gustatory olfactory or gastrointestinal sensation leading up to the event. He tells me felt similar to the event in August however this time feels like he was unable to return to baseline as quickly as he did at that time. Per documentation review it appears the episode may have been unwitnessed for several minutes as he tells me his and house guest thought they heard a chair fall but did not come into his office for at least five minutes after that at which time it is being described as having ongoing confusion for at least another minute after they arrived to his side. There was no report of loss of bowel or bladder. No associated tongue biting. He denies any recent changes in medications or changes in activity level. Denies s/s of infection. No report of loss of sleep or exhaustion. He is alert & oriented x4. He is able to answer all questions appropriately, name objects on televideo monitor, repeat phrases and perform complex/embedded commands without deficit. Neurological exam is non lateralizing/nonfocal in terms of motor strength and coordination. He tells me he has not been driving. Reports no other episodes but does endorse continued episodes of feeling light headed. He tells me there are plans for undergoing implanted loop recorder tomorrow. He is agreeable to initiate medications for concern of seizure. He is agreeable to undergo another EEG and continued follow up with adult neurology. He has undergone an MRI in late August 2023 No reported cephalgia or cervicalgia Denies chest pain/palpitations or shortness of breath No reported changes in vision hearing or paresthesia Denies recent fevers chills nausea vomiting changes in bowels or bladder Denies recent medication changes, recent illness or sick contacts, no reported recent travel Allergies Allergy/AdvReac Type Severity Reaction Status Date / Time No Known Drug Allergies Allergy Unknown . Verified 11/10/23 19:24 Neoprene Allergy Unknown Itchiness Uncoded 11/10/23 19:24 Home Medications Medication Instructions Recorded Confirmed Type cholecalciferol (vitamin D3) 50 2,000 unit PO QAM 03/25/19 11/10/23 History mcg (2,000 unit) capsule (Vitamin D3) felodipine 5 mg tablet,extended 10 mg PO QAM 03/25/19 11/10/23 History release 24 hr lisinopril 40 mg tablet 40 mg PO QAM 03/25/19 11/10/23 History multivitamin 1 tab PO QAM 03/25/19 11/10/23 History omega-3s 300 ot-zwc-ltl-other 2 cap PO QAM 03/25/19 11/10/23 History [id number] oil 1,000 mg capsule (Topaz-3 Fish Oil) clopidogrel 75 mg tablet 75 mg PO DAILY 09/01/23 11/10/23 History hydrochlorothiazide 25 mg tablet 25 mg PO DAILY 09/01/23 11/10/23 History insulin aspart U-100 100 unit/mL 10 unit subcut TIDWMEAL 09/01/23 11/10/23 History (3 mL) subcutaneous pen (Novolog FlexPen U-100 Insulin aspart) insulin glargine 100 unit/mL (3 24 unit subcut QPM 09/01/23 11/10/23 History mL) subcutaneous pen (Lantus Solostar U-100 Insulin) aspirin 81 mg tablet,delayed 81 mg PO QAM 30 days #30 tabs 09/03/23 11/10/23 Rx release atorvastatin 80 mg tablet 80 mg PO DAILY 11/10/23 11/10/23 History citalopram 20 mg tablet 10 mg PO QAM 11/10/23 11/10/23 History omeprazole 20 mg capsule,delayed 20 mg PO QAM 11/10/23 11/10/23 History release potassium gluconate 550 mg (90 mg) 550 mg PO 4XWK 11/10/23 11/10/23 History tablet Patient History Medical History DM type 1 (diabetes mellitus, type 1) Anxiety Hypertension Coronary artery disease 2006-LAD stent Surgical History H/O inguinal hernia repair Family History Other No significant family history Social History Smoking Status: Never smoker Second Hand Exposure: No; Do You Dip or Chew Tobacco: No; Tobacco Cessation Education Requested by Patient: No Hx Alcohol Use: No Hx Substance Use: No Preferred Language: Bahamian Communication Ability: Effective Gun Fitter Required: No Beliefs That Will Affect Care: None marital status: Current Living Situation: Spouse Other Information That Helps Us Care for You: No Feels Safe at Home: Yes Safety Concerns: Feels Safe At This Time Assistive Devices: Glasses and Other Assistive Devices Comment: walking stick automobile parts assembler Physical Exam Neurological Examination: Mental Status: Awake and alert. Oriented to person, place, and time. Fluency naming repetition and comprehension appear grossly intact. Affect remains appropriate. CN testing: I: Denies changes in ability to smell II:Reports no changes in visual acuity III/IV/: No evidence of gaze preference, hippus, nystagmus or roving eye movements V: Facial sensation reportedly grossly intact to light touch bilaterally VII: Facial movements appear without evidence of asymmetry VIII: Hearing appears grossly intact to loud voice bilaterally IX/X: Palate appears to elevate symmetrically XI: Shoulder shrug appears symmetric/ grossly intact bilaterally XII: Tongue protrudes midline without evidence of biting Motor exam: Strength appears grossly intact/symmetric in all extremities Sensory: Sensation is reportedly grossly intact throughout Coordination: Finger to nose and heel to carranza were intact. No apparent evidence of dysmetria or dysdiadochokinesia Reflexes: Deferred Gait: Deferred Results & Data Vital Signs (Past 12 Hours) Vital Signs Temp Pulse Resp BP BP Pulse Ox O2 Del Method 11/11/23 15:04 36.4 C L 67 16 125/70 99 Room Air 11/11/23 07:05 36.3 C L 57 L 16 120/53 L 97 Room Air Laboratory Results Abnormal lab results 11/10/23 11/10/23 11/11/23 Range/Units 17:06 17:31 03:28 RBC 4.53 L (4.70-6.10) M/uL Hgb 13.3 L (14.0-18.0) g/dl Hct 38.9 L (42.0-52.0) % [place] # (Auto) 0.74 H (0.11-0.59) K/uL Potassium 3.4 L (3.5-5.1) mmol/L Chloride (98-107) mmol/L BUN/Creatinine Ratio 26.8 H (10-20) Glucose 182 H (70-99(Fasting)) mg/dl POC Glucose 67 L* (70-99) mg/dl Hemoglobin A1c (4.5-5.6) % Calcium (8.6-10.3) mg/dl Total Creatine Kinase 276 H (30-223) U/L Urine Blood Trace H (Negative) Urine RBC (Auto) 5-10 H (0-4) /hpf 11/11/23 11/11/23 11/11/23 Range/Units 03:58 05:09 07:48 RBC 3.81 L (4.70-6.10) M/uL Hgb 11.3 L (14.0-18.0) g/dl Hct 32.3 L (42.0-52.0) % [place] # (Auto) (0.11-0.59) K/uL Potassium (3.5-5.1) mmol/L Chloride 108 H (98-107) mmol/L BUN/Creatinine Ratio 24.3 H (10-20) Glucose 165 H (70-99(Fasting)) mg/dl POC Glucose 113 H 205 H (70-99) mg/dl Hemoglobin A1c 7.6 H (4.5-5.6) % Calcium 8.5 L (8.6-10.3) mg/dl Total Creatine Kinase (30-223) U/L Urine Blood (Negative) Urine RBC (Auto) (0-4) /hpf 11/11/23 Range/Units 11:43 RBC (4.70-6.10) M/uL Hgb (14.0-18.0) g/dl Hct (42.0-52.0) % [place] # (Auto) (0.11-0.59) K/uL Potassium (3.5-5.1) mmol/L Chloride (98-107) mmol/L BUN/Creatinine Ratio (10-20) Glucose (70-99(Fasting)) mg/dl POC Glucose 195 H (70-99) mg/dl Hemoglobin A1c (4.5-5.6) % Calcium (8.6-10.3) mg/dl Total Creatine Kinase (30-223) U/L Urine Blood (Negative) Urine RBC (Auto) (0-4) /hpf Diagnostic Findings Chest X-Ray 11/10/23 16:47 XR chest 1V portable CLINICAL HISTORY: Syncope TECHNIQUE: Single frontal radiograph of the chest was obtained. Comparison: Comparison is made to chest radiograph 09/01/2023 FINDINGS: No lines and tubes are seen. The cardiomediastinal silhouette is normal. The lungs are clear. No evidence of pleural effusion or pneumothorax. IMPRESSION: No acute chest disease. ACT 112: Negative or not required by law. Electronically signed by: Ac Edge M.D. 11/10/2023 6:[address] 11/10/23 16:47 CT head/brain wo con CLINICAL HISTORY: syncope Technique: Contiguous axial CT images of the head were acquired from the base of the skull to the vertex without intravenous contrast administration. Images were viewed in brain, subdural and bone windows. Automated dose lowering techniques and/or adjustment according to patient size were utilized for this exam. Comparison: Comparison is made to MRI brain 09/02/2023 and CTA head 09/01/2023 Findings: The ventricles, basal cisterns, and cerebral sulci are normal. There is no acute intracranial hemorrhage or evidence of acute territorial infarction. Neither mass effect, shift of the midline structures, nor abnormal extra-axial fluid collections are shown. Imaged portions of the paranasal sinuses and mastoid air cells are clear. The orbits appear normal. There are no acute fractures of the calvaria or scalp swelling. Impression: No acute intracranial hemorrhage, no evidence of acute territorial infarction or other acute intracranial disease process. ACT 112: Negative or not required by law. Electronically signed by: Ac Edge M.D. 11/10/2023 5:56 PM Medications Administered Home Medications Medication Instructions Recorded Confirmed Last Taken cholecalciferol (vitamin D3) 50 2,000 unit PO QAM 03/25/19 11/10/23 03/25/19 mcg (2,000 unit) capsule (Vitamin D3) felodipine 5 mg tablet,extended 10 mg PO QAM 03/25/19 11/10/23 03/25/19 release 24 hr lisinopril 40 mg tablet 40 mg PO QAM 03/25/19 11/10/23 03/25/19 multivitamin 1 tab PO QAM 03/25/19 11/10/23 03/25/19 omega-3s 300 va-gla-ade-other 2 cap PO QAM 03/25/19 11/10/23 03/25/19 [id number] oil 1,000 mg capsule (Topaz-3 Fish Oil) clopidogrel 75 mg tablet 75 mg PO DAILY 09/01/23 11/10/23 Unknown hydrochlorothiazide 25 mg tablet 25 mg PO DAILY 09/01/23 11/10/23 Unknown insulin aspart U-100 100 unit/mL 10 unit subcut TIDWMEAL 09/01/23 11/10/23 11/10/23 12:00 (3 mL) subcutaneous pen (Novolog FlexPen U-100 Insulin aspart) insulin glargine 100 unit/mL (3 24 unit subcut QPM 09/01/23 11/10/23 11/09/23 21:00 mL) subcutaneous pen (Lantus Solostar U-100 Insulin) aspirin 81 mg tablet,delayed 81 mg PO QAM 30 days #30 tabs 09/03/23 11/10/23 Unknown release atorvastatin 80 mg tablet 80 mg PO DAILY 11/10/23 11/10/23 Unknown citalopram 20 mg tablet 10 mg PO QAM 11/10/23 11/10/23 Unknown omeprazole 20 mg capsule,delayed 20 mg PO QAM 11/10/23 11/10/23 Unknown release potassium gluconate 550 mg (90 mg) 550 mg PO 4XWK 11/10/23 11/10/23 Unknown tablet Active Medications Generic Name Dose Route Start Last Admin Trade Name Freq PRN Reason Stop Dose Admin Aspirin 81 mg 11/11/23 09:00 11/11/23 08:11 Aspirin 81 Mg Ectab PO 12/11/23 08:59 81 mg QAM JOE Administration Atorvastatin Calcium 80 mg 11/11/23 09:00 11/11/23 08:12 Atorvastatin 40 Mg Tab PO 12/11/23 08:59 80 mg DAILY JOE Administration Citalopram Hydrobromide 10 mg 11/11/23 09:00 11/11/23 08:12 Citalopram 20 Mg Tab PO 12/11/23 08:59 10 mg QAM JOE Administration Clopidogrel Bisulfate 75 mg 11/11/23 09:00 11/11/23 08:12 Clopidogrel Bisulfate 75 Mg Tab PO 12/11/23 08:59 75 mg DAILY JOE Administration Felodipine 10 mg 11/11/23 09:00 11/11/23 08:11 Felodipine 5 Mg Tabcr PO 12/11/23 08:59 10 mg QAM JOE Administration Heparin Sodium (Porcine) 5,000 units 11/10/23 22:00 11/11/23 15:21 Heparin Sod 5,000 Unit/0.5 Ml Vial SQ 12/10/23 21:59 5,000 units Q8 JOE Administration Insulin Aspart 0 units 11/10/23 21:30 11/11/23 12:07 Insulin Aspart Per Unit Charge SC 12/10/23 21:29 7 units ACHS JOE Administration Lisinopril 40 mg 11/11/23 09:00 11/11/23 08:12 Lisinopril 40 Mg Tab PO 12/11/23 08:59 40 mg QAM JOE Administration Miscellaneous 15 - 30 gm 11/10/23 21:00 11/11/23 03:37 Carbohydrates For Hypoglycemia PO 12/10/23 20:59 15 gm UD PRN Administration Hypoglycemia Protocol Multivitamins 1 tab 11/11/23 09:00 11/11/23 08:12 Multivitamin Tab PO 12/11/23 08:59 1 tab QAM JOE Administration Pantoprazole Sodium 40 mg 11/11/23 09:00 11/11/23 08:13 Pantoprazole 40 Mg Tab PO 12/11/23 08:59 40 mg QAM JOE Administration (1) Syncope Syncope type: unspecified Qualified Code(s): R55 - Syncope and collapse
[2023-11-11] MEDS: LANTUS PER UNIT CHARGE SC SCH (21:10)
[2023-11-11] MEDS: levETIRAcetam 500 MG TAB PO SCH (21:11)
[2023-11-12] MEDS ORDERED: LIDOCAINE 1% LOCAL 20 ML VIAL ONE (07:35)
[2023-11-12] MEDS ORDERED: ceFAZolin 330 MG/ML 1 GM VIAL ONE (07:36)
--- NOTE | 2023-11-12 07:54 | History & Physical Bridge Note ---
Date of Service November 12, 2023 History & Physical Bridge Note I have examined the patient, reviewed the History & Physical and in the interval since the performance of the History & Physical I have noted the following changes of clinical significance: pt with syncope and conduction disease; recommend Loop recorder for usp monitoring prior to discharge. Discussed the procedure and potential risk which are infection. consents signed.
--- NOTE | 2023-11-12 08:08 | Operative Report ---
Post Operative Report Pre-OP diagnosis: syncope, SB Post Op Diagnosis: Same Procedure: Loop Recorder implant DOS: 11/12/2023 Surgeon: Dr. Mon Anesthesia: 12cc 1% lidocaine Blood Loss: 3 cc Complications: None Condition: Stable Abx: ancef Specimen: None Indications: 83yo M PMH Coronary disease status post prior coronary events in with LAD stent, 2005, Residual coronary disease noted at time of cardiac catheterization 2005, 20% left main 30 40% narrowing right coronary artery, DM,HTN, HLD, PAMELA, Sinus bradycardia, 1st degree AV block. Due to patient's syncope she was recommended a Loop insertion. . Description of procedure: Pt was brought into the procedure room and connected to cardiac monitoring. A time out was performed identifying patient and procedure correctly. The pt received antibiotic prior to incision. The patient was prepped and draped in a sterile fashion over the left sternal border. Then 12 cc of 1% lidocaine where given in the 4th intercostal space to the left of the sternal border. Then using the Loop insertion tool and kit the loop was inserted. Then a 4.0 vicryl interrupted suture followed by a running stitch was placed to approximate the incision and dermabond was placed. Equipment: New Device: GoPagot IQ EL+ [id number] SN: [id number] Parameters: Tachy 150bpm 12 beats Donovan 40bpm for 12 beats Pause: 4 seconds AF > 1 hour Implant Measurements: R waves 0.8mV Impression: Successful new Loop recorder insertion due to syncope Plan: Return to telemetry Device and wound check next week
[2023-11-12] MEDS: hydroCHLOROthiazide 25 MG TAB PO SCH (08:43)
[2023-11-12] MEDS ORDERED: LANTUS PER UNIT CHARGE SC ONE (10:00)
[2023-11-12 11:06] LABS: Basophils # (auto) 0.03 K/uL (0.00-0.20); Basophils % (auto) 0.4 %; Eosinophils # (auto) 0.29 K/uL (0.00-0.50); Eosinophils % (auto) 3.9 %; Hematocrit (blood only) 36.4 % (42.0-52.0); Hemoglobin 12.5 g/dl (14.0-18.0); Immature Granulocytes # (auto) 0.03 K/uL (0.01-0.20); Immature Granulocytes % (auto) 0.4 %; Lymphocytes # (auto) 1.86 K/uL (1.20-3.40); Lymphocytes % (auto) 24.9 %; Mean Corpuscular Hemoglobin 29.3 pg (25.0-34.0); Mean Corpuscular Hgb Conc 34.3 g/dL (32.0-36.0); Mean Corpuscular Volume 85.2 fL (80.0-100.0); Mean Platelet Volume 9.2 fL (9.4-12.4); Monocytes # (auto) 0.61 K/uL (0.11-0.59); Monocytes % (auto) 8.2 %; Neutrophils # (auto) 4.66 K/uL (1.40-6.50); Neutrophils % (auto) 62.2 %; Platelet Count 248 K/uL (130-400); RDW Coefficient of Variation 13.2 % (11.5-14.5); RDW Standard Deviation 40.7 fL (36.4-46.3); Red Blood Count 4.27 M/uL (4.70-6.10); White Blood Count 7.48 K/ul (4.8-10.8)
[2023-11-12 11:15] LABS: Creatinine Clr Calc Pharmacy 67.5 ml/min; Est GFR (African American) 91.6 ml/min; Est GFR (Non-African American) 79.1 ml/min; Magnesium 1.9 mg/dl (1.7-2.4); Potassium 3.9 mmol/L (3.5-5.1)
[2023-11-12] MEDS: LANTUS PER UNIT CHARGE SC SCH (11:46)
--- NOTE | 2023-11-12 12:32 | Cardiology Progress Note ---
Date of Service November 12, 2023 Assessment & Plan (1) Syncope: Plan Differential diagnosis as outlined in my initial consult note dated 11/11/2023. I still have concerns about symptomatic orthostatic hypotension with 20 point decline in blood pressure when position change from sitting to standing yesterday. Although blood pressure as measured at 7:49 AM was 184/87, it was down to 125/65 after receiving morning medications. Patient is now status post [place] loop recorder. He has the application on his smart phone with regards to downloading symptomatic events. Continue aspirin, clopidogrel, felodipine 10 mg daily, lisinopril 40 mg daily, and dose of HCTZ reduced from 25 mg daily to 12.5 mg daily. Neurology input noted and appreciated with initiation of Keppra and ongoing recommendations that he is not to drive. Patient stable for discharge from a cardiology perspective. He already has a follow-up appointment on 11/15/2023, and I also placed a note in his outpatient chart to establish with the outpatient device clinic. Admission and Anticipated Discharge Date Admission Date: November 11, 2023 Subjective Patient seen in cardiology follow-up. Feels well. Tolerated loop recorder procedure well today. Notes occasional ongoing dizziness when he is walking around in his hospital room and on the unit, no michael syncope. Telemetry reveal s sinus rhythm in the 70s with first-degree AV block, occasional PVCs and no sustained arrhythmias. Physical Exam Physical Exam: General: no acute distress and stated age Eyes: conjunctiva are pink and non-injected, sclera clear Neck: normal jugular venous pulse, no hepatojugular reflux Chest: normal shape and normal respiratory effort -Incision from loop recorder clean dry a nd intact Lungs: clear to auscultation and percussion Cardiac Exam: - regular heart sounds, no murmurs, rubs, or gallops, no jugular venous distention Abdomen: abdomen soft, non-tender, no abnormal masses and no hepatosplenomegaly Musculoskeletal: no gait disturbance, no weakness Extremities: no edema and no cyanosis Neuro:awake, conversant, follows commands, no focal motor deficits Psych: appropriate affect and insight. Results & Data Vital Signs (Past 12 Hours) Vital Signs Temp Pulse Resp BP BP Pulse Ox O2 Del Method 11/12/23 11:00 36.6 C 60 20 125/65 97 Room Air 11/12/23 07:49 53 L 18 184/87 H 96 Room Air 11/12/23 02:55 36.5 C 57 L 18 156/71 H 97 Room Air (1) Syncope Syncope type: unspecified Qualified Code(s): R55 - Syncope and collapse
--- NOTE | 2023-11-12 12:48 | Pharmacy Report ---
Pharmacy Glycemic Short Note 2 - Date of Service November 12, 2023 - Glycemic Short BSG Results (Last 24 hours): 11/11/23 11/11/23 11/12/23 16:13 20:39 07:25 Glucose POC Glucose 85 187 H 182 H 11/12/23 11/12/23 10:42 11:19 Glucose 248 H POC Glucose 253 H OUTPATIENT ANTIDIABETIC REGIMEN: * Lantus 24 units qPM, Novolog 10 units TID meals + ss * A1c 7.6% 11/11/23 ASSESSMENT: 11/11 * Alexys received 39 units of insulin yesterday (25 were basal) * Fasting BSG this AM slightly above goal range, transitioning basal insulin back to bedtime as he takes this way outpatient. Will monitor and increase tomorrow if continually elevated. No glycemic stressors noted at this time, he is slightly above his home basal regimen already so hesitant to increase basal today. * Will tighten carbohydrate ratio due to BSG swings and loosen correction factor due to overcorrection yesterday evening. Diet just advanced to heart healthy/carbohydrate consistent with breakfast. 11/10 * Patient has history of type 1 diabetes, CAD w/ stenting, htn admitted after syncopal episode * Patient was mildly hypoglycemic last evening and received 50% of basal last night, BSG 205 mg/dL this morning- gave 15 units to make up dose, will schedule 10 units for tonight- will need to move AM basal dose toward PM to get back to once daily @ HS dosing * Continue current novolog parameters (weight based stress of 2) PLAN FOR INPATIENT GLYCEMIC CONTROL: * Hold outpatient oral diabetes medications * Basal insulin * Lantus 15 units SQ at lunchtime, 10 units SQ this PM * Bolus insulin * NovoLog per scale ACHS or Q6hrs while NPO * Goal Range: Low 100 mg/dL - High 140 mg/dL * Correction Factor: 35 mg/dL/unit * Nutritional / Prandial insulin per carb ratio of 1 unit per 7 grams CHO consumed
--- NOTE | 2023-11-12 20:00 | Discharge Summary ---
Discharge Summary Date of Service November 12, 2023 Notes For Next Care Provider Medication Changes From Visit Keppra 500 mg p.o. twice daily HCTZ decreased from 25 mg to 12.5 mg p.o. daily Admission HPI Per Admitting Provider 83-year-old male with PMH DM type I, CAD, HTN, anxiety, and other problems listed below who presents to the ED after syncopal event at home. History is obtained from the patient and review of outpatient PCP, cardiology, neurology records. Patient admitted to [facility] 08/2023 for a very similar episode. Patient had an extensive workup that was all unrevealing. Patient reports he was sitting at his desk around 11:00 when he started to feel a pressure in his face. Next thing he knew, he woke up on the floor. He thinks he may have been unconscious for about 5 minutes. He has a friend living in the home with him and she stated that she heard the chair fall and then 5 minutes later she came to check on him and he was on the floor. He was mildly confused for about 1 minute following the incident. There was no loss of bowel or bladder control. Patient denies preceding chest pain or palpitations. He does report intermittent episodes of feeling lightheaded. He has difficulty providing further details of these events. Reports he otherwise has been feeling well recently. No other recent illnesses, fevers, chills. He denies abdominal pain, nausea, vomiting, diarrhea. No urinary symptoms. In the ED, patient is hemodynamically stable. Head CT is unremarkable. Initial HS troponin is negative and EKG is without acute ST changes. Patient was given IVF. Admission Exam Per Admitting Provider Constitutional: WD/WN, vitals as above no acute distress Eyes: PERRL, conjunctivae normal, anicteric sclerae ENMT: external ear and nose normal, oropharynx normal Respiratory: normal respiratory effort, lungs clear to auscultation Cardiovascular: Rate/Rhythm: regular rate and regular rhythm Vessels: normal peripheral pulses Extremities: no edema Gastrointestinal (Abdomen): normal bowel sounds, soft, nontender, no hepatosplenomegaly Musculoskeletal: no cyanosis or clubbing, extremities motor strength 5/5 Skin: no rashes, warm and dry Neurologic: PERRL, EOMI, accommodation nl, no face palsy, no dysarthria moves all extremities; no focal motor deficits Psychiatric: A+Ox3, euthymic affect Principal Dx & Hospital Course #1 = Principal Diagnosis (1) Syncope: per admitting service notes with addendum: Patient presenting from home after syncopal event. Patient was admitted 08/2023 for very similar episode. Had extensive workup at that time including head CT, head and neck CTA, brain MRI and is not outpatient had an EEG and Zio patch. Patient reports intermittent episodes of feeling lightheaded since that event however no additional syncopal episodes until today. In the ED, patient is hemodynamically stable, head CT unremarkable, initial HS troponin negative, EKG without acute ST changes Will continue to observe on telemetry, check orthostatic vitals Continue to trend troponin Will hold on additional imaging at this time Cardiology consult --loop recorder was being considered in the past 11/10 [employer] Service Steward consulted-Dr. Goodman (+) Orthostasis - HCTZ lowered to 12.5mg po daily implantable loop recorder recommended Neurologist consulted-Dr. Scott Barragan of [facility]: Recommend Keppra 500 mg p.o. twice daily Recommend EEG during this hospitalization No driving per [place] state law Needs resubmission of [employer] form to update the date of most recent event of loss of consciousness- communicated directly with primary/hospitalist team Dr. Read. Recommend continued outpatient follow up with adult neurology 11/11 Status postplacement of implantable loop recorder per Dr. Goodman: Differential diagnosis as outlined in my initial consult note dated 11/11/2023. I still have concerns about symptomatic orthostatic hypotension with 20 point decline in blood pressure when position change from sitting to standing yesterday. Although blood pressure as measured at 7:49 AM was 184/87, it was down to 125/65 after receiving morning medications. Patient is now status post [place] loop recorder. He has the application on his smart phone with regards to downloading symptomatic events. Continue aspirin, clopidogrel, felodipine 10 mg daily, lisinopril 40 mg daily, and dose of HCTZ reduced from 25 mg daily to 12.5 mg daily. Patient stable for discharge from a cardiology perspective. He already has a follow-up appointment on 11/15/2023, and I also placed a note in his outpatient chart to establish with the outpatient device clinic. (2) DM type 1 (diabetes mellitus, type 1): Hgb A1c 8.3 05/2023, will update with a.m. labs Continue Lantus and NovoLog (3) Coronary artery disease: Appears stable Continue ASA, Plavix, statin (4) Hypertension: Chronic, stable Continue HCTZ, lisinopril, felodipine -management of orthostatic hypotension per #1 (5) Anxiety: Chronic, stable Continue home meds Disposition d/c home ff up with PCP in 1 week ff up with Cardio 11/15/23 Discharge Exam General- oriented x 3, not in distress, speaks in sentences with no effort or accessory muscle use Eyes- anicteric Neck- no JVD Lungs- clear breath sounds bilaterally, no rales/wheezes Heart- normal rate, regular rhythm; no murmurs Abdomen- normal bowel sounds, nondistended, soft, nontender Extremities- no pretibial edema, no calf tenderness Neuro- alert, oriented x 3; no gross focal neurologic deficits Skin- warm & dry Updated Medication List Medication Instructions Recorded Confirmed Type cholecalciferol (vitamin D3) 50 2,000 unit PO QAM 03/25/19 11/10/23 History mcg (2,000 unit) capsule (Vitamin D3) felodipine 5 mg tablet,extended 10 mg PO QAM 03/25/19 11/10/23 History release 24 hr lisinopril 40 mg tablet 40 mg PO QAM 03/25/19 11/10/23 History multivitamin 1 tab PO QAM 03/25/19 11/10/23 History omega-3s 300 [id number] 2 cap PO QAM 03/25/19 11/10/23 History [id number] oil 1,000 mg capsule ([place]-3 Fish Oil) clopidogrel 75 mg tablet 75 mg PO DAILY 09/01/23 11/10/23 History insulin aspart U-100 100 unit/mL 10 unit subcut TIDWMEAL 09/01/23 11/10/23 History (3 mL) subcutaneous pen (Novolog FlexPen U-100 Insulin aspart) insulin glargine 100 unit/mL (3 24 unit subcut QPM 09/01/23 11/10/23 History mL) subcutaneous pen (Lantus Solostar U-100 Insulin) aspirin 81 mg tablet,delayed 81 mg PO QAM 30 days #30 tabs 09/03/23 11/10/23 Rx release atorvastatin 80 mg tablet 80 mg PO DAILY 11/10/23 11/10/23 History citalopram 20 mg tablet 10 mg PO QAM 11/10/23 11/10/23 History omeprazole 20 mg capsule,delayed 20 mg PO QAM 11/10/23 11/10/23 History release hydrochlorothiazide 25 mg tablet 12.5 mg (1/2 x 25 mg) PO DAILY 30 11/12/23 11/10/23 Rx days #30 tabs levetiracetam 500 mg tablet 500 mg PO BID 30 days #60 tabs 11/12/23 Rx (Keppra) potassium gluconate 550 mg (90 mg) 275 mg (1/2 x 550 mg (90 mg)) PO 11/12/23 11/10/23 Rx tablet 4XWK 30 days #30 tabs Hospital Stay Data Consultations 11/10/23 18:25 ED Decision to Admit Stat 11/10/23 21:00 Consult Cardiology Routine 11/11/23 08:11 Consult Neurology Routine Procedures Performed Operation Date: 11/12/23 07:50 Actual Procedures p Implant Cardiac Event Recorder - Kendy Mon, DO Diagnostic Imagining Performed Laboratory Results WBC 7.48 K/ul (4.8-10.8) 11/12/23 10:42 RBC 4.27 M/uL (4.70-6.10) L 11/12/23 10:42 Hgb 12.5 g/dl (14.0-18.0) L 11/12/23 10:42 Hct 36.4 % (42.0-52.0) L 11/12/23 10:42 MCV 85.2 fL (80.0-100.0) 11/12/23 10:42 MCH 29.3 pg (25.0-34.0) 11/12/23 10:42 MCHC 34.3 g/dL (32.0-36.0) 11/12/23 10:42 RDW Std Deviation 40.7 fL (36.4-46.3) 11/12/23 10:42 RDW Coeff of Toby 13.2 % (11.5-14.5) 11/12/23 10:42 Plt Count 248 K/uL (130-400) 11/12/23 10:42 MPV 9.2 fL (9.4-12.4) L 11/12/23 10:42 Immature Gran % (Auto) 0.4 % 11/12/23 10:42 Neut % (Auto) 62.2 % 11/12/23 10:42 Lymph % (Auto) 24.9 % 11/12/23 10:42 Wallace % (Auto) 8.2 % 11/12/23 10:42 Eos % (Auto) 3.9 % 11/12/23 10:42 Baso % (Auto) 0.4 % 11/12/23 10:42 Neut # (Auto) 4.66 K/uL (1.40-6.50) 11/12/23 10:42 Lymph # (Auto) 1.86 K/uL (1.20-3.40) 11/12/23 10:42 Wallace # (Auto) 0.61 K/uL (0.11-0.59) H 11/12/23 10:42 Eos # (Auto) 0.29 K/uL (0.00-0.50) 11/12/23 10:42 Baso # (Auto) 0.03 K/uL (0.00-0.20) 11/12/23 10:42 Immature Gran # (Auto) 0.03 K/uL (0.01-0.20) 11/12/23 10:42 PT 10.8 Seconds (9.0-12.0) 11/10/23 17:06 INR 1.0 (0.9-1.1) 11/10/23 17:06 APTT 29 Seconds (21-31) 11/10/23 17:06 PTT Ratio 1.0 11/10/23 17:06 Sodium 137 mmol/L (136-145) 11/12/23 10:42 Potassium 3.9 mmol/L (3.5-5.1) 11/12/23 10:42 Chloride 105 mmol/L (98-107) 11/12/23 10:42 Carbon Dioxide 29 mmol/L (21-32) 11/12/23 10:42 Anion Gap 3 (3-11) 11/12/23 10:42 BUN 24 mg/dl (6-23) H 11/12/23 10:42 Creatinine 0.89 mg/dl (0.6-1.4) 11/12/23 10:42 Est Cr Clr Drug Dosing 67.5 ml/min 11/12/23 10:42 Est GFR ( Amer) 91.6 ml/min 11/12/23 10:42 Est GFR (Non-Af Amer) 79.1 ml/min 11/12/23 10:42 BUN/Creatinine Ratio 27.0 (10-20) H 11/12/23 10:42 Glucose 248 mg/dl (70-99(Fasting)) H 11/12/23 10:42 POC Glucose 253 mg/dl (70-99) H 11/12/23 11:19 Estimat Average Glucose 171 mg/dl 11/11/23 05:09 Hemoglobin A1c 7.6 % (4.5-5.6) H 11/11/23 05:09 Calcium 9.0 mg/dl (8.6-10.3) 11/12/23 10:42 Magnesium 1.9 mg/dl (1.7-2.4) 11/12/23 10:42 Total Bilirubin 0.4 mg/dl (0.2-1.0) 11/10/23 17:06 AST 29 U/L (13-39) 11/10/23 17:06 ALT 21 U/L (7-52) 11/10/23 17:06 Alkaline Phosphatase 71 U/L (34-104) 11/10/23 17:06 Total Creatine Kinase 276 U/L (30-223) H 11/10/23 17:06 Troponin I High Sens 7.2 pg/ml (0-20) 11/11/23 05:09 Total Protein 7.7 gm/dl (6.0-8.3) 11/10/23 17:06 Albumin 4.3 gm/dl (3.4-5.0) 11/10/23 17:06 Globulin 3.4 gm/dl (2.5-4.0) 11/10/23 17:06 Albumin/Globulin Ratio 1.3 (0.9-2) 11/10/23 17:06 TSH 1.828 uIu/ml (0.300-4.500) 11/10/23 17:06 Urine Color Yellow 11/10/23 17:31 Urine Appearance Clear (Clear) 11/10/23 17:31 Urine pH 7.0 (4.5-7.5) 11/10/23 17:31 Ur Specific Bowie 1.019 (1.000-1.030) 11/10/23 17:31 Urine Protein Negative (Negative) 11/10/23 17:31 Urine Glucose (UA) Negative (Negative) 11/10/23 17:31 Urine Ketones Negative (Negative) 11/10/23 17:31 Urine Blood Trace (Negative) H 11/10/23 17:31 Urine Nitrite Negative (Negative) 11/10/23 17:31 Urine Bilirubin Negative (Negative) 11/10/23 17:31 Urine Urobilinogen Negative (Negative) 11/10/23 17:31 Ur Leukocyte Esterase Negative (Negative) 11/10/23 17:31 Urine WBC (Auto) 0 /hpf (0-5) 11/10/23 17:31 Urine RBC (Auto) 5-10 /hpf (0-4) H 11/10/23 17:31 U Hyaline Cast (Auto) 0 /lpf (0-5) 11/10/23 17: U Epithel Cells (Auto) 0-5 /lpf (0-5) 11/10/23 17:31 Urine Bacteria (Auto) Negative (Negative) 11/10/23 17:31 Impressions Chest X-Ray 11/10/23 16:47 XR chest 1V portable CLINICAL HISTORY: Syncope TECHNIQUE: Single frontal radiograph of the chest was obtained. Comparison: Comparison is made to chest radiograph 09/01/2023 FINDINGS: No lines and tubes are seen. The cardiomediastinal silhouette is normal. The lungs are clear. No evidence of pleural effusion or pneumothorax. IMPRESSION: No acute chest disease. ACT 112: Negative or not required by law. Electronically signed by: Ac Edge M.D. 11/10/2023 6:[address] 11/10/23 16:47 CT head/brain wo con CLINICAL HISTORY: syncope Technique: Contiguous axial CT images of the head were acquired from the base of the skull to the vertex without intravenous contrast administration. Images were viewed in brain, subdural and bone windows. Automated dose lowering techniques and/or adjustment according to patient size were utilized for this exam. Comparison: Comparison is made to MRI brain 09/02/2023 and CTA head 09/01/2023 Findings: The ventricles, basal cisterns, and cerebral sulci are normal. There is no acute intracranial hemorrhage or evidence of acute territorial infarction. Neither mass effect, shift of the midline structures, nor abnormal extra-axial fluid collections are shown. Imaged portions of the paranasal sinuses and mastoid air cells are clear. The orbits appear normal. There are no acute fractures of the calvaria or scalp swelling. Impression: No acute intracranial hemorrhage, no evidence of acute territorial infarction or other acute intracranial disease process. ACT 112: Negative or not required by law. Electronically signed by: Ac Edge M.D. 11/10/2023 5:56 PM 11/10/23 16:47 CT head/brain wo con Stat Pending Results Patient Have Any Pending Studies at Discharge: No Discharge Instructions Given to Patient (Per Discharging Provider) Device and wound check at [facility] on Sunday 11/19; they will call you with a time PLEASE REFER TO YOUR NEW MEDICATION LIST AND FOLLOW INSTRUCTIONS CAREFULLY. YOUR NEW MEDICATIONS INCLUDE: Keppra- for treatment of seizure Lower dose of HCTZ from 25mg to 12.5mg daily. CALL 911 IF WITH RECURRENCE OF SEIZURE. No driving, operating machineries, handling sharp objects, bathing in the tub, swimming, etc PLEASE CALL YOUR PRIMARY CARE PHYSICIAN OR RETURN TO THE ER IF WITH WORSENING OF SYMPTOMS, INCLUDING dizziness, weakness, confusion, palpitations, etc FOLLOW UP WITH PRIMARY CARE PHYSICIAN OUTLINED ABOVE. FOLLOW UP WITH CARDIOLOGY CLINIC- [facility]- THIS WEEK OUTLINED ABOVE. Total Time Total Time Spent Total Time Spent (In Minutes): >30 minutes
--- NOTE | 2023-11-13 05:47 | Electrocardiogram Report ---
Test Reason : Blood Pressure : / mmHG Vent. Rate : 053 BPM Atrial Rate : 053 BPM P-R Int : 286 ms QRS Dur : 086 ms QT Int : 468 ms P-R-T Axes : 058 -15 070 degrees QTc Int : 439 ms Poor data quality, interpretation may be adversely affected Sinus bradycardia with 1st degree A-V block Septal infarct (cited on or before 01-SEP-2023) Abnormal ECG When compared with ECG of 11-NOV-2023 04:13, No significant change was found Confirmed by Lenard Mendoza ([id number]) on 11/13/2023 5:46:58 AM Referred By: REFERRED SELF Confirmed By:Lenard Mendoza
--- NOTE | 2023-11-14 13:02 | Coding Query ---
CODING QUERY To promote full compliance with coding requirements relating to patient care, provider participation is requested in all cases of high worker uncertainty. Please assist us with the question(s) below: Coding Question(s): Please specify below, in your clinical opinion, the most likely cause of Syncope during this admission: ( ) Possible Seizure ( ) Orthostatic Hypotension (x ) Other: Please Specify__Unclear etiology, possible seizure, orthostatic hypotension, r/o arrhythmia ( ) Unknown likely source Physician's Response(s): Thank you Concha Finch Principal Diagnosis: "that condition established after study, to be chiefly responsible for occasioning the admission of the patient to the hospital for care." Co-Existing Principal Diagnosis: "when two or more diagnoses equally meet the criteria for principal diagnosis as determined by the circumstances of admission, diagnostic work up, and/or therapy provided, and the Alphabetic Index, Tabular List, or another coding guideline does not provide sequencing direction, any one of the diagnoses may be sequenced first." "When the physician has documented what appears to be a current diagnosis in the body of the record, but has not included the diagnosis in the final diagnostic statement, the physician should be asked whether the diagnosis should be added." ([facility]oding [facility] 2 QTR90. p3-4) ROBI
== END 2023-11-12 15:42 | disposition home or self-care (01) | DRG 42 ==
LOC: 4W 16:41 → ED 16:41 → SUATTDRO 18:38 → 4W 20:19

== ENCOUNTER 2025-02-20 21:18 | Inpatient (IN) ==
[2025-02-20 22:41] LABS: Albumin Level 3.3 gm/dl (3.4-5.0); BUN Creatinine Ratio 30.6 (10-20); Bilirubin,Total 0.4 mg/dl (0.2-1.0); Calcium 8.9 mg/dl (8.6-10.3); Creatinine Clr Calc Pharmacy 79.5 ml/min; Globulin 3.4 gm/dl (2.5-4.0); Potassium 4.1 mmol/L (3.5-5.1); Total Protein 6.7 gm/dl (6.0-8.3)
[2025-02-20 22:46] LABS: Basophils # (auto) 0.02 K/uL (0.00-0.20); Basophils % (auto) 0.2 %; Eosinophils # (auto) 0.67 K/uL (0.00-0.50); Eosinophils % (auto) 7.9 %; Hematocrit (blood only) 31.7 % (42.0-52.0); Hemoglobin 10.9 g/dl (14.0-18.0); Immature Granulocytes # (auto) 0.02 K/uL (0.01-0.20); Immature Granulocytes % (auto) 0.2 %; Lymphocytes # (auto) 1.75 K/uL (1.20-3.40); Lymphocytes % (auto) 20.6 %; Mean Corpuscular Hemoglobin 29.9 pg (25.0-34.0); Mean Corpuscular Hgb Conc 34.4 g/dL (32.0-36.0); Mean Corpuscular Volume 86.8 fL (80.0-100.0); Mean Platelet Volume 9.5 fL (9.4-12.4); Monocytes # (auto) 0.81 K/uL (0.11-0.59); Monocytes % (auto) 9.5 %; Neutrophils # (auto) 5.22 K/uL (1.40-6.50); Neutrophils % (auto) 61.6 %; Platelet Count 320 K/uL (130-400); RDW Coefficient of Variation 13.3 % (11.5-14.5); RDW Standard Deviation 42.5 fL (36.4-46.3); Red Blood Count 3.65 M/uL (4.70-6.10); White Blood Count 8.49 K/ul (4.8-10.8)
[2025-02-20] MEDS ORDERED: VANCOMYCIN CONSULT ACTIVE PRN (23:20)
--- NOTE | 2025-02-20 23:23 | Emergency Department Note ---
Impression & Plan Cellulitis of foot, left, Open wound of left great toe, Hyperglycemia ED Provider Note ED Provider Note NAME: BRAULIO MARTIN AGE:84 SEX: Male : 1940 ARRIVES VIA: Private vehicle INFORMANT: Patient ED PROVIDER(s): Yenny Caldera DO CHIEF COMPLAINT: Left big toe and foot redness, swelling, wound HPI: This is an 84-year-old male who presents emergency department due to concern for worsening redness, swelling, and wounds to the left foot and specifically the great toe. Patient states he was previously seen as an outpatient through [facility] with podiatry. He states he did have x-rays done, no other imaging and no labs. He states he has been dumping hydrogen peroxide and bleach on the area to try and clean the wound. He states he recently noted he had an ulcer to the bottom of his big toe additionally. He states his blood sugar readings have been very high recently. He denies fevers or chills, nausea or vomiting, but states he has felt more off balance recently. PAST MEDICAL HISTORY:See Below PAST SURGICAL HISTORY:See Below FAMILY HISTORY:See Below SOCIAL HISTORY:See Below HOME MEDICATIONS:See Below ALLERGIES:See Below VITALS:See Below PHYSICAL EXAMINATION: GENERAL: alert, well appearing, well nourished, no distress, non-toxic EYE EXAM: normal conjunctiva, PERRL and EOM's grossly intact OROPHARYNX: no exudate, no erythema, lips, buccal mucosa, and tongue normal and mucous membranes are moist NECK: supple, no nuchal rigidity, no adenopathy, non-tender LUNGS: Clear to auscultation. Normal chest wall mechanics, no w/r/r HEART: no murmurs, S1 normal and S2 normal, pacemaker noted left anterior superior chest wall ABDOMEN: abdomen soft, non-tender, normo-active bowel sounds, no masses, no rebound or guarding. BACK: Back is symmetrical on inspection and there is no deformity, no midline tenderness, no CVA tenderness. SKIN: no rashes, petechiae, orbruising UPPER EXTREMITIES: upper extremities are grossly normal. FROM, nml pulses b/l. LOWER EXTREMITIES: No pitting edema. FROM, nml pulses b/l. Edema and erythema noted to the left foot, ankle, and distal lower extremity, the left great toe has a fungating nail with a crusted and peeling appearance to the skin at the distal aspect and a 1.5 cm circumferential ulcerative wound to the plantar aspect of the left great toe, small areas of skin break and possible fungal infection are also noted concurrently between the toes and on the plantar aspect of the toes at the base, no other open wounds or sores seen to the foot or ankle, there was no obvious bony tenderness to the rest of the left foot; no evidence of infection or trauma to the right foot NEURO EXAM: Normal sensorium, cranial nerves II-XII grossly intact, normal speech, no facial droop,nogross weakness of arms, no gross weakness of legs. Gross sensation intact. No ataxia. Vital Signs: reviewed and remarkable Differential Diagnosis: Cellulitis, abscess, diabetic ulcer, osteomyelitis, occult trauma, as well as others were considered MEDICAL DECISION MAKING: This is an 84-year-old male presents emergency department due to concern for worsening left great toe and left foot redness, swelling, and poor wound healing. Patient states he has been dealing with this for several weeks and was seen as an outpatient by podiatry. He was afebrile and hemodynamically stable on arrival here. Labs drawn and sent, IV established, x-rays performed at bedside interpreted by me and he was monitored on telemetry. Patient started on IV fluids and IV antibiotics added. Blood and wound cultures had been sent prior to this. After review of recent outpatient office visit and prior x-rays which are suggestive of possible evolving osteomyelitis, I discussed with him need for further evaluation in light of his diabetic status and poor wound healing. Case discussed with the hospitalist team for additional evaluation and management. Consultation(s): 2324: Discussed with Dr. Sauceda, [facility] hospitalist team for additional evaluation and mgmt. ER Treatment Provided: See below Diagnostics Interpreted By Me: -Cardiac Monitoring: An order was placed for continuous cardiac monitoring. The monitor shows a rate of 66 with normal sinus rhythm. -Laboratory studies: As stated above and show below. -Imaging studies: xr foot: No obvious fracture or foreign body Triage Nursing Note Reviewed Prior/Outside Records Reviewed -podiatry note from 02/04/2025 reviewed as were x- rays from 01/22/2025. Past Med/Surg History Problem List (Updated 02/20/25 @ 23:22 by Yenny Caldera DO) Hyperglycemia (Acute) Open wound of left great toe (Acute) Cellulitis of foot, left (Acute) DM type 1 (diabetes mellitus, type 1) Anxiety Syncope (Acute) Coronary artery disease 2005-LAD stent Hypertension Medical History DM type 1 (diabetes mellitus, type 1) Anxiety Hypertension Coronary artery disease 2006-LAD stent Surgical History H/O inguinal hernia repair Family History Other No significant family history Social History Smoking Status: Never smoker Second Hand Exposure: No; Do You Dip or Chew Tobacco: No; Hx Alcohol Use: Yes Hx Substance Use: No Preferred Language: Latvian Communication Ability: Effective 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 Verified 03/12/24 08:27 Home Meds Home Medications Medication Instructions Recorded Confirmed cholecalciferol (vitamin D3) 50 2,000 unit PO QAM 03/25/19 02/21/25 mcg (2,000 unit) capsule (Vitamin D3) felodipine 5 mg tablet,extended 10 mg PO QAM 03/25/19 02/21/25 release 24 hr lisinopril 40 mg tablet 40 mg PO QAM 03/25/19 02/21/25 multivitamin 1 tab PO QAM 03/25/19 02/21/25 omega-3s 300 ur-imb-qrg-other 2 cap PO QAM 03/25/19 02/21/25 [id number] oil 1,000 mg capsule ([place]-3 Fish Oil) clopidogrel 75 mg tablet 75 mg PO DAILY 09/01/23 02/21/25 insulin aspart U-100 100 unit/mL 10 unit subcut TIDWMEAL 09/01/23 02/21/25 (3 mL) subcutaneous pen (Novolog FlexPen U-100 Insulin aspart) insulin glargine 100 unit/mL (3 24 unit subcut QPM 09/01/23 02/21/25 mL) subcutaneous pen (Lantus Solostar U-100 Insulin) atorvastatin 80 mg tablet 80 mg PO DAILY 11/10/23 02/21/25 omeprazole 20 mg capsule,delayed 20 mg PO QAM 11/10/23 02/21/25 release Previous Rx's Medication Instructions Recorded aspirin 81 mg tablet,delayed 81 mg PO QAM 30 days #30 tabs 09/03/23 release hydrochlorothiazide 25 mg tablet 12.5 mg (1/2 x 25 mg) PO DAILY 30 11/12/23 days #30 tabs Results & Data (ED) Vital Signs Vital Signs - 24 hr 02/20/25 21:24 02/20/25 22:50 Temperature 36.5 C Temperature Source Oral Pulse Rate 70 Pulse Rate [Apical] 60 Respiratory Rate 18 18 Respiratory Effort / Characteristics Non-Labored Spontaneous Non-Labored Spontaneous Respiratory Depth Normal Normal Respiratory Pattern Regular Blood Pressure 193/67 H Blood Pressure [Right Arm] 159/69 H Blood Pressure Mean 109 Blood Pressure Mean [Right Arm] 99 Pulse Oximetry 97 Oxygen Delivery Method Room Air Sepsis Recent Fever Within 48 Hours No Sepsis New/Unexplained Change in Mental Status No Sepsis Action Taken by Nursing No Action Required Laboratory Data 02/20/25 21:55 02/20/25 21:55 Lab Results 02/20/25 02/21/25 Range/Units 21:55 00:06 WBC 8.49 (4.8-10.8) K/ul RBC 3.65 L (4.70-6.10) M/uL Hgb 10.9 L (14.0-18.0) g/dl Hct 31.7 L (42.0-52.0) % MCV 86.8 (80.0-100.0) fL MCH 29.9 (25.0-34.0) pg MCHC 34.4 (32.0-36.0) g/dL RDW Std Deviation 42.5 (36.4-46.3) fL RDW Coeff of Toby 13.3 (11.5-14.5) % Plt Count 320 (130-400) K/uL MPV 9.5 (9.4-12.4) fL Immature Gran % (Auto) 0.2 % Neut % (Auto) 61.6 % Lymph % (Auto) 20.6 % [place] % (Auto) 9.5 % Eos % (Auto) 7.9 % Baso % (Auto) 0.2 % Neut # (Auto) 5.22 (1.40-6.50) K/uL Lymph # (Auto) 1.75 (1.20-3.40) K/uL [place] # (Auto) 0.81 H (0.11-0.59) K/uL Eos # (Auto) 0.67 H (0.00-0.50) K/uL Baso # (Auto) 0.02 (0.00-0.20) K/uL Immature Gran # (Auto) 0.02 (0.01-0.20) K/uL Sodium 136 (136-145) mmol/L Potassium 4.1 (3.5-5.1) mmol/L Chloride 103 (98-107) mmol/L Carbon Dioxide 25 (21-32) mmol/L Anion Gap 8 (3-11) BUN 22 (6-23) mg/dl Creatinine 0.72 (0.6-1.4) mg/dl Est Cr Clr Drug Dosing 79.5 ml/min eGFR 90.09 BUN/Creatinine Ratio 30.6 H (10-20) Glucose 374 H* (70-99(Fasting)) mg/dl POC Glucose 381 H* (70-99) mg/dl Calcium 8.9 (8.6-10.3) mg/dl Total Bilirubin 0.4 (0.2-1.0) mg/dl AST 20 (13-39) U/L ALT 18 (7-52) U/L Alkaline Phosphatase 100 (34-104) U/L Total Protein 6.7 (6.0-8.3) gm/dl Albumin 3.3 L (3.4-5.0) gm/dl Globulin 3.4 (2.5-4.0) gm/dl Albumin/Globulin Ratio 1.0 (0.9-2) Procalcitonin < 0.02 (0-0.5) ng/ml Administered Medications Vancomycin HCl 1,750 mg/ (Sodium Chloride) 535 mls @ 200 mls/hr IV NOW ONE Stop: 02/21/25 02:00 Last Admin: 02/21/25 00:28 Dose: 200 mls/hr Documented By: NOAM Cefepime HCl (Maxipime 2000mg) 2,000 mg in 20 mls @ 5 mls/min IV Q8H JOE; Protocol Stop: 02/28/25 00:00 Last Admin: 02/21/25 00:27 Dose: 5 mls/min Documented By: NOAM Insulin Aspart (Insulin Aspart Per Unit Charge) 0 units SC ACHS JOE Stop: 03/22/25 23:34 Last Admin: 02/21/25 00:28 Dose: 10 units Documented By: NOAM Co-signed By: GABRIEL Discontinued Medications Ceftriaxone Sodium (Rocephin) 2,000 mg in 50 mls @ 100 mls/hr IV NOW STA Stop: 02/20/25 23:49 Last Admin: 02/21/25 00:23 Dose: Not Given Documented By: NOAM Insulin Glargine (Lantus Per Unit Charge) 10 units SQ NOW STA Stop: 02/20/25 23:32 Last Admin: 02/21/25 00:28 Dose: 10 units Documented By: NOAM Co-signed By: GABRIEL Imaging Data Radiologist's Impression: Foot X-Ray 02/20/25 21:48 Exam(s): XR LEFT FOOT, 3+ views EXAM: XR Left Foot Complete, 3 or More Views CLINICAL HISTORY: Reason for exam: infection. TECHNIQUE: Frontal, lateral and oblique views of the left foot. COMPARISON: No relevant prior studies available. FINDINGS: Bones/joints: Mild diffuse osteopenia. The osseous structures appear intact and normally aligned. No acute fracture or dislocation is seen. There is a 4 mm plantar calcaneal enthesophyte. Mild narrowing and osteophytosis of the talonavicular and intertarsal joints of the midfoot. The midfoot alignment is normal. There is mild flattening of the plantar arch with Meary's angle measuring -16 degrees. Mild narrowing and osteophytosis of the ankle joint consistent with osteoarthritis. Soft tissues: Unremarkable. No radiopaque foreign body. IMPRESSION: Mild narrowing and osteophytosis of the talonavicular and intertarsal joints of the midfoot. The midfoot alignment is normal. There is mild flattening of the plantar arch with Meary's angle measuring -16 degrees. Electronically signed by: Abe Pablo MD 02/21/25 00:25 AM Discharge Plan Visit Data Chief Complaint: Toe Injury/Pain Stated Complaint: INFECTION LT BIG TOE ED Provider: Yenny Caldera Discharge Problem: Cellulitis of foot, left, Open wound of left great toe, Hyperglycemia Patient Disposition: Being Evaluated by Hospitalist Condition: Fair Forms Stand Alone Forms: My [facility] Prescriptions Prescriptions: No Action multivitamin Tablet 1 tab PO QAM felodipine 5 mg tablet extended release 24 hr 10 mg PO QAM lisinopril 40 mg tablet 40 mg PO QAM cholecalciferol (vitamin D3) [Vitamin D3] 2,000 unit Capsule 2,000 unit PO QAM [place]-3 Fish Oil 300-1,000 mg Capsule 2 cap PO QAM clopidogrel 75 mg tablet 75 mg PO DAILY insulin glargine [Lantus Solostar U-100 Insulin] 100 unit/mL (3 mL) insulin pen 24 unit SUBCUT QPM insulin aspart U-100 [Novolog FlexPen U-100 Insulin] 100 unit/mL (3 mL) insulin pen 10 unit subcut TIDWMEAL Rx Instructions: Plus sliding scale aspirin 81 mg Tablet,Delayed Release (Dr/Ec) 81 mg PO QAM 30 Days Qty: 30 2RF Rx Instructions: Always take with a full stomach atorvastatin 80 mg tablet 80 mg PO DAILY omeprazole 20 mg capsule,delayed release(DR/EC) 20 mg PO QAM hydrochlorothiazide 25 mg tablet 12.5 mg PO DAILY 30 Days Qty: 30 0RF Rx Instructions: Patient reports taking 0.5tabs daily Referrals Referrals: Amado Reeder MD [Primary Care Provider] -
[2025-02-20] MEDS ORDERED: CARBOHYDRATES FOR HYPOGLYCEMIA PO PRN (23:31)
[2025-02-20] MEDS ORDERED: GLUCAGON FOR INJ 1 MG VIAL SQ PRN (23:31)
[2025-02-20] MEDS ORDERED: GLUCOSE 40% GEL 15 GM TUBE PO PRN (23:31)
[2025-02-20] MEDS ORDERED: DEXTROSE 50% 50 ML SYRINGE IV PRN (23:31)
[2025-02-20] MEDS ORDERED: GLUCOSE 10 TAB/TUBE PO PRN (23:31)
--- NOTE | 2025-02-20 23:41 | History & Physical Report ---
Date of Service February 20, 2025 Assessment & Plan (1) Open wound of left great toe: Plan: Assessment and plan below following discussion of case with ED provider and reviewing patient history/pertinent normal/abnormal diagnostic test results. Diabetic foot infection left Failed outpatient treatment Possible osteomyelitis No sepsis for now LLE swelling secondary to above rule out DVT Acute on chronic anemia secondary to intermittent wound bleeding, home antip latelet Rx contributory CAD status post stent (2005) SSS status post PPM hypertension, slightly elevated hyperlipidemia, on statin Rx PAMELA on CPAP DM1, blood sugar occasionally 400s at home, suboptimal control as of recent hemoglobin A1c of 8 last month Admit to [facility] CS, vancomycin and cefepime Offload LLE Left foot CT rule out osteomyelitis Orthopedics consult Re: Diabetic foot infection (No [facility] podiatry coverage this weekend.) LLE venous Dopplers rule out DVT Prudent to hold antiplatelet Rx for now given progressive anemia with intermittently bleeding wound Follow H&H, transfuse PRBC to maintain hemoglobin of at least 8 given CAD history Basal bolus insulin, ISS BG goal 110-140, carb count coverage, update hemoglobin A1c DVT prophylaxis. SCDs if no DVT on ultrasound Full code Text document was generated using to be voice recognition software. It may contain grammatical or spelling errors. Kindly contact undersigned for clarification of any documentation item in question. History of Present Illness Chief Complaint: Worsening left great toe wound Primary Care Provider: Amado Reeder MD History obtained from patient and records. Medical history significant for CAD status post stent (2005), SSS status post PPM hypertension, hyperlipidemia, PAMELA on CPAP, DM1, GERD, chronic anemia (baseline hemoglobin of 12). Last confinement November 2023 for syncope. Patient discharged with loop recorder. Bradycardia later noted on loop recorder. Patient eventually underwent outpatient PPM placement for SSS last March 2024. 3 months ago, patient accidentally sustained wound on left great toe after self trimming callus with some wire cutters at home. No immediate consultations. Progressive nonpainful left great toe swelling with bloody yellowish drainage. No fever, no chills. Patient consulted urgent care center last month. Prescribed Bactrim course. Outpatient left great toe x-ray showed Loss of cortex of tuft of distal phalanx may represent osteomyelitis. Recommend MR correlation as clinically indicated. Patient directed to ER for evaluation with abnormal outpatient left foot x-ray. Patient declined ED provider offer for admission for possible osteomyelitis. Discharged on Augmentin and doxycycline course. Persistent drainage with mild pain despite completing antibiotic course. Patient seen by [place] game preserve manager outpatient 2 weeks ago. Hammertoes noted on exam. Full-thickness open wound to the left toe plantar aspect noted with mild erythema. Some toenails noted to appear fungal thickened and discolored. Debridement done at the office. Outpatient bone scan recommended to definitely rule out osteomyelitis as patient cannot go for MRI due to pacemaker device as per note. Worsening swelling and drainage following game preserve manager visit. Swelling noted to extend to left lower leg few days ago. Patient felt a little unstable walking. No fever, no chills. No chest pain, no SOB. No headache symptoms. IV vancomycin administered at the ER. Medical History as above Surgical History : PPM, hernia repair, vasectomy Family History : DM Personal/Social history : Non-smoker, no EtOH intake, retired schoolteacher Allergies Allergy/AdvReac Type Severity Reaction Status Date / Time No Known Drug Allergies Allergy Unknown . Verified 03/12/24 08:27 Home Medications Medication Instructions Recorded Confirmed Type cholecalciferol (vitamin D3) 50 2,000 unit PO QAM 03/25/19 02/21/25 History mcg (2,000 unit) capsule (Vitamin D3) felodipine 5 mg tablet,extended 10 mg PO QAM 03/25/19 02/21/25 History release 24 hr lisinopril 40 mg tablet 40 mg PO QAM 03/25/19 02/21/25 History multivitamin 1 tab PO QAM 03/25/19 02/21/25 History omega-3s 300 ia-mho-gwz-other 2 cap PO QAM 03/25/19 02/21/25 History [id number] oil 1,000 mg capsule ([place]-3 Fish Oil) clopidogrel 75 mg tablet 75 mg PO DAILY 09/01/23 02/21/25 History insulin aspart U-100 100 unit/mL 10 unit subcut TIDWMEAL 09/01/23 02/21/25 History (3 mL) subcutaneous pen (Novolog FlexPen U-100 Insulin aspart) insulin glargine 100 unit/mL (3 24 unit subcut QPM 09/01/23 02/21/25 History mL) subcutaneous pen (Lantus Solostar U-100 Insulin) aspirin 81 mg tablet,delayed 81 mg PO QAM 30 days #30 tabs 09/03/23 02/21/25 Rx release atorvastatin 80 mg tablet 80 mg PO DAILY 11/10/23 02/21/25 History omeprazole 20 mg capsule,delayed 20 mg PO QAM 11/10/23 02/21/25 History release hydrochlorothiazide 25 mg tablet 12.5 mg (1/2 x 25 mg) PO DAILY 30 11/12/23 02/21/25 Rx days #30 tabs Past Med/Surg History Problem List (Updated 02/20/25 @ 23:22 by Yenny Caldera DO) Hyperglycemia (Acute) Open wound of left great toe (Acute) Cellulitis of foot, left (Acute) DM type 1 (diabetes mellitus, type 1) Anxiety Syncope (Acute) Coronary artery disease 2005-LAD stent Hypertension Medical History DM type 1 (diabetes mellitus, type 1) Anxiety Hypertension Coronary artery disease 2005-LAD stent Surgical History H/O inguinal hernia repair Family History Other No significant family history Social History Smoking Status: Never smoker Second Hand Exposure: No; Do You Dip or Chew Tobacco: No; Hx Alcohol Use: Yes Hx Substance Use: No Preferred Language: Andorran Communication Ability: Effective Kier Tender Required: No Beliefs That Will Affect Care: None marital status: Current Living Situation: Spouse Feels Safe at Home: Yes Assistive Devices: None Review of Systems Review of Systems: As per HPI, all other systems reviewed and negative Physical Exam Physical Exam: GENERAL: Comfortable, pleasant, slightly hard of hearing, no respiratory distress SKIN: Pallor,, warm HEENT: bespectaclec, pale palpebral conjunctivae, no ptosis, moist buccal mucosa NECK : Supple, no tenderness CHEST : CTA, no tenderness HEART : RRR, no obvious murmurs ABDOMEN: Some distention, nontender EXTREMITIES : Dressing over left great toe, minimal LLE swelling, without tenderness, palpable pulses, no other conspicuous deformities noted NEUROLOGIC : Coherent, no facial asymmetry, no other gross focality Results & Data Results & Data Vital Signs (Past 12 Hours) Vital Signs Temp Pulse Pulse Resp BP BP Pulse Ox 02/20/25 22:50 60 18 159/69 H 02/20/25 21:24 36.5 C 70 18 193/67 H 97 O2 Del Method 02/20/25 22:50 02/20/25 21:24 Room Air Laboratory Results Laboratory Results WBC 8.49 K/ul (4.8-10.8) 02/20/25 21:55 RBC 3.65 M/uL (4.70-6.10) L 02/20/25 21:55 Hgb 10.9 g/dl (14.0-18.0) L 02/20/25 21:55 Hct 31.7 % (42.0-52.0) L 02/20/25 21:55 MCV 86.8 fL (80.0-100.0) 02/20/25 21:55 MCH 29.9 pg (25.0-34.0) 02/20/25 21:55 MCHC 34.4 g/dL (32.0-36.0) 02/20/25 21:55 RDW Std Deviation 42.5 fL (36.4-46.3) 02/20/25 21:55 RDW Coeff of Toby 13.3 % (11.5-14.5) 02/20/25 21:55 Plt Count 320 K/uL (130-400) 02/20/25 21:55 MPV 9.5 fL (9.4-12.4) 02/20/25 21:55 Immature Gran % (Auto) 0.2 % 02/20/25 21:55 Neut % (Auto) 61.6 % 02/20/25 21:55 Lymph % (Auto) 20.6 % 02/20/25 21:55 [place] % (Auto) 9.5 % 02/20/25 21:55 Eos % (Auto) 7.9 % 02/20/25 21:55 Baso % (Auto) 0.2 % 02/20/25 21:55 Neut # (Auto) 5.22 K/uL (1.40-6.50) 02/20/25 21:55 Lymph # (Auto) 1.75 K/uL (1.20-3.40) 02/20/25 21:55 [place] # (Auto) 0.81 K/uL (0.11-0.59) H 02/20/25 21:55 Eos # (Auto) 0.67 K/uL (0.00-0.50) H 02/20/25 21:55 Baso # (Auto) 0.02 K/uL (0.00-0.20) 02/20/25 21:55 Immature Gran # (Auto) 0.02 K/uL (0.01-0.20) 02/20/25 21:55 Sodium 136 mmol/L (136-145) 02/20/25 21:55 Potassium 4.1 mmol/L (3.5-5.1) 02/20/25 21:55 Chloride 103 mmol/L (98-107) 02/20/25 21:55 Carbon Dioxide 25 mmol/L (21-32) 02/20/25 21:55 Anion Gap 8 (3-11) 02/20/25 21:55 BUN 22 mg/dl (6-23) 02/20/25 21:55 Creatinine 0.72 mg/dl (0.6-1.4) 02/20/25 21:55 Est Cr Clr Drug Dosing 79.5 ml/min 02/20/25 21:55 eGFR 90.09 02/20/25 21:55 BUN/Creatinine Ratio 30.6 (10-20) H 02/20/25 21:55 Glucose 374 mg/dl (70-99(Fasting)) H* 02/20/25 21:55 Calcium 8.9 mg/dl (8.6-10.3) 02/20/25 21:55 Total Bilirubin 0.4 mg/dl (0.2-1.0) 02/20/25 21:55 AST 20 U/L (13-39) 02/20/25 21:55 ALT 18 U/L (7-52) 02/20/25 21:55 Alkaline Phosphatase 100 U/L (34-104) 02/20/25 21:55 Total Protein 6.7 gm/dl (6.0-8.3) 02/20/25 21:55 Albumin 3.3 gm/dl (3.4-5.0) L 02/20/25 21:55 Globulin 3.4 gm/dl (2.5-4.0) 02/20/25 21:55 Albumin/Globulin Ratio 1.0 (0.9-2) 02/20/25 21:55 Procalcitonin < 0.02 ng/ml (0-0.5) 02/20/25 21:55 Left foot x-ray: Mild narrowing and osteophytosis of the talonavicular and intertarsal joints of the midfoot. The midfoot alignment is normal. There is mild flattening of the plantar arch with Meary's angle measuring -16 degrees.
[2025-02-21] MEDS: cefTRIAXone SODIUM 2,000 MG/50 ML BAG IV STA (00:23)
--- NOTE | 2025-02-21 00:26 | XRay Report ---
Exam(s): XR LEFT FOOT, 3+ views EXAM: XR Left Foot Complete, 3 or More Views CLINICAL HISTORY: Reason for exam: infection. TECHNIQUE: Frontal, lateral and oblique views of the left foot. COMPARISON: No relevant prior studies available. FINDINGS: Bones/joints: Mild diffuse osteopenia. The osseous structures appear intact and normally aligned. No acute fracture or dislocation is seen. There is a 4 mm plantar calcaneal enthesophyte. Mild narrowing and osteophytosis of the talonavicular and intertarsal joints of the midfoot. The midfoot alignment is normal. There is mild flattening of the plantar arch with Meary's angle measuring -16 degrees. Mild narrowing and osteophytosis of the ankle joint consistent with osteoarthritis. Soft tissues: Unremarkable. No radiopaque foreign body. IMPRESSION: Mild narrowing and osteophytosis of the talonavicular and intertarsal joints of the midfoot. The midfoot alignment is normal. There is mild flattening of the plantar arch with Meary's angle measuring -16 degrees. Electronically signed by: Abe Pablo MD 02/21/25 00:25 AM
[2025-02-21] MEDS: CEFEPIME 2000MG 2,000 MG/20 ML SYR IV SCH (00:27)
[2025-02-21] MEDS: INSULIN ASPART PER UNIT CHARGE SC SCH (00:28)
[2025-02-21] MEDS: LANTUS PER UNIT CHARGE SQ STA ×2 (00:28→02:10)
[2025-02-21] MEDS: VANCOMYCIN HCL 1,750 MG in SODIUM CHLORIDE 0.9% 500 ML IV ONE (00:28)
[2025-02-21] MEDS ORDERED: PROMETHAZINE 6.25 MG/50.25 ML BAG IV PRN (00:35)
[2025-02-21] MEDS: OPTIRAY 320 100ml IV ONE (01:07)
[2025-02-21] MEDS: SODIUM CHLORIDE 0.9% 1,000 ML IV ONE (02:11)
--- NOTE | 2025-02-21 02:47 | Ultrasound Report ---
EXAM: US venous doppler LE LT CLINICAL HISTORY: swelling TECHNIQUE: Grayscale ultrasound, with and without compression, and color Doppler spectral waveform analysis were performed of the deep veins of the left lower extremity from the level of the common femoral veins to the level of the popliteal veins. The posterior tibial and peroneal veins were also scanned. COMPARISON: No FINDINGS: Left external iliac, common femoral vein, superficial, femoral vein and popliteal veins are compressible and opacify at color Doppler evaluation with no evidence of deep vein thrombosis. There is no evidence of DVT in the visualized portions of the posterior tibial and peroneal veins. Subcutaneous calf oedema. Complex cystic area in popliteal fossa of size 3.7 x 1.0 x 3.2 cm, likely Erazo's cyst . Prominent lymph nodes noted in groin measuring up to 2.0 x 1.4 x 0.7 cm. IMPRESSION: 1. Negative for deep vein thrombosis. 2. Subcutaneous calf oedema. 3. Erazo's cyst. 4. Prominent left inguinal nodes. Electronically signed by Shree Vazquez 02-21-2025 02:47 AM
--- NOTE | 2025-02-21 02:56 | CT Scan Report ---
EXAM: CT foot LT w con CLINICAL HISTORY: swelling TECHNIQUE: Contiguous axial CT images of left foot were obtained without intravenous contrast. Coronal and sagittal reconstructions were likewise performed and indicated to increase the sensitivity for detecting clinically relevant pathology. CT scan was performed according to ALARA (as low as reasonable achievable). COMPARISON: None. FINDINGS: Visualized bone shows diffuse osteopenia. Multiple punctate lucencies are noted involving visualized bone - possibility of osteopenic changes likely over marrow infiltrative disease. Diffuse edema is noted involving subcutaneous and muscular plane of visualized lower extremity No acute fracture or dislocation. No destructive osseous lesion. The visualized muscles and tendons appear grossly unremarkable. No cortical destruction to suggest osteomyelitis. No abscess formation. No significant joint effusion. There are no soft tissue masses. IMPRESSION: 1. Visualized bone shows diffuse osteopenia. 2. Multiple punctate lucencies are noted involving visualized bone - possibility of osteopenic changes likely over marrow infiltrative disease. 3. Diffuse edema is noted involving subcutaneous and muscular plane of visualized lower extremity- likely cellulitis, MRI correlation suggested 4. No obvious localized collection /no obvious osteomyelitis Electronically signed by Shree Vazquez 02-21-2025 02:55 AM
[2025-02-21 07:20] LABS: Basophils # (auto) 0.02 K/uL (0.00-0.20); Basophils % (auto) 0.3 %; Eosinophils # (auto) 0.58 K/uL (0.00-0.50); Eosinophils % (auto) 8.9 %; Hematocrit (blood only) 31.2 % (42.0-52.0); Hemoglobin 10.7 g/dl (14.0-18.0); Immature Granulocytes # (auto) 0.02 K/uL (0.01-0.20); Immature Granulocytes % (auto) 0.3 %; Lymphocytes # (auto) 1.78 K/uL (1.20-3.40); Lymphocytes % (auto) 27.3 %; Mean Corpuscular Hemoglobin 29.8 pg (25.0-34.0); Mean Corpuscular Hgb Conc 34.3 g/dL (32.0-36.0); Mean Corpuscular Volume 86.9 fL (80.0-100.0); Mean Platelet Volume 9.1 fL (9.4-12.4); Monocytes # (auto) 0.61 K/uL (0.11-0.59); Monocytes % (auto) 9.3 %; Neutrophils # (auto) 3.52 K/uL (1.40-6.50); Neutrophils % (auto) 53.9 %; Platelet Count 287 K/uL (130-400); RDW Coefficient of Variation 13.3 % (11.5-14.5); Red Blood Count 3.59 M/uL (4.70-6.10); White Blood Count 6.53 K/ul (4.8-10.8)
[2025-02-21 07:50] LABS: BUN Creatinine Ratio 26.7 (10-20); C Reactive Protein 1.42 mg/dl (0-0.5); Calcium 8.3 mg/dl (8.6-10.3); Creatinine Clr Calc Pharmacy 95.1 ml/min; Potassium 3.5 mmol/L (3.5-5.1)
[2025-02-21 08:12] LABS: Estimated Average Glucose 203 mg/dl; Hemoglobin A1C 8.7 % (4.5-5.6)
[2025-02-21] MEDS: ATORVASTATIN 40 MG TAB PO SCH (08:14)
[2025-02-21] MEDS: PANTOprazole 40 MG TAB PO SCH (08:14)
[2025-02-21] MEDS: FELODIPINE 5 MG TABCR PO SCH (08:15)
[2025-02-21] MEDS: lisinopril 40 MG TAB PO SCH (08:15)
[2025-02-21] MEDS: MULTIVITAMIN TAB PO SCH (08:15)
--- NOTE | 2025-02-21 09:18 | Orthopedic Consultation ---
Date of Service February 21, 2025 Assessment & Plan (1) Open wound of left great toe: 84-year-old gentleman with multiple medical comorbidities including longstanding diabetes and pacemaker in place with a 3-month history of a left great toe ulcer. Sounds like he had pretty significant cellulitis and swelling which is improved on the oral antibiotic continues to have the ulcer. Continues to drain. Not really painful. No obvious signs of bone destruction on x-rays but likely underlying infection. Plan: I discussed treatment option with the patient today including continued antibiotics and just wound care. I think it is unlikely that he will heal this wound completely yet. In my opinion the most appropriate treatment would be a great toe amputation. It is likely this will heal up in 3 weeks and be done. We discussed treatment option and he is like to proceed with amputation. Will get him medically optimized and plan to amputate his great great toe tomorrow. The risks met this procedure explained. Informed consent was obtained. (2) Cellulitis of foot, left: (3) Ulcer of left great toe due to diabetes mellitus: (4) DM type 1 (diabetes mellitus, type 1): (5) Coronary artery disease: (6) Hypertension: History of Present Illness Reason for Consultation: . Left great toe ulcer and infection. Requesting Physician: . Attending Physician: Manny Peres MD . Patient is an 84-year-old gent with multiple medical comorbidities and longstanding diabetes who is I had about a 2 to 3-month history of a left great toe ulcer. He has been treated with outpatient antibiotics. He did have quite a bit of leg swelling which has improved but continues to have a persistent ulcer and drainage. He was admitted last evening. No other complaints. Really does not have any pain. Allergies Allergy/AdvReac Type Severity Reaction Status Date / Time No Known Drug Allergies Allergy Unknown . Verified 03/12/24 08:27 Home Medications Medication Instructions Recorded Confirmed Type cholecalciferol (vitamin D3) 50 2,000 unit PO QAM 03/25/19 02/21/25 History mcg (2,000 unit) capsule (Vitamin D3) felodipine 5 mg tablet,extended 10 mg PO QAM 03/25/19 02/21/25 History release 24 hr lisinopril 40 mg tablet 40 mg PO QAM 03/25/19 02/21/25 History multivitamin 1 tab PO QAM 03/25/19 02/21/25 History omega-3s 300 lu-tlp-azl-other 2 cap PO QAM 03/25/19 02/21/25 History [id number] oil 1,000 mg capsule ([place]-3 Fish Oil) clopidogrel 75 mg tablet 75 mg PO DAILY 09/01/23 02/21/25 History insulin aspart U-100 100 unit/mL 10 unit subcut TIDWMEAL 09/01/23 02/21/25 History (3 mL) subcutaneous pen (Novolog FlexPen U-100 Insulin aspart) insulin glargine 100 unit/mL (3 24 unit subcut QPM 09/01/23 02/21/25 History mL) subcutaneous pen (Lantus Solostar U-100 Insulin) aspirin 81 mg tablet,delayed 81 mg PO QAM 30 days #30 tabs 09/03/23 02/21/25 Rx release atorvastatin 80 mg tablet 80 mg PO DAILY 11/10/23 02/21/25 History omeprazole 20 mg capsule,delayed 20 mg PO QAM 11/10/23 02/21/25 History release hydrochlorothiazide 25 mg tablet 12.5 mg (1/2 x 25 mg) PO DAILY 30 11/12/23 02/21/25 Rx days #30 tabs Past Med/Surg History Problem List (Updated 02/21/25 @ 09:17 by Jc Pablo MD) Ulcer of left great toe due to diabetes mellitus Hyperglycemia (Acute) Open wound of left great toe (Acute) Cellulitis of foot, left (Acute) DM type 1 (diabetes mellitus, type 1) Anxiety Syncope (Acute) Coronary artery disease 2005-LAD stent Hypertension Surgical History H/O inguinal hernia repair Family History Other No significant family history Social History Smoking Status: Never smoker Second Hand Exposure: No; Do You Dip or Chew Tobacco: No; Hx Alcohol Use: No Hx Substance Use: No Preferred Language: [place] Communication Ability: Effective 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 Physical Exam . Physical nation is a pleasant elderly male. He is sitting up in bed and looks completely comfortable. 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 Examination of the great toe reveals some mild diffuse swelling. Got a plantar ulcer which looks pretty clean but draining. He is got chronic fungal infections of the nail. Is got a large callus distally which I peeled off. He is got the decrease sensation throughout the foot. Results & Data Results & Data Laboratory Results . Diagnostic Findings . X-rays of the foot and toe were reviewed from a month ago. Shows diffuse degenerative changes and osteopenia. No obvious bone destruction. CT scan was also reviewed. Very difficult to assess. Darin diffuse osteopenia and degenerative changes. No obvious bone destruction. This is not an ideal test for this problem. PG Care Time/CCT Total # of Minutes Spent Total Time Spent with Patient: Total time spent is greater than 50% in coordination of care (as documented) at patient's floor/unit and/or counseling patient: Coding Level of Care Code 47951 IN/OBS CONSULT LVL 4,60M Diagnoses Open wound of left great toe S91.102A Cellulitis of foot, left L03.116 Ulcer of left great toe due to diabetes mellitus E11.621; L97.529 DM type 1 (diabetes mellitus, type 1) E10.9 Coronary artery disease I25.10 Hypertension I10
[2025-02-21] MEDS: VANCOMYCIN HCL 1,000 MG/270 ML BAG IV SCH (12:41)
--- NOTE | 2025-02-21 13:30 | Hospitalist Progress Note ---
Date of Service February 21, 2025 Assessment & Plan (1) Open wound of left great toe: Plan: Assessment and plan below following discussion of case with ED provider and reviewing patient history/pertinent normal/abnormal diagnostic test results. Diabetic foot infection left Possible osteomyelitis -has failed outpatient treatment, wound getting worse -no podiatry coverage over weekend -wound continues to worsen despite abx and wound care Plan: -ortho consulted, appreciate recs -amputation planned for tomorrow, see risk stratification above, medically optimized for procedure -hold lisinopril tonight -decrease lantus dosing tonight -continue holding antiplatelet agents in prep for surgery -chest xray, ECG ordered preop Acute on chronic anemia secondary to intermittent wound bleeding, home antiplatelet Rx contributory CAD status post stent (2005) SSS status post PPM hypertension, slightly elevated hyperlipidemia, on statin Rx PAMELA on CPAP DM1, blood sugar occasionally 400s at home, suboptimal control as of recent hemoglobin A1c of 8 last month I spent a total of 50 minutes in direct patient care, including [id number]-vb-[id number] time with the patient and/or family, reviewing medical records, ordering and reviewing diagnostic tests, and coordinating care with other healthcare providers. This time includes: history taking, physical examination, medical decision making, counseling, ECG interpretation, imaging interpretation, lab interpretation, orders, and education, excluding time spent in the performance of separately billed services. Admission and Anticipated Discharge Date Admission Date: February 20, 2025 Subjective Patient seen and examined at bedside. Patient doing well today, looking forward to amputation tomorrow to move on with his life. NSQUIP: patient is average risk for a low risk procedure, medically optimized for procedure. Chest chest xray, ECG. Continue aspirin, hold plavix preoperatively and restart 2 days post op, hold lisinopril tonight, cut lantus to 16 units tonight. Review of Systems 2 Review of Systems: CONSTITUTIONAL: Patient denies fevers, chills, sweats and weight changes. EYES: Patient denies any visual symptoms. EARS, NOSE, AND THROAT: No difficulties with hearing. No symptoms of rhinitis or sore throat. CARDIOVASCULAR: Patient denies chest pains, palpitations, orthopnea and paroxysmal nocturnal dyspnea. RESPIRATORY: No dyspnea on exertion, no wheezing or cough. GI: No nausea, vomiting, diarrhea, constipation, abdominal pain, hematochezia or melena. : No urinary hesitancy or dribbling. No nocturia or urinary frequency. No abnormal urethral discharge. MUSCULOSKELETAL: foot pain and drainage NEUROLOGIC: No chronic headaches, no seizures. Patient denies numbness, tingling or weakness. PSYCHIATRIC: Patient denies problems with mood disturbance. No problems with anxiety. ENDOCRINE: No excessive urination or excessive thirst. DERMATOLOGIC: Patient denies any rashes or skin changes. Physical Exam 2 Physical Exam: Gen: A&O NAD HEENT: NCAT, EOMI, not icteric. External ears normal. No rhinorrhea. Moist mucous membranes. Neck: Supple, full range of motion, no observable masses, No meningeal sign. Lungs: No Respiratory distress. CV: RRR, no edema. Abdomen: Soft, nondistended, No rebound tenderness. MSK: No joint swelling, no redness. Skin: No rashes, petechiae, lesions. Normal color per patient. Neuro: Normal Gait, Grossly intact. Psych: Appropriate for situation. Results & Data Results & Data Vital Signs (Past 12 Hours) Vital Signs Temp Pulse Pulse Resp BP Pulse Ox O2 Del Method 02/21/25 11:46 36.2 C L 70 16 132/67 98 Room Air 02/21/25 10:02 Room Air 02/21/25 07:38 36.8 C 60 16 157/76 H 98 Room Air 02/21/25 01:40 Room Air 02/21/25 01:40 36.7 C 62 18 172/74 H 98 Room Air Laboratory Results -personally reviewed, no leukcytosis, ESR/CRP within age adjusted normal limits, creatinine stable, negative procal Medications Administered Atorvastatin Calcium (Atorvastatin 40 Mg Tab) 80 mg PO DAILY [facility] Stop: 03/23/25 08:59 Last Admin: 02/21/25 08:14 Dose: 80 mg Documented By: ROBSON Felodipine (Felodipine 5 Mg Tabcr) 10 mg PO QAM JOE Stop: 03/23/25 08:59 Last Admin: 02/21/25 08:15 Dose: 10 mg Documented By: ROBSON Cefepime HCl (Maxipime 2000mg) 2,000 mg in 20 mls @ 5 mls/min IV Q8H JOE; Protocol Stop: 02/28/25 00:00 Last Admin: 02/21/25 08:15 Dose: 5 mls/min Documented By: Admin: 02/21/25 00:27 Dose: 5 mls/min Documented By: NOAM Sodium Chloride (Nss) 1,000 mls @ 60 mls/hr IV .[id number] ONE Stop: 02/21/25 18:00 Last Admin: 02/21/25 02:11 Dose: 60 mls/hr Documented By: MATEO Vancomycin HCl (Vancomycin Hcl) 1,000 mg in 270 mls @ 200 mls/hr IV Q12H [facility] Stop: 02/28/25 11:59 Last Admin: 02/21/25 12:41 Dose: 200 mls/hr Documented By: ROBSON Insulin Aspart (Insulin Aspart Per Unit Charge) 0 units SC ACHS JOE Stop: 03/22/25 23:34 Last Admin: 02/21/25 12:41 Dose: 6 units Documented By: ROBSON Co-signed By: CELSA Admin: 02/21/25 08:15 Dose: 5 units Documented By: ROBSON Co-signed By: [facility] Admin: 02/21/25 00:28 Dose: 10 units Documented By: NOAM Co-signed By: GABRIEL Lisinopril ([facility]op[facility] 40 Mg Tab) [facility] Stop: 03/23/25 08:59 Last Admin: 02/21/25 08:15 Dose: 40 mg Documented By: ROBSON Multivitamins (Multivitamin Tab) [facility] Stop: 03/23/25 08:59 Last Admin: 02/21/25 08:15 Dose: 1 tab Documented By: ROBSON Pantoprazole Sodium (Pantoprazole 40 Mg Tab) [facility] Stop: 03/23/25 08:59 Last Admin: 02/21/25 08:14 Dose: 40 mg Documented By: ROBSON
--- NOTE | 2025-02-21 13:56 | XRay Report ---
XR chest 1V portable CLINICAL HISTORY: preop chest xray COMPARISON STUDY: 03/12/2024 FINDINGS: Stable pacemaker. Heart size and pulmonary vasculature are normal. No effusion, consolidati on, or pneumothorax. IMPRESSION: No acute findings. ACT 112: Negative or not required by law. Electronically signed by: Deion Andrews M.D. 02/21/2025 1:55 PM
--- NOTE | 2025-02-21 15:29 | Pharmacy Report ---
Pharmacy PK ABX Note - Date of Service February 21, 2025 - Assessment and Plan Assessment 84 year old M receiving Vancomycin for treatment of diabetic foot infection. Pertinent microbiologic data includes: blood cultures pending. L great toe culture grew pseudomonas. Patient is also on Cefepime IV. Day #1 of antimicrobial therapy. Plan Vancomycin * Loading dose: 2000 mg IV x 1 * Maintenance dose: 1000 mg IV every 12 hours * Regimen is predicted to achieve target AUC/ALEXI of 400-600 mg/L.hr * Random level ordered for: 02/23/25 with AM labs Pharmacy will continue to follow and will adjust dose/frequency as necessary. Thank you. Pharmacy has transitioned to AUC monitoring for vancomycin. AUC/ALEXI is the preferred PK/PD target and is associated with decreased risk of nephrotoxicity compared to traditional trough targets.
[2025-02-21] MEDS ORDERED: ONDANSETRON INJ 2 MG/ML 2 ML VIAL IV PRN (16:02)
--- NOTE | 2025-02-21 18:43 | Anesthesiology Consultation ---
Date of Service February 21, 2025 Assessment & Plan (1) Encounter for pre-operative examination: Chart Review Chart Review: Acceptable Risk for Surgery History Surgery Operation Date: 02/22/25 07:30 Proposed Procedures p Amputation Toe(Left) - Jc Pablo MD Height/Weight Height: 5 ft 7 in Weight: 84.3 kg Allergies Allergy/AdvReac Type Severity Reaction Status Date / Time No Known Drug Allergies Allergy Unknown . Verified 03/12/24 08:27 Medications Home Medications Medication Instructions Recorded Confirmed Last Taken cholecalciferol (vitamin D3) 50 2,000 unit PO QAM 03/25/19 02/21/25 02/20/25 mcg (2,000 unit) capsule (Vitamin D3) felodipine 5 mg tablet,extended 10 mg PO QAM 03/25/19 02/21/25 02/20/25 release 24 hr lisinopril 40 mg tablet 40 mg PO QAM 03/25/19 02/21/25 02/20/25 multivitamin 1 tab PO QAM 03/25/19 02/21/25 02/20/25 omega-3s 300 ix-ojx-fpl-other 2 cap PO QAM 03/25/19 02/21/25 02/20/25 [id number] oil 1,000 mg capsule ([place]-3 Fish Oil) clopidogrel 75 mg tablet 75 mg PO DAILY 09/01/23 02/21/25 02/20/25 insulin aspart U-100 100 unit/mL 10 unit subcut TIDWMEAL 09/01/23 02/21/25 02/20/25 (3 mL) subcutaneous pen (Novolog FlexPen U-100 Insulin aspart) insulin glargine 100 unit/mL (3 24 unit subcut QPM 09/01/23 02/21/25 02/20/25 mL) subcutaneous pen (Lantus Solostar U-100 Insulin) aspirin 81 mg tablet,delayed 81 mg PO QAM 30 days #30 tabs 09/03/23 02/21/25 02/20/25 release atorvastatin 80 mg tablet 80 mg PO DAILY 11/10/23 02/21/25 02/20/25 omeprazole 20 mg capsule,delayed 20 mg PO QAM 11/10/23 02/21/25 02/20/25 release hydrochlorothiazide 25 mg tablet 12.5 mg (1/2 x 25 mg) PO DAILY 30 11/12/23 02/21/25 02/20/25 days #30 tabs Active Medications Generic Name Dose Route Start Last Admin Trade Name Nataliya PRN Reason Stop Dose Admin Atorvastatin Calcium 80 mg 02/21/25 09:00 02/21/25 08:14 Atorvastatin 40 Mg Tab PO 03/23/25 08:59 80 mg DAILY JOE Administration Felodipine 10 mg 02/21/25 09:00 02/21/25 08:15 Felodipine 5 Mg Tabcr PO 03/23/25 08:59 10 mg QAM JOE Administration Cefepime HCl 2,000 mg in 20 mls @ 5 mls/min 02/21/25 00:00 02/21/25 17:17 Maxipime 2000mg IV 02/28/25 00:00 5 mls/min Q8H JOE Administration Protocol Vancomycin HCl 1,000 mg in 270 mls @ 200 mls/hr 02/21/25 12:00 02/21/25 14:26 Vancomycin Hcl IV 02/28/25 11:59 Infused Q12H JOE Infusion Insulin Aspart 0 units 02/20/25 23:35 02/21/25 17:17 Insulin Aspart Per Unit Charge SC 03/22/25 23:34 5 units ACHS JOE Administration Lisinopril 40 mg 02/21/25 09:00 02/21/25 08:15 Lisinopril 40 Mg Tab PO 03/23/25 08:59 40 mg QAM JOE Administration Multivitamins 1 tab 02/21/25 09:00 02/21/25 08:15 Multivitamin Tab PO 03/23/25 08:59 1 tab QAM JOE Administration Pantoprazole Sodium 40 mg 02/21/25 09:00 02/21/25 08:14 Pantoprazole 40 Mg Tab PO 03/23/25 08:59 40 mg QAM JOE Administration Past Medical History Medical History (Updated 02/21/25 @ 18:46 by Ashish Ortiz MD) SSS (sick sinus syndrome) Now has pacemaker DM type 1 (diabetes mellitus, type 1) Syncope Hypertension Coronary artery disease 2006-LAD stent Past Family History Family History Other No significant family history Past Surgical History Surgical History (Updated 02/21/25 @ 18:44 by Ashish Ortiz MD) Hx of cardiac pacemaker H/O inguinal hernia repair Social History Smoking Status: Never smoker Do You Dip or Chew Tobacco: No Hx Alcohol Use: No alcohol intake frequency: other Hx Substance Use: No substance use type: does not use Physical Exam Vital Signs Last Vital Signs Temp 36.5 C 02/21/25 14:52 Pulse 62 02/21/25 14:52 Resp 18 02/21/25 14:52 BP 134/69 02/21/25 14:52 Pulse Ox 95 02/21/25 14:52 O2 Del Method Room Air 02/21/25 14:52 Testing Laboratory Results 02/21/25 06:49 02/21/25 06:49 Hemoglobin A1c 8.7 % (4.5-5.6) H 02/21/25 06:49 Blood Type A Positive 02/21/25 06:49 Antibody Screen NEGATIVE 02/21/25 06:49 02/20/25 21:55 Gram Stain - Final Toe,Left Great Wound Culture - Preliminary Pseudomonas aeruginosa 02/21/25 02/21/25 02/21/25 16:38 11:43 08:02 POC Glucose 179 H 180 H 151 H 02/21/25 06:13 POC Glucose 173 H Electrocardiogram Date: 02/21/25 Findings: + poor R wave progression atrial paced 60 Echocardiogram Date: 09/02/23 LV Function: normal Valvular Disease: + no significant valvular disease
[2025-02-21] MEDS: LANTUS PER UNIT CHARGE SQ SCH (20:40)
[2025-02-21] MEDS ORDERED: LANTUS PER UNIT CHARGE SQ SCH (21:00)
--- NOTE | 2025-02-22 07:10 | History & Physical Bridge Note ---
Date of Service February 22, 2025 History & Physical Bridge Note I have examined the patient, reviewed the History & Physical and in the interval since the performance of the History & Physical I have noted the following changes of clinical significance: no changes noted
[2025-02-22] MEDS ORDERED: PROPOFOL IV EMULSION 10 MG/ML 20 ML VIAL IV ONE (07:15)
[2025-02-22] MEDS ORDERED: fentaNYL citrate PF 100 MCG/2 ML VIAL ONE (07:16)
[2025-02-22] MEDS ORDERED: MIDAZOLAM HCL 1 MG/ML 2ML VIAL ONE (07:17)
[2025-02-22] MEDS ORDERED: FLUMAZENIL 0.1 MG/1 ML 10 ML VIAL IV PRN (07:30)
[2025-02-22] MEDS ORDERED: fentaNYL citrate PF 100 MCG/2 ML VIAL IV PRN (07:30)
[2025-02-22] MEDS ORDERED: ePHEDrine sulfate 50 MG/ML AMP IV PRN (07:30)
[2025-02-22] MEDS ORDERED: ATROPINE SULFATE 0.1 MG/ML 10ML SYR IV PRN (07:30)
[2025-02-22] MEDS ORDERED: ONDANSETRON INJ 2 MG/ML 2 ML VIAL IV PRN ×2 (07:30→09:50)
[2025-02-22] MEDS ORDERED: PROMETHAZINE HCL 6.25 MG in SODIUM CHLORIDE 0.9% 50 ML IV PRN (07:30)
[2025-02-22] MEDS ORDERED: NALOXONE HCL 0.4 MG/1 ML VIAL/CARP IV PRN ×2 (07:30→09:50)
[2025-02-22] MEDS: BUPIVACAINE/EPINEPHRINE 0.5% MPF 1:200,000 30 ML VIAL ONE (07:50)
[2025-02-22] MEDS ORDERED: ceFAZolin 330 MG/ML 1 GM VIAL ONE (07:53)
[2025-02-22] MEDS: ceFAZolin 2000MG 2,000 MG/15 ML SYR IV ONE (07:53)
--- NOTE | 2025-02-22 08:42 | Operative Report ---
PG Post Operative Report Pre & Post Diagnosis Operation Date: 02/22/25 07:30 Pre-Op Diagnosis: osteomyelitis, diabetic foot ulcer left great toe Post-Op Diagnosis: osteomyelitis, diabetic foot ulcer left great toe I identified the patient and participated in the time-out.: Yes Procedure Operation Date: 02/22/25 07:30 Actual Procedures p Amputation Left Great Toe(Left) - Jc Pablo MD Surgeon Jc Pablo MD Stone [employer]ames None Estimated Blood Loss 5 Findings Consistent with Post-Op Diagnosis Specimens Left toe sent for pathology Anesthesia Type Local Complications none Disposition Accompanied Patient To Recovery: No Indications Patient is an 84-year-old long-term insulin-dependent diabetic who has about a 3 to 4-month history of left great toe ulcer and infection. He had quite a bit of cellulitis and swelling. Was treated with long-term wound care and antibiotic management. A lot of the swelling and cellulitis improved but continued to have persistent ulcer on the plantar aspect of his great toe as well as recurrent drainage. Treatment options were explained including a further conservative management which is wound care and antibiotics versus amputation. He elected proceed with amputation in hopes of getting this to heal up and be done with a's soon as possible. Description of Procedure The patient was taken to the operating, identified, placed on the operating table in the supine position. All conductors were appropriately padded. IV antibiotics have been provided on the floor. Left ankle tourniquet was placed. The left foot was then scrubbed with Hibiclens. He was then given some IV sedation and digital block performed with about 25 cc of half percent Marcaine with epinephrine were then injected proximal to the incision site and about the midfoot area. The left foot was then prepped and draped in usual sterile fashion. The left foot was elevated and exsanguinated with use of an Esmarch. The tourniquet was placed at 300 mmHg. A fishmouth incision was made at the base of the great toe quite proximal to any ulcers. Sharp dissection was carried through subcutaneous tissues directly down to the bone. The bone was skeletonized back to the MTP joint, disarticulated, and excised and sent for pathology. I then irrigated the wound extensively. I pulled on the flexor and extensor tendons and cut them short and allowed them to retract. We once again irrigated. The tourniquet was let down for tourniquet time 9 minutes. Hemostasis assured use electrocautery. The skin was then closed with 3-0 nylon suture in a simple fashion. The foot was then cleaned and dried and a sterile dressing was Xeroform, 4 x 4's, sterile Curlex wrap and a Coban wrap followed by a postop shoe were applied. The patient then transferred to the recovery room in stable condition. Patient tolerated procedure well and there are no complications. I attest to the content of the Intraoperative Record and any orders documented therein. Any exceptions are noted below.
--- NOTE | 2025-02-22 09:35 | Anesthesiology Progress Note ---
Date of Service February 22, 2025 Anesthesia Post Procedure Vital Signs Vital Signs: Temp Pulse Pulse Resp BP Pulse Ox O2 Del Method 02/22/25 09:22 60 12 156/72 H 97 Room Air 02/22/25 09:10 36.4 C L 61 12 148/61 H 95 Room Air 02/22/25 09:00 60 12 151/58 H 97 Room Air 02/22/25 08:50 60 20 136/59 L 96 Room Air 02/22/25 08:40 61 19 152/63 H 97 Room Air 02/22/25 08:34 36 C L 61 13 161/64 H 95 Room Air 02/21/25 20:21 36.8 C 60 22 135/67 98 Room Air 02/21/25 14:52 36.5 C 62 18 134/69 95 Room Air 02/21/25 11:46 36.2 C L 70 16 132/67 98 Room Air 02/21/25 10:02 Room Air Transfer of Care Handoff Completed per policy Notes Mental Status: alert / awake / arousable Patient Amnestic to Procedure: Yes Nausea / Vomiting: adequately controlled Pain: adequately controlled Airway Patency, RR, SpO2: stable & adequate BP & HR: stable & adequate Hydration State: stable & adequate Anesthetic Complications: no major complications apparent
[2025-02-22] MEDS ORDERED: MULTIVITAMIN TAB PO SCH (09:50)
[2025-02-22] MEDS ORDERED: bisacodyL 10 MG SUPP PR PRN (09:50)
[2025-02-22] MEDS ORDERED: METOCLOPRAMIDE HCL INJ 5 MG/ML 2 ML VIAL IV PRN (09:50)
[2025-02-22] MEDS ORDERED: MAGNESIUM HYDROXIDE SUSP 30 ML UDC PO PRN (09:50)
[2025-02-22] MEDS ORDERED: ALUMINUM/MAGNESIUM SUSP 30 ML UDC PO PRN (09:50)
[2025-02-22] MEDS ORDERED: PHARMACY GLYCEMIC MGMT CONSULT PRN ×2 (09:50)
[2025-02-22] MEDS ORDERED: NON-FORMULARY MEDICATION (Insulin Aspart U-100 [Novolog Flexpen U-100 Insulin] 100 unit/mL SQ SCH (09:50)
--- NOTE | 2025-02-22 10:23 | Hospitalist Progress Note ---
Date of Service February 22, 2025 Assessment & Plan (1) Open wound of left great toe: Plan: Assessment and plan below following discussion of case with ED provider and reviewing patient history/pertinent normal/abnormal diagnostic test results. Diabetic foot infection left s/p amputation Possible osteomyelitis -has failed outpatient treatment, wound getting worse -no podiatry coverage over weekend -wound continued to worsen despite abx and wound care -POD 0 for amputation Plan: -ortho consulted, appreciate recs -incentive spirometry ordered -trend Hgb, WBC, creatinine post op -PT/OT ordered -resume home dose lantus today -resume lisinopril -continue holding antiplatelet agents, restart 48 hours post procedure Acute on chronic anemia secondary to intermittent wound bleeding, home antiplatelet Rx contributory CAD status post stent (2005) SSS status post PPM hypertension, slightly elevated hyperlipidemia, on statin Rx PAMELA on CPAP DM1, blood sugar occasionally 400s at home, suboptimal control as of recent hemoglobin A1c of 8 last month I spent a total of 40 minutes in direct patient care, including [id number] time with the patient and/or family, reviewing medical records, ordering and reviewing diagnostic tests, and coordinating care with other healthcare providers. This time includes: history taking, physical examination, medical decision making, counseling, ECG interpretation, imaging interpretation, lab interpretation, orders, and education, excluding time spent in the performance of separately billed services. Admission and Anticipated Discharge Date Admission Date: February 20, 2025 Subjective Patient doing ok today no concerns at this time. POD 0 for amputation of diabetic foot ucleration. Review of Systems Review of Systems: CONSTITUTIONAL: Patient denies fevers, chills, sweats and weight changes. EYES: Patient denies any visual symptoms. EARS, NOSE, AND THROAT: No difficulties with hearing. No symptoms of rhinitis or sore throat. CARDIOVASCULAR: Patient denies chest pains, palpitations, orthopnea and paroxysmal nocturnal dyspnea. RESPIRATORY: No dyspnea on exertion, no wheezing or cough. GI: No nausea, vomiting, diarrhea, constipation, abdominal pain, hematochezia or melena. : No urinary hesitancy or dribbling. No nocturia or urinary frequency. No abnormal urethral discharge. MUSCULOSKELETAL: foot pain and drainage NEUROLOGIC: No chronic headaches, no seizures. Patient denies numbness, tingling or weakness. PSYCHIATRIC: Patient denies problems with mood disturbance. No problems with anxiety. ENDOCRINE: No excessive urination or excessive thirst. DERMATOLOGIC: Patient denies any rashes or skin changes. Physical Exam Physical Exam: Gen: A&O 3 NAD HEENT: NCAT, EOMI, not icteric. External ears normal. No rhinorrhea. Moist mucous membranes. Neck: Supple, full range of motion, no observable masses, No meningeal sign. Lungs: No Respiratory distress. CV: RRR, no edema. Abdomen: Soft, nondistended, No rebound tenderness. MSK: No joint swelling, no redness. s/p amputation of diabetic foot ulcer Skin: No rashes, petechiae, lesions. Normal color per patient. Neuro: Normal Gait, Grossly intact. Psych: Appropriate for situation. Results & Data Results & Data Vital Signs (Past 12 Hours) Vital Signs Temp Pulse Pulse Resp BP Pulse Ox O2 Del Method 02/22/25 09:40 36.6 C 61 16 150/63 H 98 Room Air 02/22/25 09:22 60 12 156/72 H 97 Room Air 02/22/25 09:10 36.4 C L 61 12 148/61 H 95 Room Air 02/22/25 09:00 60 12 151/58 H 97 Room Air 02/22/25 08:50 60 20 136/59 L 96 Room Air 02/22/25 08:40 61 19 152/63 H 97 Room Air 02/22/25 08:34 36 C L 61 13 161/64 H 95 Room Air Medications Administered Atorvastatin Calcium (Atorvastatin 40 Mg Tab) 80 mg PO DAILY [facility] Stop: 03/23/25 08:59 Last Admin: 02/21/25 08:14 Dose: 80 mg Documented By: ROBSON Felodipine (Felodipine 5 Mg Tabcr) [facility] [place] Stop: 03/23/25 08:59 Last Admin: 02/21/25 08:15 Dose: 10 mg Documented By: ORBSON Cefepime HCl (Maxipime 2000mg) 2,000 mg in 20 mls @ 5 mls/min IV Q8H [facility]; Protocol Stop: 02/28/25 00:00 Last Admin: 02/21/25 23:25 Dose: 5 mls/min Documented By: Admin: 02/21/25 17:17 Dose: 5 mls/min Documented By: Admin: 02/21/25 08:15 Dose: 5 mls/min Documented By: Admin: 02/21/25 00:27 Dose: 5 mls/min Documented By: NOAM Vancomycin HCl (Vancomycin Hcl) 1,000 mg in 270 mls @ 200 mls/hr IV Q12H JOE Stop: 02/28/25 11:59 Last Infusion: 02/22/25 00:46 Dose: Infused Documented By: Admin: 02/21/25 23:25 Dose: 200 mls/hr Documented By: Infusion: 02/21/25 14:26 Dose: Infused Documented By: Admin: 02/21/25 12:41 Dose: 200 mls/hr Documented By: ROBSON Insulin Aspart (Insulin Aspart Per Unit Charge) 0 units SC ACHS JOE Stop: 03/22/25 23:34 Last Admin: 02/22/25 07:30 Dose: Not Given Documented By: Admin: 02/21/25 20:37 Dose: Not Given Documented By: STEVE Co-signed By: GRETEL Admin: 02/21/25 17:17 Dose: 5 units Documented By: ROBSON Co-signed By: GUME Admin: 02/21/25 12:41 Dose: 6 units Documented By: ROBSON Co-signed By: CELSA Admin: 02/21/25 08:15 Dose: 5 units Documented By: ROBSON Co-signed By: GUME Admin: 02/21/25 00:28 Dose: 10 units Documented By: NOAM Co-signed By: LILLIANA Insulin Glargine (Lantus Per Unit Charge) 18 units SQ HS [facility]E Stop: 03/23/25 20:59 Last Admin: 02/21/25 20:40 Dose: 18 units Documented By: STEVE Co-signed By: GRETEL Lisinopril (Lisinopril 40 Mg Tab) 40 mg PO QAM [facility] Stop: 03/23/25 08:59 Last Admin: 02/21/25 08:15 Dose: 40 mg Documented By: ROBSON Multivitamins (Multivitamin Tab) 1 tab PO QAM [facility] Stop: 03/23/25 08:59 Last Admin: 02/21/25 08:15 Dose: 1 tab Documented By: ROBSON Pantoprazole Sodium (Pantoprazole 40 Mg Tab) 40 mg PO QAM [facility] Stop: 03/23/25 08:59 Last Admin: 02/21/25 08:14 Dose: 40 mg Documented By: ROBSON
[2025-02-22 10:25] LABS: Hematocrit (blood only) 36.4 % (42.0-52.0); Hemoglobin 12.6 g/dl (14.0-18.0); Mean Corpuscular Hemoglobin 30.2 pg (25.0-34.0); Mean Corpuscular Hgb Conc 34.6 g/dL (32.0-36.0); Mean Corpuscular Volume 87.3 fL (80.0-100.0); Mean Platelet Volume 9.1 fL (9.4-12.4); Platelet Count 323 K/uL (130-400); RDW Coefficient of Variation 13.3 % (11.5-14.5); RDW Standard Deviation 42.7 fL (36.4-46.3); Red Blood Count 4.17 M/uL (4.70-6.10); White Blood Count 6.82 K/ul (4.8-10.8)
[2025-02-22] MEDS: SODIUM CHLORIDE 0.9% 1,000 ML IV SCH (10:30)
[2025-02-22] MEDS: CLOPIDOGREL BISULFATE 75 MG TAB PO SCH (10:31)
[2025-02-22] MEDS: hydroCHLOROthiazide 25 MG TAB PO SCH (10:31)
[2025-02-22] MEDS: DOCUSATE SODIUM 100 MG CAP PO SCH (10:33)
[2025-02-22 10:47] LABS: BUN Creatinine Ratio 21.1 (10-20); Calcium 8.8 mg/dl (8.6-10.3); Creatinine Clr Calc Pharmacy 80.4 ml/min; Magnesium 1.9 mg/dl (1.7-2.4); Potassium 3.7 mmol/L (3.5-5.1)
--- NOTE | 2025-02-22 14:05 | Pharmacy Report ---
Pharmacy Glycemic Short Note 2 - Date of Service February 22, 2025 - Glycemic Short BSG Results (Last 24 hours): 02/21/25 02/21/25 02/22/25 16:38 20:32 08:38 Glucose POC Glucose 179 H 173 H 200 H 02/22/25 02/22/25 09:53 11:37 Glucose 200 H POC Glucose 195 H OUTPATIENT ANTIDIABETIC REGIMEN: * Glargine 24 units QPM, Aspart 10 units with meals * A1c 8.7% 02/21/25 ASSESSMENT: * Consulted POD #0 of left great toe amputation. Currently on cefepime + vancomycin. Cultures with Pseudomonas + Staph aureus (sensitivity pending). * Fasting BSG 200 mg/dL this morning- PM lantus dose was reduced for NPO status. Increased back to home dose tonight * Tightened carb ratio this AM, will aim to keep BSGs <180 mg/dL to promote healing. PLAN FOR INPATIENT GLYCEMIC CONTROL: * Hold outpatient oral diabetes medications * Basal insulin * Lantus 24 units HS * Bolus insulin * NovoLog per scale ACHS or Q6hrs while NPO * Goal Range: Low 110 mg/dL - High 140 mg/dL * Correction Factor: 25 mg/dL/unit * Nutritional / Prandial insulin per carb ratio of 1 unit per 10 grams CHO consumed
[2025-02-22] MEDS: ASCORBIC ACID 500 MG TAB PO SCH (16:20)
[2025-02-22] MEDS: SENNA 8.6 MG TAB PO SCH (20:10)
[2025-02-22] MEDS ORDERED: NON-FORMULARY MEDICATION (Insulin Glargine [Lantus Solostar U-100 Insulin] 100 unit/mL (3 SQ SCH (21:00)
[2025-02-22] MEDS: LANTUS PER UNIT CHARGE SQ SCH (21:06)
[2025-02-22] MEDS: oxyCODONE HCL IR 5 MG TAB (IMMEDIATE RELEASE) PO PRN (22:37)
[2025-02-22 23:57] VITALS: RESP 18
[2025-02-23] MEDS: ACETAMINOPHEN 325 MG TAB PO PRN (01:12)
[2025-02-23 04:42] LABS: Mean Corpuscular Hemoglobin 29.7 pg (25.0-34.0); Mean Corpuscular Hgb Conc 34.4 g/dL (32.0-36.0); Mean Corpuscular Volume 86.5 fL (80.0-100.0); Mean Platelet Volume 8.8 fL (9.4-12.4); Platelet Count 286 K/uL (130-400); RDW Coefficient of Variation 13.2 % (11.5-14.5); RDW Standard Deviation 41.9 fL (36.4-46.3); White Blood Count 10.07 K/ul (4.8-10.8)
[2025-02-23 05:05] LABS: BUN Creatinine Ratio 20.8 (10-20); Calcium 8.2 mg/dl (8.6-10.3); Creatinine Clr Calc Pharmacy 79.3 ml/min; Potassium 3.5 mmol/L (3.5-5.1)
[2025-02-23] MEDS: CHOLECALCIFEROL 25 MCG (1000 UNITS) TAB PO SCH (07:50)
[2025-02-23] MEDS: OMEGA-3 (PURIFIED FISH OIL) 1 GM CAP PO SCH (07:51)
--- NOTE | 2025-02-23 08:04 | Orthopedic Progress Note ---
Date of Service February 23, 2025 Assessment & Plan (1) Ulcer of left great toe due to diabetes mellitus: * Continue Current Treatment * S/p great toe amputation * Disposition: TBD * Daily treatment: Physical Therapy/ Occupational Therapy per protocol * Weight bearing status: As tolerated in postop shoe * Continue to monitor for ABLA * Pain control * Office/hospital f/u 2 weeks for progress check and staple/suture removal, please maintain dressing until this time * Remainder care per primary team * Stable for discharge from ortho standpoint, further planning per primary team Subjective .Active Problems: S/p left great toe amputation 84y/o male s/p left great toe amputation. Doing well overall, pain managed and improved function. Denies fever/chills, chest pain/SOB, nausea/vomiting. Otherwise no complaints. Review of Systems All systems reviewed & are unremarkable except as noted in HPI & below. Physical Exam . * General: Alert and oriented, no acute distress * Constitutional: well-developed, well-nourished. * Respiratory: Normal respiratory effort, no distress * Gastrointestinal: No tenderness to palpation, no rigidity or guarding. * Skin: No rash or lesion. * Neurologic: Grossly normal * Musculoskeletal: Left foot surgical dressing intact, not removed for exam. No outward sign of drainage or bleeding. Minimal tenderness around the great toe region. Otherwise no specific tenderness of the lower leg/foot. AROM ankle flexion/extension intact, AROM toe movement intact. Sensation intact plantar/dorsal foot. Brisk capillary refill all remaining toes Results & Data Results & Data Laboratory Results . Diagnostic Findings . PG Care Time/CCT Total # of Minutes Spent Total Time Spent with Patient: Total time spent is greater than 50% in coordination of care (as documented) at patient's floor/unit and/or counseling patient: Coding Level of Care Code 83740 Post Operative Follow-Up Diagnoses Ulcer of left great toe due to diabetes mellitus E11.621; L97.529
[2025-02-23] MEDS: VANCOMYCIN HCL 1,250 MG in SODIUM CHLORIDE 0.9% 250 ML IV SCH (11:17)
--- NOTE | 2025-02-23 11:22 | Pharmacy Report ---
Pharmacy PK ABX Note - Date of Service February 23, 2025 - Assessment and Plan Assessment 02/23: * Patient is s/p left great toe amputation (POD #1). * L great toe culture from 02/20 grew pseudomonas(S to cefepime) and S. aureus (R to clinda and eryth, vanco seven = 1); Blood cultures x 2 from 02/20 are NGTD (prelim) * Vancomycin level drawn this morning was 16mcg/mL which extrapolates to a subtherapeutic AUC 24,48. 02/21 84 year old M receiving Vancomycin for treatment of diabetic foot infection. Pertinent microbiologic data includes: blood cultures pending. L great toe culture grew pseudomonas. Patient is also on Cefepime IV. Day #3 of antimicrobial therapy. Plan Vancomycin * Vancomycin level drawn this morning was 16mcg/mL which extrapolates to an AUC24 of 389mg/L.hr. * Increase maintenance dose to: 1250 mg IV every 12 hours * Regimen is predicted to achieve target AUC/SEVEN of 400-600 mg/L.hr * Random level ordered for: 02/25/25 at 1100. Cefepime: * 2gm iv q 8 hours Pharmacy will continue to follow and will adjust dose/frequency as necessary. Thank you. Pharmacy has transitioned to AUC monitoring for vancomycin. AUC/SEVEN is the preferred PK/PD target and is associated with decreased risk of nephrotoxicity compared to traditional trough targets.
--- NOTE | 2025-02-23 13:32 | Hospitalist Progress Note ---
Date of Service February 23, 2025 Assessment & Plan (1) Open wound of left great toe: Plan: Assessment and plan below following discussion of case with ED provider and reviewing patient history/pertinent normal/abnormal diagnostic test results. Diabetic foot infection left s/p amputation Possible osteomyelitis -has failed outpatient treatment, wound getting worse -no podiatry coverage over weekend -wound continued to worsen despite abx and wound care -POD 1 for amputation Plan: -ortho consulted, appreciate recs -incentive spirometry ordered -trend Hgb, WBC, creatinine post op -continue holding antiplatelet agents, restart 48 hours post procedure -medically stable for discharge to acute rehab vs. SNF Acute on chronic anemia secondary to intermittent wound bleeding, home antiplatelet Rx contributory CAD status post stent (2005) SSS status post PPM hypertension, slightly elevated hyperlipidemia, on statin Rx PAMELA on CPAP DM1, blood sugar occasionally 400s at home, suboptimal control as of recent hemoglobin A1c of 8 last month I spent a total of 40 minutes in direct patient care, including [id number] time with the patient and/or family, reviewing medical records, ordering and reviewing diagnostic tests, and coordinating care with other healthcare providers. This time includes: history taking, physical examination, medical decision making, counseling, ECG interpretation, imaging interpretation, lab interpretation, orders, and education, excluding time spent in the performance of separately billed services. Admission and Anticipated Discharge Date Admission Date: February 20, 2025 Subjective Patient seen and examined at bedside. Patient doing well today, pain improving. Review of Systems Review of Systems: CONSTITUTIONAL: Patient denies fevers, chills, sweats and weight changes. EYES: Patient denies any visual symptoms. EARS, NOSE, AND THROAT: No difficulties with hearing. No symptoms of rhinitis or sore throat. CARDIOVASCULAR: Patient denies chest pains, palpitations, orthopnea and paroxysmal nocturnal dyspnea. RESPIRATORY: No dyspnea on exertion, no wheezing or cough. GI: No nausea, vomiting, diarrhea, constipation, abdominal pain, hematochezia or melena. : No urinary hesitancy or dribbling. No nocturia or urinary frequency. No abnormal urethral discharge. MUSCULOSKELETAL: foot pain and drainage NEUROLOGIC: No chronic headaches, no seizures. Patient denies numbness, tingling or weakness. PSYCHIATRIC: Patient denies problems with mood disturbance. No problems with anxiety. ENDOCRINE: No excessive urination or excessive thirst. DERMATOLOGIC: Patient denies any rashes or skin changes. Physical Exam Physical Exam: Gen: A&O 3 NAD HEENT: NCAT, EOMI, not icteric. External ears normal. No rhinorrhea. Moist mucous membranes. Neck: Supple, full range of motion, no observable masses, No meningeal sign. Lungs: No Respiratory distress. CV: RRR, no edema. Abdomen: Soft, nondistended, No rebound tenderness. MSK: No joint swelling, no redness. s/p amputation of diabetic foot ulcer Skin: No rashes, petechiae, lesions. Normal color per patient. Neuro: Normal Gait, Grossly intact. Psych: Appropriate for situation. Results & Data Results & Data Vital Signs (Past 12 Hours) Vital Signs Temp Pulse Resp BP Pulse Ox O2 Del Method 02/23/25 11:27 36.8 C 67 18 122/61 98 Room Air 02/23/25 07:30 36.8 C 60 18 148/73 H 98 Room Air 02/23/25 04:02 36.9 C 65 18 158/71 H 95 Room Air 02/23/25 03:00 36.9 C 78 16 144/85 H 95 Room Air Laboratory Results -personally reviewed, Hgb stable post op, creatinine stable Medications Administered Acetaminophen (Acetaminophen 325 Mg Tab) 650 mg PO QID PRN PRN Reason: pain/fever Stop: 03/23/25 00:34 Last Admin: 02/23/25 01:12 Dose: 650 mg Documented By: GRETEL Ascorbic Acid (Ascorbic Acid 500 Mg Tab) 500 mg PO BIDM [facility] Stop: 03/24/25 16:59 Last Admin: 02/23/25 07:52 Dose: 500 mg Documented By: Admin: 02/22/25 16:20 Dose: 500 mg Documented By: CAYLA Atorvastatin Calcium (Atorvastatin 40 Mg Tab) 80 mg PO DAILY [facility] Stop: 03/23/25 08:59 Last Admin: 02/23/25 07:52 Dose: 80 mg Documented By: Admin: 02/22/25 10:32 Dose: 80 mg Documented By: Admin: 02/21/25 08:14 Dose: 80 mg Documented By: ROBSON Clopidogrel Bisulfate (Clopidogrel Bisulfate 75 Mg Tab) 75 mg PO DAILY [facility] Stop: 03/24/25 09:49 Last Admin: 02/23/25 07:51 Dose: 75 mg Documented By: Admin: 02/22/25 10:31 Dose: 75 mg Documented By: CAYLA Docusate Sodium (Docusate Sodium 100 Mg Cap) 100 mg PO BID [facility]E Stop: 03/24/25 09:49 Last Admin: 02/23/25 07:52 Dose: 100 mg Documented By: Admin: 02/22/25 20:13 Dose: 100 mg Documented By: Admin: 02/22/25 10:33 Dose: 100 mg Documented By: CAYLA Felodipine (Felodipine 5 Mg Tabcr) 10 mg PO QAM [facility] Stop: 03/23/25 08:59 Last Admin: 02/23/25 07:53 Dose: 10 mg Documented By: Admin: 02/22/25 10:31 Dose: 10 mg Documented By: Admin: 02/21/25 08:15 Dose: 10 mg Documented By: ROBSON Fish Oil ([place]-3 (Purified Fish Oil) 1 Gm Cap) 2 cap PO QAM [facility] Stop: 03/25/25 08:59 Last Admin: 02/23/25 07:51 Dose: 2 cap Documented By: FLORINDA Hydrochlorothiazide (Hydrochlorothiazide 25 Mg Tab) 12.5 mg PO DAILY [facility] Stop: 03/24/25 09:49 Last Admin: 02/23/25 07:51 Dose: 25 mg Documented By: Admin: 02/22/25 10:31 Dose: 12.5 mg Documented By: CAYLA Cefepime HCl (Maxipime 2000mg) 2,000 mg in 20 mls @ 5 mls/min IV Q8H [facility]; Protocol Stop: 02/28/25 00:00 Last Admin: 02/23/25 08:21 Dose: 5 mls/min Documented By: Admin: 02/23/25 01:07 Dose: 5 mls/min Documented By: Admin: 02/22/25 16:19 Dose: 5 mls/min Documented By: Admin: 02/22/25 11:00 Dose: 5 mls/min Documented By: Admin: 02/21/25 23:25 Dose: 5 mls/min Documented By: Admin: 02/21/25 17:17 Dose: 5 mls/min Documented By: Admin: 02/21/25 08:15 Dose: 5 mls/min Documented By: Admin: 02/21/25 00:27 Dose: 5 mls/min Documented By: NOAM Vancomycin HCl 1,250 mg/ (Sodium Chloride) 275 mls @ 200 mls/hr IV Q12H [facility] Stop: 02/28/25 11:59 Last Infusion: 02/23/25 12:49 Dose: Infused Documented By: Admin: 02/23/25 11:17 Dose: 200 mls/hr Documented By: FLORINDA Insulin Aspart (Insulin Aspart Per Unit Charge) 0 units SC ACHS [facility]E Stop: 03/22/25 23:34 Last Admin: 02/23/25 12:06 Dose: 7 units Documented By: FLORINDA Co-signed By: RIVER Admin: 02/23/25 08:02 Dose: 6 units Documented By: FLORINDA Co-signed By: CHAYO Admin: 02/22/25 20:12 Dose: Not Given Documented By: Admin: 02/22/25 16:55 Dose: 7 units Documented By: CAYLA Co-signed By: CHAYO Admin: 02/22/25 12:03 Dose: 10 units Documented By: CAYLA Co-signed By: SAMANTHA Admin: 02/22/25 07:30 Dose: Not Given Documented By: Admin: 02/21/25 20:37 Dose: Not Given Documented By: STEVE Co-signed By: GRETEL Admin: 02/21/25 17:17 Dose: 5 units Documented By: ROBSON Co-signed By: DARCI Admin: 02/21/25 12:41 Dose: 6 units Documented By: ROBSON Co-signed By: CELSA Admin: 02/21/25 08:15 Dose: 5 units Documented By: ROBSON Co-signed By: [facility] Admin: 02/21/25 00:28 Dose: 10 units Documented By: NOAM Co-signed By: GABRIEL Insulin Glargine (Lantus Per Unit Charge) 24 units SQ HS [facility] Stop: 03/24/25 20:59 Last Admin: 02/22/25 21:06 Dose: 24 units Documented By: GRETEL Co-signed By: ADRIANO Lisinopril (Lisinopril 40 Mg Tab) 40 mg PO QAM [facility] Stop: 03/23/25 08:59 Last Admin: 02/23/25 07:52 Dose: 40 mg Documented By: Admin: 02/21/25 08:15 Dose: 40 mg Documented By: ROBSON Multivitamins (Multivitamin Tab) [facility] [place] Stop: 03/23/25 08:59 Last Admin: 02/23/25 07:53 Dose: 1 tab Documented By: Admin: 02/22/25 10:31 Dose: 1 tab Documented By: Admin: 02/21/25 08:15 Dose: 1 tab Documented By: ROBSON Oxycodone HCl (Oxycodone Hcl Ir 5 Mg Tab (Immediate Release)) 5 mg PO Q4H PRN PRN Reason: Pain Stop: 03/07/25 00:34 Last Admin: 02/23/25 03:59 Dose: 5 mg Documented By: Admin: 02/22/25 22:37 Dose: 5 mg Documented By: GRETEL Pantoprazole Sodium (Pantoprazole 40 Mg Tab) [facility] [place] Stop: 03/23/25 08:59 Last Admin: 02/23/25 07:53 Dose: 40 mg Documented By: Admin: 02/22/25 10:31 Dose: 40 mg Documented By: Admin: 02/21/25 08:14 Dose: 40 mg Documented By: ROBSON Sennosides (Senna 8.6 Mg Tab) 17.2 mg PO [facility] Stop: 03/24/25 20:59 Last Admin: 02/22/25 20:12 Dose: 17.2 mg Documented By: Admin: 02/22/25 20:10 Dose: 17.2 mg Documented By: GRETEL Vitamin D (Cholecalciferol 25 Mcg (1000 Units) Tab) 50 mcg PO QA [facility] Stop: 03/25/25 08:59 Last Admin: 02/23/25 07:50 Dose: 50 mcg Documented By: FLORINDA
[2025-02-23 19:29] VITALS: O2SAT 98
[2025-02-24 07:35] LABS: Hematocrit (blood only) 30.7 % (42.0-52.0); Hemoglobin 10.5 g/dl (14.0-18.0); Mean Corpuscular Hemoglobin 29.9 pg (25.0-34.0); Mean Corpuscular Hgb Conc 34.2 g/dL (32.0-36.0); Mean Corpuscular Volume 87.5 fL (80.0-100.0); Mean Platelet Volume 9.3 fL (9.4-12.4); Platelet Count 285 K/uL (130-400); RDW Coefficient of Variation 13.3 % (11.5-14.5); Red Blood Count 3.51 M/uL (4.70-6.10); White Blood Count 8.47 K/ul (4.8-10.8)
[2025-02-24 07:46] VITALS: BP 157/75; PULSE 60; TEMP 97.5
[2025-02-24 07:54] LABS: Calcium 8.5 mg/dl (8.6-10.3); Potassium 3.8 mmol/L (3.5-5.1)
[2025-02-24 08:00] LABS: BUN Creatinine Ratio 23.2 (10-20); Creatinine Clr Calc Pharmacy 82.7 ml/min
--- NOTE | 2025-02-24 09:24 | Orthopedic Progress Note ---
Date of Service February 24, 2025 Assessment & Plan (1) Ulcer of left great toe due to diabetes mellitus: Plan: 84-year-old gentleman now 2 days out from left great toe amputation for a chronic foot ulcer. He is doing well. Pains controlled. Plan: From an orthopedic standpoint the patient can weight-bear as tolerated. Should elevate the foot is much as possible. Medical management as per the medicine service. He can be discharged anytime. No need for antibiotics at this point. He needs to follow-up in clinic in 2 to 3 weeks. To just leave the dressing and bandage clean dry and in place. Any orthopedic questions can be directly [phone]. (2) Open wound of left great toe: Admission and Anticipated Discharge Date Admission Date: February 20, 2025 Subjective 84-year-old gentleman now postop day 2 from a left great toe amputation for chronic great toe ulcer. He is doing well this morning. No pain. No new complaints. Physical Exam Physical Exam: For examination is a pleasant elderly male. He sitting up in his bedside chair looks comfortable. Examination left foot reveals a dressing be clean dry and intact. No signs of drainage. Results & Data Vital Signs (Past 12 Hours) Vital Signs Temp Pulse Resp BP Pulse Ox O2 Del Method 02/24/25 07:42 36.4 C L 60 18 157/75 H 98 Room Air
--- NOTE | 2025-02-24 13:25 | Pharmacy Report ---
Pharmacy Glycemic Short Note 2 - Date of Service February 24, 2025 - Glycemic Short BSG Results (Last 24 hours): 02/23/25 02/23/25 02/24/25 16:29 20:19 06:52 Glucose 266 H POC Glucose 98 185 H 02/24/25 07:44 Glucose POC Glucose 236 H OUTPATIENT ANTIDIABETIC REGIMEN: * Glargine 24 units QPM, Aspart 10 units with meals * A1c 8.7% 02/21/25 ASSESSMENT: 02/24: * Alexys received a total of 40 units of insulin yesterday (24 units were basal and 16 units were bolus) BSGs were 044-006-02-185mg/dL. * Fasting BSG was 236mg/dL this morning (patient reportedly refused insulin at HS last night) and bri to 246mg/dL at lunch time. Lantus dose was increased starting tonight and will trial tightening the bolus insulin parameters just at breakfast starting tomorrow morning.--He has had some blood glucose readings below goal in the evening and they tend to be higher in the morning. * He continues on cefepime and vancomycin. 02/22: * Consulted POD #0 of left great toe amputation. Currently on cefepime + vancomycin. Cultures with Pseudomonas + Staph aureus (sensitivity pending). * Fasting BSG 200 mg/dL this morning- PM lantus dose was reduced for NPO status. Increased back to home dose tonight * Tightened carb ratio this AM, will aim to keep BSGs <180 mg/dL to promote healing. PLAN FOR INPATIENT GLYCEMIC CONTROL: * Hold outpatient oral diabetes medications * Basal insulin * Lantus 27 units HS * Bolus insulin * NovoLog per scale ACHS or Q6hrs while NPO * Goal Range: Low 110 mg/dL - High 140 mg/dL * Breakfast -Correction Factor: 20 mg/dL/unit -Nutritional / Prandial insulin per carb ratio of 1 unit per 9 grams CHO consumed * Lunch, supper, and HS -Correction Factor: 25 mg/dL/unit -Nutritional / Prandial insulin per carb ratio of 1 unit per 12 grams CHO consumed
--- NOTE | 2025-02-24 14:25 | Discharge Summary ---
Discharge Summary Date of Service February 24, 2025 Principal Dx & Hospital Course #1 = Principal Diagnosis (1) Open wound of left great toe: Assessment and plan below following discussion of case with ED provider and reviewing patient history/pertinent normal/abnormal diagnostic test results. Diabetic foot infection left s/p amputation Possible osteomyelitis -has failed outpatient treatment, wound getting worse -no podiatry coverage over weekend -wound continued to worsen despite abx and wound care -POD 1 for amputation Plan: -ortho consulted, appreciate recs -incentive spirometry ordered -trend Hgb, WBC, creatinine post op -continue holding antiplatelet agents, restart 48 hours post procedure -medically stable for discharge to acute rehab vs. SNF Acute on chronic anemia secondary to intermittent wound bleeding, home ant iplatelet Rx contributory CAD status post stent (2005) SSS status post PPM hypertension, slightly elevated hyperlipidemia, on statin Rx PAMELA on CPAP DM1, blood sugar occasionally 400s at home, suboptimal control as of recent hemoglobin A1c of 8 last month Notes For Next Care Provider 84 yo male with pmhx of CAD status post stent (2005), SSS status post PPM hypertension, hyperlipidemia, PAMELA on CPAP, DM1, GERD who presents for left toe wound. Wound getting worse, admitted to medicine for abx. Ortho consulted, recommended amputation give failure of abx therapy and unliklihood further abx would be effective in salvaging toe. Amputation performed, no post op complications immediately noted. PT/OT recommending SNF, insurance denied acute rehab, offered SNF, patient chose home health. On 02/24/2025 patient medically stable for discharge home. To do: [ ] have wound care at home [ ] f/u with ortho Medication Changes From Visit -see below Admission HPI Per Admitting Provider History obtained from patient and records. Medical history significant for CAD status post stent (2005), SSS status post PPM hypertension, hyperlipidemia, PAMELA on CPAP, DM1, GERD, chronic anemia (baseline hemoglobin of 12). Last confinement November 2023 for syncope. Patient discharged with loop recorder. Bradycardia later noted on loop recorder. Patient eventually underwent outpatient PPM placement for SSS last March 2024. 3 months ago, patient accidentally sustained wound on left great toe after self trimming callus with some wire cutters at home. No immediate consultations. Progressive nonpainful left great toe swelling with bloody yellowish drainage. No fever, no chills. Patient consulted urgent care center last month. Prescribed Bactrim course. Outpatient left great toe x-ray showed Loss of cortex of tuft of distal phalanx may represent osteomyelitis. Recommend MR correlation as clinically indicated. Patient directed to ER for evaluation with abnormal outpatient left foot x-ray. Patient declined ED provider offer for admission for possible osteomyelitis. Discharged on Augmentin and doxycycline course. Persistent drainage with mild pain despite completing antibiotic course. Patient seen by [facility] [place] furnace builder outpatient 2 weeks ago. Hammertoes noted on exam. Full-thickness open wound to the left toe plantar aspect noted with mild erythema. Some toenails noted to appear fungal thickened and discolored. Debridement done at the office. Outpatient bone scan recommended to definitely rule out osteomyelitis as patient cannot go for MRI due to pacemaker device as per note. Worsening swelling and drainage following furnace builder visit. Swelling noted to extend to left lower leg few days ago. Patient felt a little unstable walking. No fever, no chills. No chest pain, no SOB. No headache symptoms. IV vancomycin administered at the ER. Medical History as above Surgical History : PPM, hernia repair, vasectomy Family History : DM Personal/Social history : Non-smoker, no EtOH intake, retired schoolteacher Discharge Exam Gen: A&O 3 NAD HEENT: NCAT, EOMI, not icteric. External ears normal. No rhinorrhea. Moist mucous membranes. Neck: Supple, full range of motion, no observable masses, No meningeal sign. Lungs: No Respiratory distress. CV: RRR, no edema. Abdomen: Soft, nondistended, No rebound tenderness. MSK: No joint swelling, no redness. s/p amputation of diabetic foot ulcer Skin: No rashes, petechiae, lesions. Normal color per patient. Neuro: Normal Gait, Grossly intact. Psych: Appropriate for situation. Updated Medication List Medication Instructions Recorded Confirmed Type cholecalciferol (vitamin D3) 50 2,000 unit PO QAM 03/25/19 02/21/25 History mcg (2,000 unit) capsule (Vitamin D3) felodipine 5 mg tablet,extended 10 mg PO QAM 03/25/19 02/21/25 History release 24 hr lisinopril 40 mg tablet 40 mg PO QAM 03/25/19 02/21/25 History multivitamin 1 tab PO QAM 03/25/19 02/21/25 History omega-3s 300 [id number]-[id number] 2 cap PO QAM 03/25/19 02/21/25 History gbron1y-[id number] oil 1,000 mg capsule ([place]-3 Fish Oil) clopidogrel 75 mg tablet 75 mg PO DAILY 09/01/23 02/21/25 History insulin aspart U-100 100 unit/mL 10 unit subcut TIDWMEAL 09/01/23 02/21/25 History (3 mL) subcutaneous pen (Novolog FlexPen U-100 Insulin aspart) insulin glargine 100 unit/mL (3 24 unit subcut QPM 09/01/23 02/21/25 History mL) subcutaneous pen (Lantus Solostar U-100 Insulin) aspirin 81 mg tablet,delayed 81 mg PO QAM 30 days #30 tabs 09/03/23 02/21/25 Rx release atorvastatin 80 mg tablet 80 mg PO DAILY 11/10/23 02/21/25 History omeprazole 20 mg capsule,delayed 20 mg PO QAM 11/10/23 02/21/25 History release hydrochlorothiazide 25 mg tablet 12.5 mg (1/2 x 25 mg) PO DAILY 30 11/12/23 02/21/25 Rx days #30 tabs amoxicillin 500 mg-potassium 1 tab PO BID 2 days #4 tabs 02/24/25 Rx clavulanate 125 mg tablet (Augmentin) doxycycline hyclate 100 mg capsule 100 mg PO BID 2 days #4 caps 02/24/25 Rx oxycodone 5 mg tablet 5 mg PO Q4H PRN pain #14 tabs 02/24/25 Rx Hospital Stay Data Consultations 02/20/25 23:28 ED Decision to Admit Stat 02/21/25 00:34 Consult Orthopedic Surgery Routine Procedures Performed Operation Date: 02/22/25 07:30 Actual Procedures p Amputation Left Great Toe(Left) - Jc Pablo MD Diagnostic Imagining Performed 02/21/25 00:30 CT foot LT w con Stat US venous doppler LE LT Stat Pending Results Patient Have Any Pending Studies at Discharge: No Discharge Instructions Given to Patient (Per Discharging Provider) Keep dressing on foot clean, dry, and in place until follow-up appointment in 2- 3 weeks. May weightbear on foot in shoe, but limit walking as much as possible. Elevate foot as much as possible Total Time Total Time Spent Total Time Spent (In Minutes): I spent a total of 35 minutes in direct patient care, including [id number]-[id number] time with the patient and/or family, reviewing medical records, ordering and reviewing diagnostic tests, and coordinating care with other healthcare providers. This time includes: history taking, physical examination, medical decision making, counseling, ECG interpretation, imaging interpretation, lab interpretation, orders, and education, excluding time spent in the performance of separately billed services.
--- NOTE | 2025-02-24 15:30 | Electrocardiogram Report ---
Test Reason : Blood Pressure : */* mmHG Vent. Rate : 60 BPM Atrial Rate : 60 BPM P-R Int : 288 ms QRS Dur : 86 ms QT Int : 448 ms P-R-T Axes : 35 -16 59 degrees QTcB Int : 448 ms Atrial-paced rhythm with prolonged AV conduction Septal infarct , age undetermined Abnormal ECG When compared with ECG of 12-Mar-2024 13:42, Electronic atrial pacemaker has replaced Sinus rhythm Septal infarct is now Present Confirmed by Chris Hillman ([id number]) on 02/24/2025 3:29:56 PM Referred By: REFERRED SELF Confirmed By: Chris Hillman
[2025-02-24] MEDS ORDERED: INSULIN ASPART PER UNIT CHARGE SC SCH (16:30)
[2025-02-24] MEDS ORDERED: LANTUS PER UNIT CHARGE SQ SCH (21:00)
[2025-02-25] MEDS ORDERED: INSULIN ASPART PER UNIT CHARGE SC SCH (07:30)
[2025-02-25] MEDS ORDERED: VANCOMYCIN LEVEL ONE (11:00)
== END 2025-02-24 13:57 | disposition home or self-care (01) | DRG 617 ==
LOC: ED 21:18 → 3N 23:46